=== PATIENT | female | born 1975 | race Hispanic/Latino ===

== ENCOUNTER 2018-04-13 17:32 | Emergency (ER) | payer OTHER, MEDICAID, SELFPAY ==
[2018-04-13 17:52] VITALS: BP 152/97; PULSE 78; RESP 20; TEMP 36.8; O2SAT 99
--- NOTE | 2018-04-13 17:56 | ED.LOWEXIN ---
HPI - Extremity Injury (Lower) <DAWSON Wolfe - Last Filed: 04/13/18 22:36> General Chief Complaint: Extremity Injury, Lower Stated Complaint: BACK,NECK PAIN Time Seen by Provider: 04/13/18 17:55 Source: patient Mode of arrival: ambulatory Limitations: no limitations History of Present Illness HPI Narrative: 42-year-old female here for complaint of pain into her left side of her back from her neck to her buttocks radiating into her left thigh she denies any trauma into the area. Increased pain with palpation to the left side of the back and also into the buttocks area. No falls she is ambulatory into the emergency room. She is currently using a cane to walk and a splint on her left ankle due to previous ankle sprain a couple of months ago. She denies any fevers or chills. She denies any strenuous activity. No stressors or relievers of her discomfort. She denies any loss of bladder or bowel control. Related Data Previous Rx's Medication Instructions Recorded cyclobenzaprine 10 mg PO TID PRN #12 tab 04/13/18 prednisone 40 mg PO DAILY #6 tab 04/13/18 Allergies Allergy/AdvReac Type Severity Reaction Status Date / Time No Known Drug Allergies Allergy Verified 04/13/18 19:19 Review of Systems <DAWSON Wolfe - Last Filed: 04/13/18 22:36> Constitutional Denies chills, Denies fever(s), Denies lethargy and Denies weakness Eyes Denies change in vision, Denies eye discharge, Denies irritation and Denies loss of vision ENT Ears, Nose, Mouth, and Throat: Denies change in voice, Denies neck pain and Denies sore throat Cardiovascular Denies chest pain, Denies irregular heart rhythm, Denies lightheadedness, Denies palpitations, Denies dyspnea, Denies dyspnea on exertion and Denies orthopnea Respiratory Denies cough, Denies dyspnea, Denies dyspnea on exertion and Denies wheezing Gastrointestinal Gastrointestinal: Denies abdominal pain, Denies change in bowel habits, Denies diarrhea, Denies nausea and Denies vomiting Genitourinary Denies hematuria, Denies flank pain, Denies urinary incontinence and Denies urinary urgency Musculoskeletal Reports back pain and Denies neck pain Integumentary/Breasts Denies pruritus, Denies erythema, Denies rash and Denies wounds Neurologic Denies confusion, Denies loss of vision and Denies weakness Psychiatric Denies anxiety, Denies confusion, Denies depression, Denies homicidal ideation and Denies suicidal ideation Endocrine Denies palpitations Hematologic/Lymphatic Denies easy bruising Allergic/Immunologic Denies wheezing Exam <DAWSON Wolfe - Last Filed: 04/13/18 22:36> Initial Vital Signs Initial Vital Signs: Vital Signs Temperature 98.2 F 04/13/18 17:52 Pulse Rate 78 04/13/18 17:52 Respiratory Rate 20 04/13/18 17:52 Blood Pressure 152/97 H 04/13/18 17:52 Pulse Oximetry 99 04/13/18 17:52 Const General: cooperative and well developed Nutritional Appearance: well nourished Orientation: alert, awake, oriented x3 and not confused HENMT Mouth: oral mucosae normal and moist mucous membranes Eyes Conjunctivae: conjunctivae normal Sclera: sclerae normal Pupils: PERRL EOM: EOM intact bilaterally Resp Effort & Inspection: normal respiratory effort, able to speak in complete sentences, no respiratory distress and no use of accessory muscles Auscultation: clear to auscultation bilaterally, no rales, no rhonchi and no wheezes Cardio Rate: regular rate Rhythm: regular rhythm Heart Sounds: no click, no gallops, no murmurs and no rubs Pulses: normal peripheral pulses Back/Spine/Pelvis Thoracic/Lumbar Spine: paraspinal tenderness, No thoracic spinal tenderness and No lumbar spinal tenderness Other: Tenderness to the left paraspinals of the thoracic and also the lumbar spine. Tenderness radiates down into the left buttocks and the left posterior thigh distal sensation is intact. Distal range of motion is intact. Distal pulses are intact no deformities. No midline tenderness. Skin General: no rashes or lesions noted, No jaundice and No petechiae Neuro General: alert, oriented x3, gait normal and no focal motor deficits Speech: speech normal <Chasity Logan DO - Last Filed: 04/14/18 00:20> Initial Vital Signs Initial Vital Signs: Vital Signs Temperature 98.2 F 04/13/18 17:52 Pulse Rate 78 04/13/18 17:52 Respiratory Rate 20 04/13/18 17:52 Blood Pressure 152/97 H 04/13/18 17:52 Pulse Oximetry 99 04/13/18 17:52 Course <DAWSON Wolfe - Last Filed: 04/13/18 22:36> Orders Ordered: ED Orders 04/13/18 17:55 Urine Microscopic Stat Discontinued Medications Cyclobenzaprine HCl (Flexeril) 10 mg PO NOW ONE Stop: 04/13/18 19:02 Last Admin: 04/13/18 19:19 Dose: 10 mg Ketorolac Tromethamine (Toradol) 60 mg IM NOW ONE Stop: 04/13/18 19:02 Last Admin: 04/13/18 19:19 Dose: 60 mg Prednisone (Deltasone) 40 mg PO NOW ONE Stop: 04/13/18 19:02 Last Admin: 04/13/18 19:19 Dose: 40 mg Vital Signs - 8 hr 04/13/18 17:52 04/13/18 18:13 04/13/18 18:50 Temperature 98.2 F Pulse Rate 78 67 Pulse Rate [Bilateral Dorsalis Pedis] 80 Pulse Rate [Bilateral Radial] 80 Respiratory Rate 20 16 Blood Pressure 152/97 H Blood Pressure [Left Arm] 175/90 H Pulse Oximetry 99 98 04/13/18 20:08 Temperature Pulse Rate 63 Pulse Rate [Bilateral Dorsalis Pedis] Pulse Rate [Bilateral Radial] Respiratory Rate 16 Blood Pressure Blood Pressure [Left Arm] 153/86 H Pulse Oximetry 96 <Chasity Logan DO - Last Filed: 04/14/18 00:20> Orders Ordered: ED Orders 04/13/18 17:55 Urine Microscopic Stat Discontinued Medications Cyclobenzaprine HCl (Flexeril) 10 mg PO NOW ONE Stop: 04/13/18 19:02 Last Admin: 04/13/18 19:19 Dose: 10 mg Ketorolac Tromethamine (Toradol) 60 mg IM NOW ONE Stop: 04/13/18 19:02 Last Admin: 04/13/18 19:19 Dose: 60 mg Prednisone (Deltasone) 40 mg PO NOW ONE Stop: 04/13/18 19:02 Last Admin: 04/13/18 19:19 Dose: 40 mg Vital Signs - 8 hr 04/13/18 17:52 04/13/18 18:13 04/13/18 18:50 Temperature 98.2 F Pulse Rate 78 67 Pulse Rate [Bilateral Dorsalis Pedis] 80 Pulse Rate [Bilateral Radial] 80 Respiratory Rate 20 16 Blood Pressure 152/97 H Blood Pressure [Left Arm] 175/90 H Pulse Oximetry 99 98 04/13/18 20:08 Temperature Pulse Rate 63 Pulse Rate [Bilateral Dorsalis Pedis] Pulse Rate [Bilateral Radial] Respiratory Rate 16 Blood Pressure Blood Pressure [Left Arm] 153/86 H Pulse Oximetry 96 MDM - Extremity Injury (Lower) <DAWSON Wolfe - Last Filed: 04/13/18 22:36> Lab Data Lab Results 04/13/18 Range/Units 17:55 Urine RBC 0-1/hpf (0-5/HPF) Urine WBC None seen (0-5/HPF) Ur Squamous Epith Cells 0-1 /hpf Urine Bacteria Few (2-10) H (None) Ur Culture Indicated? Cult not indicated Micro UA Comment Not Reportable MDM Narrative Medical decision making narrative: Sinus symptoms persist present as acute back strain with sciatica. She is prescribed cyclobenzaprine and short course prednisone, 1st doses given the emergency room tonight. She is instructed not to take the cyclobenzaprine in conjunction with her prescribed oxycodone. [id number] Tylenol or Motrin as needed for discomfort. Follow up with primary care provider later this week. For any worsening symptoms return emergency room. <Chasity Logan DO - Last Filed: 04/14/18 00:20> Lab Data Lab Results 04/13/18 Range/Units 17:55 Urine RBC 0-1/hpf (0-5/HPF) Urine WBC None seen (0-5/HPF) Ur Squamous Epith Cells 0-1 /hpf Urine Bacteria Few (2-10) H (None) Ur Culture Indicated? Cult not indicated Micro UA Comment Not Reportable Discharge Plan Departure Patient Disposition: Home, Self-Care Clinical Impression: Back pain Discharge Date/Time: 04/13/18 20:12 Interventions: ED Discharge Assessment Last Done: 04/13/18 20:12 Instructions: DI for Back Pain With Sciatica Activity Restrictions/Additional Instructions: Signs and symptoms presents as back strain with sciatica. You have been prescribed cyclobenzaprine a muscle relaxer use as directed for muscle spasm. Do not use a muscle relaxer in conjunction with already prescribed oxycodone. You have also been prescribed short course of prednisone for anti-inflammatory effects use as directed. [id number] Tylenol or Motrin as needed for any discomfort. Follow up with her primary care provider later this week. Return emergency room for any worsening symptoms. Prescriptions: New cyclobenzaprine 10 mg tablet 10 mg PO TID PRN (Reason: muscle spasm) Qty: 12 RF: 0 prednisone 20 mg tablet 40 mg PO DAILY Qty: 6 RF: 0 Referrals: [facility] [Provider Group] <Chasity Logan DO - Last Filed: 04/14/18 00:20> Cosign ED Attending Lisa Attestation: I was immediately available in the department for consultation. Documentation has been reviewed. I agree with assessment and plan.
[2018-04-13 18:07] LABS: WBC Urine None Seen (0-5/HPF)
[2018-04-13 18:13] VITALS: PULSE 80
[2018-04-13 18:25] LABS: Bacteria Urine Few (2-10); Culture Indicated Urine Cult Not Indicated; RBC Urine 0-1/HPF (0-5/HPF); Squamous Epithelial Cell Urine 0-1 /HPF
[2018-04-13 18:50] VITALS: BP 175/90; PULSE 67; RESP 16; O2SAT 98
[2018-04-13] MEDS: KETOROLAC 60 MG/2 ML VIAL IM (19:19)
[2018-04-13] MEDS: CYCLOBENZAPRINE 10 MG TABLET PO (19:19)
[2018-04-13] MEDS: predniSONE 20 MG TABLET 40 MG PO (19:19)
[2018-04-13 20:08] VITALS: BP 153/86; PULSE 63; RESP 16; O2SAT 96
== END 2018-04-13 20:12 | disposition home or self-care (01) ==
PROVIDERS: Emergency Provider Nurse Practitioner Family
DX: M54.9 Dorsalgia, unspecified (principal)
CPT/HCPCS: 81003; 81015; 81025; 99282; 99283; J1885

== ENCOUNTER 2018-06-16 15:20 | Emergency (ER) | payer OTHER, MEDICAID, SELFPAY ==
[2018-06-16 15:22] VITALS: BP 145/99; PULSE 96; RESP 16; TEMP 37.4; O2SAT 95
--- NOTE | 2018-06-16 15:48 | ED.UPPEXIN ---
HPI - Extremity Injury (Upper) <DAWSON Damico - Last Filed: 06/17/18 12:00> General Chief Complaint: Extremity Injury, Upper Stated Complaint: LACERATION TO RING FINGER LEFT HAND Time Seen by Provider: 06/16/18 15:48 Related Data Previous Rx's Medication Instructions Recorded cyclobenzaprine 10 mg PO TID PRN #12 tab 04/13/18 prednisone 40 mg PO DAILY #6 tab 04/13/18 Allergies Allergy/AdvReac Type Severity Reaction Status Date / Time No Known Drug Allergies Allergy Verified 06/16/18 15:21 Review of Systems <DAWSON Damico - Last Filed: 06/17/18 12:00> Constitutional Reports as per HPI and Reports system reviewed and no additional complaints, except as docu Musculoskeletal Reports as per HPI, Denies deformity, Denies limited range of motion, Denies muscle weakness and Denies numbness Integumentary/Breasts Reports wounds Neurologic Denies focal weakness and Denies numbness Exam <DAWSON Damico - Last Filed: 06/17/18 12:00> Initial Vital Signs Initial Vital Signs: Vital Signs Temperature 99.3 F 06/16/18 15:22 Pulse Rate 96 H 06/16/18 15:22 Respiratory Rate 16 06/16/18 15:22 Blood Pressure 145/99 H 06/16/18 15:22 Pulse Oximetry 95 06/16/18 15:22 Const General: cooperative, healthy appearing, comfortable and well developed Nutritional Appearance: average body habitus Orientation: alert, awake and oriented x3 Resp Effort & Inspection: normal respiratory effort and able to speak in complete sentences Back/Spine/Pelvis Cervical Spine: cervical ROM normal Thoracic/Lumbar Spine: thoraco-lumbar ROM limited Skin General: no rashes or lesions noted, elasticity normal, turgor normal and warm Trauma: no abrasions, no lacerations and other (superficial skin avulsion to tip of L hand 4th digit, with very mild active bleeding and mild tenderness) Neuro General: alert, awake and oriented x3 Cranial Nerves: CN's II-XI intact bilaterally Cognition: normal cognition Speech: speech normal Motor: muscle tone normal throughout Sensory Exam: no sensory deficits noted Psych Appearance: grossly normal and well kempt Mental Status: mental status grossly normal Speech and Movement: speech and movement normal Mood: congruent mood Affect: normal affect Attitude: cooperative Thought Process: normal Thought Content: normal Judgment: judgment good <Chasity Logan DO - Last Filed: 06/17/18 12:15> Initial Vital Signs Initial Vital Signs: Vital Signs Temperature 99.3 F 06/16/18 15:22 Pulse Rate 96 H 06/16/18 15:22 Respiratory Rate 16 06/16/18 15:22 Blood Pressure 145/99 H 06/16/18 15:22 Pulse Oximetry 95 06/16/18 15:22 Course <DAWSON Damico - Last Filed: 06/17/18 12:00> Vital Signs - 8 hr 06/16/18 15:22 06/16/18 16:53 Temperature 99.3 F Pulse Rate 96 H 98 H Respiratory Rate 16 15 Blood Pressure 145/99 H Blood Pressure [Right Arm] 136/76 Pulse Oximetry 95 100 <Chasity Logan DO - Last Filed: 06/17/18 12:15> Vital Signs - 8 hr 06/16/18 15:22 06/16/18 16:53 Temperature 99.3 F Pulse Rate 96 H 98 H Respiratory Rate 16 15 Blood Pressure 145/99 H Blood Pressure [Right Arm] 136/76 Pulse Oximetry 95 100 MDM - Extremity Injury (Upper) <DAWSON Damico - Last Filed: 06/17/18 12:00> Differential Diagnosis Differential diagnosis: Likely other (finger lac, skin avulsion, abrasion, amputation) Discharge Plan Departure Patient Disposition: Home Clinical Impression: Avulsion of skin Discharge Date/Time: 06/16/18 17:01 Interventions: ED Discharge Assessment Last Done: 06/16/18 17:01 Instructions: DI for Avulsion Laceration (Not Requiring Sutures) Prescriptions: No Action cyclobenzaprine 10 mg tablet 10 mg PO TID PRN (Reason: muscle spasm) Qty: 12 RF: 0 prednisone 20 mg tablet 40 mg PO DAILY Qty: 6 RF: 0 Referrals: Skyler Nash PA-C [Advanced Obstetrician Gynecologist] - (in approx 3 days as needed for wound recheck) Queta Robertson PA-C [Physician] - Nicki Reid ARNP [Advanced Obstetrician Gynecologist] - <DO Kai Love Last Filed: 06/17/18 12:15> Cosign ED Attending Cosignature Attestation: I was immediately available in the department for consultation. Documentation has been reviewed. I agree with assessment and plan.
--- NOTE | 2018-06-16 16:12 | ED_ITS ---
Addendum entered and electronically signed by DAWSON Damico 06/17/18 12: 01: using knife to cut some cabbage and cut the end of L ring finger, happened just captain waiter, isolated injury to finger, no other issues, R handed, happened at home, no issues moving finger, and no pain except near cut, couldn't get it to stop bleeding Original Note: HPI - Extremity Injury (Upper) <DAWSON Damico - Last Filed: 06/17/18 12:00> General Chief Complaint: Extremity Injury, Upper Stated Complaint: LACERATION TO RING FINGER LEFT HAND Time Seen by Provider: 06/16/18 15:48 Related Data Previous Rx's Medication Instructions Recorded cyclobenzaprine 10 mg PO TID PRN #12 tab 04/13/18 prednisone 40 mg PO DAILY #6 tab 04/13/18 Allergies Allergy/AdvReac Type Severity Reaction Status Date / Time No Known Drug Allergies Allergy Verified 06/16/18 15:21 Review of Systems <DAWSON Damico - Last Filed: 06/17/18 12:00> Constitutional Reports as per HPI and Reports system reviewed and no additional complaints, except as docu Musculoskeletal Reports as per HPI, Denies deformity, Denies limited range of motion, Denies muscle weakness and Denies numbness Integumentary/Breasts Reports wounds Neurologic Denies focal weakness and Denies numbness Exam <DAWSON Damico - Last Filed: 06/17/18 12:00> Initial Vital Signs Initial Vital Signs: Vital Signs Temperature 99.3 F 06/16/18 15:22 Pulse Rate 96 H 06/16/18 15:22 Respiratory Rate 16 06/16/18 15:22 Blood Pressure 145/99 H 06/16/18 15:22 Pulse Oximetry 95 06/16/18 15:22 Const General: cooperative, healthy appearing, comfortable and well developed Nutritional Appearance: average body habitus Orientation: alert, awake and oriented x3 Resp Effort & Inspection: normal respiratory effort and able to speak in complete sentences Back/Spine/Pelvis Cervical Spine: cervical ROM normal Thoracic/Lumbar Spine: thoraco-lumbar ROM limited Skin General: no rashes or lesions noted, elasticity normal, turgor normal and warm Trauma: no abrasions, no lacerations and other (superficial skin avulsion to tip of L hand 4th digit, with very mild active bleeding and mild tenderness) Neuro General: alert, awake and oriented x3 Cranial Nerves: CN's II-XI intact bilaterally Cognition: normal cognition Speech: speech normal Motor: muscle tone normal throughout Sensory Exam: no sensory deficits noted Psych Appearance: grossly normal and well kempt Mental Status: mental status grossly normal Speech and Movement: speech and movement normal Mood: congruent mood Affect: normal affect Attitude: cooperative Thought Process: normal Thought Content: normal Judgment: judgment good <Chasity Logan DO - Last Filed: 06/17/18 12:15> Initial Vital Signs Initial Vital Signs: Vital Signs Temperature 99.3 F 06/16/18 15:22 Pulse Rate 96 H 06/16/18 15:22 Respiratory Rate 16 06/16/18 15:22 Blood Pressure 145/99 H 06/16/18 15:22 Pulse Oximetry 95 06/16/18 15:22 Course <DAWSON Damico - Last Filed: 06/17/18 12:00> Vital Signs - 8 hr 06/16/18 15:22 06/16/18 16:53 Temperature 99.3 F Pulse Rate 96 H 98 H Respiratory Rate 16 15 Blood Pressure 145/99 H Blood Pressure [Right Arm] 136/76 Pulse Oximetry 95 100 <Chasity Logan DO - Last Filed: 06/17/18 12:15> Vital Signs - 8 hr 06/16/18 15:22 06/16/18 16:53 Temperature 99.3 F Pulse Rate 96 H 98 H Respiratory Rate 16 15 Blood Pressure 145/99 H Blood Pressure [Right Arm] 136/76 Pulse Oximetry 95 100 MDM - Extremity Injury (Upper) <DAWSON Damico - Last Filed: 06/17/18 12:00> Differential Diagnosis Differential diagnosis: Likely other (finger lac, skin avulsion, abrasion, amputation) Discharge Plan Departure Patient Disposition: Home Clinical Impression: Avulsion of skin Discharge Date/Time: 06/16/18 17:01 Interventions: ED Discharge Assessment Last Done: 06/16/18 17:01 Instructions: DI for Avulsion Laceration (Not Requiring Sutures) Prescriptions: No Action cyclobenzaprine 10 mg tablet 10 mg PO TID PRN (Reason: muscle spasm) Qty: 12 RF: 0 prednisone 20 mg tablet 40 mg PO DAILY Qty: 6 RF: 0 Referrals: Skyler Nash PA-C [Advanced Director Of Sustainability Programs] - (in approx 3 days as needed for wound recheck) Queta Robertson PA-C [Physician] - Nicki Reid ARNP [Advanced Director Of Sustainability Programs] - <Chasity Logan DO - Last Filed: 06/17/18 12:15> Cosign ED Attending Lisa Attestation: I was immediately available in the department for consultation. Documentation has been reviewed. I agree with assessment and plan.
[2018-06-16 16:53] VITALS: BP 136/76; PULSE 98; RESP 15; O2SAT 100
== END 2018-06-16 17:01 | disposition home or self-care (01) ==
PROVIDERS: Emergency Provider Nurse Practitioner
DX: S61.205A Unspecified open wound of left ring finger without damage to nail, initial encounter (principal); W26.0XXA Contact with knife, initial encounter
CPT/HCPCS: 99282

== ENCOUNTER 2018-07-09 10:03 | Emergency (ER) | payer OTHER, MEDICAID, SELFPAY ==
[2018-07-09 10:15] VITALS: BP 120/78; PULSE 68; RESP 20; TEMP 36.9; O2SAT 99
[2018-07-09] MEDS: HYDROCODONE/ACET 5/325 TABLET 1 TAB PO (11:53)
[2018-07-09] MEDS: LIDOCAINE/PRILOCAINE 5 GM TOP (11:54)
--- NOTE | 2018-07-18 14:18 | ED.UPPEXIN ---
HPI - Extremity Injury (Upper) General Chief Complaint: Extremity Injury, Upper Stated Complaint: cut rt index finger Time Seen by Provider: 07/09/18 11:32 Source: patient and family Mode of arrival: ambulatory Limitations: no limitations History of Present Illness HPI narrative: Patient was slicing vegetables with a knife, when she accidentally cut the tip of her right index finger off. The avulse tissue consisted mainly of skin, but involve the very corner of the nail to. Son states they have brought the finger tip with them. Patient was not injured in any other way and denies any other complaints at this time. complaint: injury to: right Onset (ago): minute(s) Other Extremity Injury: Right: fingers ( index) Other injuries: none Handedness: ambidextrous Place: home Severity: mild Severity scale (1-10): 3 Relieving factors: none Exacerbating factors: movement of extremity Context: other ( see above) Associated symptoms: denies other symptoms Treatments prior to arrival: bandage Related Data Home Medications Medication Instructions Recorded Confirmed albuterol sulfate [ProAir HFA] 07/09/18 baclofen 07/09/18 buspirone 07/09/18 duloxetine 1 cap PO DAILY 07/09/18 07/09/18 hydroxyzine HCl 1 tab PO DAILY 07/09/18 07/09/18 nabumetone 07/09/18 Allergies Allergy/AdvReac Type Severity Reaction Status Date / Time No Known Drug Allergies Allergy Verified 06/16/18 15:21 Review of Systems Review of Systems All systems reviewed & are unremarkable except as noted in HPI and below Constitutional Denies chills, Denies fever(s), Denies lethargy and Denies weakness Eyes Denies change in vision, Denies eye discharge, Denies irritation and Denies loss of vision ENT Ears, Nose, Mouth, and Throat: Denies change in voice, Denies neck pain and Denies sore throat Cardiovascular Denies chest pain, Denies irregular heart rhythm, Denies lightheadedness, Denies palpitations, Denies dyspnea, Denies dyspnea on exertion and Denies orthopnea Respiratory Denies cough, Denies dyspnea, Denies dyspnea on exertion and Denies wheezing Gastrointestinal Gastrointestinal: Denies abdominal pain, Denies change in bowel habits, Denies diarrhea, Denies nausea and Denies vomiting Genitourinary Denies hematuria, Denies flank pain, Denies urinary incontinence and Denies urinary urgency Musculoskeletal Denies neck pain Integumentary/Breasts Denies pruritus, Denies erythema, Denies rash and Reports wounds ( finger tip avulsion) Neurologic Denies confusion, Denies loss of vision and Denies weakness Psychiatric Denies anxiety, Denies confusion, Denies depression, Denies homicidal ideation and Denies suicidal ideation Endocrine Denies palpitations Hematologic/Lymphatic Denies easy bruising Allergic/Immunologic Denies wheezing [facility] Medical History Fibromyalgia (Acute) Social History Smoking Status: Never smoker Exam Initial Vital Signs Initial Vital Signs: Vital Signs Temperature 98.4 F 07/09/18 10:15 Pulse Rate 68 07/09/18 10:15 Respiratory Rate 20 07/09/18 10:15 Blood Pressure 120/78 07/09/18 10:15 Pulse Oximetry 99 07/09/18 10:15 Const General: cooperative and well developed Nutritional Appearance: well nourished Orientation: alert, awake, oriented x3 and not confused [facility] Head: normocephalic and atraumatic Ears: external ears normal Nose: external nose normal and No nasal discharge Face and sinus: face symmetric and No dry mucous membranes Mouth: moist mucous membranes Teeth and gingiva: dentition normal Eyes General: appearance normal, both eyes and all related structures Eyelids: eyelids normal Conjunctivae: conjunctivae normal Sclera: sclerae normal Pupils: PERRL EOM: EOM intact bilaterally Neck Neck: normal visual inspection, trachea midline, No lymphadenopathy, No midline deformity and No JVD Lymphatic: No lymphedema Resp Effort & Inspection: normal respiratory effort, able to speak in complete sentences, no respiratory distress and no use of accessory muscles Cardio Rate: regular rate Rhythm: regular rhythm Pulses: normal peripheral pulses Back/Spine/Pelvis Back: No CVA tenderness Cervical Spine: cervical ROM normal and No pain with cervical ROM Thoracic/Lumbar Spine: thoracic and lumbar spine normal to inspection Skin General: no rashes or lesions noted, No jaundice and No petechiae Other: Patient has a 1-1/2 cm area of skin and very superficial tissue avulsion on the radial aspect of her lateral distal-most index finger. A very tiny sliver of nail, approximately 1-2 mm in diameter in estimation, has been able stand as well. There is no tissue maceration or contamination evident. Bleeding is controlled. no deformity of the finger. Neuro General: alert, oriented x3, gait normal and no focal motor deficits Speech: speech normal Extrem General: full ROM, no clubbing, cyanosis or edema, no pedal edema and no calf tenderness Other: Wound is as noted under the skin exam; there is no deformity of the right index finger. Psych Appearance: well kempt Mental Status: mental status grossly normal Attitude: cooperative Thought Content: normal and suicidality Judgment: judgment good Course Orders Ordered: Discontinued Medications Hydrocodone Bitart/Acetaminophen ([place] 5/325) 1 tab PO NOW ONE Stop: 07/09/18 11:39 Last Admin: 07/09/18 11:53 Dose: 1 tab Lidocaine/Prilocaine (Lidocaine-Prilocaine Cream) 5 gm TOP NOW ONE Stop: 07/09/18 11:39 Last Admin: 07/09/18 11:54 Dose: 5 gm MDM - Extremity Injury (Upper) Medical Records Attestation: I reviewed the patient's medical records. [facility] [place] Narrative Medical decision making narrative: I discussed with the patient and son that there is no way to replace the finger tip, as it is mainly skin with just a small bit of tissue and has been completely dissociated from the finger. Given the small amount of tissue associated with the skin, reattachment of this avulse piece would not result in viability. I have explained to the patient and son that skin will regrow over the area and she may have a slight bit of deformity to the tip, but otherwise, her finger tip should have normal function. I do not suspect bony involvement, given the superficial nature of this injury, and the lack of blunt or torsional forces. Patient's wound has been cleansed and has been placed in a nonstick sterile dressing. Discharge Plan Departure Patient Disposition: Home Clinical Impression: Avulsion of fingertip Discharge Date/Time: 07/09/18 12:08 Interventions: ED Discharge Assessment Last Done: 07/09/18 12:00 Instructions: DI for Avulsion Laceration (Not Requiring Sutures) Prescriptions: No Action buspirone 15 mg tablet RF: 0 duloxetine 30 mg capsule,delayed release(DR/EC) 1 cap PO DAILY RF: 0 nabumetone 500 mg tablet RF: 0 baclofen 10 mg tablet RF: 0 hydroxyzine HCl 50 mg tablet 1 tab PO DAILY RF: 0 albuterol sulfate [ProAir HFA] 90 mcg/actuation HFA aerosol inhaler RF: 0 Referrals: [facility] [Provider Group]
== END 2018-07-09 12:08 | disposition home or self-care (01) ==
PROVIDERS: Emergency Provider Emergency Medicine
DX: S68.120A Partial traumatic metacarpophalangeal amputation of right index finger, initial encounter (principal); W26.0XXA Contact with knife, initial encounter
CPT/HCPCS: 36591; 99283

== ENCOUNTER → 2018-09-06 13:46 | Outpatient (CLI) | payer OTHER, MEDICAID, SELFPAY ==
--- NOTE | 2018-09-06 | DI.US.S_ITS ---
PROCEDURE: US RENAL COMPLETE INDICATIONS: RENAL CYSTS TECHNIQUE: Real-time scanning was performed of the kidneys and bladder, with image documentation. COMPARISON: None. FINDINGS: Kidneys: Kidneys are normal in size. Right kidney measures 10.4 cm long; left kidney measures 9.8 cm long. Right renal cortical thickness is 1.3 cm; left renal cortical thickness is 1.7 cm. Renal cortical echotexture is normal. No hydronephrosis or nephrolithiasis. No suspicious solid mass lesions. Bladder: Pre-void bladder volume is 166 mL. Post-void residual is 36 mL. Pre-void images demonstrate no intraluminal masses or stones. On pre-void images, neither of the ureteral jets are noted with color Doppler interrogation. (Of note, ureteral jets may not be detectable in up to 25% of cases due to insufficient differences in specific gravity between ureteral and bladder urine). Miscellaneous: No free pelvic fluid. IMPRESSION: No renal cyst sonographically identified. No hydronephrosis. Post void residual measuring 36 cc. Dictated by: Yogi Mckenzie M.D. on 09/06/2018 at 16:17 Approved by: Yogi Mckenzie M.D. on 09/06/2018 at 16:19
== END ==
PROVIDERS: Visit Provider Family Medicine
DX: N28.1 Cyst of kidney, acquired (principal)
CPT/HCPCS: 76770

== ENCOUNTER 2018-09-17 10:29 | Emergency (ER) | payer OTHER, MEDICAID, SELFPAY ==
[2018-09-17 10:40] VITALS: BP 148/76; PULSE 120; RESP 36; TEMP 36.1; O2SAT 99
[2018-09-17] MEDS: ALBUTEROL/IPRATROPIUM 3 ML AMPUL INH (11:50)
[2018-09-17 11:54] VITALS: O2SAT 100
--- NOTE | 2018-09-17 11:59 | PC.NURSE ---
1140- pt amb to room 7, RT at BS for breathing treatment that was ordered by Rochelle bed control specialist
--- NOTE | 2018-09-17 12:45 | ED.URI ---
HPI - URI/Sore Throat <DAWSON Wolfe - Last Filed: 09/17/18 21:11> General Chief Complaint: Upper Respiratory Symptoms Stated Complaint: COUGH Time Seen by Provider: 09/17/18 12:09 Source: patient Mode of arrival: ambulatory Limitations: no limitations History of Present Illness HPI Narrative: 42-year-old female with history of asthma is a nonsmoker here for complaint of asthma exacerbation and cold-like symptoms over the past 5 days. She has been using her albuterol inhaler to help with her symptoms. She states she felt like he had a fever yesterday although she did not check. Her cough has been nonproductive. She also reports having nasal congestion. She is tolerating p.o. intake in fluids well. She is ambulatory into the emergency room. MD Complaint: other Related Data Home Medications Medication Instructions Recorded Confirmed albuterol sulfate [ProAir HFA] 07/09/18 baclofen 07/09/18 buspirone 07/09/18 duloxetine 1 cap PO DAILY 07/09/18 07/09/18 hydroxyzine HCl 1 tab PO DAILY 07/09/18 07/09/18 nabumetone 07/09/18 Previous Rx's Medication Instructions Recorded prednisone 40 mg PO DAILY #8 tab 09/17/18 Allergies Allergy/AdvReac Type Severity Reaction Status Date / Time No Known Drug Allergies Allergy Verified 06/16/18 15:21 Review of Systems <DAWSON Wolfe - Last Filed: 09/17/18 21:11> Constitutional Denies chills, Reports fever(s), Denies lethargy and Denies weakness Eyes Denies change in vision, Denies eye discharge, Denies irritation and Denies loss of vision ENT Ears, Nose, Mouth, and Throat: Denies change in voice, Denies neck pain, Denies sore throat and Denies throat swelling Cardiovascular Denies chest pain, Denies irregular heart rhythm, Denies lightheadedness, Denies palpitations, Reports dyspnea and Denies orthopnea Respiratory Reports dyspnea and Denies wheezing Gastrointestinal Gastrointestinal: Denies abdominal pain, Denies change in bowel habits, Denies diarrhea, Denies nausea and Denies vomiting Genitourinary Denies hematuria, Denies flank pain, Denies urinary incontinence and Denies urinary urgency Musculoskeletal Denies neck pain Integumentary/Breasts Denies pruritus, Denies erythema, Denies rash and Denies wounds Neurologic Denies confusion, Denies loss of vision and Denies weakness Psychiatric Denies anxiety, Denies confusion, Denies depression, Denies homicidal ideation and Denies suicidal ideation Endocrine Denies palpitations Hematologic/Lymphatic Denies easy bruising Allergic/Immunologic Denies urticaria, Denies throat swelling and Denies wheezing Exam <DAWSON Wolfe - Last Filed: 09/17/18 21:11> Initial Vital Signs Initial Vital Signs: Vital Signs Temperature 97 F L 09/17/18 10:40 Pulse Rate 120 H 09/17/18 10:40 Respiratory Rate 36 H 09/17/18 10:40 Blood Pressure 148/76 H 09/17/18 10:40 Pulse Oximetry 99 09/17/18 10:40 Const General: cooperative and well developed Nutritional Appearance: well nourished Orientation: alert, awake, oriented x3 and not confused HENMT Mouth: oral mucosae normal, oropharynx normal and mucous membranes abnormal Eyes Conjunctivae: conjunctivae normal Sclera: sclerae normal Pupils: PERRL EOM: EOM intact bilaterally Resp Effort & Inspection: normal respiratory effort, able to speak in complete sentences, no respiratory distress and no use of accessory muscles Auscultation: clear to auscultation bilaterally, no rales, no rhonchi and no wheezes Cardio Rate: regular rate Rhythm: regular rhythm Heart Sounds: no click, no gallops, no murmurs and no rubs Skin General: no rashes or lesions noted, No jaundice and No petechiae Neuro General: alert, oriented x3, gait normal and no focal motor deficits Speech: speech normal <Fiona Delarosa DO - Last Filed: 09/20/18 09:39> Initial Vital Signs Initial Vital Signs: Vital Signs Temperature 97 F L 09/17/18 10:40 Pulse Rate 120 H 09/17/18 10:40 Respiratory Rate 36 H 09/17/18 10:40 Blood Pressure 148/76 H 09/17/18 10:40 Pulse Oximetry 99 09/17/18 10:40 Course <DAWSON Wolfe - Last Filed: 09/17/18 21:11> Orders Ordered: Discontinued Medications Albuterol/Ipratropium (Duoneb) 3 ml INH NOW ONE Stop: 09/17/18 11:49 Last Admin: 09/17/18 11:50 Dose: 3 ml Prednisone (Deltasone) 40 mg PO NOW ONE Stop: 09/17/18 14:03 Last Admin: 09/17/18 14:18 Dose: 40 mg Vital Signs - 8 hr 09/17/18 14:20 Temperature 99.1 F Pulse Rate 100 H Respiratory Rate 17 Blood Pressure [Right Arm] 138/76 <Fiona Delarosa DO - Last Filed: 09/20/18 09:39> Orders Ordered: Discontinued Medications Albuterol/Ipratropium (Duoneb) 3 ml INH NOW ONE Stop: 09/17/18 11:49 Last Admin: 09/17/18 11:50 Dose: 3 ml Prednisone (Deltasone) 40 mg PO NOW ONE Stop: 09/17/18 14:03 Last Admin: 09/17/18 14:18 Dose: 40 mg Vital Signs - 8 hr 09/17/18 14:20 Temperature 99.1 F Pulse Rate 100 H Respiratory Rate 17 Blood Pressure [Right Arm] 138/76 MDM - URI/Sore Throat <DAWSON Wolfe - Last Filed: 09/17/18 21:11> Lab Data Lab Results 09/17/18 Range/Units 13:00 Influenza A & B (PCR) Negative (Negative) Imaging Data Chest x-ray: Radiologist's impression: [place] [address] XRay Report Signed Patient: Vashti Tolentino MR#: [id number] : 1975 Acct:[id number] Age/Sex: 42 / F Date of Service: 09/17/18 Loc: ED Accession Number: [id number] Procedure: XR chest 2V Ordering Provider: Cristobal Moses PROCEDURE: XR CHEST 2V INDICATIONS: Cough and fever TECHNIQUE: 2 views of the chest were acquired. COMPARISON: None. FINDINGS: Surgical changes and devices: None. Lungs and pleura: No pleural effusions or pneumothorax. Lungs are clear. Mediastinum: Mediastinal contours are normal. Heart size is normal. Bones and chest wall: No suspicious bony abnormalities. Soft tissues appear unremarkable. IMPRESSION: No acute disease MDM Narrative Medical decision making narrative: Chest x-ray was obtained was negative for any acute findings. Influenza swab was obtained was negative. She was given a DuoNeb treatment in the emergency room which helped her symptoms. She states she is feeling much better right now. Respiratory rate returned to normal. She is placed on a short course of prednisone due to asthma exacerbation secondary to viral illness. Plenty of fluids and rest. Follow up with primary care provider in the next few days for re-evaluation. For any worsening symptoms return emergency room. <Fiona Delarosa DO - Last Filed: 09/20/18 09:39> Lab Data Lab Results 09/17/18 Range/Units 13:00 Influenza A & B (PCR) Negative (Negative) Discharge Plan Departure Patient Disposition: Home Clinical Impression: Upper respiratory infection, Asthma exacerbation Discharge Date/Time: 09/17/18 14:40 Interventions: ED Discharge Assessment Last Done: 09/17/18 14:40 Instructions: DI for Asthma -- Adult Activity Restrictions/Additional Instructions: Chest x-ray and influenza swab was obtained today and was negative. Signs and symptoms presents as a viral upper respiratory infection causing a asthma exacerbation. Year prescribed a short course of prednisone to help with the asthma exacerbation use as directed. Follow up with her primary care provider in the next few days for re-evaluation. For any worsening symptoms return to the emergency room. Prescriptions: New prednisone 20 mg tablet 40 mg PO DAILY Qty: 8 RF: 0 No Action buspirone 15 mg tablet RF: 0 duloxetine 30 mg capsule,delayed release(DR/EC) 1 cap PO DAILY RF: 0 nabumetone 500 mg tablet RF: 0 baclofen 10 mg tablet RF: 0 hydroxyzine HCl 50 mg tablet 1 tab PO DAILY RF: 0 albuterol sulfate [ProAir HFA] 90 mcg/actuation HFA aerosol inhaler RF: 0 Referrals: [facility] [Provider Group] <Fiona Delarosa DO - Last Filed: 09/20/18 09:39> Cosign ED Attending Cosbjature Attestation: I was immediately available in the department for consultation. This documentation has been reviewed and I agree with assessment and plan. Supervised by Fiona Delarosa DO
--- NOTE | 2018-09-17 12:54 | DI.RAD.S_ITS ---
PROCEDURE: XR CHEST 2V INDICATIONS: Cough and fever TECHNIQUE: 2 views of the chest were acquired. COMPARISON: None. FINDINGS: Surgical changes and devices: None. Lungs and pleura: No pleural effusions or pneumothorax. Lungs are clear. Mediastinum: Mediastinal contours are normal. Heart size is normal. Bones and chest wall: No suspicious bony abnormalities. Soft tissues appear unremarkable. IMPRESSION: No acute disease Dictated by: Yogi Mckenzie M.D. on 09/17/2018 at 13:22 Approved by: Yogi Mckenzie M.D. on 09/17/2018 at 13:24
[2018-09-17 12:58] VITALS: BP 132/86; PULSE 102; RESP 16; TEMP 36.4; O2SAT 99
[2018-09-17 13:22] LABS: Influenza A and B by PCR Rapid Negative (Negative)
[2018-09-17] MEDS: predniSONE 20 MG TABLET 40 MG PO (14:18)
[2018-09-17 14:20] VITALS: BP 138/76; PULSE 100; RESP 17; TEMP 37.3
== END 2018-09-17 14:40 | disposition home or self-care (01) ==
PROVIDERS: Emergency Provider Nurse Practitioner Family
DX: J06.9 Acute upper respiratory infection, unspecified (principal); J45.909 Unspecified asthma, uncomplicated
CPT/HCPCS: 71046; 87400; 94150; 94640; 99282; 99284

== ENCOUNTER 2018-09-29 17:02 | Emergency (ER) | payer OTHER, MEDICAID, SELFPAY ==
[2018-09-29 17:10] VITALS: BP 142/95; PULSE 116; RESP 20; TEMP 36.7; O2SAT 100; BMI 34.3
--- NOTE | 2018-09-29 17:11 | ED_ITS ---
HPI - Abdominal Pain <DAWSON Wolfe - Last Filed: 09/29/18 22:00> General Chief Complaint: Abdominal Pain Stated Complaint: LOWER ABDOMINAL PAIN Time Seen by Provider: 09/29/18 17:06 Source: patient Mode of arrival: ambulatory Limitations: no limitations History of Present Illness HPI narrative: 42-year-old female with history of asthma and is a nonsmoker here for complaint of pain into her umbilical area over the past 3 days. She also reports that she has had drainage from that area for the past 3 days. She denies any fevers or chills. No trauma to the area. Positive p.o. intake. No nausea vomiting. She denies any urinary symptoms. Last bowel movement was earlier today and was unremarkable. She denies any other concerns or complaints at this time. MD complaint: abdominal pain Location: periumbilical Related Data Home Medications Medication Instructions Recorded Confirmed albuterol sulfate [ProAir HFA] 07/09/18 baclofen 07/09/18 buspirone 07/09/18 duloxetine 1 cap PO DAILY 07/09/18 07/09/18 hydroxyzine HCl 1 tab PO DAILY 07/09/18 07/09/18 nabumetone 07/09/18 Previous Rx's Medication Instructions Recorded prednisone 40 mg PO DAILY #8 tab 09/17/18 cephalexin 500 mg PO QID #28 tab 09/29/18 oxycodone-acetaminophen 1 tab PO Q4-6H PRN #10 tab 09/29/18 Allergies Allergy/AdvReac Type Severity Reaction Status Date / Time No Known Drug Allergies Allergy Verified 09/29/18 17:14 Review of Systems <DAWSON Wolfe - Last Filed: 09/29/18 22:00> Constitutional Denies chills, Denies fever(s), Denies lethargy and Denies weakness Eyes Denies change in vision, Denies eye discharge, Denies irritation and Denies loss of vision ENT Ears, Nose, Mouth, and Throat: Denies change in voice, Denies neck pain and Denies sore throat Cardiovascular Denies chest pain, Denies irregular heart rhythm, Denies lightheadedness, Denies palpitations, Denies dyspnea, Denies dyspnea on exertion and Denies orthopnea Respiratory Denies cough, Denies dyspnea, Denies dyspnea on exertion and Denies wheezing Gastrointestinal Comments: Periumbilical her pain and drainage Genitourinary Denies hematuria, Denies flank pain, Denies urinary incontinence and Denies urinary urgency Musculoskeletal Denies neck pain Integumentary/Breasts Denies pruritus, Denies erythema, Denies rash and Denies wounds Neurologic Denies confusion, Denies loss of vision and Denies weakness Psychiatric Denies anxiety, Denies confusion, Denies depression, Denies homicidal ideation and Denies suicidal ideation Endocrine Denies palpitations Hematologic/Lymphatic Denies easy bruising Allergic/Immunologic Denies wheezing Exam <DAWSON Wolfe - Last Filed: 09/29/18 22:00> Initial Vital Signs Initial Vital Signs: Vital Signs Temperature 98.1 F 09/29/18 17:10 Pulse Rate 116 H 09/29/18 17:10 Respiratory Rate 20 09/29/18 17:10 Blood Pressure 142/95 H 09/29/18 17:10 Pulse Oximetry 100 09/29/18 17:10 Const General: cooperative and well developed Nutritional Appearance: well nourished Orientation: alert, awake, oriented x3 and not confused HENSD Mouth: oral mucosae normal and moist mucous membranes Eyes General: appearance normal, both eyes and all related structures Conjunctivae: conjunctivae normal Sclera: sclerae normal Pupils: PERRL EOM: EOM intact bilaterally Resp Effort & Inspection: normal respiratory effort, able to speak in complete sentences, no respiratory distress and no use of accessory muscles Auscultation: clear to auscultation bilaterally, no rales, no rhonchi and no wheezes Cardio Rate: regular rate Rhythm: regular rhythm Heart Sounds: no click, no gallops, no murmurs and no rubs Pulses: normal peripheral pulses GI Inspection: non-distended Palpation: soft, no hepatosplenomegaly, No guarding, No pulsatile mass and tender (Tenderness on palpation to the periumbilical area) Auscultation: normal bowel sounds Other: Purulent drainage expressed from the umbilicus with pressure to that area no fluctuance or induration appreciated General: No CVA tenderness Skin General: no rashes or lesions noted, No jaundice and No petechiae Neuro General: alert, oriented x3, gait normal and no focal motor deficits Speech: speech normal <Skyler Chester DO - Last Filed: 09/29/18 22:05> Initial Vital Signs Initial Vital Signs: Vital Signs Temperature 98.1 F 09/29/18 17:10 Pulse Rate 116 H 09/29/18 17:10 Respiratory Rate 20 09/29/18 17:10 Blood Pressure 142/95 H 09/29/18 17:10 Pulse Oximetry 100 09/29/18 17:10 Course <DAWSON Wolfe - Last Filed: 09/29/18 22:00> Orders Ordered: ED Orders 09/29/18 17:26 CT abdomen pelvis w con Stat 09/29/18 17:35 Urinalysis and Microscopic Stat Wound Culture and Gram Stain Stat 09/29/18 17:39 Complete Blood Count AUTO DIFF Stat Comprehensive Metabolic Panel Stat Lipase Stat Discontinued Medications Hydromorphone HCl (Dilaudid) 0.5 mg IV NOW ONE Stop: 09/29/18 20:06 Last Admin: 09/29/18 20:08 Dose: 0.5 mg Sodium Chloride (Normal Saline 0.9%) 1,000 mls @ 150 mls/hr IV CONT JULIANA Last Admin: 09/29/18 18:41 Dose: Sodium Chloride (Normal Saline 0.9%) 1,000 mls @ 1,000 mls/hr IV BOLUS ONE Stop: 09/29/18 18:42 Last Infusion: 09/29/18 19:11 Dose: 0 mls/hr Admin: 09/29/18 17:58 Dose: 1,000 mls/hr Vital Signs - 8 hr 09/29/18 17:10 09/29/18 18:31 09/29/18 20:43 Temperature 98.1 F Pulse Rate 116 H 86 79 Respiratory Rate 20 17 18 Blood Pressure 142/95 H Blood Pressure [Left Arm] 137/79 152/87 H Pulse Oximetry 100 100 100 09/29/18 20:53 Temperature Pulse Rate 81 Respiratory Rate 18 Blood Pressure 145/88 H Blood Pressure [Left Arm] Pulse Oximetry 99 <Skyler Chester DO - Last Filed: 09/29/18 22:05> Orders Ordered: ED Orders 09/29/18 17:26 CT abdomen pelvis w con Stat 09/29/18 17:35 Urinalysis and Microscopic Stat Wound Culture and Gram Stain Stat 09/29/18 17:39 Complete Blood Count AUTO DIFF Stat Comprehensive Metabolic Panel Stat Lipase Stat Discontinued Medications Hydromorphone HCl (Dilaudid) 0.5 mg IV NOW ONE Stop: 09/29/18 20:06 Last Admin: 09/29/18 20:08 Dose: 0.5 mg Sodium Chloride (Normal Saline 0.9%) 1,000 mls @ 150 mls/hr IV CONT JULIANA Last Admin: 09/29/18 18:41 Dose: Sodium Chloride (Normal Saline 0.9%) 1,000 mls @ 1,000 mls/hr IV BOLUS ONE Stop: 09/29/18 18:42 Last Infusion: 09/29/18 19:11 Dose: 0 mls/hr Admin: 09/29/18 17:58 Dose: 1,000 mls/hr Vital Signs - 8 hr 09/29/18 17:10 09/29/18 18:31 09/29/18 20:43 Temperature 98.1 F Pulse Rate 116 H 86 79 Respiratory Rate 20 17 18 Blood Pressure 142/95 H Blood Pressure [Left Arm] 137/79 152/87 H Pulse Oximetry 100 100 100 09/29/18 20:53 Temperature Pulse Rate 81 Respiratory Rate 18 Blood Pressure 145/88 H Blood Pressure [Left Arm] Pulse Oximetry 99 MDM - Abdominal Pain <DAWSON Wolfe - Last Filed: 09/29/18 22:00> Lab Data Result diagrams: 09/29/18 17:39 09/29/18 17:39 Lab Results 09/29/18 09/29/18 09/29/18 Range/Units 17:35 17:39 17:39 WBC 15.3 H (4.5-11.0) X10^3/uL RBC 4.40 (4.0-5.2) X10^6/uL Hgb 12.9 (12.0-16.0) g/dL Hct 39.2 (36-46) % MCV 89.1 (80-100) fL MCH 29.3 (26-34) PG MCHC 32.8 (30-36) % RDW 12.8 (11.6-14.8) % Plt Count 302 (150-400) X10^3/uL Neut % (Auto) 66.8 (50-75) % Lymph % (Auto) 25.6 (25-40) % Polk % (Auto) 6.1 (3-14) % Eos % (Auto) 0.5 L (2-4) % Baso % (Auto) 1.0 (0-2) % Neut # (Auto) 67512 H (3526-9122) /uL Lymph # (Auto) 3900 (8719-2445) /uL Polk # (Auto) 900 (0-900) /uL Eos # (Auto) 100 (0-450) /uL Baso # (Auto) 100 (0-100) /uL Sodium 142 (137-145) mmol/L Potassium 3.4 (3.4-5.1) mmol/L Chloride 108 H (98-107) mmol/L Carbon Dioxide 22 (22-32) mmol/L BUN 10 (7-17) mg/dL Creatinine 0.60 (0.52-1.04) mg/dL Estimated GFR > 60.0 (>60) mL/min BUN/Creatinine Ratio 16.7 (6-22) Glucose 128 H (70-100) mg/dL Calcium 9.1 (8.4-10.2) mg/dL Total Bilirubin 0.3 (0.2-1.3) mg/dL AST 21 (14-36) IU/L ALT 31 (9-52) IU/L Alkaline Phosphatase 85 (38-126) U/L Total Protein 7.3 (6.3-8.2) g/dL Albumin 4.2 (3.5-5.0) g/dL Globulin 3.1 (1.7-4.1) g/dL Albumin/Globulin Ratio 1.4 (1.0-2.8) Lipase 147 (23-300) U/L Urine Color Yellow Urine Appearance Clear Urine pH 6.5 (4.5-8.0) Ur Specific Speed 1.025 (1.000-1.035) Urine Protein Negative (Negative) Urine Glucose (UA) Negative (Negative) g/dL Urine Ketones Negative (NEGATIVE) Urine Occult Blood 2+ H (Negative) Urine Nitrate Negative (Negative) Urine Bilirubin Negative (NEGATIVE) Urine Urobilinogen 0.2 (0.2) E.U./dL Ur Leukocyte Esterase Negative (NEGATIVE) Urine RBC 1-5/hpf (0-5/HPF) Urine WBC 0-1/hpf (0-5/HPF) Ur Squamous Epith Cells 1-5 /hpf Urine Bacteria Moderate (10-30) H (None) Ur Culture Indicated? Cult not indicated Imaging Data CT scan - abdomen: Radiologist's impression: [address] [address] [address] Scan Report Signed Patient: Vashti Tolentino MR#: [id number] : 1975 Acct:[id number] Age/Sex: 42 / F Date of Service: 09/29/18 Loc: ED Accession Number: [id number] Procedure: CT abdomen pelvis w con Ordering Provider: Cristobal Moses PROCEDURE: CT ABDOMEN PELVIS W CON INDICATIONS: Umbilical pain and drainage from the umbilicus TECHNIQUE: After the administration of intravenous contrast, 5 mm thick sections acquired from the diaphragm to the symphysis. 5 mm coronal and sagittal reformats were acquired. For radiation dose reduction, the following was used: automated exposure control, adjustment of mA and/or kV according to patient size. COMPARISON: [facility], CT, CT ABDOMEN PELVIS WITH CONTRAST, 2017, 14:30. FINDINGS: Image quality: Excellent. ABDOMEN: Lung bases: 5 mm subpleural nodule is noted in lateral aspect of right lung base series 3 image 1. No pleural effusion or pneumothorax.. Heart size is normal. Solid organs: Liver is normal in size and enhancement. Gallbladder is within normal limits. Biliary system is non dilated. Pancreas enhances normally. Spleen is normal in size and enhancement. No adrenal nodules. Kidneys demonstrate normal size and enhancement, without hydronephrosis. Peritoneum and bowel: Bowel loops demonstrate normal wall thickness and caliber. No free fluid or air. Nodes and vessels: No retroperitoneal or mesenteric adenopathy by size criteria. Aorta and inferior vena cava are normal in size. Miscellaneous: A small periumbilical hernia is seen containing fat only. Mild periumbilical skin thickening is seen with ill-defined 1.4 x 2 cm fluid collection within the umbilical soft tissue. No communication with peritoneal space is seen. PELVIS: Genitourinary: Bladder wall thickness is normal. Miscellaneous: No inguinal hernias or adenopathy. Bones: No suspicious bony lesions. No vertebral body compression fractures. IMPRESSION: 1. Periumbilical skin thickening with 1.4 x 2 cm small fluid collection within periumbilical soft tissue and is suggestive of cellulitis early abscess collection cannot be excluded. 2. Small periumbilical hernia containing fat only. No peritoneal free fluid or free air. No bowel obstruction. Normal appendix. 3. Incidentally noted of a 5 mm subpleural nodule in lateral aspect of right lung base. Followup CT of chest in 6-12 months can be done for evaluation of stability. Dictated by: Thompson Peraza M.D. on 09/29/2018 at 18:46 Approved by: Thompson Peraza M.D. on 09/29/2018 at 18:54 [facility] Narrative Medical decision making narrative: CT scan of the abdomen was obtained and shows a collection of fluid to the umbilicus area approximately 2 cm in diameter that appears to be a abscess. Was able to express some purulent drainage with direct pressure to the umbilicus area. CBC shows elevated white count otherwise unremarkable. Chem panel is on remarkable. Discussed case with Dr. Edouard surgery head recommend follow-up in the surgery clinic later this week. She is placed on Keflex antibiotic. [id number] ibuprofen as needed for any discomfort. Small amount of Bethel is prescribed for breakthrough pain. For any worsening symptoms return to the emergency room. <Skyler Chester, - Last Filed: 09/29/18 22:05> Lab Data Lab Results 09/29/18 09/29/18 09/29/18 Range/Units 17:35 17:39 17:39 WBC 15.3 H (4.5-11.0) X10^3/uL RBC 4.40 (4.0-5.2) X10^6/uL Hgb 12.9 (12.0-16.0) g/dL Hct 39.2 (36-46) % MCV 89.1 (80-100) fL MCH 29.3 (26-34) PG MCHC 32.8 (30-36) % RDW 12.8 (11.6-14.8) % Plt Count 302 (150-400) X10^3/uL Neut % (Auto) 66.8 (50-75) % Lymph % (Auto) 25.6 (25-40) % Polk % (Auto) 6.1 (3-14) % Eos % (Auto) 0.5 L (2-4) % Baso % (Auto) 1.0 (0-2) % Neut # (Auto) 42677 H (1894-5455) /uL Lymph # (Auto) 3900 (1466-0699) /uL Polk # (Auto) 900 (0-900) /uL Eos # (Auto) 100 (0-450) /uL Baso # (Auto) 100 (0-100) /uL Sodium 142 (137-145) mmol/L Potassium 3.4 (3.4-5.1) mmol/L Chloride 108 H (98-107) mmol/L Carbon Dioxide 22 (22-32) mmol/L BUN 10 (7-17) mg/dL Creatinine 0.60 (0.52-1.04) mg/dL Estimated GFR > 60.0 (>60) mL/min BUN/Creatinine Ratio 16.7 (6-22) Glucose 128 H (70-100) mg/dL Calcium 9.1 (8.4-10.2) mg/dL Total Bilirubin 0.3 (0.2-1.3) mg/dL AST 21 (14-36) IU/L ALT 31 (9-52) IU/L Alkaline Phosphatase 85 (38-126) U/L Total Protein 7.3 (6.3-8.2) g/dL Albumin 4.2 (3.5-5.0) g/dL Globulin 3.1 (1.7-4.1) g/dL Albumin/Globulin Ratio 1.4 (1.0-2.8) Lipase 147 (23-300) U/L Urine Color Yellow Urine Appearance Clear Urine pH 6.5 (4.5-8.0) Ur Specific Speed 1.025 (1.000-1.035) Urine Protein Negative (Negative) Urine Glucose (UA) Negative (Negative) g/dL Urine Ketones Negative (NEGATIVE) Urine Occult Blood 2+ H (Negative) Urine Nitrate Negative (Negative) Urine Bilirubin Negative (NEGATIVE) Urine Urobilinogen 0.2 (0.2) E.U./dL Ur Leukocyte Esterase Negative (NEGATIVE) Urine RBC 1-5/hpf (0-5/HPF) Urine WBC 0-1/hpf (0-5/HPF) Ur Squamous Epith Cells 1-5 /hpf Urine Bacteria Moderate (10-30) H (None) Ur Culture Indicated? Cult not indicated Discharge Plan Departure Patient Disposition: Home Clinical Impression: Abscess of umbilicus Discharge Date/Time: 09/29/18 20:54 Interventions: ED Discharge Assessment Last Done: 09/29/18 20:53 Instructions: DI for Skin Abscess Activity Restrictions/Additional Instructions: CT shows that there is a small fluid collection called an abscess to your belly button area. You are placed on antibiotic called cephalexin use as directed. Use [id number] Tylenol or Motrin as needed for any discomfort. Small amount of Bethel is prescribed for breakthrough pain no driving while on the Bethel. Call surgery office tomorrow to schedule follow-up appointment here in the next few days. For any worsening symptoms return to the emergency room. Prescriptions: New oxycodone-acetaminophen 5-325 mg tablet 1 tab PO Q4-6H PRN (Reason: pain) Qty: 10 RF: 0 cephalexin 500 mg tablet 500 mg PO QID Qty: 28 RF: 0 No Action buspirone 15 mg tablet RF: 0 duloxetine 30 mg capsule,delayed release(DR/EC) 1 cap PO DAILY RF: 0 nabumetone 500 mg tablet RF: 0 baclofen 10 mg tablet RF: 0 hydroxyzine HCl 50 mg tablet 1 tab PO DAILY RF: 0 albuterol sulfate [ProAir HFA] 90 mcg/actuation HFA aerosol inhaler RF: 0 prednisone 20 mg tablet 40 mg PO DAILY Qty: 8 RF: 0 Referrals: Janie Edouard MD [Physician] - Stand Alone Forms: School Release Note <Skyler Chester DO - Last Filed: 09/29/18 22:05> [facility] ED Attending Lisa Attestation: I was available for consultation during this patient's emergency department encounter
--- NOTE | 2018-09-29 17:26 | DI.CT.S_ITS ---
PROCEDURE: CT ABDOMEN PELVIS W CON INDICATIONS: Umbilical pain and drainage from the umbilicus TECHNIQUE: After the administration of intravenous contrast, 5 mm thick sections acquired from the diaphragm to the symphysis. 5 mm coronal and sagittal reformats were acquired. For radiation dose reduction, the following was used: automated exposure control, adjustment of mA and/or kV according to patient size. COMPARISON: [facility], CT, CT ABDOMEN PELVIS WITH CONTRAST, 11/29/2017, 14:30. FINDINGS: Image quality: Excellent. ABDOMEN: Lung bases: 5 mm subpleural nodule is noted in lateral aspect of right lung base series 3 image 1. No pleural effusion or pneumothorax.. Heart size is normal. Solid organs: Liver is normal in size and enhancement. Gallbladder is within normal limits. Biliary system is non dilated. Pancreas enhances normally. Spleen is normal in size and enhancement. No adrenal nodules. Kidneys demonstrate normal size and enhancement, without hydronephrosis. Peritoneum and bowel: Bowel loops demonstrate normal wall thickness and caliber. No free fluid or air. Nodes and vessels: No retroperitoneal or mesenteric adenopathy by size criteria. Aorta and inferior vena cava are normal in size. Miscellaneous: A small periumbilical hernia is seen containing fat only. Mild periumbilical skin thickening is seen with ill-defined 1.4 x 2 cm fluid collection within the umbilical soft tissue. No communication with peritoneal space is seen. PELVIS: Genitourinary: Bladder wall thickness is normal. Miscellaneous: No inguinal hernias or adenopathy. Bones: No suspicious bony lesions. No vertebral body compression fractures. IMPRESSION: 1. Periumbilical skin thickening with 1.4 x 2 cm small fluid collection within periumbilical soft tissue and is suggestive of cellulitis early abscess collection cannot be excluded. 2. Small periumbilical hernia containing fat only. No peritoneal free fluid or free air. No bowel obstruction. Normal appendix. 3. Incidentally noted of a 5 mm subpleural nodule in lateral aspect of right lung base. Followup CT of chest in 6-12 months can be done for evaluation of stability. Dictated by: Thompson Peraza M.D. on 09/29/2018 at 18:46 Approved by: Thompson Peraza M.D. on 09/29/2018 at 18:54
[2018-09-29 17:50] LABS: Add Manual Diff / Slide Review NO; Basophils Absolute Auto 100 /uL (0-100); Eosinophils Absolute Auto 100 /uL (0-450); Eosinophils Percent Auto 0.5 % (2-4); Hematocrit 39.2 % (36-46); Hemoglobin 12.9 g/dL (12.0-16.0); Lymphocytes Absolute Auto 3900 /uL (1100-4500); Lymphocytes Percent Auto 25.6 % (25-40); Mean Corpuscular HGB Conc 32.8 % (30-36); Mean Corpuscular Hemoglobin 29.3 PG (26-34); Mean Corpuscular Volume 89.1 fL (80-100); Monocytes Absolute Auto 900 /uL (0-900); Monocytes Percent Auto 6.1 % (3-14); Neutrophils Absolute Auto 10200 /uL (1500-7000); Neutrophils Percent Auto 66.8 % (50-75); Platelet Count 302 X10^3/uL (150-400); Red Cell Distribution Width 12.8 % (11.6-14.8); White Blood Cell Count 15.3 X10^3/uL (4.5-11.0)
[2018-09-29 17:51] LABS: Appearance Urine UA CLEAR; Bilirubin Urine UA NEGATIVE (NEGATIVE); Color Urine UA YELLOW; Glucose Urine UA NEGATIVE (Negative); Ketones Urine UA NEGATIVE (NEGATIVE); Leukocyte Esterase Urine UA NEGATIVE (NEGATIVE); Nitrite Urine UA NEGATIVE (Negative); Occult Blood Urine UA 2+ (Negative); Protein Urine UA NEGATIVE (Negative); Specific Gravity Urine UA 1.025 (1.000-1.035); Urobilinogen Urine UA 0.2 E.U./dL (0.2); pH Urine UA 6.5 (4.5-8.0)
[2018-09-29] MEDS: SODIUM CHLORIDE 0.9% 1,000 ML 1000 ML IV (17:58)
[2018-09-29 17:59] LABS: Alanine Aminotransferase 31 IU/L (9-52); Albumin 4.2 g/dL (3.5-5.0); Albumin Globulin Ratio 1.4 (1.0-2.8); Alkaline Phosphatase 85 U/L (38-126); Aspartate Aminotransferase 21 IU/L (14-36); BUN Creatinine Ratio 16.7 (6-22); Bilirubin Total 0.3 mg/dL (0.2-1.3); Blood Urea Nitrogen 10 mg/dL (7-17); Calcium 9.1 mg/dL (8.4-10.2); Carbon Dioxide 22 mmol/L (22-32); Chloride 108 mmol/L (98-107); Estimated Glomerular Filt Rate > 60.0 mL/min (>60); Globulin 3.1 g/dL (1.7-4.1); Glucose 128 mg/dL (70-100); HEMOLYSIS < 15 (0-50); Lipase 147 U/L (23-300); Potassium 3.4 mmol/L (3.4-5.1); Sodium 142 mmol/L (137-145); Total Protein 7.3 g/dL (6.3-8.2)
[2018-09-29 18:02] LABS: Bacteria Urine Moderate (10-30); Culture Indicated Urine Cult Not Indicated; RBC Urine 1-5/HPF (0-5/HPF); Squamous Epithelial Cell Urine 1-5 /HPF; WBC Urine 0-1/HPF (0-5/HPF)
[2018-09-29 18:31] VITALS: BP 137/79; PULSE 86; RESP 17; O2SAT 100
--- NOTE | 2018-09-29 19:56 | PC.NURSE ---
pt requesting pain medication, provider notified
[2018-09-29] MEDS: HYDROMORPHONE 1 MG INJ 0.5 MG IV (20:08)
[2018-09-29 20:43] VITALS: BP 152/87; PULSE 79; RESP 18; O2SAT 100
[2018-09-29 20:53] VITALS: BP 145/88; PULSE 81; RESP 18; O2SAT 99
== END 2018-09-29 20:54 | disposition home or self-care (01) ==
PROVIDERS: Emergency Provider Nurse Practitioner Family
DX: L02.216 Cutaneous abscess of umbilicus (principal)
CPT/HCPCS: 36591; 74177; 80053; 81001; 83690; 85025; 87070; 87075; 87205; 96361; 96374; 99283; 99285; J1170; Q9967

== ENCOUNTER → 2018-10-07 09:51 | Outpatient (CLI) | payer OTHER, MEDICAID, SELFPAY | PROVIDERS: Visit Provider Surgery | DX: L02.216 Cutaneous abscess of umbilicus (principal) ==

== ENCOUNTER → 2018-10-07 10:04 | Outpatient (CLI) | payer OTHER, MEDICAID, SELFPAY ==
[2018-10-07 10:09] LABS: Bacteria Urine None Seen; WBC Urine None Seen (0-5/HPF)
[2018-10-07 10:47] LABS: Hematocrit 40.1 % (36-46); Hemoglobin 13.5 g/dL (12.0-16.0); Mean Corpuscular HGB Conc 33.6 % (30-36); Mean Corpuscular Hemoglobin 29.7 PG (26-34); Mean Corpuscular Volume 88.3 fL (80-100); Platelet Count 332 X10^3/uL (150-400); Red Blood Cell Count 4.54 X10^6/uL (4.0-5.2); Red Cell Distribution Width 13.1 % (11.6-14.8); White Blood Cell Count 8.7 X10^3/uL (4.5-11.0)
[2018-10-07 11:01] LABS: Appearance Urine UA CLEAR; Bilirubin Urine UA NEGATIVE (NEGATIVE); Color Urine UA YELLOW; Glucose Urine UA NEGATIVE (Negative); Ketones Urine UA NEGATIVE (NEGATIVE); Leukocyte Esterase Urine UA NEGATIVE (NEGATIVE); Nitrite Urine UA NEGATIVE (Negative); Occult Blood Urine UA 1+ (Negative); Protein Urine UA NEGATIVE (Negative); Specific Gravity Urine UA 1.025 (1.000-1.035); Urobilinogen Urine UA 0.2 E.U./dL (0.2)
[2018-10-07 11:07] LABS: Culture Indicated Urine Cult Not Indicated; RBC Urine 1-5/HPF (0-5/HPF)
[2018-10-07 11:10] LABS: BUN Creatinine Ratio 11.7 (6-22); Blood Urea Nitrogen 7 mg/dL (7-17); Calcium 9.8 mg/dL (8.4-10.2); Carbon Dioxide 27 mmol/L (22-32); Chloride 106 mmol/L (98-107); Estimated Glomerular Filt Rate > 60.0 mL/min (>60); Glucose 93 mg/dL (70-100); HEMOLYSIS < 15 (0-50); Potassium 4.3 mmol/L (3.4-5.1); Sodium 142 mmol/L (137-145)
[2018-10-07 11:41] LABS: Neutrophils Absolute Manual 4959 /uL (3000-5900); Total Cells Counted 100
[2018-10-07 11:42] LABS: RBC Morphology Norm
== END ==
PROVIDERS: PCP Surgery; Visit Provider Surgery
DX: L02.216 Cutaneous abscess of umbilicus (principal)
CPT/HCPCS: 36415; 80048; 81001; 85025

== ENCOUNTER 2018-10-16 11:18 | Day surgery (SDC) | payer OTHER, MEDICAID, SELFPAY ==
[2018-10-09 13:11] VITALS: BMI 33.6
[2018-10-16] VITALS (7 sets, daily range): BP systolic 101–144; BP diastolic 70–90; PULSE 69–84; RESP 13–16; TEMP 36.3–36.7; O2SAT 94–100; BMI 33.5
[2018-10-16] MEDS: LACTATED RINGERS 1,000 ML 42 ML IV (11:50)
--- NOTE | 2018-10-16 12:33 | PM.PREOP ---
Pre-operative Note Interval Note History & Physical reviewed/Exam performed by Physician: Yes Changes to H&P: No
--- NOTE | 2018-10-16 12:39 | SUR.OPER ---
Supine on padded OR bed, head on pillow, arms secured on padded arm boards at <90 degrees abduction, legs uncrossed, safety belt at thigh, tape over blanket over lower legs.
[2018-10-16] MEDS: CEFAZOLIN 2 GM/100 ML FROZ.PIGGY IV (12:45)
[2018-10-16] MEDS: LIDOCAINE 1% W/EPI INJ 20 ML INJ (12:50)
[2018-10-16] MEDS: BUPIVACAINE 0.5% (PF) VIAL 30 ML INJ (12:52)
--- NOTE | 2018-10-16 12:53 | PM.OP.1 ---
Operative Date/Time/Diagnoses Date of procedure: 10/16/18 Time of procedure: 12:53 Post-op diagnosis: same Procedure & Clinicians Procedure: Wound exploration with culture and drainage of abscess Same procedure as scheduled: Yes Indications: Recurrent umbilical abscess Surgeon: Janie Edouard Anesthesia Type: General (Dr. Daniel) and Local Operative Notes Findings: 2-1/2 by 2-1/2 cm abscess cavity. No detectable connection with the peritoneal cavity. Closure Type: not applicable Specimen(s): none sent (Wound cultures) Procedure in detail: After obtaining informed consent, the patient brought the operating room placed in the supine position on the operating table. Following successful induction of general endotracheal anesthesia, appropriate padding of all bony prominences, and placement of appropriate monitors, the abdomen is prepped and draped in the standard surgical fashion. A time-out was held per SCOAP protocol. Following infiltration with local anesthetic create a field block, the umbilicus was explored with a cotton tip applicator and forceps. What we found was a 2 and half by 2-1/2 cm cavity containing somewhat foul-smelling cloudy fluid. This was cultured. The cavity was then opened and all septations broken down. The umbilical skin was opened slightly to allow better access to the cavity. The cavity was then irrigated copiously with warm saline solution and packed with 1 in iodoform gauze. All sponge, needle, and instrument counts were correct at the conclusion of the case. The patient was allowed awaken from anesthesia without significant difficulty and taken to the postanesthesia care unit in good condition. Complications: none Condition: stable Disposition: PACU Plan for aftercare: 1. Discharge to home 2. Follow-up on Sunday for dressing change
--- NOTE | 2018-10-16 12:53 | SUR.OPER ---
ANCEF GIVEN AFTER CULTURES TAKEN
--- NOTE | 2018-10-16 13:45 | SUR.PHASEII ---
PT ARRIVED TO PHASE II VIA STRETCHER. PT SITTING UP AND REPORT RECEIVED FROM MERCEDEZ HUTSON. PT REQUESTING TO USE THE BATHROOM. DRSG TO SURGICAL SITE C/D/I. PT ARRIVED TO PHASE II AT 1315. PT DENIED PAIN AT THAT TIME. PT AMBULATED TO RESTROOM WITH SBA WITHOUT ANY DIFFICULTLY OBSERVED. PT DENIED ANY NAUSEA. PT FAMILY BROUGHT TO BEDSIDE. BED IN LOWEST POSITION AND CALL LIGHT GIVEN TO PT.
[2018-10-16] MEDS: OXYCODONE/ACETAMINOPHEN 5/325 TABLET 1 TAB PO (13:53)
== END 2018-10-16 14:20 | disposition home or self-care (01) ==
PROVIDERS: Visit Provider Surgery
PROC: (CPT 10060; principal; 2018-10-16 12:45)
DX: L02.216 Cutaneous abscess of umbilicus (principal); J45.909 Unspecified asthma, uncomplicated; R03.0 Elevated blood-pressure reading, without diagnosis of hypertension; M79.7 Fibromyalgia
CPT/HCPCS: 10060; 87070; 87075; 87205; J0690; J2405; J2704; J3010

== ENCOUNTER 2019-02-07 20:52 | Observation (INO) | payer OTHER, MEDICAID, SELFPAY ==
[2019-02-07 20:57] VITALS: BP 181/126; PULSE 84; RESP 20; TEMP 36.7; O2SAT 99; BMI 33.5
--- NOTE | 2019-02-07 21:24 | DI.CT.S_ITS ---
PROCEDURE: CT HEAD/BRAIN WO CON INDICATIONS: headache, left facial numbness, htn TECHNIQUE: Noncontrast 4.5 mm thick angled axial sections acquired from the foramen magnum to the vertex, with coronal and sagittal reformats. For radiation dose reduction, the following was used: automated exposure control, adjustment of mA and/or kV according to patient size. COMPARISON: [facility], CT, BRAIN W/O CONTRAST, 10/14/2008, 17:50. FINDINGS: Image quality: Excellent. CSF spaces: Basal cisterns are patent. No extra-axial fluid collections. Ventricles are normal in size and shape. Brain: No midline shift. No intracranial masses or hemorrhage. Vazquez-white matter interface is normal. Skull and face: Calvarium and visualized facial bones are intact, without suspicious lesions. Sinuses: Visualized sinuses and mastoids are clear. IMPRESSION: No acute intracranial abnormality. Dictated by: Kristyn Smith M.D. on 02/07/2019 at 21:51 Approved by: Kristyn Smith M.D. on 02/07/2019 at 21:51
--- NOTE | 2019-02-07 21:45 | DI.RAD.S_ITS ---
PROCEDURE: XR CHEST 1V INDICATIONS: chest pain TECHNIQUE: One view of the chest was acquired. COMPARISON: [facility], CT, CT HEAD/BRAIN WO CON, 02/07/2019, 21:32. [facility], CR, XR CHEST 2V, 09/17/2018, 12:59. FINDINGS: Surgical changes and devices: None. Lungs and pleura: Lungs are clear. No pleural effusions or pneumothorax. Mediastinum: The cardiac contours are within normal limits. The aorta demonstrates calcification and tortuosity. Bones and chest wall: No suspicious bony lesions. Overlying soft tissues appear unremarkable. IMPRESSION: Portable chest within normal limits. Note: No significant discrepancy from the preliminary report. Dictated by: Noe Clement M.D. on 02/08/2019 at 8:33 Approved by: Noe Clement M.D. on 02/08/2019 at 8:34
[2019-02-07 22:15] LABS: Add Manual Diff / Slide Review NO; Basophils Absolute Auto 100 /uL (0-100); Eosinophils Absolute Auto 100 /uL (0-450); Hematocrit 39.3 % (36-46); Hemoglobin 13.2 g/dL (12.0-16.0); Lymphocytes Absolute Auto 3700 /uL (1100-4500); Lymphocytes Percent Auto 32.6 % (25-40); Mean Corpuscular HGB Conc 33.5 % (30-36); Mean Corpuscular Hemoglobin 29.6 PG (26-34); Mean Corpuscular Volume 88.4 fL (80-100); Monocytes Absolute Auto 800 /uL (0-900); Monocytes Percent Auto 7.1 % (3-14); Neutrophils Absolute Auto 6700 /uL (1500-7000); Neutrophils Percent Auto 58.3 % (50-75); Platelet Count 311 X10^3/uL (150-400); Red Blood Cell Count 4.44 X10^6/uL (4.0-5.2); Red Cell Distribution Width 12.9 % (11.6-14.8); White Blood Cell Count 11.5 X10^3/uL (4.5-11.0)
--- NOTE | 2019-02-07 22:17 | ED.HA ---
HPI - Headache General Chief Complaint: Headache Stated Complaint: HEADACHE NUMBNESS OF FACE NAUSEA LEFT ARM NUMBNESS Time Seen by Provider: 02/07/19 21:26 Source: patient and family Mode of arrival: ambulatory Limitations: no limitations History of Present Illness HPI Narrative: 43-year-old female nonsmoker with history of untreated hypertension and fibromyalgia presents with family in the chief complaint a severe headache with left-sided facial numbness, left arm numbness, left leg numbness and weakness which has been present for about 5 days. She states she has had episodes of this numbness and tingling off and on for the past few months it does not seem like pain as a typical part of her presentation. She denies any injury. She has had no fever or chills. She denies any blurred vision. On arrival her blood pressure is quite high MD Complaint: headache Onset (ago): day(s) Onset description: gradual Location: diffuse Severity: moderate Quality: aching and throbbing Relieving factors: nothing Exacerbating factors: exertion Associated symptoms: lightheadedness Other symptoms: other Treatments prior to arrival: none Related Data Home Medications Medication Instructions Recorded Confirmed albuterol sulfate [ProAir HFA] 1 - 2 puff INHALATION Q4-6H PRN 07/09/18 11/12/18 baclofen 10 mg PO BID 07/09/18 11/12/18 buspirone 1 tab PO BID 07/09/18 11/12/18 duloxetine 1 cap PO DAILY 07/09/18 11/12/18 hydroxyzine HCl 1 tab PO DAILY 07/09/18 11/12/18 nabumetone 1 tab PO BID 07/09/18 11/12/18 amitriptyline 10 mg tablet 10 mg PO DAILY 10/07/18 11/12/18 cyclobenzaprine 5 mg tablet 5 mg PO DAILY PRN tab 10/07/18 11/12/18 cephalexin 500 mg PO DAILY 10/16/18 11/04/18 Previous Rx's Medication Instructions Recorded oxycodone-acetaminophen 5 mg-325 1 tab PO Q4-6H PRN #30 tab 10/07/18 mg tablet oxycodone-acetaminophen [Percocet] 1 tab PO Q4-6H PRN #20 tab 10/16/18 Allergies Allergy/AdvReac Type Severity Reaction Status Date / Time No Known Drug Allergies Allergy Verified 11/12/18 13:09 Review of Systems Constitutional Denies chills, Denies fever(s), Reports headache(s), Denies lethargy and Denies weakness Eyes Denies change in vision, Denies eye discharge, Denies irritation and Denies loss of vision ENT Ears, Nose, Mouth, and Throat: Denies change in voice, Reports headache(s), Denies neck pain and Denies sore throat Cardiovascular Denies chest pain, Denies irregular heart rhythm, Denies lightheadedness, Denies palpitations, Denies dyspnea, Denies dyspnea on exertion and Denies orthopnea Respiratory Denies cough, Denies dyspnea, Denies dyspnea on exertion and Denies wheezing Gastrointestinal Gastrointestinal: Denies abdominal pain, Denies change in bowel habits, Denies diarrhea, Denies nausea and Denies vomiting Genitourinary Denies hematuria, Denies flank pain, Denies urinary incontinence and Denies urinary urgency Musculoskeletal Denies neck pain and Reports numbness Integumentary/Breasts Denies pruritus, Denies erythema, Denies rash and Denies wounds Neurologic Denies confusion, Reports headache(s), Denies loss of vision, Reports numbness, Reports sensory deficit and Denies weakness Psychiatric Denies anxiety, Denies confusion, Denies depression, Denies homicidal ideation and Denies suicidal ideation Endocrine Denies palpitations Hematologic/Lymphatic Denies easy bruising Allergic/Immunologic Denies wheezing [facility] Medical History H/O: hysterectomy (Acute) Asthma (Acute) Elevated BP without diagnosis of hypertension (Acute) Fibromyalgia (Acute) Family History Brother Hypertension Diabetes mellitus Grandmother Diabetes mellitus Social History household members: children Smoking Status: Never smoker alcohol intake: current Family History Brother Hypertension Diabetes mellitus Grandmother Diabetes mellitus Social History household members: children Smoking Status: Never smoker alcohol intake: current Exam Narrative Exam Narrative: GENERAL: 43-year-old female appears younger than stated age, obviously uncomfortable and resting in a dark with a towel covering her eyes HEAD: Atraumatic. Normocephalic. No temporal or scalp tenderness. EYES: Pupils equal round and reactive. Extraocular motions intact. No scleral icterus. No injection or drainage. ENT: Nose without bleeding, purulent drainage or septal hematoma. Throat without erythema, tonsillar hypertrophy or exudate. Uvula midline. Airway patent. NECK: Trachea midline. No JVD or lymphadenopathy. Supple, nontender, no meningeal signs. CARDIOVASCULAR: Regular rate and rhythm without murmurs, gallops, or rubs. RESPIRATORY: Clear to auscultation. Breath sounds equal bilaterally. No wheezes, rales, or rhonchi. GASTROINTESTINAL: Abdomen soft, non-tender, nondistended. No hepato-splenomegaly, or palpable masses. No guarding. EXTREMITIES: No clubbing, cyanosis, or edema. No joint tenderness, effusion, or edema noted. BACK: Nontender without deformity or crepitance. No flank tenderness. NEURO: AOx3. SKIN: No rash or erythema. Initial Vital Signs Initial Vital Signs: Vital Signs Temperature 98.1 F 02/07/19 20:57 Pulse Rate 84 02/07/19 20:57 Respiratory Rate 20 02/07/19 20:57 Blood Pressure 181/126 H 02/07/19 20:57 Pulse Oximetry 99 02/07/19 20:57 Scores NIH Stroke Scale Level of Conciousness: Alert, keenly responsive Ask month/age: Answers both questions correctly. Open/close eyes, close hand: Performs both tasks correctly Best gaze horizontal: Normal Visual haley: No visual loss Facial palsy: Normal symetrical movement Left arm drift: No drift for full 10 sec Right arm drift: No drift for full 10 sec Left leg drift: Drifts down, not to bed Right leg drift: No drift for full 10 sec Limb ataxia: Absent Sensory on face/arms/legs: Mild to moderate sensory loss, can tell touch Best language: No aphasia, normal Dysarthria: Normal Extinction or inattention: No abnormality Total NIH Stroke scale score: 2 Course Orders Ordered: ED Orders 02/07/19 21:24 CT head/brain wo con Stat 02/07/19 21:45 XR chest 1V Stat EKG-12 Lead Stat 02/07/19 22:12 Complete Blood Count AUTO DIFF Stat Comprehensive Metabolic Panel Stat Lipase Stat Partial Thromboplastin Time Stat Prothrombin Time INR Stat Troponin & CK Cardiac Panel Stat Discontinued Medications Aspirin (Aspirin) 325 mg PO NOW ONE Stop: 02/07/19 22:29 Last Admin: 02/07/19 22:43 Dose: 325 mg Ketorolac Tromethamine (Toradol) 15 mg IV NOW ONE Stop: 02/07/19 22:29 Last Admin: 02/07/19 22:43 Dose: 15 mg Reevaluation(s) Reevaluation #1: Patient has complete resolution headache after the Toradol and blood pressure is down to the 130s. This would make neurologic symptoms as a consequence atypical migraine and/or hypertensive emergency in much less likely. Consultations Consultation #1: call to Stroke Neurologist at [facility] to discuss case. Given ongoing numbness and weakness of face and extremities in the setting of improved pain and BP, patient meets criteria for stroke admission. Consultation #2: hospitalist happy to accept Vital Signs - 8 hr 02/07/19 20:57 02/07/19 22:36 02/07/19 23:11 Temperature 98.1 F Pulse Rate 84 77 69 Respiratory Rate 20 18 23 Blood Pressure 181/126 H Blood Pressure [Right Arm] 172/101 H 171/93 H Pulse Oximetry 99 100 99 02/08/19 00:00 Temperature Pulse Rate 72 Respiratory Rate 24 Blood Pressure Blood Pressure [Right Arm] 155/98 H Pulse Oximetry 99 MDM - Headache Differential Diagnosis Differential diagnosis: Likely migraine and tension headache Medical Records Attestation: I reviewed the patient's medical records. Lab Data Attestation: I reviewed the patient's lab results. Result diagrams: 02/07/19 22:12 02/07/19 22:12 Lab Results 02/07/19 02/07/19 02/07/19 Range/Units 22:12 22:12 22:12 WBC 11.5 H (4.5-11.0) X10^3/uL RBC 4.44 (4.0-5.2) X10^6/uL Hgb 13.2 (12.0-16.0) g/dL Hct 39.3 (36-46) % MCV 88.4 (80-100) fL MCH 29.6 (26-34) PG MCHC 33.5 (30-36) % RDW 12.9 (11.6-14.8) % Plt Count 311 (150-400) X10^3/uL Neut % (Auto) 58.3 (50-75) % Lymph % (Auto) 32.6 (25-40) % [place] % (Auto) 7.1 (3-14) % Eos % (Auto) 1.0 L (2-4) % Baso % (Auto) 1.0 (0-2) % Neut # (Auto) 6700 (7555-0277) /uL Lymph # (Auto) 3700 (8564-1469) /uL [place] # (Auto) 800 (0-900) /uL Eos # (Auto) 100 (0-450) /uL Baso # (Auto) 100 (0-100) /uL PT 11.1 (10.1-12.7) SECONDS INR 1.0 (0.9-1.3) APTT 32 (26.4-36.2) SECONDS Sodium 139 (137-145) mmol/L Potassium 3.5 (3.4-5.1) mmol/L Chloride 106 (98-107) mmol/L Carbon Dioxide 25 (22-32) mmol/L BUN 7 (7-17) mg/dL Creatinine 0.60 (0.52-1.04) mg/dL Estimated GFR > 60.0 (>60) mL/min BUN/Creatinine Ratio 11.7 (6-22) Glucose 129 H (70-100) mg/dL Calcium 9.0 (8.4-10.2) mg/dL Total Bilirubin 0.4 (0.2-1.3) mg/dL AST 55 H (14-36) IU/L ALT 62 H (9-52) IU/L Alkaline Phosphatase 99 (38-126) U/L Total Creatine Kinase 105 (30-135) U/L CK-MB (CK-2) 0.45 (<2.37) ng/mL CK-MB (CK-2) Rel Index 0.4 L (1.5-5.0) % Troponin I < 0.012 (0.01-0.034) ng/mL Total Protein 6.9 (6.3-8.2) g/dL Albumin 4.0 (3.5-5.0) g/dL Globulin 2.9 (1.7-4.1) g/dL Albumin/Globulin Ratio 1.4 (1.0-2.8) Lipase 167 (23-300) U/L Urine Dip Bedside Urine Glucose Negative Bedside Urine Bilirubin - Negative Bedside Urine Ketone - Negative Urine Specific [place] 1.015 Bedside Urine Occult Blood +/- Bedside Urine pH 8.0 Bedside Urine Protein - Negative Bedside Urine Urobilinogen - Negative Bedside Urine Nitrite - Negative Bedside Urine Leukocytes - Negative Esterase Imaging Data CT scan - head: Radiologist's impression: [address] [address] [address] Scan Report Signed Patient: Vashti Tolentino#: [id number] : 1975Acct:[id number] Age/Sex: 43 / FDate of Service: 02/07/19 Loc: ED Accession Number: [id number] Procedure: CT head/brain wo con Ordering Provider: Jake Boswell D.O. PROCEDURE: CT HEAD/BRAIN WO CON INDICATIONS: headache, left facial numbness, htn TECHNIQUE: Noncontrast 4.5 mm thick angled axial sections acquired from the foramen magnum to the vertex, with coronal and sagittal reformats. For radiation dose reduction, the following was used: automated exposure control, adjustment of mA and/or kV according to patient size. COMPARISON: [facility], CT, BRAIN W/O CONTRAST, 10/14/2008, 17:50. FINDINGS: Image quality: Excellent. CSF spaces: Basal cisterns are patent. No extra-axial fluid collections. Ventricles are normal in size and shape. Brain: No midline shift. No intracranial masses or hemorrhage. Vazquez-white matter interface is normal. Skull and face: Calvarium and visualized facial bones are intact, without suspicious lesions. Sinuses: Visualized sinuses and mastoids are clear. IMPRESSION: No acute intracranial abnormality. Dictated by: Kristyn Smith M.D. on 02/07/2019 at 21:51 Approved by: Kristyn Smith M.D. on 02/07/2019 at 21:51 [facility] Narrative Medical decision making narrative: atypical migraine and HTN emergency are considered, but thought less likely given resolution of pain and HTN with ongoing numbness and tingling as well as LLE weakness (4/5) Discharge Plan Departure Patient Disposition: Admitted As Inpatient Clinical Impression: Stroke Qualifiers: CVA mechanism: unspecified Qualified Code(s): I63.9 - Cerebral infarction, unspecified Admit Date/Time: 02/08/19 00:19 Admit Provider: Wes Mcfarlane
[2019-02-07 22:27] LABS: Prothrombin Time 11.1 SECONDS (10.1-12.7)
[2019-02-07 22:30] LABS: PTT Partial Thromboplastin Tim 32 SECONDS (26.4-36.2)
[2019-02-07 22:34] LABS: Alanine Aminotransferase 62 IU/L (9-52); Albumin Globulin Ratio 1.4 (1.0-2.8); Alkaline Phosphatase 99 U/L (38-126); Aspartate Aminotransferase 55 IU/L (14-36); BUN Creatinine Ratio 11.7 (6-22); Bilirubin Total 0.4 mg/dL (0.2-1.3); Blood Urea Nitrogen 7 mg/dL (7-17); Carbon Dioxide 25 mmol/L (22-32); Chloride 106 mmol/L (98-107); Creatine Kinase 105 U/L (30-135); Estimated Glomerular Filt Rate > 60.0 mL/min (>60); Globulin 2.9 g/dL (1.7-4.1); Glucose 129 mg/dL (70-100); HEMOLYSIS 42 (0-50); Lipase 167 U/L (23-300); Potassium 3.5 mmol/L (3.4-5.1); Sodium 139 mmol/L (137-145); Total Protein 6.9 g/dL (6.3-8.2)
[2019-02-07 22:36] VITALS: BP 172/101; PULSE 77; RESP 18; O2SAT 100
[2019-02-07] MEDS: ASPIRIN 325 MG TABLET PO (22:43)
[2019-02-07] MEDS: KETOROLAC 60 MG/2 ML VIAL 15 MG IV (22:43)
[2019-02-07 22:45] LABS: Troponin I < 0.012 ng/mL (0.01-0.034)
[2019-02-07 22:49] LABS: CKMB % Relative Index 0.4 % (1.5-5.0); Creatine Kinase MB 0.45 ng/mL (<2.37)
[2019-02-07 23:11] VITALS: BP 171/93; PULSE 69; RESP 23; O2SAT 99
[2019-02-08] VITALS (8 sets, daily range): BP systolic 121–175; BP diastolic 73–99; PULSE 63–86; RESP 16–24; TEMP 36.4–37.4; O2SAT 95–100; BMI 33.3
--- NOTE | 2019-02-08 | DI.ECHO.S_ITS ---
[facility]---------+ [facility] +---------+ : : [address] : : : : [id number] : : : : Phone: [phone] Echocardiogram Report + + :Name: SELMA DAMON Study Date: 02/08/2019 Height: 64 in : :[facility] Weight: 195 lb : : Gender: Female BSA: 1.9 m2 : :: 1975 Age: 43 yrs BP: 134/93 mmHg: :Reason For Study: Stroke : :Ordering Physician: Anat : :Hospitalist Performed By: Yasmeen Richmond : :Referring: MIGUEL ÁNGEL FALL : + + Interpretation Summary Left ventricular wall thickness is mildly increased. The ejection fraction is estimated to be 60-65%. There are no focal wall motion abnormalities. Diastolic parameters suggest a relaxation abnormality of the left ventricle, consistent with probable normal filling pressures. The right ventricle is normal in size and function. Right ventricular systolic pressure is estimated to be 25 mmHg plus the clinically estimated CVP which cannot be estimated on this exam. Both atria are normal in size. There is no Doppler evidence for an interatrial shunt. There is no prior echocardiogram noted for this patient. Procedure: A two-dimensional transthoracic echocardiogram with color flow and Doppler was performed. The study quality was technically adequate. There is no prior echocardiogram noted for this patient. A contrast injection of Definity was performed to improve assessment of LV function. The patient was in normal sinus rhythm during the exam. The patient had occasional PVCs during the exam. Left Ventricle: The left ventricle is normal in size. Left ventricular wall thickness is mildly increased. There is no thrombus. The ejection fraction is estimated to be 60-65%. There are no focal wall motion abnormalities. Diastolic parameters suggest a relaxation abnormality of the left ventricle, consistent with probable normal filling pressures. Right Ventricle: The right ventricle is normal in size and function. Atria: Both atria are normal in size. There is no Doppler evidence for an interatrial shunt. Mitral Valve: The mitral valve is normal in structure and function. There is trace mitral regurgitation. Aortic Valve: The aortic valve opens well. No aortic regurgitation is present. Tricuspid Valve: The tricuspid valve is not well visualized. There is trace tricuspid regurgitation. Right ventricular systolic pressure is estimated to be 25 mmHg plus the clinically estimated CVP which cannot be estimated on this exam. Pulmonic Valve: The pulmonic valve is not well visualized. Great Vessels: The aortic root is normal size. The ascending aorta is normal in size. The aortic arch is normal in size. The IVC was not well visualized secondary to technical limitations making central venous pressures difficult to estimate. Pericardium/ Pleura There is no pericardial effusion. MMode/2D Measurements & Calculations LVIDd: 4.6 cm LVOT diam: 1.9 cm LVIDs: 3.1 cm Ao root diam: 2.6 cm FS: 32.8 % Aortic Jxn: 2.3 cm EPSS: 0.53 cm asc Aorta Diam: 2.8 cm IVSd: 0.83 cm Ao Arch Diam (Prox Trans): 2.7 cm LVPWd: 0.76 cm LV ga. diameter/BSA (cm/m^2): 2.4 LV sys. diameter/BSA (cm/m^2): 1.6 LA A2 area: 16.4 cm2 RA long axis: 5.3 cm LA A4 area: 18.2 cm2 RA area: 16.7 cm2 LA length (vol): 5.2 cm RA vol: 44.7 ml LA vol: 48.5 ml RA : 23.1 ml/m2 LA vol index: 25.1 ml/m2 Doppler Measurements & Calculations Ao V2 max: 112.6 cm/sec LVOT Max Brayan: 74.5 cm/sec Ao V2 mean: 75.9 cm/sec LV V1 max P.2 mmHg Ao max P.1 mmHg LV V1 VTI: 14.2 cm Ao mean P.6 mmHg TERI(I,D): 1.7 cm2 Ao V2 VTI: 23.6 cm TERI(V,D): 1.8 cm2 sev ratio: 0.60 TERI indexed to BSA (cm^2/m^2): 0.87 MV E max brayan: 71.0 cm/sec TR max brayan: 247.5 cm/sec MV A max brayan: 81.5 cm/sec TR max P.5 mmHg MV E/A: 0.87 PA V2 max: 96.3 cm/sec Med Peak E' Brayan: 7.1 cm/sec PA V2 mean: 69.6 cm/sec E/E' med: 10.1 PA mean P.1 mmHg Lat Peak E' Brayan: 7.7 cm/sec PA Accel Time: 0.04 sec E/E' lat: 9.2 E/e' average: 9.7 MV dec time: 0.16 sec MV P1/2t: 49.0 msec MV P1/2t max brayan: 71.0 cm/sec SV(LVOT): 39.5 ml MVA(P1/2t): 4.5 cm2 Electronically signed by: Nico Cisneros M.D. on Reading Physician:02/08/2019 03:18 PM
--- NOTE | 2019-02-08 00:27 | ED_ITS ---
HPI - Headache General Chief Complaint: Headache Stated Complaint: HEADACHE NUMBNESS OF FACE NAUSEA LEFT ARM NUMBNESS Time Seen by Provider: 02/07/19 21:26 Source: patient and family Mode of arrival: ambulatory Limitations: no limitations History of Present Illness HPI Narrative: 43-year-old female nonsmoker with history of untreated hypertension and fibromyalgia presents with family in the chief complaint a severe headache with left-sided facial numbness, left arm numbness, left leg numbness and weakness which has been present for about 5 days. She states she has had episodes of this numbness and tingling off and on for the past few months it does not seem like pain as a typical part of her presentation. She denies any injury. She has had no fever or chills. She denies any blurred vision. On arrival her blood pressure is quite high MD Complaint: headache Onset (ago): day(s) Onset description: gradual Location: diffuse Severity: moderate Quality: aching and throbbing Relieving factors: nothing Exacerbating factors: exertion Associated symptoms: lightheadedness Other symptoms: other Treatments prior to arrival: none Related Data Home Medications Medication Instructions Recorded Confirmed albuterol sulfate [ProAir HFA] 1 - 2 puff INHALATION Q4-6H PRN 07/09/18 11/12/18 baclofen 10 mg PO BID 07/09/18 11/12/18 buspirone 1 tab PO BID 07/09/18 11/12/18 duloxetine 1 cap PO DAILY 07/09/18 11/12/18 hydroxyzine HCl 1 tab PO DAILY 07/09/18 11/12/18 nabumetone 1 tab PO BID 07/09/18 11/12/18 amitriptyline 10 mg tablet 10 mg PO DAILY 10/07/18 11/12/18 cyclobenzaprine 5 mg tablet 5 mg PO DAILY PRN tab 10/07/18 11/12/18 cephalexin 500 mg PO DAILY 10/16/18 11/04/18 Previous Rx's Medication Instructions Recorded oxycodone-acetaminophen 5 mg-325 1 tab PO Q4-6H PRN #30 tab 10/07/18 mg tablet oxycodone-acetaminophen [Percocet] 1 tab PO Q4-6H PRN #20 tab 10/16/18 Allergies Allergy/AdvReac Type Severity Reaction Status Date / Time No Known Drug Allergies Allergy Verified 11/12/18 13:09 Review of Systems Constitutional Denies chills, Denies fever(s), Reports headache(s), Denies lethargy and Denies weakness Eyes Denies change in vision, Denies eye discharge, Denies irritation and Denies loss of vision ENT Ears, Nose, Mouth, and Throat: Denies change in voice, Reports headache(s), Denies neck pain and Denies sore throat Cardiovascular Denies chest pain, Denies irregular heart rhythm, Denies lightheadedness, Denies palpitations, Denies dyspnea, Denies dyspnea on exertion and Denies orthopnea Respiratory Denies cough, Denies dyspnea, Denies dyspnea on exertion and Denies wheezing Gastrointestinal Gastrointestinal: Denies abdominal pain, Denies change in bowel habits, Denies diarrhea, Denies nausea and Denies vomiting Genitourinary Denies hematuria, Denies flank pain, Denies urinary incontinence and Denies urinary urgency Musculoskeletal Denies neck pain and Reports numbness Integumentary/Breasts Denies pruritus, Denies erythema, Denies rash and Denies wounds Neurologic Denies confusion, Reports headache(s), Denies loss of vision, Reports numbness, Reports sensory deficit and Denies weakness Psychiatric Denies anxiety, Denies confusion, Denies depression, Denies homicidal ideation and Denies suicidal ideation Endocrine Denies palpitations Hematologic/Lymphatic Denies easy bruising Allergic/Immunologic Denies wheezing [facility] Medical History H/O: hysterectomy (Acute) Asthma (Acute) Elevated BP without diagnosis of hypertension (Acute) Fibromyalgia (Acute) Family History Brother Hypertension Diabetes mellitus Grandmother Diabetes mellitus Social History household members: children Smoking Status: Never smoker alcohol intake: current Family History Brother Hypertension Diabetes mellitus Grandmother Diabetes mellitus Social History household members: children Smoking Status: Never smoker alcohol intake: current Exam Narrative Exam Narrative: GENERAL: 43-year-old female appears younger than stated age, obviously uncomfortable and resting in a dark with a towel covering her eyes HEAD: Atraumatic. Normocephalic. No temporal or scalp tenderness. EYES: Pupils equal round and reactive. Extraocular motions intact. No scleral icterus. No injection or drainage. ENT: Nose without bleeding, purulent drainage or septal hematoma. Throat without erythema, tonsillar hypertrophy or exudate. Uvula midline. Airway patent. NECK: Trachea midline. No JVD or lymphadenopathy. Supple, nontender, no meningeal signs. CARDIOVASCULAR: Regular rate and rhythm without murmurs, gallops, or rubs. RESPIRATORY: Clear to auscultation. Breath sounds equal bilaterally. No wheezes, rales, or rhonchi. GASTROINTESTINAL: Abdomen soft, non-tender, nondistended. No hepato- splenomegaly, or palpable masses. No guarding. EXTREMITIES: No clubbing, cyanosis, or edema. No joint tenderness, effusion, or edema noted. BACK: Nontender without deformity or crepitance. No flank tenderness. NEURO: AOx3. SKIN: No rash or erythema. Initial Vital Signs Initial Vital Signs: Vital Signs Temperature 98.1 F 02/07/19 20:57 Pulse Rate 84 02/07/19 20:57 Respiratory Rate 20 02/07/19 20:57 Blood Pressure 181/126 H 02/07/19 20:57 Pulse Oximetry 99 02/07/19 20:57 Scores NIH Stroke Scale Level of Conciousness: Alert, keenly responsive Ask month/age: Answers both questions correctly. Open/close eyes, close hand: Performs both tasks correctly Best gaze horizontal: Normal Visual haley: No visual loss Facial palsy: Normal symetrical movement Left arm drift: No drift for full 10 sec Right arm drift: No drift for full 10 sec Left leg drift: Drifts down, not to bed Right leg drift: No drift for full 10 sec Limb ataxia: Absent Sensory on face/arms/legs: Mild to moderate sensory loss, can tell touch Best language: No aphasia, normal Dysarthria: Normal Extinction or inattention: No abnormality Total NIH Stroke scale score: 2 Course Orders Ordered: ED Orders 02/07/19 21:24 CT head/brain wo con Stat 02/07/19 21:45 XR chest 1V Stat EKG-12 Lead Stat 02/07/19 22:12 Complete Blood Count AUTO DIFF Stat Comprehensive Metabolic Panel Stat Lipase Stat Partial Thromboplastin Time Stat Prothrombin Time INR Stat Troponin & CK Cardiac Panel Stat Discontinued Medications Aspirin (Aspirin) 325 mg PO NOW ONE Stop: 02/07/19 22:29 Last Admin: 02/07/19 22:43 Dose: 325 mg Ketorolac Tromethamine (Toradol) 15 mg IV NOW ONE Stop: 02/07/19 22:29 Last Admin: 02/07/19 22:43 Dose: 15 mg Reevaluation(s) Reevaluation #1: Patient has complete resolution headache after the Toradol and blood pressure is down to the 130s. This would make neurologic symptoms as a consequence atypical migraine and/or hypertensive emergency in much less likely. Consultations Consultation #1: call to Stroke Neurologist at [facility] to discuss case. Given ongoing numbness and weakness of face and extremities in the setting of improved pain and BP, patient meets criteria for stroke admission. Consultation #2: hospitalist happy to accept Vital Signs - 8 hr 02/07/19 20:57 02/07/19 22:36 02/07/19 23:11 Temperature 98.1 F Pulse Rate 84 77 69 Respiratory Rate 20 18 23 Blood Pressure 181/126 H Blood Pressure [Right Arm] 172/101 H 171/93 H Pulse Oximetry 99 100 99 02/08/19 00:00 Temperature Pulse Rate 72 Respiratory Rate 24 Blood Pressure Blood Pressure [Right Arm] 155/98 H Pulse Oximetry 99 MDM - Headache Differential Diagnosis Differential diagnosis: Likely migraine and tension headache Medical Records Attestation: I reviewed the patient's medical records. Lab Data Attestation: I reviewed the patient's lab results. Result diagrams: 02/07/19 22:12 02/07/19 22:12 Lab Results 02/07/19 02/07/19 02/07/19 Range/Units 22:12 22:12 22:12 WBC 11.5 H (4.5-11.0) X10^3/uL RBC 4.44 (4.0-5.2) X10^6/uL Hgb 13.2 (12.0-16.0) g/dL Hct 39.3 (36-46) % MCV 88.4 (80-100) fL MCH 29.6 (26-34) PG MCHC 33.5 (30-36) % RDW 12.9 (11.6-14.8) % Plt Count 311 (150-400) X10^3/uL Neut % (Auto) 58.3 (50-75) % Lymph % (Auto) 32.6 (25-40) % [place] % (Auto) 7.1 (3-14) % Eos % (Auto) 1.0 L (2-4) % Baso % (Auto) 1.0 (0-2) % Neut # (Auto) 6700 (6498-8955) /uL Lymph # (Auto) 3700 (3832-5616) /uL [place] # (Auto) 800 (0-900) /uL Eos # (Auto) 100 (0-450) /uL Baso # (Auto) 100 (0-100) /uL PT 11.1 (10.1-12.7) SECONDS INR 1.0 (0.9-1.3) APTT 32 (26.4-36.2) SECONDS Sodium 139 (137-145) mmol/L Potassium 3.5 (3.4-5.1) mmol/L Chloride 106 (98-107) mmol/L Carbon Dioxide 25 (22-32) mmol/L BUN 7 (7-17) mg/dL Creatinine 0.60 (0.52-1.04) mg/dL Estimated GFR > 60.0 (>60) mL/min BUN/Creatinine Ratio 11.7 (6-22) Glucose 129 H (70-100) mg/dL Calcium 9.0 (8.4-10.2) mg/dL Total Bilirubin 0.4 (0.2-1.3) mg/dL AST 55 H (14-36) IU/L ALT 62 H (9-52) IU/L Alkaline Phosphatase 99 (38-126) U/L Total Creatine Kinase 105 (30-135) U/L CK-MB (CK-2) 0.45 (<2.37) ng/mL CK-MB (CK-2) Rel Index 0.4 L (1.5-5.0) % Troponin I < 0.012 (0.01-0.034) ng/mL Total Protein 6.9 (6.3-8.2) g/dL Albumin 4.0 (3.5-5.0) g/dL Globulin 2.9 (1.7-4.1) g/dL Albumin/Globulin Ratio 1.4 (1.0-2.8) Lipase 167 (23-300) U/L Urine Dip Bedside Urine Glucose Negative Bedside Urine Bilirubin - Negative Bedside Urine Ketone - Negative Urine Specific [place] 1.015 Bedside Urine Occult Blood +/- Bedside Urine pH 8.0 Bedside Urine Protein - Negative Bedside Urine Urobilinogen - Negative Bedside Urine Nitrite - Negative Bedside Urine Leukocytes - Negative Esterase Imaging Data CT scan - head: Radiologist's impression: [address] [address] [address] Scan Report Signed Patient: Vashti Tolentino#: [id number] : 1975Acct:[id number] Age/Sex: 43 / FDate of Service: 02/07/19 Loc: ED Accession Number: [id number] Procedure: CT head/brain wo con Ordering Provider: Jake Boswell D.O. PROCEDURE: CT HEAD/BRAIN WO CON INDICATIONS: headache, left facial numbness, htn TECHNIQUE: Noncontrast 4.5 mm thick angled axial sections acquired from the foramen magnum to the vertex, with coronal and sagittal reformats. For radiation dose reduction, the following was used: automated exposure control, adjustment of mA and/or kV according to patient size. COMPARISON: [facility], CT, BRAIN W/O CONTRAST, 10/14/2008, 17:50. FINDINGS: Image quality: Excellent. CSF spaces: Basal cisterns are patent. No extra-axial fluid collections. Ventricles are normal in size and shape. Brain: No midline shift. No intracranial masses or hemorrhage. Vazquez-white matter interface is normal. Skull and face: Calvarium and visualized facial bones are intact, without suspicious lesions. Sinuses: Visualized sinuses and mastoids are clear. IMPRESSION: No acute intracranial abnormality. Dictated by: Kristyn Smith M.D. on 02/07/2019 at 21:51 Approved by: Kristyn Smith M.D. on 02/07/2019 at 21:51 [facility] Narrative Medical decision making narrative: atypical migraine and HTN emergency are considered, but thought less likely given resolution of pain and HTN with ongoing numbness and tingling as well as LLE weakness (4/5) Discharge Plan Departure Patient Disposition: Admitted As Inpatient Clinical Impression: Stroke Qualifiers: CVA mechanism: unspecified Qualified Code(s): I63.9 - Cerebral infarction, unspecified Admit Date/Time: 02/08/19 00:19 Admit Provider: Wes Mcfarlane
--- NOTE | 2019-02-08 00:46 | DI.MRI.S_ITS ---
PROCEDURE: MR STROKE Pre- and post-contrast brain MRI, non-contrast brain MR angiogram, pre- and postcontrast neck MR angiogram INDICATIONS: Right hemisphere stroke TECHNIQUE: Brain: Noncontrast axial T1 spin echo, axial T2 fast spin echo, sagittal and axial FLAIR, coronal T2 fast spin echo, axial gradient echo, axial diffusion and ADC through the brain. After the administration of contrast, axial 3D VIBE of the cranial vasculature and brain. Brain MRA: Non-contrast 3-D time of flight MR angiogram, with multiple wvhdhgh-xdbupvwou-rxvdgayrmy (MIP) reformats performed. Neck MRA: Axial and sagittal TruFISP through the neck. Coronal dynamic MR angiogram during administration of contrast in the arterial and venous phases, with 3-dimenstional knxoety-damthmvqd-tfzkkfyenf (MIP) reformats constructed from subtraction images. COMPARISON: [facility], CT, CT HEAD/BRAIN WO CON, 02/07/2019, 21:32. FINDINGS: Image quality: Excellent. BRAIN: CSF spaces: Ventricles are normal in size and shape. Basal cisterns are patent. No extra-axial fluid collections. Brain: No intracranial bleeds or mass effects. Vazquez-white matter interface is normal. Diffusion weighted images show no acute ischemic insults. Brainstem appears normal. Normal intravascular flow voids are present. No abnormal intracranial enhancement. Skull and face: Calvarial marrow signal is normal. Orbits appear normal. Sinuses: Sinuses and mastoids are clear. Bilateral maria esther bullosa are incidentally noted. BRAIN MR ANGIOGRAM: Anterior circulation: Intracranial internal carotid arteries are normal in size and enhancement. The flow within the paired anterior cerebral arteries is normal and symmetric. The flow within the middle cerebral arteries is normal and symmetric. The anterior communicating artery is seen. No stenoses, occlusions, or aneurysms. Posterior circulation: The visualized portions of the vertebral arteries demonstrate normal caliber, and join to form a normal appearing basilar artery. The flow within the posterior cerebral arteries is normal and symmetric. No stenoses, occlusions, or aneurysms. NECK MR ANGIOGRAM: Carotids: Great vessels demonstrate a conventional anatomy as they arise from the aortic arch. The origins of the common carotid arteries appear patent. The calibers and courses of both common carotid arteries are normal. The bifurcation regions appear normal bilaterally. The internal carotid arteries demonstrate normal course and caliber. Posterior circulation: The origins of the vertebral arteries appear patent. More superior portions of both vertebral arteries demonstrate normal course and caliber, and join to form a normal appearing basilar artery. Miscellaneous: Subclavian arteries appear patent. Pre-contrast images through the neck show no soft tissue abnormalities. IMPRESSION: BRAIN MRI: No findings of acute or subacute infarction can be seen. No masses or abnormal enhancement can be seen. BRAIN MR ANGIOGRAM: No significant intracranial arterial abnormality can be seen. NECK MR ANGIOGRAM: Within the arteries of the neck, no hemodynamically significant stenosis can be seen. Dictated by: Noe Clement M.D. on 02/08/2019 at 11:34 Approved by: Noe Clement M.D. on 02/08/2019 at 11:43
--- NOTE | 2019-02-08 01:27 | PM.HP.1 ---
History of Present Illness Date Patient Seen: 02/08/19 Time Patient Seen: 01:07 Chief complaint: HEADACHE NUMBNESS OF FACE NAUSEA LEFT ARM NUMBNESS Narrative: Vashti Yoon is a 43-year-old female patient with a history of fibromyalgia, asthma and elevated blood pressure without a diagnosis hypertension who presents to the ER with worsening left facial numbness left arm and leg numbness and weakness. The patient is assessed in the presence of her son who assists with interpretation S the patient is primarily Frisian-speaking. The patient has complained of prior brief episodes of left facial numbness had pain and left arm weakness over the last 5 months that has been brief lasting less than a minute but becoming more progressive. She developed a headache with left face arm and leg numbness and weakness that would exacerbate and remit in a crescendo fashion. The patient presents today due to the severity of the pain. Patient typically has been since receiving her healthcare through [facility] walk[place]in clinic. Patient complains of a headache at 6/10 and photosensitivity. She denies dizziness though per her son she has had an altered gait which in part is due to a fall 1 month ago which time she injured her ankle and knee. Patient denies chest pain or palpitations and has had no shortness breath cough or wheezing. She denies abdominal pain, nausea or vomiting, constipation or diarrhea. She has been eating and drinking without difficulty and per her son her voice sounds normal. Upon arrival in the ER the patient was afebrile at 98.1 with a heart rate of 84 and hypertensive at 181/126. She had respiratory rate is 20 saturating 99% on room air. A CT of the head was obtained that was negative for intracranial pathology as well as checks x-ray that had no acute cardiopulmonary findings. EKG shows sinus rhythm at 76 without ectopy, has inverted T-waves in 3 and half but no ST changes or indications of infarct. Her C BC normal limit our her coag studies. Her troponin is negative at less than 0.012. Her electrolytes are normal with a borderline low potassium at 3 0.5 and a nonfasting glucose of 129. The patient received aspirin 325 mg in the ER and then subsequently given Toradol with resolution of headache and normalization of BP however no changes in neurologic presentation. Stroke on salt was obtained by the ER physician. The patient is not a candidate for tPA nor endovascular procedure. The patient is admitted further evaluation and treatment of stroke. Patient History Medical History H/O: hysterectomy (Acute) History of ectopic (Acute) Asthma (Acute) Elevated BP without diagnosis of hypertension (Acute) Fibromyalgia (Acute) Surgical History History of oophorectomy, unilateral (Acute) History of shoulder surgery (Acute) Status post incision and drainage (Acute) Family History (Updated 02/08/19 @ 01:54 by DAWSON Henriquez) Brother Hypertension Diabetes mellitus Myocardial infarction Hyperlipidemia Grandmother Diabetes mellitus Mother Thyroid condition Social History household members: children Smoking Status: Never smoker alcohol intake: current Family & Social History Family History Brother Hypertension Diabetes mellitus Myocardial infarction Hyperlipidemia Grandmother Diabetes mellitus Mother Thyroid condition Social History: household members children Tobacco & Substance use: Smoking Status Never smoker alcohol intake current alcohol intake frequency 0-2 drinks per day Substance Use Type does not use Comment: The patient lives in a single family home with her son. In relation family history she never knew her father and her mother has a thyroid condition. She has an aunt who had cancer and her grandmother diabetes. Her brother has had hypertension diabetes hyperlipidemia and myocardial infarction. Her son who is with her today is in good health. Smoking: The patient denies having smoked. Alcohol: The patient denies consuming alcohol Substance use: Patient denies recreation pharmaceuticals, herbal or use of cannabis products. Advanced directives: Direct conversation with the patient and her son the patient has no advanced directive however wishes to be FULL CODE. Meds Home Medications Medication Instructions Recorded Confirmed Type albuterol sulfate [ProAir HFA] 1 - 2 puff INHALATION Q4-6H PRN 07/09/18 02/08/19 History baclofen 10 mg PO BID 07/09/18 02/08/19 History buspirone 1 tab PO BID 07/09/18 02/08/19 History duloxetine 1 cap PO DAILY 07/09/18 02/08/19 History hydroxyzine HCl 1 tab PO DAILY 07/09/18 02/08/19 History nabumetone 1 tab PO BID 07/09/18 02/08/19 History amitriptyline 10 mg tablet 10 mg PO DAILY 10/07/18 02/08/19 History cyclobenzaprine 5 mg tablet 5 mg PO DAILY PRN tab 10/07/18 02/08/19 History oxycodone-acetaminophen 5 mg-325 1 tab PO Q4-6H PRN #30 tab 10/07/18 02/08/19 Rx mg tablet cephalexin 500 mg PO DAILY 10/16/18 02/08/19 History oxycodone-acetaminophen [Percocet] 1 tab PO Q4-6H PRN #20 tab 10/16/18 02/08/19 Rx Allergies Allergy/AdvReac Type Severity Reaction Status Date / Time No Known Drug Allergies Allergy Verified 11/12/18 13:09 Review of Systems Review of Systems All systems reviewed & are unremarkable except as noted in HPI and below Exam Vital Signs (past 8 hours): - 02/07/19 20:57 02/07/19 22:36 02/07/19 23:11 Temperature 98.1 F Pulse Rate 84 77 69 Respiratory Rate 20 18 23 Blood Pressure 181/126 H Blood Pressure [Right Arm] 172/101 H 171/93 H Pulse Oximetry 99 100 99 02/08/19 00:00 02/08/19 00:50 Temperature Pulse Rate 72 63 Respiratory Rate 24 21 Blood Pressure Blood Pressure [Right Arm] 155/98 H 144/92 H Pulse Oximetry 99 99 Oxygen Delivery Method Room Air Narrative Exam Narrative: GENERAL APPEARANCE: well developed, obese female, BMI 33.3, moderately uncomfortable appearing. HEAD: Normocephalic, atraumatic, Symmetrical facies, no scalp lesions. EYES: No ptosis, pupils equal, round, reactive to light and accommodation, no papilledema noted on limited exam related to photophobia, sclera non-icteric, extraocular movement intact without nystagmus. EARS: normal external structures, no ear pain NOSE: No flattening of the nasal labia, no rhinorrhea ORAL CAVITY: mucosa moist without lesions or exudate, palate normal, tongue in midline and moves bilaterally, able to puff cheeks symmetrically. THROAT: normal, no erythema, no exudate, pharynx normal, uvula midline. NECK/THYROID: neck supple, no jugular venous distention, no carotid bruit, no thyromegaly, trachea midline. LYMPH NODES: no cervical or supraclavicular lymphadenopathy. SKIN: warm and dry, no suspicious lesions, no rashes, good turgor. HEART: regular rate and rhythm, S1-S2 without murmur, no rubs or gallops, brisk capillary refill, no edema LUNGS: clear to auscultation bilaterally, no coarseness crackles or wheezing, no cough present CHEST: Symmetrical movement, no accessory muscle use, no pain to AP and lateral compression. ABDOMEN: Soft, round without distention, no epigastric or abdominal tenderness on palpation, no guarding or peritoneal signs, no organomegaly, no flank or suprapubic tenderness, active bowel tones. BACK: nontender to palpation EXTREMITIES: Right arm right leg strength is 5/5, left arm is 4/5 left leg 3/5. NEUROLOGIC: AAO to person place month and year and situation, NIH score is 5, left facial numbness, drift left arm weakness and drift left leg, no dysarthria or dysphonia, diminished sensation to light touch left arm and left leg, hearing grossly normal to speech. PSYCH: Quiet, responsive, follows commands, cognitive function intact, stable mood Objective Labs Result Diagrams: 02/07/19 22:12 02/07/19 22:12 Labs: Laboratory Results - last 24 hr 02/07/19 02/07/19 02/07/19 22:12 22:12 22:12 WBC 11.5 H RBC 4.44 Hgb 13.2 Hct 39.3 MCV 88.4 MCH 29.6 MCHC 33.5 RDW 12.9 Plt Count 311 Neut % (Auto) 58.3 Lymph % (Auto) 32.6 [place] % (Auto) 7.1 Eos % (Auto) 1.0 L Baso % (Auto) 1.0 Neut # (Auto) 6700 Lymph # (Auto) 3700 [place] # (Auto) 800 Eos # (Auto) 100 Baso # (Auto) 100 PT 11.1 INR 1.0 APTT 32 Sodium 139 Potassium 3.5 Chloride 106 Carbon Dioxide 25 BUN 7 Creatinine 0.60 Estimated GFR > 60.0 BUN/Creatinine Ratio 11.7 Glucose 129 H Calcium 9.0 Total Bilirubin 0.4 AST 55 H ALT 62 H Alkaline Phosphatase 99 Total Creatine Kinase 105 CK-MB (CK-2) 0.45 CK-MB (CK-2) Rel Index 0.4 L Troponin I < 0.012 Total Protein 6.9 Albumin 4.0 Globulin 2.9 Albumin/Globulin Ratio 1.4 Lipase 167 Assessment & Plan Assessment & Plan narrative: The patient is admitted to the hospital with a CVA, left hemiparesis that has been waxing and waning in a crescendo fashion over the last week and untreated hypertension. 1. Acute right hemisphere CVA, present on admission -patient with symptoms consistent with TIA for 5 months with onset of acute symptoms 1 week ago waxing and waning, nonrelenting, in a crescendo fashion. -patient with left facial numbness and intact motor function, left arm leg weakness and numbness. Risk factors of elevated blood pressure, family history diabetes, obesity. -stroke mimics of hypertensive emergency and hemiparetic migraine are ruled out with resolution of pain and normalization of blood pressure following Toradol, blood sugar upon arrival is 129. NIH score is 5. -neurological consult by the ER physician, patient is not a candidate for tPA or endovascular procedure due to time frame of symptoms. -will allow permissive hypertension up to 200/100 to prevent watershed effect. -aspirin 325 mg given in the ER, continue aspirin 81 mg daily and Plavix 75 mg daily. -will obtain MR stroke protocol. -will obtain echocardiogram. -speech therapy to evaluate and treat, swallow evaluation. -PT OT and to evaluate and treat. -will obtain lipid panel, will start atorvastatin 40 mg daily. 2. Elevated blood pressure without diagnosis of hypertension, unknown if acute or chronic, present on admission. -blood pressure on arrival was 181/126, blood pressure at time of exam 163/76. -no complaints of chest pain or shortness of breath, inverted T-waves on 12 lead EKG lead 3 and AVF. -elevated pressure may be a function of pain as blood pressure went down to 130s with Toradol given in the ER. -will allow permissive hypertension at this time related to new diagnosis stroke. Will treat pain as needed. 3. Chronic asthma, stable -patient seen in ER September for exacerbation of asthma treated with prednisone and albuterol -no complaints of shortness of breath or wheezing on exam. SpO2 97% on room air. -continue albuterol MDI as needed for cough or wheezing. 4. Chronic fibromyalgia, stable -at this time will hold home medications awaiting clarification and treat with Toradol and morphine as needed while the patient is NPO. The patient admitted to the hospital due to severity of her symptoms, risk of complications and adverse effects and ongoing monitoring. The patient is admitted as an inpatient with expected length of stay to be greater than 2 midnights. Time Spent With Patient Time with patient: 25 - 35 minutes Scores GCS [place] coma scale eye opening: Spontaneous [place] coma scale verbal response: Orientated [place] coma scale motor response: Obey commands [place] coma scale total score: 15 NIHSS Level of Conciousness: Alert, keenly responsive Ask month/age: Answers both questions correctly. Open/close eyes, close hand: Performs both tasks correctly Best gaze horizontal: Normal Visual haley: No visual loss Facial palsy: Normal symetrical movement Left arm drift: Drifts down, not to bed Right arm drift: No drift for full 10 sec Left leg drift: Some effort against gravity, cannot maintain, drifts down to bed Right leg drift: No drift for full 10 sec Limb ataxia: Present in one limb Sensory on face/arms/legs: Mild to moderate sensory loss, can tell touch Best language: No aphasia, normal Dysarthria: Normal Extinction or inattention: No abnormality Total NIH Stroke scale score: 5
[2019-02-08] MEDS: SODIUM CHLORIDE 0.9% 1,000 ML 50 ML IV (02:12)
[2019-02-08] MEDS: MORPHINE 2 MG/ML INJ IV (02:15)
[2019-02-08 06:34] LABS: Blood Urea Nitrogen 6 mg/dL (7-17); Calcium 8.9 mg/dL (8.4-10.2); Carbon Dioxide 25 mmol/L (22-32); Chloride 107 mmol/L (98-107); Cholesterol 154 mg/dL (140-199); Estimated Glomerular Filt Rate > 60.0 mL/min (>60); Glucose 115 mg/dL (70-100); HDL Cholesterol 30 mg/dL (40-60); HEMOLYSIS < 15 (0-50); LDL Cholesterol Calculated 83 mg/dL (<100); Potassium 3.6 mmol/L (3.4-5.1); Sodium 139 mmol/L (137-145); Triglycerides 207 mg/dL (35-150)
[2019-02-08] MEDS: ENOXAPARIN 40 MG/0.4 ML SYRINGE SUBCUT (09:26)
[2019-02-08] MEDS: ASPIRIN EC 81 MG TABLET PO (09:26)
[2019-02-08] MEDS: KETOROLAC 30 MG/ML VIAL IV ×2 (09:26→19:41)
[2019-02-08] MEDS: CLOPIDOGREL 75 MG TABLET PO (09:26)
--- NOTE | 2019-02-08 12:25 | DI.US.S_ITS ---
PROCEDURE: US CAROTID DOPPLER BI INDICATIONS: CVA TECHNIQUE: Color and pulse Doppler interrogation was performed of both carotid systems, with image documentation and velocity measurements. COMPARISON: [facility], MR, MR STROKE, 02/08/2019, 11:00. [facility], CT, CT HEAD/BRAIN WO CON, 02/07/2019, 21:32. FINDINGS: Stenosis calculations are based on SRU (Society of Radiologists in Ultrasound) criteria. The flow velocities and the arterial waveforms are normal within both carotid arterial systems. Atherosclerotic plaque is seen on both sides. The estimated degree of internal carotid artery stenosis is less than 50%. Antegrade flow is confirmed within both vertebral arteries. IMPRESSION: No hemodynamically significant stenosis is seen. Atherosclerotic plaque is noted bilaterally. Dictated by: Noe Clement M.D. on 02/08/2019 at 12:39 Approved by: Noe Clement M.D. on 02/08/2019 at 12:40
[2019-02-08] MEDS: SUMAtriptan 6 MG/0.5 ML VIAL SUBCUT ×2 (13:18→16:08)
--- NOTE | 2019-02-08 14:40 | CM.IDA ---
Initial DCP Assessment Note: Pt is a 43 yo female, resident of [place]. Pt under observation for her presentation to ED w/stroke like symptoms, CVA has been ruled out today. PCP: Tone Narvaez Payer: grupreet Met w/pt and her family very briefly, explained role. Pt has had multiple tests this morning and Johanna w/PT was starting her initial assessment w/pt. At bedside was pt's sister and one of pt's sons and his gf. Pt is hopeful to return home. Pt has h/o severe migraines and residual left sided weakness. Pt lives w/her two sons and has a lot of supportive family. According to conversation w/ PT Johanna; SNF is recommended today. Pt moves very slowly and would be unable to care for herself independently. She has many stairs to overcome at home to get to the upstairs (and only) bathroom in her home. Johanna is hopeful that pt will progress over the next day or two. If so, pt will be cleared to return home w/family (w/home health?) although today home cannot be recommended. PRIMARY CARE NURSE PRACTITIONER team will follow closely and coordinate w/pt, family and therapy team over the next 24-48hrs. CHRISTINA Solano Discharge Planning/Care Management CM Discharge Assessment Start: 02/08/19 14:38 Freq: Status: Active Protocol: Document 02/08/19 14:38 CHERYL (Rec: 02/08/19 14:39 CHERYL [id number]) Discharge Planning Assessment Assigned Tape Recorder Mechanic CHRISTINA Kong DPOA/Assigned Designee Name justin Patel Contact Information [phone] Advance Directives? No History Provided By Patient Family Member Medical Record Prior Living Arrangements House Household Members spouse children Independent with ADL's Yes Is patient alert and oriented? Yes Discharge Plan Home Transportation Arrangement Family Whiteboard Updated in Patient Room with Yes name and ext. # of Tape Recorder Mechanic Review Status In Process
[2019-02-08] MEDS: AMLODIPINE 2.5 MG TABLET PO (17:37)
[2019-02-09] MEDS: MORPHINE 2 MG/ML INJ IV (00:30)
[2019-02-09] MEDS: SODIUM CHLORIDE 0.9% 1,000 ML 50 ML IV (00:32)
[2019-02-09 00:57] VITALS: BP 135/79; PULSE 88; RESP 18; TEMP 36.7; O2SAT 94
[2019-02-09 04:00] VITALS: BP 112/72; PULSE 81; RESP 18; TEMP 36.4; O2SAT 97
[2019-02-09 06:00] LABS: Blood Urea Nitrogen 9 mg/dL (7-17); Calcium 8.9 mg/dL (8.4-10.2); Carbon Dioxide 25 mmol/L (22-32); Chloride 107 mmol/L (98-107); Estimated Glomerular Filt Rate > 60.0 mL/min (>60); Glucose 109 mg/dL (70-100); HEMOLYSIS < 15 (0-50); Potassium 3.8 mmol/L (3.4-5.1); Sodium 138 mmol/L (137-145)
[2019-02-09 06:01] LABS: Add Manual Diff / Slide Review NO; Basophils Absolute Auto 100 /uL (0-100); Basophils Percent Auto 1.1 % (0-2); Eosinophils Absolute Auto 200 /uL (0-450); Eosinophils Percent Auto 1.9 % (2-4); Hematocrit 38.8 % (36-46); Lymphocytes Absolute Auto 3100 /uL (1100-4500); Mean Corpuscular HGB Conc 33.4 % (30-36); Mean Corpuscular Hemoglobin 29.4 PG (26-34); Mean Corpuscular Volume 87.9 fL (80-100); Monocytes Absolute Auto 700 /uL (0-900); Neutrophils Absolute Auto 4200 /uL (1500-7000); Platelet Count 305 X10^3/uL (150-400); Red Blood Cell Count 4.41 X10^6/uL (4.0-5.2); Red Cell Distribution Width 12.8 % (11.6-14.8); White Blood Cell Count 8.2 X10^3/uL (4.5-11.0)
[2019-02-09 08:00] VITALS: BP 119/80; PULSE 85; RESP 16; TEMP 36.8; O2SAT 99
--- NOTE | 2019-02-09 08:40 | PM.DS.1 ---
History of Present Illness Date Patient Seen: 02/09/19 Chief complaint: HEADACHE NUMBNESS OF FACE NAUSEA LEFT ARM NUMBNESS Narrative: Vashti Yoon is a 43-year-old female patient with a history of fibromyalgia, asthma and elevated blood pressure without a diagnosis hypertension who presents to the ER with worsening left facial numbness left arm and leg numbness and weakness. The patient is assessed in the presence of her son who assists with interpretation S the patient is primarily Romansh-speaking. The patient has complained of prior brief episodes of left facial numbness had pain and left arm weakness over the last 5 months that has been brief lasting less than a minute but becoming more progressive. She developed a headache with left face arm and leg numbness and weakness that would exacerbate and remit in a crescendo fashion. The patient presents today due to the severity of the pain. Patient typically has been since receiving her healthcare through [facility] [place] [facility] walk-in clinic. Patient complains of a headache at 6/10 and photosensitivity. She denies dizziness though per her son she has had an altered gait which in part is due to a fall 1 month ago which time she injured her ankle and knee. Patient denies chest pain or palpitations and has had no shortness breath cough or wheezing. She denies abdominal pain, nausea or vomiting, constipation or diarrhea. She has been eating and drinking without difficulty and per her son her voice sounds normal. Upon arrival in the ER the patient was afebrile at 98.1 with a heart rate of 84 and hypertensive at 181/126. She had respiratory rate is 20 saturating 99% on room air. A CT of the head was obtained that was negative for intracranial pathology as well as checks x-ray that had no acute cardiopulmonary findings. EKG shows sinus rhythm at 76 without ectopy, has inverted T-waves in 3 and half but no ST changes or indications of infarct. Her C BC normal limit our her coag studies. Her troponin is negative at less than 0.012. Her electrolytes are normal with a borderline low potassium at 3 0.5 and a nonfasting glucose of 129. The patient received aspirin 325 mg in the ER and then subsequently given Toradol with resolution of headache and normalization of BP however no changes in neurologic presentation. Stroke on salt was obtained by the ER physician. The patient is not a candidate for tPA nor endovascular procedure. The patient is admitted further evaluation and treatment of stroke. Discharge Providers Date of admission: 02/08/19 00:19 Discharge Date: 02/09/19 Primary care physician: Tone Narvaez MD Consults: 02/08/19 00:44 Consult to Dietitian, Adult Routine Comment: Reason For Exam: Obese, BMI 33.5 02/08/19 00:45 Consult to Discharge Planning Routine Comment: Consult to Occupational Therapy Evaluate & Treat Comment: Stroke, left yfn Physician Instructions: Evaluate and treat Consult to Physical Therapy Evaluate & Treat Comment: Stroke, left yfn Physician Instructions: Evaluate and Treat Consult to Process Technician Routine Comment: No PCP received are at See-Mar 02/08/19 00:46 Consult to Speech Therapy Evaluate & Treat Comment: Stroke, swallow evaluation Physician Instructions: Evaluate and treat Discharge provider: Chantal Vences MD Summary Discharge Diagnosis: 1. Migraine headache 2. Asthma 3. Fibromyalgia 4. Hypertension Hospital Course: Patient was admitted to the hospital for headache associated with left face arm and leg numbness. Patient received 2 doses of Imitrex with improvement of her headache. She has no headache today. She has minimal numbness on the left side of her face. Patient did have an MRI of the brain which was negative for an acute stroke, MRA of the neck which showed no carotid stenosis, and carotid Dopplers which also were negative for carotid stenosis. She had an echocardiogram. There was no PFO noted. The patient had a normal ejection fraction. Patient was seen and evaluated and deemed appropriate for discharge home. Arrangements were made for her to be discharged home. She will follow up with her primary care physician on Sunday as already scheduled. Status at Discharge Cognitive/behavioral status at discharge: oriented Functional status at discharge: independent ambulation Overall status at discharge: patient is back to baseline Time Spent with Patient Less than 30 minutes Exam Vital Signs (past 8 hours): - 02/09/19 00:57 02/09/19 04:00 02/09/19 08:00 Temperature 98.0 F 97.5 F L 98.2 F Pulse Rate 88 81 85 Respiratory Rate 18 18 16 Blood Pressure 135/79 112/72 119/80 Pulse Oximetry 94 97 99 Oxygen Delivery Method Room Air Oxygen Flow Rate 0 Narrative Exam Narrative: Pleasant female in no obvious distress HEENT: Normocephalic atraumatic, extraocular muscles are intact, no facial droop Lungs: Clear to auscultation Cardiac exam: Regular rate rhythm normal S1-S2 with a 2/6 systolic ejection murmur Abdomen: Soft and nontender Neuro exam: Patient is awake alert and appropriate, cranial nerves 2-12 are intact, sensation grossly intact she has weakness on the left arm and leg which she states is residual from prior back injury. Gait is not assessed Objective Labs Result Diagrams: 02/09/19 05:40 02/09/19 05:40 Labs: Laboratory Results - last 24 hr 02/09/19 02/09/19 05:40 05:40 WBC 8.2 RBC 4.41 Hgb 13.0 Hct 38.8 MCV 87.9 MCH 29.4 MCHC 33.4 RDW 12.8 Plt Count 305 Neut % (Auto) 51.0 Lymph % (Auto) 38.0 [place] % (Auto) 8.0 Eos % (Auto) 1.9 L Baso % (Auto) 1.1 Neut # (Auto) 4200 Lymph # (Auto) 3100 [place] # (Auto) 700 Eos # (Auto) 200 Baso # (Auto) 100 Sodium 138 Potassium 3.8 Chloride 107 Carbon Dioxide 25 BUN 9 Creatinine 0.60 Estimated GFR > 60.0 BUN/Creatinine Ratio 15.0 Glucose 109 H Calcium 8.9 Discharge Plan Discharge Plan Discharge Problem: Stroke Patient Disposition: Home Discharge Med Rec/Prescriptions Prescriptions: New amlodipine [Norvasc] 2.5 mg Tablet 2.5 mg PO DAILY Qty: 30 RF: 0 Continued amitriptyline 10 mg tablet 10 mg PO DAILY RF: 0 cyclobenzaprine 5 mg tablet 5 mg PO DAILY PRN (Reason: Muscle Spasm) RF: 0 oxycodone-acetaminophen 5-325 mg tablet 1 tab PO Q4-6H PRN (Reason: pain) Qty: 30 RF: 0 buspirone 15 mg tablet 1 tab PO BID RF: 0 duloxetine 30 mg capsule,delayed release(DR/EC) 1 cap PO DAILY RF: 0 nabumetone 500 mg tablet 1 tab PO BID RF: 0 baclofen 10 mg tablet 10 mg PO BID RF: 0 hydroxyzine HCl 50 mg tablet 1 tab PO DAILY RF: 0 albuterol sulfate [ProAir HFA] 90 mcg/actuation HFA aerosol inhaler 1 - 2 puff Inhalation Q4-6H PRN (Reason: Asthma) RF: 0 cephalexin 500 mg tablet 500 mg PO DAILY RF: 0 oxycodone-acetaminophen [Percocet] 5-325 mg tablet 1 tab PO Q4-6H PRN (Reason: pain) Qty: 20 RF: 0 Follow up/Referrals: Tone Narvaez MD [Primary Care Provider] - Provider Discharge Instructions Diet: Low-sodium Activity: As tolerated Discharge Data Primary Care Provider: Tone Narvaez Attending Provider: Wes Mcfarlane Admlisbeth Date/Time: 02/08/19 00:19
[2019-02-09] MEDS: ENOXAPARIN 40 MG/0.4 ML SYRINGE SUBCUT (09:14)
[2019-02-09] MEDS: AMLODIPINE 2.5 MG TABLET PO (09:22)
--- NOTE | 2019-02-09 13:04 | CM.DPC ---
DCP Discharge Home Per MD, pt is medically stable to d/c home and pt anxious to get home this morning if possible. OT aware of pt d/c and will see pt this morning but MD does not anticipate any d/c needs and no identified barriers to discharge. Plan: Patient to d/c home via family POV today with no SW needs at this time. CHRISTINA Fortune
== END 2019-02-09 10:10 | disposition home or self-care (01) ==
LOC: ED 02-08 00:19 → AC 02-08 08:55
PROVIDERS: Internal Medicine; Admitting Provider Nurse Practitioner Adult Health; Emergency Provider Emergency Medicine; PCP Family Medicine; Visit Provider Nurse Practitioner Adult Health
DX: G43.909 Migraine, unspecified, not intractable, without status migrainosus (principal); G81.94 Hemiplegia, unspecified affecting left nondominant side; R20.0 Anesthesia of skin; R53.1 Weakness; R03.0 Elevated blood-pressure reading, without diagnosis of hypertension; M79.7 Fibromyalgia; J45.909 Unspecified asthma, uncomplicated
CPT/HCPCS: 36415; 70450; 70548; 70553; 71045; 80048; 80053; 80061; 81003; 82550; 82553; 83690; 84484; 85025; 85610; 85730; 93005; 93010; 93306; 93880; 96361; 96372; 96374; 96375; 96376; 97162; 97530; 99283; 99285; G0378; J1650; J1885; J2270; J3030; Q9957

== ENCOUNTER 2019-04-14 20:26 | Emergency (ER) | payer OTHER, MEDICAID, SELFPAY ==
[2019-02-08 02:00] VITALS: BMI 33.3
[2019-04-14 20:38] VITALS: BP 135/84; PULSE 78; RESP 16; TEMP 37; O2SAT 98
--- NOTE | 2019-04-14 20:54 | ED.FALL ---
HPI - Fall General Chief Complaint: Fall Stated Complaint: Fall, hurt back knee and head Time Seen by Provider: 04/14/19 20:37 Source: patient Mode of arrival: ambulatory Limitations: language barrier History of Present Illness HPI Narrative: Otherwise healthy 43-year-old female who understands Setswana without problems but does have some difficulty speaking Setswana. Her family members are at bedside for translation. She states that earlier this morning she sustained a mechanical fall where she hurt her right knee. She also states that her back hurts but this is not from the fall and is a chronic issue. Triage notes that is that the patient was complaining of head pain however the patient states she did not hit her head. There is no loss of consciousness. She is here for evaluation of pain to her right knee. Has not tried anything for symptoms prior to arrival. Related Data Home Medications Medication Instructions Recorded Confirmed albuterol sulfate 1 - 2 puff INHALATION Q4-6H PRN 07/09/18 02/08/19 baclofen 10 mg PO BID 07/09/18 02/08/19 buspirone 1 tab PO BID 07/09/18 02/08/19 duloxetine 1 cap PO DAILY 07/09/18 02/08/19 hydroxyzine HCl 1 tab PO DAILY 07/09/18 02/08/19 nabumetone 1 tab PO BID 07/09/18 02/08/19 amitriptyline 10 mg tablet 10 mg PO DAILY 10/07/18 02/08/19 cyclobenzaprine 5 mg tablet 5 mg PO DAILY PRN tab 10/07/18 02/08/19 cephalexin 500 mg PO DAILY 10/16/18 02/08/19 Previous Rx's Medication Instructions Recorded oxycodone-acetaminophen 5 mg-325 1 tab PO Q4-6H PRN #30 tab 10/07/18 mg tablet oxycodone-acetaminophen [Percocet] 1 tab PO Q4-6H PRN #20 tab 10/16/18 amlodipine [Norvasc] 2.5 mg PO DAILY #30 tab 02/09/19 amlodipine [Norvasc] 2.5 mg PO DAILY #30 tab 02/09/19 sumatriptan succinate 50 mg PO Q2-4H PRN #30 tab 02/09/19 Allergies Allergy/AdvReac Type Severity Reaction Status Date / Time No Known Drug Allergies Allergy Verified 04/14/19 20:43 Review of Systems Constitutional Denies fever(s) and Denies headache(s) ENT Ears, Nose, Mouth, and Throat: Denies headache(s) Cardiovascular Denies chest pain and Denies dyspnea Respiratory Denies dyspnea Gastrointestinal Gastrointestinal: Denies abdominal pain Musculoskeletal Comments: Right knee pain Integumentary/Breasts Denies lesions and Denies rash Neurologic Denies behavioral changes and Denies headache(s) Psychiatric Denies behavioral changes Hematologic/Lymphatic Denies easy bleeding and Denies easy bruising Exam Initial Vital Signs Initial Vital Signs: Vital Signs Temperature 98.6 F 04/14/19 20:38 Pulse Rate 78 04/14/19 20:38 Respiratory Rate 16 04/14/19 20:38 Blood Pressure 135/84 04/14/19 20:38 Pulse Oximetry 98 04/14/19 20:38 Const General: cooperative, comfortable, well developed, well groomed and No acute distress Orientation: alert and awake HENMT Head: normal to inspection and normocephalic Resp Effort & Inspection: normal respiratory effort Auscultation: clear to auscultation bilaterally Cardio Rate: regular rate Rhythm: regular rhythm Skin Lesions: no lesions Rashes: no rashes Neuro General: alert and awake Cognition: normal cognition Sensory Exam: no sensory deficits noted Extrem Other: Right hip and right ankle unremarkable. Patient does have tenderness to palpation throughout the right knee however seems to be located on the medial aspect. No posterior aspect. ACL MCL PCL and LCL intact a functional testing however this is somewhat limited secondary to the patient's discomfort. Patient is able to do a straight leg raise. [facility] Medical History Asthma (Acute) Elevated BP without diagnosis of hypertension (Acute) Fibromyalgia (Acute) H/O: hysterectomy (Acute) History of ectopic (Acute) Social History household members: spouse and children Smoking Status: Never smoker alcohol intake: current Procedures Orthopedic Splinting/Casting Injury #1: Side: right Lower Extremity Injury Location: knee Lower Extremity Immobilizer: Jose Manuel wrap Post splinting neuro exam: intact Post splinting vascular exam: intact Placed by: Nursing Course Orders Ordered: ED Orders 04/14/19 20:55 XR knee RT 3V Stat Discontinued Medications Hydrocodone Bitart/Acetaminophen ([place] 5/325) 1 tab PO NOW ONE Stop: 04/14/19 20:56 Last Admin: 04/14/19 21:15 Dose: 1 tab Hydrocodone Bitart/Acetaminophen (Vicodin Prepack) 1 bottle MISC SEEINSTR ONE Stop: 04/14/19 21:36 Last Admin: 04/14/19 21:50 Dose: 1 bottle Vital Signs - 8 hr 04/14/19 20:38 04/14/19 21:51 Temperature 98.6 F Pulse Rate 78 74 Respiratory Rate 16 Blood Pressure 135/84 135/78 Pulse Oximetry 98 99 MDM - Fall Imaging Data Knee x-ray: Radiologist's impression: [address] [address] XRay Report Signed Patient: Vashti Tolentino#: [id number] : 1975Acct:[id number] Age/Sex: 43 / FDate of Service: 04/14/19 Loc: ED Accession Number: [id number] Procedure: XR knee RT 3V Ordering Provider: Skyler Chester D.O. PROCEDURE: XR KNEE RT 3V INDICATIONS: medial pain after fall TECHNIQUE: 3 views of the knee were acquired. COMPARISON: None. FINDINGS: Bones: No acute fractures or dislocations. No suspicious bony lesions. Soft tissues: There is a moderate-sized joint effusion. No suspicious soft tissue calcifications. IMPRESSION: Moderate-sized joint effusion. No acute fractures or dislocation of the right knee. Consider nonemergent MRI evaluation if there is clinical concern for internal soft tissue derangement. Dictated by: Farhat Kelley M.D. on 04/14/2019 at 22:28 Approved by: Farhat Kelley M.D. on 04/14/2019 at 22:30 [facility] Narrative Medical decision making narrative: No fractures on the x-ray. Patient does have medial joint line tenderness. I do have some suspicion for potential meniscal injury. Discussed this with the patient and her family who are at bedside. Was sent home with an Jose Manuel bandage. She did not feel like she needed crutches. We did is discussed anti-inflammatories. Discussed following up with primary provider for further evaluation if needed once the acute nature of the injury improved. We discussed ice and elevation. Discussed return precautions. She expressed understanding and agreement with plan. Discharge Plan Departure Patient Disposition: Home Clinical Impression: Knee pain, right Qualifiers: Chronicity: acute Qualified Code(s): M25.561 - Pain in right knee Discharge Date/Time: 04/14/19 21:52 Interventions: ED Discharge Assessment Last Done: 04/14/19 21:51 Instructions: How To Perform RICE (Rest, Ice, Compress, Elevate), DI for Knee Pain Activity Restrictions/Additional Instructions: Take the medication as needed. Use the Jose Manuel bandages needed. Ice her knee. Return to the emergency department for any new or worsening symptoms Prescriptions: No Action amitriptyline 10 mg tablet 10 mg PO DAILY RF: 0 cyclobenzaprine 5 mg tablet 5 mg PO DAILY PRN (Reason: Muscle Spasm) RF: 0 oxycodone-acetaminophen 5-325 mg tablet 1 tab PO Q4-6H PRN (Reason: pain) Qty: 30 RF: 0 buspirone 15 mg tablet 1 tab PO BID RF: 0 duloxetine 30 mg capsule,delayed release(DR/EC) 1 cap PO DAILY RF: 0 nabumetone 500 mg tablet 1 tab PO BID RF: 0 baclofen 10 mg tablet 10 mg PO BID RF: 0 hydroxyzine HCl 50 mg tablet 1 tab PO DAILY RF: 0 albuterol sulfate 90 mcg/actuation HFA aerosol inhaler 1 - 2 puff Inhalation Q4-6H PRN (Reason: Asthma) RF: 0 cephalexin 500 mg tablet 500 mg PO DAILY RF: 0 oxycodone-acetaminophen [Percocet] 5-325 mg tablet 1 tab PO Q4-6H PRN (Reason: pain) Qty: 20 RF: 0 sumatriptan succinate 50 mg tablet 50 mg PO Q2-4H PRN (Reason: migraine headache) Qty: 30 RF: 0 amlodipine [Norvasc] 2.5 mg tablet 2.5 mg PO DAILY Qty: 30 RF: 0 amlodipine [Norvasc] 2.5 mg Tablet 2.5 mg PO DAILY Qty: 30 RF: 0 Referrals: Tone Narvaez MD [Primary Care Provider] -
[2019-04-14] MEDS: HYDROCODONE/ACET 5/325 TABLET 1 TAB PO (21:15)
[2019-04-14] MEDS: HYDROCODONE/ACET 5/325 PREPACK 1 BOTTLE MISC (21:50)
[2019-04-14 21:51] VITALS: BP 135/78; PULSE 74; O2SAT 99
== END 2019-04-14 21:52 | disposition home or self-care (01) ==
PROVIDERS: Emergency Provider Emergency Medicine; PCP Family Medicine
DX: M25.561 Pain in right knee (principal); W19.XXXA Unspecified fall, initial encounter
CPT/HCPCS: 73562; 99282; 99283

== ENCOUNTER 2019-04-17 20:04 | Emergency (ER) | payer OTHER, MEDICAID, SELFPAY ==
[2019-02-08 02:00] VITALS: BMI 33.3
[2019-04-17 20:05] VITALS: BP 157/95; PULSE 81; RESP 18; TEMP 36.6; O2SAT 96; BMI 34.4
--- NOTE | 2019-04-17 20:24 | PC.NURSE ---
Stated she fell Sunday,seen here,told to come back if not improving.
--- NOTE | 2019-04-17 20:51 | ED.LOWEXIN ---
HPI - Extremity Injury (Lower) General Chief Complaint: Extremity Injury, Lower Stated Complaint: RT LEG PAIN Time Seen by Provider: 04/17/19 20:26 Source: patient and family (Assisting with language translation.) Mode of arrival: ambulatory Limitations: no limitations History of Present Illness HPI Narrative: The patient speaks Barbadian, but struggles at times. She has a family member helping with translation. She stepped out to take her dog for a walk 4 days ago. She tripped and fell, striking the edge of the sidewalk with her right knee. She was initially evaluated here. X-ray the right knee revealed an effusion, no bony injury. She was treated with an Jose Manuel wrap and analgesics. She returns now ongoing pain with motion of the knee. She still complains of swelling. There are multiple contusions. She denies hip pain, thigh pain, ankle or foot pain. There are no other injuries in the fall. There is no numbness, weakness or tingling in the right leg. She is not . Related Data Home Medications Medication Instructions Recorded Confirmed albuterol sulfate 1 - 2 puff INHALATION Q4-6H PRN 07/09/18 02/08/19 baclofen 10 mg PO BID 07/09/18 02/08/19 buspirone 1 tab PO BID 07/09/18 02/08/19 duloxetine 1 cap PO DAILY 07/09/18 02/08/19 hydroxyzine HCl 1 tab PO DAILY 07/09/18 02/08/19 nabumetone 1 tab PO BID 07/09/18 02/08/19 amitriptyline 10 mg tablet 10 mg PO DAILY 10/07/18 02/08/19 cyclobenzaprine 5 mg tablet 5 mg PO DAILY PRN tab 10/07/18 02/08/19 cephalexin 500 mg PO DAILY 10/16/18 02/08/19 Previous Rx's Medication Instructions Recorded oxycodone-acetaminophen 5 mg-325 1 tab PO Q4-6H PRN #30 tab 10/07/18 mg tablet oxycodone-acetaminophen [Percocet] 1 tab PO Q4-6H PRN #20 tab 10/16/18 amlodipine [Norvasc] 2.5 mg PO DAILY #30 tab 02/09/19 amlodipine [Norvasc] 2.5 mg PO DAILY #30 tab 02/09/19 sumatriptan succinate 50 mg PO Q2-4H PRN #30 tab 02/09/19 hydrocodone-acetaminophen [[place]] 1 tab PO Q6H PRN #10 tab 04/17/19 ibuprofen 600 mg PO Q6-8H PRN #60 tab 04/17/19 Allergies Allergy/AdvReac Type Severity Reaction Status Date / Time No Known Drug Allergies Allergy Verified 04/14/19 20:43 Review of Systems Constitutional Denies frequent falls, Denies lethargy and Denies weakness Genitourinary Comments: Not Musculoskeletal Reports as per HPI, Denies numbness and Denies tingling Comments: Right knee pain, swelling. Integumentary/Breasts Comments: Multiple right knee contusions Neurologic Denies confusion, Denies frequent falls, Denies numbness, Denies tingling and Denies weakness Psychiatric Denies anxiety, Denies confusion and Denies depression [facility] Medical History Asthma (Acute) Elevated BP without diagnosis of hypertension (Acute) Fibromyalgia (Acute) H/O: hysterectomy (Acute) History of ectopic (Acute) Surgical History History of oophorectomy, unilateral (Acute) History of shoulder surgery (Acute) Status post incision and drainage (Acute) Family History Brother Hypertension Diabetes mellitus Myocardial infarction Hyperlipidemia Grandmother Diabetes mellitus Mother Thyroid condition Social History household members: spouse and children Smoking Status: Never smoker alcohol intake: current Family History Brother Hypertension Diabetes mellitus Myocardial infarction Hyperlipidemia Grandmother Diabetes mellitus Mother Thyroid condition Social History household members: spouse and children Smoking Status: Never smoker alcohol intake: current Exam Initial Vital Signs Initial Vital Signs: Vital Signs Temperature 97.9 F 04/17/19 20:05 Pulse Rate 81 04/17/19 20:05 Respiratory Rate 18 04/17/19 20:05 Blood Pressure 157/95 H 04/17/19 20:05 Pulse Oximetry 96 04/17/19 20:05 Const General: cooperative, well developed, No in distress and No anxious Nutritional Appearance: well nourished Orientation: alert, awake, oriented x3 and not confused Skin Other: Multiple contusions to the right knee and right proximal tibial area. Neuro General: alert, oriented x3, gait normal and no focal motor deficits Speech: speech normal Other: Right leg normal motor and sensory exam. Extrem General: full ROM, no clubbing, cyanosis or edema, no pedal edema and no calf tenderness Other: No tenderness to the right hip, right thigh, right tibia, ankle or foot. Normal pulses the right foot. She has range of motion 0-100 degrees in right knee. There is palpable effusion. She has multiple contusions about the patella. There are no palpable defects. She also has a contusion in the right radical leg distal to the patella. Procedures Orthopedic Splinting/Casting Injury #1: Side: right Lower Extremity Injury Location: knee Lower Extremity Immobilizer: knee immobilizer Post splinting neuro exam: intact Post splinting vascular exam: intact Placed by: Nursing Course Course Narrative: X-ray from her visit 4 days ago was reviewed. X-rays consistent with effusion. There are multiple contusions on exam. There is no evidence of bony injury. She has ongoing tenderness in the right knee. Immobilizer was applied by the patient's nurse. She was given Toradol 60 mg IM for pain control. She was discharged on ibuprofen and a limited supply of [place]. Orders Ordered: Discontinued Medications Ketorolac Tromethamine (Toradol) 60 mg IM NOW ONE Stop: 04/17/19 20:58 Vital Signs - 8 hr 04/17/19 20:05 Temperature 97.9 F Pulse Rate 81 Respiratory Rate 18 Blood Pressure 157/95 H Pulse Oximetry 96 Discharge Plan Departure Patient Disposition: Home Clinical Impression: Contusion of knee, right Qualifiers: Encounter type: initial encounter Qualified Code(s): S80.01XA - Contusion of right knee, initial encounter Instructions: DI for Contusion Activity Restrictions/Additional Instructions: Motrin 600 mg every 6 hr as needed for pain. [place] every 4-6 hours for added pain control. Use the knee immobilizer until the pain is improved. The immobilizer may be on office as needed for showers, or sleep. When your up and moving the immobilizer should be in place. If not improved within 1 week follow up with her doctor. Return here as needed. Prescriptions: New hydrocodone-acetaminophen [[place]] 5-325 mg tablet 1 tab PO Q6H PRN (Reason: pain) Qty: 10 RF: 0 ibuprofen 600 mg tablet 600 mg PO Q6-8H PRN (Reason: pain) Qty: 60 RF: 0 No Action amitriptyline 10 mg tablet 10 mg PO DAILY RF: 0 cyclobenzaprine 5 mg tablet 5 mg PO DAILY PRN (Reason: Muscle Spasm) RF: 0 oxycodone-acetaminophen 5-325 mg tablet 1 tab PO Q4-6H PRN (Reason: pain) Qty: 30 RF: 0 buspirone 15 mg tablet 1 tab PO BID RF: 0 duloxetine 30 mg capsule,delayed release(DR/EC) 1 cap PO DAILY RF: 0 nabumetone 500 mg tablet 1 tab PO BID RF: 0 baclofen 10 mg tablet 10 mg PO BID RF: 0 hydroxyzine HCl 50 mg tablet 1 tab PO DAILY RF: 0 albuterol sulfate 90 mcg/actuation HFA aerosol inhaler 1 - 2 puff Inhalation Q4-6H PRN (Reason: Asthma) RF: 0 cephalexin 500 mg tablet 500 mg PO DAILY RF: 0 oxycodone-acetaminophen [Percocet] 5-325 mg tablet 1 tab PO Q4-6H PRN (Reason: pain) Qty: 20 RF: 0 sumatriptan succinate 50 mg tablet 50 mg PO Q2-4H PRN (Reason: migraine headache) Qty: 30 RF: 0 amlodipine [Norvasc] 2.5 mg tablet 2.5 mg PO DAILY Qty: 30 RF: 0 amlodipine [Norvasc] 2.5 mg Tablet 2.5 mg PO DAILY Qty: 30 RF: 0 Referrals: Tone Narvaez MD [Primary Care Provider] -
[2019-04-17] MEDS: KETOROLAC 60 MG/2 ML VIAL IM (21:10)
[2019-04-17 21:31] VITALS: BP 146/88; PULSE 80; RESP 18; O2SAT 98
== END 2019-04-17 21:32 | disposition home or self-care (01) ==
PROVIDERS: Emergency Provider Emergency Medicine; Family Provider Family Medicine; PCP Family Medicine
DX: S80.01XA Contusion of right knee, initial encounter (principal); W01.198A Fall on same level from slipping, tripping and stumbling with subsequent striking against other object, initial encounter
CPT/HCPCS: 96372; 99283; J1885

== ENCOUNTER 2019-09-26 17:02 | Emergency (ER) | payer OTHER, MEDICAID, SELFPAY ==
[2019-02-08 02:00] VITALS: BMI 33.3
[2019-09-26 17:09] VITALS: BP 136/90; PULSE 98; TEMP 36.7; O2SAT 98; BMI 31.8
--- NOTE | 2019-09-26 18:11 | ED.BACK ---
HPI - Back Pain/Injury General Chief Complaint: Back Pain/Injury Stated Complaint: back pain Time Seen by Provider: 09/26/19 17:54 Source: patient and family Mode of arrival: Ambulatory Limitations: language barrier History of Present Illness HPI Narrative: 43-year-old female here for evaluation of back pain that is radiating down her legs. Has had a longstanding history of back pain. He has seen a specialist. She states that they have told her that they do not want to do any surgery. She has been seen at the pain clinic has been on gabapentin now for several months. Here for evaluation because the past couple days she has had a increase in her pain. No bowel or bladder symptoms. No trauma. No fevers. She has been taking her medications but she says the gabapentin is not working for her and has never worked for her. She has an appointment later this month with her plate painter apprentice. Related Data Home Medications Medication Instructions Recorded Confirmed albuterol sulfate 1 - 2 puff INHALATION Q4-6H PRN 07/09/18 02/08/19 baclofen 10 mg PO BID 07/09/18 02/08/19 buspirone 1 tab PO BID 07/09/18 02/08/19 duloxetine 1 cap PO DAILY 07/09/18 02/08/19 hydroxyzine HCl 1 tab PO DAILY 07/09/18 02/08/19 nabumetone 1 tab PO BID 07/09/18 02/08/19 amitriptyline 10 mg tablet 10 mg PO DAILY 10/07/18 02/08/19 cyclobenzaprine 5 mg tablet 5 mg PO DAILY PRN tab 10/07/18 02/08/19 cephalexin 500 mg PO DAILY 10/16/18 02/08/19 gabapentin 600 mg PO TID 09/26/19 09/26/19 Previous Rx's Medication Instructions Recorded oxycodone-acetaminophen 5 mg-325 1 tab PO Q4-6H PRN #30 tab 10/07/18 mg tablet oxycodone-acetaminophen [Percocet] 1 tab PO Q4-6H PRN #20 tab 10/16/18 amlodipine [Norvasc] 2.5 mg PO DAILY #30 tab 02/09/19 amlodipine [Norvasc] 2.5 mg PO DAILY #30 tab 02/09/19 sumatriptan succinate 50 mg PO Q2-4H PRN #30 tab 02/09/19 hydrocodone-acetaminophen [[place]] 1 tab PO Q6H PRN #10 tab 04/17/19 ibuprofen 600 mg PO Q6-8H PRN #60 tab 04/17/19 Allergies Allergy/AdvReac Type Severity Reaction Status Date / Time No Known Drug Allergies Allergy Verified 09/26/19 17:14 Review of Systems Constitutional Constitutional: Denies chills, Denies fatigue, Denies fever(s) and Denies weakness Cardiovascular Cardiovascular: Denies chest pain and Denies dyspnea Respiratory Respiratory: Denies dyspnea Gastrointestinal Gastrointestinal: Denies abdominal pain Musculoskeletal Musculoskeletal: Reports back pain and Reports radiating pain into limb Integumentary/Breasts Skin/Breast: Denies rash Neurologic Neurologic: Reports radicular pain and Denies weakness Psychiatric Psychiatric: Denies anxiety Endocrine Endocrine: Denies fatigue Hematologic/Lymphatic Hematologic/Lymphatic: Denies easy bleeding and Denies easy bruising Allergic/Immunologic Allergic/Immunologic: Denies urticaria Patient History Medical History Asthma (Acute) Elevated BP without diagnosis of hypertension (Acute) Fibromyalgia (Acute) History of ectopic (Acute) Social History household members: spouse and children Smoking Status: Never smoker alcohol intake: current Smoking Status: Never smoker alcohol intake frequency: 0-2 drinks per day Substance Use Type: does not use Exam Initial Vital Signs Initial Vital Signs: Vital Signs Temperature 98.1 F 09/26/19 17:09 Pulse Rate 98 H 09/26/19 17:09 Blood Pressure 136/90 09/26/19 17:09 Pulse Oximetry 98 09/26/19 17:09 Const General: cooperative and comfortable Limitations: mental status not altered HENMT Head: normal to inspection and normocephalic Resp Effort & Inspection: normal respiratory effort Cardio Rate: regular rate Back/Spine/Pelvis Thoracic/Lumbar Spine: paraspinal tenderness, thoracic spinal tenderness and lumbar spinal tenderness Skin Lesions: no lesions Rashes: no rashes Neuro General: alert and awake Cognition: normal cognition Speech: speech normal Extrem General: normal to inspection and capillary refill normal Psych Appearance: grossly normal and well kempt Course Orders Ordered: Discontinued Medications Hydromorphone HCl (Dilaudid) 1 mg IM NOW ONE Stop: 09/26/19 18:28 Last Admin: 09/26/19 18:31 Dose: 1 mg Documented by: ZAKIYA Ketorolac Tromethamine (Toradol) 30 mg IM NOW ONE Stop: 09/26/19 18:29 Last Admin: 09/26/19 18:30 Dose: 30 mg Documented by: ZAKIYA Vital Signs Vital signs: Vital Signs - 8 hr 09/26/19 17:09 09/26/19 19:00 Temperature 98.1 F Pulse Rate 98 H 79 Respiratory Rate 16 Blood Pressure 136/90 Blood Pressure [Right Arm] 124/64 Pulse Oximetry 98 97 MDM - Back Pain/Injury MDM Narrative Medical decision making narrative: Longstanding history of back pain. No specific trauma. No red flag symptoms consistent with cauda equina. No indication for radiologic studies. Already sees a plate painter apprentice. Was provided medications here in the ER. Instructed to follow-up with her plate painter apprentice. Patient expressed understanding and agreement plan. Discharge Plan Departure Patient Disposition: Home Clinical Impression: Chronic back pain Discharge Date/Time: 09/26/19 19:06 Instructions: Activity May Be Better then Rest for Low Back Pain Recovery, Exercise May Reduce Risk of Low Back Pain Activity Restrictions/Additional Instructions: Recommend you continue all of your medications as directed. Contact your plate painter apprentice on Sunday for further guidance on any change in medications. Return to the emergency department for any new or worsening symptoms Prescriptions: No Action amitriptyline 10 mg tablet 10 mg PO DAILY RF: 0 cyclobenzaprine 5 mg tablet 5 mg PO DAILY PRN (Reason: Muscle Spasm) RF: 0 oxycodone-acetaminophen 5-325 mg tablet 1 tab PO Q4-6H PRN (Reason: pain) Qty: 30 RF: 0 buspirone 15 mg tablet 1 tab PO BID RF: 0 duloxetine 30 mg capsule,delayed release(DR/EC) 1 cap PO DAILY RF: 0 nabumetone 500 mg tablet 1 tab PO BID RF: 0 baclofen 10 mg tablet 10 mg PO BID RF: 0 hydroxyzine HCl 50 mg tablet 1 tab PO DAILY RF: 0 albuterol sulfate 90 mcg/actuation HFA aerosol inhaler 1 - 2 puff Inhalation Q4-6H PRN (Reason: Asthma) RF: 0 cephalexin 500 mg tablet 500 mg PO DAILY RF: 0 oxycodone-acetaminophen [Percocet] 5-325 mg tablet 1 tab PO Q4-6H PRN (Reason: pain) Qty: 20 RF: 0 sumatriptan succinate 50 mg tablet 50 mg PO Q2-4H PRN (Reason: migraine headache) Qty: 30 RF: 0 amlodipine [Norvasc] 2.5 mg tablet 2.5 mg PO DAILY Qty: 30 RF: 0 amlodipine [Norvasc] 2.5 mg Tablet 2.5 mg PO DAILY Qty: 30 RF: 0 hydrocodone-acetaminophen [[place]] 5-325 mg tablet 1 tab PO Q6H PRN (Reason: pain) Qty: 10 RF: 0 ibuprofen 600 mg tablet 600 mg PO Q6-8H PRN (Reason: pain) Qty: 60 RF: 0 gabapentin 300 mg capsule 600 mg PO TID RF: 0 Referrals: Tone Narvaez MD [Primary Care Provider] -
[2019-09-26] MEDS: KETOROLAC 60 MG/2 ML VIAL 30 MG IM (18:30)
[2019-09-26] MEDS: HYDROMORPHONE 1 MG INJ IM (18:31)
[2019-09-26 19:00] VITALS: BP 124/64; PULSE 79; RESP 16; O2SAT 97
== END 2019-09-26 19:06 | disposition home or self-care (01) ==
PROVIDERS: Emergency Provider Emergency Medicine; Family Provider Family Medicine; PCP Family Medicine
DX: M54.9 Dorsalgia, unspecified (principal)
CPT/HCPCS: 96372; 99283; J1170; J1885

== ENCOUNTER 2020-04-25 15:20 | Emergency (ER) | payer OTHER, MEDICAID, SELFPAY ==
[2019-02-08 02:00] VITALS: BMI 33.3
[2020-04-25 15:28] VITALS: BP 156/77; PULSE 64; RESP 18; TEMP 36.9; O2SAT 97
--- NOTE | 2020-04-25 15:31 | ED_ITS ---
HPI - Back Pain/Injury <Greta Pollock, [employer] - Last Filed: 04/25/20 18:50> General Chief Complaint: Back Pain/Injury Stated Complaint: back pain Time Seen by Provider: 04/25/20 15:23 History of Present Illness HPI Narrative: 44yo female with extensive history of chronic back pain, presents emergency department today for pain control. She has seen multiple specialists and has been told that they do not want to do surgery on her as they think it will mess up her spinal cord. Patient states for years she has had pain that starts in her mid back and radiates down to both legs bilaterally, she has decreased strength and both of her legs and has an altered gait due to this. She states this has been normal for her for the past few years. Patient states the pain is a sharp stabbing with tingling that is worse with movement or lifting her legs up. She denies any loss of bowel or bladder control, saddle paresthesias,, recent injections, nausea, vomiting, diarrhea, or other concerns. She states she came to the emergency department in the past and got an injection which provided significant relief, she states this is which she is here for today. Patient reports she has an appointment tomorrow with a neurologist. Related Data Home Medications Medication Instructions Recorded Confirmed albuterol sulfate 1 - 2 puff INHALATION Q4-6H PRN 07/09/18 02/08/19 baclofen 10 mg PO BID 07/09/18 02/08/19 buspirone 1 tab PO BID 07/09/18 02/08/19 duloxetine 1 cap PO DAILY 07/09/18 02/08/19 hydroxyzine HCl 1 tab PO DAILY 07/09/18 02/08/19 nabumetone 1 tab PO BID 07/09/18 02/08/19 amitriptyline 10 mg tablet 10 mg PO DAILY 10/07/18 02/08/19 cyclobenzaprine 5 mg tablet 5 mg PO DAILY PRN tab 10/07/18 02/08/19 cephalexin 500 mg PO DAILY 10/16/18 02/08/19 gabapentin 600 mg PO TID 09/26/19 09/26/19 Previous Rx's Medication Instructions Recorded oxycodone-acetaminophen 5 mg-325 1 tab PO Q4-6H PRN #30 tab 10/07/18 mg tablet oxycodone-acetaminophen [Percocet] 1 tab PO Q4-6H PRN #20 tab 10/16/18 amlodipine [Norvasc] 2.5 mg PO DAILY #30 tab 02/09/19 amlodipine [Norvasc] 2.5 mg PO DAILY #30 tab 02/09/19 sumatriptan succinate 50 mg PO Q2-4H PRN #30 tab 02/09/19 hydrocodone-acetaminophen [Derwent] 1 tab PO Q6H PRN #10 tab 04/17/19 ibuprofen 600 mg PO Q6-8H PRN #60 tab 04/17/19 Allergies Allergy/AdvReac Type Severity Reaction Status Date / Time No Known Drug Allergies Allergy Verified 09/26/19 17:14 Review of Systems <DAWSON Schulz - Last Filed: 04/25/20 18:50> Review of Systems Narrative: REVIEW OF SYSTEMS: GENERAL: Denies fever or chills. HENT: No head trauma. EYES: No vision changes. CARDIOVASCULAR: No chest pain or syncope. RESPIRATORY: No shortness of breath or cough. GASTROINTESTINAL: No nausea, vomiting, diarrhea, or constipation. GENITOURINARY: No flank pain, dysuria, or loss of bowel or bladder control. MUSCULOSKELETAL: Complains of back pain, see HPI. INTEGUMENTARY: No rash, lesions, or pruritus. NEURO: No numbness, tingling. PSYCH: No behavior or mood changes. Patient History <DAWSON Schulz - Last Filed: 04/25/20 18:50> Medical History Asthma (Acute) Elevated BP without diagnosis of hypertension (Acute) Fibromyalgia (Acute) History of ectopic (Acute) Surgical History H/O: hysterectomy (Acute) History of oophorectomy, unilateral (Acute) History of shoulder surgery (Acute) Status post incision and drainage (Acute) Family History Brother Hypertension Diabetes mellitus Myocardial infarction Hyperlipidemia Grandmother Diabetes mellitus Mother Thyroid condition Social History household members: spouse and children Smoking Status: Never smoker alcohol intake: current Smoking Status: Never smoker alcohol intake frequency: 0-2 drinks per day Substance Use Type: does not use Exam <DAWSON Schulz - Last Filed: 04/25/20 18:50> Initial Vital Signs Initial Vital Signs: Vital Signs Temperature 98.4 F 04/25/20 15:28 Pulse Rate 64 04/25/20 15:28 Respiratory Rate 18 04/25/20 15:28 Blood Pressure 156/77 H 04/25/20 15:28 Pulse Oximetry 97 04/25/20 15:28 PHYSICAL EXAMINATION: GENERAL: Well groomed, alert, and cooperative. Answers questions promptly and appropriately. Vital signs noted. HENT: Normocephalic, atraumatic. EYES: Symmetrical, sclera white, no periorbital swelling. CARDIOVASCULAR: Regular rate. RESPIRATORY: Normal respiratory rate, trachea midline, airway patent. No stridor, nasal flaring or accessory muscle use. MUSCULOSKELETAL: Decreased strength against resistance to legs bilaterally. Pedal pulses 2+ and equal bilaterally. Patient is able to lift both legs soft the bed to approximately 40? but reports increased pain with lifting legs. Patient is able to bend knee to greater than 90?. Equal tone and mass b ilaterally. Thoracic paraspinal vertebral tenderness. EXTREMITIES: CMS intact. No pedal edema. SKIN: Warm, dry, soft, appropriate color for ethnicity. No lesions, rashes, or wounds. NEURO: Alert and Oriented X 3. No sensory deficits. Intact light touch sensation to lower extremities bilaterally. PSYCH: Appropriate affect and mood. <Mateus White MD - Last Filed: 04/25/20 18:51> Initial Vital Signs Initial Vital Signs: Vital Signs Temperature 98.4 F 04/25/20 15:28 Pulse Rate 64 04/25/20 15:28 Respiratory Rate 18 04/25/20 15:28 Blood Pressure 156/77 H 04/25/20 15:28 Pulse Oximetry 97 04/25/20 15:28 Course <DAWSON Schulz - Last Filed: 04/25/20 18:50> Course Course Narrative: Patient reported improved pain after medication administration. Orders Ordered: Discontinued Medications Hydromorphone HCl (Dilaudid) 1 mg IM NOW ONE Stop: 04/25/20 15:33 Last Admin: 04/25/20 15:54 Dose: 1 mg Documented by: BILLY Ketorolac Tromethamine (Toradol) 30 mg IM NOW ONE Stop: 04/25/20 15:33 Last Admin: 04/25/20 15:53 Dose: 30 mg Documented by: BILLY Vital Signs Vital signs: Vital Signs - 8 hr 04/25/20 15:28 04/25/20 16:33 Temperature 98.4 F Pulse Rate 64 80 Respiratory Rate 18 16 Blood Pressure 156/77 H 142/68 H Pulse Oximetry 97 99 <Mateus White MD - Last Filed: 04/25/20 18:51> Orders Ordered: Discontinued Medications Hydromorphone HCl (Dilaudid) 1 mg IM NOW ONE Stop: 04/25/20 15:33 Last Admin: 04/25/20 15:54 Dose: 1 mg Documented by: BILLY Ketorolac Tromethamine (Toradol) 30 mg IM NOW ONE Stop: 04/25/20 15:33 Last Admin: 04/25/20 15:53 Dose: 30 mg Documented by: BILLY Vital Signs Vital signs: Vital Signs - 8 hr 04/25/20 15:28 04/25/20 16:33 Temperature 98.4 F Pulse Rate 64 80 Respiratory Rate 18 16 Blood Pressure 156/77 H 142/68 H Pulse Oximetry 97 99 MDM - Back Pain/Injury <DAWSON Schulz - Last Filed: 04/25/20 18:50> Medical Records Attestation: I reviewed the patient's medical records. Lab Data Attestation: I reviewed the patient's lab results. MDM Narrative Medical decision making narrative: 44-year-old female presents emergency department with chronic back pain for pain control. Patient was given Toradol and hydrocodone, reports reduce pain. Less likely cauda equina due to lack of bowel or bladder symptoms, no saddle paresthesias. Pain has not changed from location of typical chronic pain patterns. Less likely infection, no fever, patient hemodynamically stable without any complaints. Patient's an appointment scheduled neurologist tomorrow, she was encouraged to follow up. Return precautions given for new or worsening symptoms. Patient agreed to plan of care verbalized Discharge Plan Departure Patient Disposition: Home Clinical Impression: Back pain Qualifiers: Back pain location: thoracic back pain Chronicity: chronic Back pain laterality: bilateral Qualified Code(s): M54.6 - Pain in thoracic spine Discharge Date/Time: 04/25/20 16:35 Instructions: DI for Back Pain With Sciatica Activity Restrictions/Additional Instructions: Thank you for entrusting me with your care today. As discussed, you have been given medications for pain in the emergency department today. One of these medications can make you drowsy, please do not drive. Follow-up with your doctor as planned tomorrow. Return emergency department for any new or worsening symptoms such as loss of bowel or bladder control, syncope, high fevers, severe pain, or any other concerns. Prescriptions: No Action amitriptyline 10 mg tablet 10 mg PO DAILY RF: 0 cyclobenzaprine 5 mg tablet 5 mg PO DAILY PRN (Reason: Muscle Spasm) RF: 0 oxycodone-acetaminophen 5-325 mg tablet 1 tab PO Q4-6H PRN (Reason: pain) Qty: 30 RF: 0 buspirone 15 mg tablet 1 tab PO BID RF: 0 duloxetine 30 mg capsule,delayed release(DR/EC) 1 cap PO DAILY RF: 0 nabumetone 500 mg tablet 1 tab PO BID RF: 0 baclofen 10 mg tablet 10 mg PO BID RF: 0 hydroxyzine HCl 50 mg tablet 1 tab PO DAILY RF: 0 albuterol sulfate 90 mcg/actuation HFA aerosol inhaler 1 - 2 puff Inhalation Q4-6H PRN (Reason: Asthma) RF: 0 cephalexin 500 mg tablet 500 mg PO DAILY RF: 0 oxycodone-acetaminophen [Percocet] 5-325 mg tablet 1 tab PO Q4-6H PRN (Reason: pain) Qty: 20 RF: 0 sumatriptan succinate 50 mg tablet 50 mg PO Q2-4H PRN (Reason: migraine headache) Qty: 30 RF: 0 amlodipine [Norvasc] 2.5 mg tablet 2.5 mg PO DAILY Qty: 30 RF: 0 amlodipine [Norvasc] 2.5 mg Tablet 2.5 mg PO DAILY Qty: 30 RF: 0 hydrocodone-acetaminophen [Derwent] 5-325 mg tablet 1 tab PO Q6H PRN (Reason: pain) Qty: 10 RF: 0 ibuprofen 600 mg tablet 600 mg PO Q6-8H PRN (Reason: pain) Qty: 60 RF: 0 gabapentin 300 mg capsule 600 mg PO TID RF: 0 Referrals: Tone Narvaez MD [Primary Care Provider] -
[2020-04-25] MEDS: KETOROLAC 60 MG/2 ML VIAL 30 MG IM (15:53)
[2020-04-25] MEDS: HYDROMORPHONE 1 MG INJ IM (15:54)
[2020-04-25 16:33] VITALS: BP 142/68; PULSE 80; RESP 16; O2SAT 99
== END 2020-04-25 16:35 | disposition home or self-care (01) ==
PROVIDERS: Emergency Provider Nurse Practitioner; Family Provider Family Medicine; PCP Family Medicine
DX: M54.6 Pain in thoracic spine (principal)
CPT/HCPCS: 96372; 99283; J1170; J1885

== ENCOUNTER 2020-10-27 15:43 | Emergency (ER) | payer MEDICARE, MEDICAID, SELFPAY ==
[2019-02-08 02:00] VITALS: BMI 33.3
[2020-10-27 15:46] VITALS: BP 139/74; PULSE 80; RESP 14; TEMP 36.6; O2SAT 99; BMI 30.1
--- NOTE | 2020-10-27 15:49 | DI.RAD.S_ITS ---
PROCEDURE: XR LUMBAR SPINE 2-3V INDICATIONS: back pain after stepping into bathtub TECHNIQUE: 3 views of the lumbar spine were acquired. COMPARISON: [facility], CR, XR LUMBAR SPINE WITH FLEXION EXTENSION 5 VIEWS, 11/05/2018, 14:52. FINDINGS: Bones: 5 [id number] vertebrae are present. There is normal bony alignment. No vertebral body compression fractures. No suspicious bony lesions. There is mild degenerative disc disease at L1-L2, L2-L3, L4-L5 and L5-S1. Soft tissues: Overlying bowel gas pattern is normal. No suspicious soft tissue calcifications. IMPRESSION: No fracture. Mild degenerative disc disease. Dictated by: Susi Mirza M.D. on 10/27/2020 at 16:16 Approved by: Susi Mirza M.D. on 10/27/2020 at 16:20
== END 2020-10-27 17:11 | disposition left against medical advice (07) ==
PROVIDERS: Emergency Provider Emergency Medicine; Family Provider Family Medicine; PCP Family Medicine
DX: M51.36 Other intervertebral disc degeneration, lumbar region (principal); M51.37 Other intervertebral disc degeneration, lumbosacral region
CPT/HCPCS: 72100; 99281

== ENCOUNTER 2021-04-22 09:45 | Outpatient (RCR) | payer MEDICARE, OTHER, MEDICAID, SELFPAY ==
[2019-02-08 02:00] VITALS: BMI 33.3
--- NOTE | 2020-07-29 14:23 | PT-OP ANOTE ---
Per phone, at Dr. Skyler Kuhn' office, spoke with Phyllis, who transferred me to Amee at front end manager. Amee stated pt had surgery April 2020 and is being referred for PT 2x/week for 8 weeks. Request was made for faxing of rehab protocol and surgical report. Amee will fax what she can.
--- NOTE | 2020-07-29 17:32 | PT.OIE ---
Current Diagnoses Complex tear of lateral meniscus, current injury, right knee, subsequent encounter (07/29/20) Past Medical History (Last Reviewed 04/25/20 @ 15:37 by DAWSON Schulz) Asthma (Acute) Elevated BP without diagnosis of hypertension (Acute) Fibromyalgia (Acute) History of ectopic (Acute) Past Surgical History (Last Reviewed 04/25/20 @ 15:37 by DAWSON Schulz) H/O: hysterectomy (Acute) History of oophorectomy, unilateral (Acute) History of shoulder surgery (Acute) Status post incision and drainage (Acute) Visit Care Team Role Provider Type Tone Narvaez MD Family Provider Non-Staff Primary Care Provider Specialty: Family Practice Address: [address] [place] [address], [id number] Email: Skyler Kuhn Attending Provider Non-Staff Referring Provider Specialty: Medical Address: [address] [place] [address], Formerly [facility] Email: Physical Therapy Initial Evaluation PT-OP-A Visit Information Start: 07/27/20 18:34 Freq: Status: Active Protocol: Document 07/29/20 10:43 LRN (Rec: 07/29/20 11:32 LRN [id number]) Out-Patient Physical Therapy Visit Information Visit Information Visit Type Initial Evaluation Visit Start Time 10:43 Visit Stop Time 11:31 Total Visit Minutes 48 Visit Number 1 Evaluation Information Evaluation Date 07/29/20 Precautions Precautions Fibromyalgia, Depression not controlled, Controlled HBP, Chronic back & neck pain. PT-OP-B Current Condition Start: 07/27/20 18:34 Freq: Status: Active Protocol: Document 07/29/20 10:43 LRN (Rec: 07/29/20 11:32 LRN [id number]) Current Condition History of Current Condition Onset Date 2 months ago had surgery. Current Complaints Walking, stairs has R knee pn anteriorly; medial & posterior knee swelling History of Current Condition Had R meniscus repair and cartilage repair with metal, . Pt states she was given a note for therapy but she forgot it, but it was for 8 wks of PT. States she was told she needs exercise. States she has pain with gait and stairs. Pain at rest. Prior Treatments and Tests Hand out for post surgery exercises give by physician. Future Testing and Treatments Planned Next MD appt is 09/29/20. Developmental History Developmental History Fell in 2018 outside of house, had a lot of back pain and; therefore the legs went weak and fell to the R side twisting the knee (pt is L handed). Treatment Goals Patient/Caregiver Goals Back pain for past 5 yrs. Prior Functional Status Baseline Function- ADL's Modified Independent Baseline Function- Mobility Modified Independent Baseline Function- Gait Walked 1/2 mile. Baseline Function- Work/School 5 yrs unemployed. Sitting for school 1 hour tolerance. Baseline Function- Other [employer] class, functionally able to cook for self and son. Lives with 25 yr old son. Able to sleep 7 hours. Current Functional Impairments (Reported) Functional Limitations- ADL's Not walking for exercise at all due to R knee pain. Difficulty sleeping, tolerates sleep 3-4 hours at a time due to R knee pain Functional Limitations- Mobility/Gait Ambs with wide SPC on R side to decrease weight bearing on the RLE. Functional Limitations- Work/School Sitting for school 20-30' tolerance due to pain rated 7- 9/10. Personal Factors Other Personal Factors That May Effect 5 yrs unemployed, uncontrolled Therapy/Recovery depression, chronic back & neck pain. PT-OP-C Subjective Start: 07/27/20 18:34 Freq: Status: Active Protocol: Document 07/29/20 10:43 LRN (Rec: 07/29/20 11:32 LRN [id number]) OP-PT Subjective Patient Comments Patient Comments Pt goal with therapy: Walk without use of cane and tolerable pain of 0-3/10. Tolerate sitting 1 hour with pain rated no more than 2/10. Sleep greater than 3-4 hours. Patient Questionnaires Lower Extremity Functional Scale LEFS Score 21 LEFS Impairment 60 to 79% Impaired (Score 17- 31) OP-PT Pain Assessment Pain Assessment Grid Paper Pain Assessment Grid Completed Yes Location R upper and lower lateral thigh/leg Pain Location Details R upper & lower lateral thigh/ leg Intensity 7 Scale Used Numeric (0 - 10) Description Burning,Sharp Frequency Intermittent R knee Pain Location Details R anterior knee Intensity 7 Scale Used Numeric (0 - 10) Description Burning,Sharp Frequency Constant Pain Alleviating Factors Cold PT-OP-J Posture/Palpation/Skin Start: 07/27/20 18:34 Freq: Status: Active Protocol: Document 07/29/20 10:43 LRN (Rec: 07/29/20 11:32 LRN [id number]) Posture Evaluation Position Standing Evaluation View All positions Head/C-Spine Posture Neutral Position T-Spine Posture Flattened Shoulder Posture (R) Elevated Pelvis Posture (R) Iliac Crest Superior Weight Distribution Weight Shifted Left Knee Posture (L) Genu Valgus,(R) Genu Valgus,(R) Ext. Tibial Torsion Ankle/Foot Posture (L) Forefoot Abducted Palpation Assessment Location Anterolateral lower proximal 1/2 of leg Palpation Location Anterolateral lower proximal 1 /2 of leg Palpation Findings Soft Tissue Tightness Palpation Details Painful with sharp/burning pain. Anterolateral R thigh Palpation Location Anterolateral R thigh Palpation Findings Soft Tissue Tightness Palpation Details Painful with sharp/burning pain. R knee around patella Palpation Location Around R patella Palpation Details Painful with sharp/burning pain. PT-OP-K Range of Motion Start: 07/27/20 18:34 Freq: Status: Active Protocol: Document 07/29/20 10:43 LRN (Rec: 07/29/20 11:32 LRN [id number]) Knee Goniometric Range of Motion Knee Supine Left Knee ROM WFL Yes Patient Position Supine Flexion Active (degrees) 135 Flexion Passive (degrees) 135 Hyper-Extension Active 12 Comments Extension ROM is passive. Supine Right Knee ROM WFL No Patient Position Supine Flexion Active (degrees) 81 Flexion Passive (degrees) 90 Hyper-Extension Active 3 Comments Extension ROM is passive Left Knee ROM WFL Yes Patient Position Sitting Hyper-Extension Active 5 Right Knee ROM WFL No Patient Position Sitting Extension Active (degrees) 8 Comments Extension AROM is lacking 8 deg's. PT-OP-M Strength Start: 07/27/20 18:34 Freq: Status: Active Protocol: Document 07/29/20 10:43 LRN (Rec: 07/29/20 11:32 LRN [id number]) Hip Strength Hip Manual Muscle Testing Right Flexion (L2) 3- Fair- Abduction 2 Poor Adduction 1 Trace Comments Back & R knee pain limiting strength Left Flexion (L2) 3 Fair Abduction 2+ Poor+ Adduction 1 Trace Comments Back pain limiting strength Knee Strength Knee Manual Muscle Testing Right Flexion (S2) 3+ Fair+ Extension (L3) 3+ Fair+ Left Comments WNL Ankle/Foot Strength Ankle and Foot Manual Muscle Testing Right Dorsiflexion (L4) 3+ Fair+ Plantarflexion (S1) 5 Normal Inversion 5 Normal Eversion (S1) 5 Normal Left Comments WNL PT-OP-Q Treatments Start: 07/27/20 18:34 Freq: Status: Active Protocol: Document 07/29/20 10:43 LRN (Rec: 07/29/20 11:32 LRN [id number]) Therapeutic Exercises Sitting Exercises R knee ext Sitting Exercise Name AROM Side right Reps/Minutes 10x Knee flex AROM Sitting Exercise Name Knee flex Side right Reps/Minutes 10 hold 3x Self-Care/Home Management Treatment Education Patient Education Pain Management Other Education Educated pt in elevation of RLE for edema management and discussed use of MH or ice for pain management and pt to determine modality that will produce the best response. PT-OP-T Assessment and Plan Start: 07/27/20 18:34 Freq: Status: Active Protocol: Document 07/29/20 10:43 LRN (Rec: 07/29/20 11:32 LRN [id number]) Physical Therapy Assessment Rehab Potential Rehabilitation Potential Good Evaluation Complexity Number of Personal Factors/Comorbidities 3 or More Number of Body Systems Impaired 4 or More Clinical Presentation at Evaluation Evolving Impairments Impairments Activity Tolerance,Gait,Pain, ROM,Soft Tissue Mobility, Strength Goals Five Impairment Decreased function per LEFS score of 21 (60-79% impaired) Short Term Goal (STG) Improve function per LEFS score of no less than 48 (20 to 39% impaired) STG Duration 08/26/20 Group Home Goal (LTG) Improve function per LEFS score of no less than 63 (1 to 19% impaired) LTG Duration 09/27/20 Four Impairment R knee pain interrupting her sleep every 3-4 hours at night . [employer] Goal (LTG) Pt will be able to sleep greater than 4 hours at nighttime. LTG Duration 09/27/20 Three Impairment Decreased R knee AROM limiting pt ability to sit w/o pain( AROM: 8-81 deg's) Short Term Goal (STG) Improve R knee AROM in sitting to 0 - 90 deg's. STG Duration 08/26/20 Group Home Goal (LTG) Improve R knee PROM in supine: lacking 3 deg's - 135 deg's with pt able to tolerate sitting 1 hour with pain no more than 2/10. LTG Duration 09/27/20 Two Impairment R knee pain interfering with ability to sleep and walk. Short Term Goal (STG) Decrease pain to 4/10 at worst with pt able to sleep greater than 3-4 hours. STG Duration 08/26/20 [employer] Goal (LTG) Decrease pain with walking with pt able to ambulate without use of cane and tolerable pain of 0-3/10. LTG Duration 09/27/20 One Impairment Lacks appropriate self care HEP. Group Home Goal (LTG) Pt will be independent with a self care HEP. LTG Duration 09/27/20 Assessment Summary Assessment Pt presents with R knee pain s /p meniscus and soft tissue repair surgery 05/2020, according to the patient. Surgical report is unavailable at this time. Pt presents to therapy without physician protocol, with only directions of PT 2x/week for 8 weeks. Pt presents with mechanical and soft tissue dysfunction of her R knee resulting in pain and decreased mobility, strength and function. She is limited in her R LE mobility also due to low back pain; therefore it is expected that her progress may be slow. The pt will benefit from skilled physical therapy to improve ROM, strength and function and education in proper R knee care and a self snf program. Physical Therapy Plan Frequency and Duration Frequency of Treatment 2x/Week Plan of Care Start Date 07/29/20 Plan of Care End Date 09/27/20 Therapeutic Interventions Therapeutic Interventions Home Exercise Program,Manual Therapy,Neuromuscular Re- education,Patient/Caregiver Education,Self-Care/Home Management,Soft Tissue Mobilization,Taping, Therapeutic Exercises Modalities Cold Pack/Ice Massage,Electric Stimulation Next Visit Focus/Plan Next Note Type Treatment Note Next Visit Plan Obtain orthopedic protocol and request surgical report. Initiate s/p R meniscus/soft tissue repair rehabilitation to improve R knee mobility, strength and function.
--- NOTE | 2020-07-29 17:32 | PT.OPPOC ---
Physical, Occupational & Speech Therapy At [facility] Current Diagnoses Complex tear of lateral meniscus, current injury, right knee, subsequent encounter (07/29/20) Visit Care Team Role Provider Type Tone Narvaez MD Family Provider Non-Staff Primary Care Provider Specialty: Family Practice Address: [address] [place] [address], [id number] Email: Skyler Kuhn Attending Provider Non-Staff Referring Provider Specialty: Medical Address: [address] [place] [address], [id number] Email: Plan Of Care PT-OP-T Assessment and Plan Start: 07/27/20 18:34 Freq: Status: Active Protocol: Document 07/29/20 10:43 LRN (Rec: 07/29/20 11:32 LRN [id number]) Physical Therapy Assessment Rehab Potential Rehabilitation Potential Good Evaluation Complexity Number of Personal Factors/Comorbidities 3 or More Number of Body Systems Impaired 4 or More Clinical Presentation at Evaluation Evolving Impairments Impairments Activity Tolerance,Gait,Pain, ROM,Soft Tissue Mobility, Strength Goals Five Impairment Decreased function per LEFS score of 21 (60-79% impaired) Short Term Goal (STG) Improve function per LEFS score of no less than 48 (20 to 39% impaired) STG Duration 08/26/20 Fugitive Detective Goal (LTG) Improve function per LEFS score of no less than 63 (1 to 19% impaired) LTG Duration 09/27/20 Four Impairment R knee pain interrupting her sleep every 3-4 hours at night . Long-Term Goal (LTG) Pt will be able to sleep greater than 4 hours at nighttime. LTG Duration 09/27/20 Three Impairment Decreased R knee AROM limiting pt ability to sit w/o pain( AROM: 8-81 deg's) Short Term Goal (STG) Improve R knee AROM in sitting to 0 - 90 deg's. STG Duration 08/26/20 Long-Term Goal (LTG) Improve R knee PROM in supine: lacking 3 deg's - 135 deg's with pt able to tolerate sitting 1 hour with pain no more than 2/10. LTG Duration 09/27/20 Two Impairment R knee pain interfering with ability to sleep and walk. Short Term Goal (STG) Decrease pain to 4/10 at worst with pt able to sleep greater than 3-4 hours. STG Duration 08/26/20 Long-Term Goal (LTG) Decrease pain with walking with pt able to ambulate without use of cane and tolerable pain of 0-3/10. LTG Duration 09/27/20 One Impairment Lacks appropriate self care HEP. Long-Term Goal (LTG) Pt will be independent with a self care HEP. LTG Duration 09/27/20 Assessment Summary Assessment Pt presents with R knee pain s /p meniscus and soft tissue repair surgery 05/2020, according to the patient. Surgical report is unavailable at this time. Pt presents to therapy without physician protocol, with only directions of PT 2x/week for 8 weeks. Pt presents with mechanical and soft tissue dysfunction of her R knee resulting in pain and decreased mobility, strength and function. She is limited in her R LE mobility also due to low back pain; therefore it is expected that her progress may be slow. The pt will benefit from skilled physical therapy to improve ROM, strength and function and education in proper R knee care and a self mcfp program. Physical Therapy Plan Frequency and Duration Frequency of Treatment 2x/Week Plan of Care Start Date 07/29/20 Plan of Care End Date 09/27/20 Therapeutic Interventions Therapeutic Interventions Home Exercise Program,Manual Therapy,Neuromuscular Re- education,Patient/Caregiver Education,Self-Care/Home Management,Soft Tissue Mobilization,Taping, Therapeutic Exercises Modalities Cold Pack/Ice Massage,Electric Stimulation Next Visit Focus/Plan Next Note Type Treatment Note Next Visit Plan Obtain orthopedic protocol and request surgical report. Initiate s/p R meniscus/soft tissue repair rehabilitation to improve R knee mobility, strength and function. Plan of Care Dates Plan of Care Start Date 07/29/20 Plan of Care End Date 09/27/20 Electronically Signed by: Lovely Mcdonald, PT 07/29/20 1820 Please Sign and Return: I have reviewed this Plan of Care and certify that the skilled therapy services above are required to meet the patient?s needs. Physician Signature Date Printed Name and Credentials Clinical Instructor Signature Printed Name and Credentials
--- NOTE | 2020-08-03 14:38 | PT-OP ANOTE ---
Pt attends with request for surgery teacher. Due to unavailability of surgery teacher phone, pt was agreeable to reschedule for tomorrow @ .
--- NOTE | 2020-08-06 12:27 | PT.OTN ---
Current Diagnoses Complex tear of lateral meniscus, current injury, right knee, subsequent encounter (08/06/20) Physical Therapy Treatment Note PT-OP-A Visit Information Start: 07/27/20 18:34 Freq: Status: Active Protocol: Document 08/06/20 11:25 LRN (Rec: 08/06/20 12:26 LRN [id number]) Out-Patient Physical Therapy Visit Information Visit Information Visit Type Treatment Note Visit Note Electrical & Instrumentation Supervisor used during therapy, per phone. Visit Start Time 11:25 Visit Stop Time 12:07 Total Visit Minutes 42 Visit Number 2 Evaluation Information Evaluation Date 07/29/20 Precautions Precautions Fibromyalgia, Depression not controlled, Controlled HBP, Chronic back & neck pain. PT-OP-B Current Condition Start: 07/27/20 18:34 Freq: Status: Active Protocol: Document 07/29/20 10:43 LRN (Rec: 07/29/20 11:32 LRN [id number]) Current Condition History of Current Condition Onset Date 2 months ago had surgery. Current Complaints Walking, stairs has R knee pn anteriorly; medial & posterior knee swelling History of Current Condition Had R meniscus repair and cartilage repair with metal, . Pt states she was given a note for therapy but she forgot it, but it was for 8 wks of PT. States she was told she needs exercise. States she has pain with gait and stairs. Pain at rest. Prior Treatments and Tests Hand out for post surgery exercises give by physician. Future Testing and Treatments Planned Next MD appt is 09/29/20. Developmental History Developmental History Fell in 2018 outside of house, had a lot of back pain and; therefore the legs went weak and fell to the R side twisting the knee (pt is L handed). Treatment Goals Patient/Caregiver Goals Back pain for past 5 yrs. Prior Functional Status Baseline Function- ADL's Modified Independent Baseline Function- Mobility Modified Independent Baseline Function- Gait Walked 1/2 mile. Baseline Function- Work/School 5 yrs unemployed. Sitting for school 1 hour tolerance. Baseline Function- Other Irish class, functionally able to cook for self and son. Lives with 25 yr old son. Able to sleep 7 hours. Current Functional Impairments (Reported) Functional Limitations- ADL's Not walking for exercise at all due to R knee pain. Difficulty sleeping, tolerates sleep 3-4 hours at a time due to R knee pain Functional Limitations- Mobility/Gait Ambs with wide SPC on R side to decrease weight bearing on the RLE. Functional Limitations- Work/School Sitting for school 20-30' tolerance due to pain rated 7- 9/10. Personal Factors Other Personal Factors That May Effect 5 yrs unemployed, uncontrolled Therapy/Recovery depression, chronic back & neck pain. PT-OP-C Subjective Start: 07/27/20 18:34 Freq: Status: Active Protocol: Document 08/06/20 11:25 LRN (Rec: 08/06/20 12:26 LRN [id number]) OP-PT Subjective Patient Comments Patient Comments PER SKIN TANNER by phone: Pt reports no change. Pain in morning is 9/10, currently 7/ 10. Pain at end of therapy was 7/10. C/O cracking with pain, within the L knee joint while walking. PT-OP-J Posture/Palpation/Skin Start: 07/27/20 18:34 Freq: Status: Active Protocol: Document 07/29/20 10:43 LRN (Rec: 07/29/20 11:32 LRN [id number]) Posture Evaluation Position Standing Evaluation View All positions Head/C-Spine Posture Neutral Position T-Spine Posture Flattened Shoulder Posture (R) Elevated Pelvis Posture (R) Iliac Crest Superior Weight Distribution Weight Shifted Left Knee Posture (L) Genu Valgus,(R) Genu Valgus,(R) Ext. Tibial Torsion Ankle/Foot Posture (L) Forefoot Abducted Palpation Assessment Location Anterolateral lower proximal 1/2 of leg Palpation Location Anterolateral lower proximal 1 /2 of leg Palpation Findings Soft Tissue Tightness Palpation Details Painful with sharp/burning pain. Anterolateral R thigh Palpation Location Anterolateral R thigh Palpation Findings Soft Tissue Tightness Palpation Details Painful with sharp/burning pain. R knee around patella Palpation Location Around R patella Palpation Details Painful with sharp/burning pain. PT-OP-K Range of Motion Start: 07/27/20 18:34 Freq: Status: Active Protocol: Document 08/06/20 11:25 LRN (Rec: 08/06/20 12:26 LRN [id number]) Knee Goniometric Range of Motion Knee Supine Right Knee ROM WFL No Patient Position Supine Flexion Active (degrees) 115 Flexion Passive (degrees) 122 Comments Self assist with belt for passive flexion ROM PT-OP-M Strength Start: 07/27/20 18:34 Freq: Status: Active Protocol: Document 07/29/20 10:43 LRN (Rec: 07/29/20 11:32 LRN [id number]) Hip Strength Hip Manual Muscle Testing Right Flexion (L2) 3- Fair- Abduction 2 Poor Adduction 1 Trace Comments Back & R knee pain limiting strength Left Flexion (L2) 3 Fair Abduction 2+ Poor+ Adduction 1 Trace Comments Back pain limiting strength Knee Strength Knee Manual Muscle Testing Right Flexion (S2) 3+ Fair+ Extension (L3) 3+ Fair+ Left Comments WNL Ankle/Foot Strength Ankle and Foot Manual Muscle Testing Right Dorsiflexion (L4) 3+ Fair+ Plantarflexion (S1) 5 Normal Inversion 5 Normal Eversion (S1) 5 Normal Left Comments WNL PT-OP-Q Treatments Start: 07/27/20 18:34 Freq: Status: Active Protocol: Document 08/06/20 11:25 LRN (Rec: 08/06/20 12:26 LRN [id number]) Therapeutic Exercises Supine Exercises R knee flex Supine Exercise Name Heel slides with and without T -Band Side right Resistance No TB & Lev 1 TB Reps/Minutes 1x without TB, 5x with TB Comments Pt unable to move heel with TB resistance. Hip AB strengthening Supine Exercise Name Hip AB/AD Side right Reps/Minutes 10x SAQ Supine Exercise Name SAQ, squeezing knees together with SAQ Side right Equipment Used Towel roll Reps/Minutes Hold 5, 10x Quad Sets Supine Exercise Name Quad Sets Side right Reps/Minutes 10 hold, 10x Prone Exercises Hip Ext strengthening Prone Exercise Name Hip Ext Side right Comments Stopped due to back pain. R knee flexion strengthening Prone Exercise Name Knee flexion Side right Reps/Minutes 10x Comments Extra time for instruction and pt moving slowly, phy assist needed. Knee flexion stretch Prone Exercise Name Knee flexion stretch end-range with active ROM Side right Reps/Minutes 10x Sidelying Exercises Hip AB Sidelying Exercise Name Hip AB strengthening w/TA tight. Side right Reps/Minutes 5x Sitting Exercises R knee ext Sitting Exercise Name AROM Side right Reps/Minutes 5 hold, 10x Knee flex AROM Sitting Exercise Name Knee flex Side right Reps/Minutes 5 hold, 10x Manual Therapy Treatment Soft Tissue Mobilization R knee Body Location R anterior knee and well healed scars around the patella Mobilization Type Myofascial Release,Strumming Intensity/Depth Superficial to Moderate Body Position Supine Comments Tender in suprapatellar tendon . Self-Care/Home Management Treatment Education Patient Education Home Exercise Program Other Education Educated pt via seamer operator that if the R knee locks, she is not to force movement, but wait until movement is allowed . Activities Self-Care/Home Management Activities Issued & reviewed HEP: sitting active knee flexion & extension. PT-OP-T Assessment and Plan Start: 07/27/20 18:34 Freq: Status: Active Protocol: Document 08/06/20 11:25 LRN (Rec: 08/06/20 12:26 LRN [id number]) Physical Therapy Assessment Goals Five Impairment Decreased function per LEFS score of 21 (60-79% impaired) Short Term Goal (STG) Improve function per LEFS score of no less than 48 (20 to 39% impaired) STG Duration 08/26/20 Mcc Goal (LTG) Improve function per LEFS score of no less than 63 (1 to 19% impaired) LTG Duration 09/27/20 Four Impairment R knee pain interrupting her sleep every 3-4 hours at night . Mcc Goal (LTG) Pt will be able to sleep greater than 4 hours at nighttime. LTG Duration 09/27/20 Three Impairment Decreased R knee AROM limiting pt ability to sit w/o pain( AROM: 8-81 deg's) Short Term Goal (STG) Improve R knee AROM in sitting to 0 - 90 deg's. STG Duration 08/26/20 Seasoner Hand Goal (LTG) Improve R knee PROM in supine: lacking 3 deg's - 135 deg's with pt able to tolerate sitting 1 hour with pain no more than 2/10. LTG Duration 09/27/20 Two Impairment R knee pain interfering with ability to sleep and walk. Short Term Goal (STG) Decrease pain to 4/10 at worst with pt able to sleep greater than 3-4 hours. STG Duration 08/26/20 Seasoner Hand Goal (LTG) Decrease pain with walking with pt able to ambulate without use of cane and tolerable pain of 0-3/10. LTG Duration 09/27/20 One Impairment Lacks appropriate self care HEP. Mcc Goal (LTG) Pt will be independent with a self care HEP. LTG Duration 09/27/20 (08/06/20: Progressed) Assessment Summary Assessment Pt with R knee pain s/p meniscus and soft tissue repair surgery 05/2020. Referral for PT, no specific protocol at this time. L Knee/Hip strengthening hindered by LBP. Pt is having L knee cracking in the joint of unknown origin; possibly meniscus related. Physical Therapy Plan Frequency and Duration Frequency of Treatment 2x/Week Plan of Care Start Date 07/29/20 Plan of Care End Date 09/27/20 Next Visit Focus/Plan Next Note Type Treatment Note Next Visit Plan Obtain orthopedic protocol and request surgical report. Assess response to HEP & assess where in gait does her cracking occur. Initiate s/p R meniscus/soft tissue repair rehabilitation to improve R knee mobility, strength and function.
--- NOTE | 2020-08-09 12:59 | PT.OTN ---
Current Diagnoses Complex tear of lateral meniscus, current injury, right knee, subsequent encounter (08/09/20) Physical Therapy Treatment Note PT-OP-A Visit Information Start: 07/27/20 18:34 Freq: Status: Active Protocol: Document 08/09/20 12:45 MA (Rec: 08/09/20 12:59 MA [id number]) Out-Patient Physical Therapy Visit Information Visit Information Visit Type Treatment Note Visit Note Hand Model used during tx via phone Visit Start Time 12:03 Visit Stop Time 12:42 Total Visit Minutes 39 Visit Number 3 Number of SANITARY ENGINEERING TEACHER Visits 1 PT-OP-B Current Condition Start: 07/27/20 18:34 Freq: Status: Active Protocol: Document 07/29/20 10:43 LRN (Rec: 07/29/20 11:32 LRN [id number]) Current Condition History of Current Condition Onset Date 2 months ago had surgery. Current Complaints Walking, stairs has R knee pn anteriorly; medial & posterior knee swelling History of Current Condition Had R meniscus repair and cartilage repair with metal, . Pt states she was given a note for therapy but she forgot it, but it was for 8 wks of PT. States she was told she needs exercise. States she has pain with gait and stairs. Pain at rest. Prior Treatments and Tests Hand out for post surgery exercises give by physician. Future Testing and Treatments Planned Next MD appt is 09/29/20. Developmental History Developmental History Fell in 2018 outside of house, had a lot of back pain and; therefore the legs went weak and fell to the R side twisting the knee (pt is L handed). Treatment Goals Patient/Caregiver Goals Back pain for past 5 yrs. Prior Functional Status Baseline Function- ADL's Modified Independent Baseline Function- Mobility Modified Independent Baseline Function- Gait Walked 1/2 mile. Baseline Function- Work/School 5 yrs unemployed. Sitting for school 1 hour tolerance. Baseline Function- Other Fijian class, functionally able to cook for self and son. Lives with 25 yr old son. Able to sleep 7 hours. Current Functional Impairments (Reported) Functional Limitations- ADL's Not walking for exercise at all due to R knee pain. Difficulty sleeping, tolerates sleep 3-4 hours at a time due to R knee pain Functional Limitations- Mobility/Gait Ambs with wide SPC on R side to decrease weight bearing on the RLE. Functional Limitations- Work/School Sitting for school 20-30' tolerance due to pain rated 7- 9/10. Personal Factors Other Personal Factors That May Effect 5 yrs unemployed, uncontrolled Therapy/Recovery depression, chronic back & neck pain. PT-OP-C Subjective Start: 07/27/20 18:34 Freq: Status: Active Protocol: Document 08/09/20 12:45 MA (Rec: 08/09/20 12:59 MA [id number]) OP-PT Subjective Patient Comments Patient Comments Pt arrived with informtation from about sx. Pt currently has 6/10 pain with cracking when walking. She was able to do only 1 set of most HEP exercises before she had pain except quad sets did not hurt PT-OP-J Posture/Palpation/Skin Start: 07/27/20 18:34 Freq: Status: Active Protocol: Document 07/29/20 10:43 LRN (Rec: 07/29/20 11:32 LRN [id number]) Posture Evaluation Position Standing Evaluation View All positions Head/C-Spine Posture Neutral Position T-Spine Posture Flattened Shoulder Posture (R) Elevated Pelvis Posture (R) Iliac Crest Superior Weight Distribution Weight Shifted Left Knee Posture (L) Genu Valgus,(R) Genu Valgus,(R) Ext. Tibial Torsion Ankle/Foot Posture (L) Forefoot Abducted Palpation Assessment Location Anterolateral lower proximal 1/2 of leg Palpation Location Anterolateral lower proximal 1 /2 of leg Palpation Findings Soft Tissue Tightness Palpation Details Painful with sharp/burning pain. Anterolateral R thigh Palpation Location Anterolateral R thigh Palpation Findings Soft Tissue Tightness Palpation Details Painful with sharp/burning pain. R knee around patella Palpation Location Around R patella Palpation Details Painful with sharp/burning pain. PT-OP-K Range of Motion Start: 07/27/20 18:34 Freq: Status: Active Protocol: Document 08/06/20 11:25 LRN (Rec: 08/06/20 12:26 LRN [id number]) Knee Goniometric Range of Motion Knee Supine Right Knee ROM WFL No Patient Position Supine Flexion Active (degrees) 115 Flexion Passive (degrees) 122 Comments Self assist with belt for passive flexion ROM PT-OP-M Strength Start: 07/27/20 18:34 Freq: Status: Active Protocol: Document 07/29/20 10:43 LRN (Rec: 07/29/20 11:32 LRN [id number]) Hip Strength Hip Manual Muscle Testing Right Flexion (L2) 3- Fair- Abduction 2 Poor Adduction 1 Trace Comments Back & R knee pain limiting strength Left Flexion (L2) 3 Fair Abduction 2+ Poor+ Adduction 1 Trace Comments Back pain limiting strength Knee Strength Knee Manual Muscle Testing Right Flexion (S2) 3+ Fair+ Extension (L3) 3+ Fair+ Left Comments WNL Ankle/Foot Strength Ankle and Foot Manual Muscle Testing Right Dorsiflexion (L4) 3+ Fair+ Plantarflexion (S1) 5 Normal Inversion 5 Normal Eversion (S1) 5 Normal Left Comments WNL PT-OP-Q Treatments Start: 07/27/20 18:34 Freq: Status: Active Protocol: Document 08/09/20 12:45 MA (Rec: 08/09/20 12:59 MA [id number]) Therapeutic Exercises Supine Exercises R knee flex Supine Exercise Name Heel slides with towel Side right Reps/Minutes 8x Comments pt had some discomfort SAQ Supine Exercise Name SAQ, squeezing knees together with SAQ Side right Equipment Used bolster Reps/Minutes 10x Comments cues to avoid ER of hip which causes an increase in pain for pt Quad Sets Supine Exercise Name Quad Sets Side right Reps/Minutes 10 hold, 10x Prone Exercises R knee flexion strengthening Prone Exercise Name Knee flexion Side right Reps/Minutes 10x Comments 90-end ROM knee flexion; decreased ROM due to pain Knee flexion stretch Prone Exercise Name Knee flexion stretch end-range with active ROM Side right Reps/Minutes 10x Sitting Exercises R knee ext Sitting Exercise Name AROM Side right Reps/Minutes 5x Comments focusing on slow, controlled movements, some increased pain Gait Training Gait Activity Walking Description walking hallway Distance/Duration 6x50 ft Treatment Focus no hip ER on R Comments Pt was using cane on R side causing a lateral lean and increased pain, switch to LUE and pt had a decrease in clicking and was able to stand erect without SB R Self-Care/Home Management Treatment Education Patient Education Body Mechanics,Home Exercise Program,Pain Management Other Education Educated pt via bisque ware dipper to keep cane on L side, watch for hip ER during gait, removing LAQ exercise from HEP until pt is stronger due to pain PT-OP-T Assessment and Plan Start: 07/27/20 18:34 Freq: Status: Active Protocol: Document 08/09/20 12:45 MA (Rec: 08/09/20 12:59 MA [id number]) Physical Therapy Assessment Goals Five Impairment Decreased function per LEFS score of 21 (60-79% impaired) Short Term Goal (STG) Improve function per LEFS score of no less than 48 (20 to 39% impaired) STG Duration 08/26/20 Shelter Goal (LTG) Improve function per LEFS score of no less than 63 (1 to 19% impaired) LTG Duration 09/27/20 Four Impairment R knee pain interrupting her sleep every 3-4 hours at night . Shelter Goal (LTG) Pt will be able to sleep greater than 4 hours at nighttime. LTG Duration 09/27/20 Three Impairment Decreased R knee AROM limiting pt ability to sit w/o pain( AROM: 8-81 deg's) Short Term Goal (STG) Improve R knee AROM in sitting to 0 - 90 deg's. STG Duration 08/26/20 Shelter Goal (LTG) Improve R knee PROM in supine: lacking 3 deg's - 135 deg's with pt able to tolerate sitting 1 hour with pain no more than 2/10. LTG Duration 09/27/20 Two Impairment R knee pain interfering with ability to sleep and walk. Short Term Goal (STG) Decrease pain to 4/10 at worst with pt able to sleep greater than 3-4 hours. STG Duration 08/26/20 Shelter Goal (LTG) Decrease pain with walking with pt able to ambulate without use of cane and tolerable pain of 0-3/10. LTG Duration 09/27/20 One Impairment Lacks appropriate self care HEP. Senior Qa Engineer Goal (LTG) Pt will be independent with a self care HEP. LTG Duration 09/27/20 (08/06/20: Progressed) Assessment Summary Assessment PT tends to ER R hip when exercising. Cues to avoid ER mitigated most of pain and cracking pt was feeling. DUring gait, switched cane to LUE to avoid lateral lean with improvement in LBP and R knee pain. Talked to pt's on the phone who states the pt has no restrictions because it was just a meniscectomy and arthoscopy of R knee. with no repairs. Physical Therapy Plan Frequency and Duration Frequency of Treatment 2x/Week Plan of Care Start Date 07/29/20 Plan of Care End Date 09/27/20 Therapeutic Interventions Therapeutic Interventions Home Exercise Program,Manual Therapy,Neuromuscular Re- education,Patient/Caregiver Education,Self-Care/Home Management,Soft Tissue Mobilization,Taping, Therapeutic Exercises Modalities Cold Pack/Ice Massage,Electric Stimulation Next Visit Focus/Plan Next Note Type Treatment Note Next Visit Plan Stretch quads and strengthen R knee. Check carryover of SAQ form, avoiding ER of hip.
--- NOTE | 2020-08-11 15:25 | PT.OTN ---
Current Diagnoses Complex tear of lateral meniscus, current injury, right knee, subsequent encounter (08/11/20) Physical Therapy Treatment Note PT-OP-A Visit Information Start: 07/27/20 18:34 Freq: Status: Active Protocol: Document 08/11/20 14:32 MA (Rec: 08/11/20 14:50 MA [id number]) Out-Patient Physical Therapy Visit Information Visit Information Visit Type Treatment Note Visit Note Stock Plan Administrator used during tx via phone Visit Start Time 13:45 Visit Stop Time 14:29 Total Visit Minutes 44 Visit Number 4 Number of CASING IN LINE SETTER Visits 2 PT-OP-B Current Condition Start: 07/27/20 18:34 Freq: Status: Active Protocol: Document 07/29/20 10:43 LRN (Rec: 07/29/20 11:32 LRN [id number]) Current Condition History of Current Condition Onset Date 2 months ago had surgery. Current Complaints Walking, stairs has R knee pn anteriorly; medial & posterior knee swelling History of Current Condition Had R meniscus repair and cartilage repair with metal, . Pt states she was given a note for therapy but she forgot it, but it was for 8 wks of PT. States she was told she needs exercise. States she has pain with gait and stairs. Pain at rest. Prior Treatments and Tests Hand out for post surgery exercises give by physician. Future Testing and Treatments Planned Next MD appt is 09/29/20. Developmental History Developmental History Fell in 2018 outside of house, had a lot of back pain and; therefore the legs went weak and fell to the R side twisting the knee (pt is L handed). Treatment Goals Patient/Caregiver Goals Back pain for past 5 yrs. Prior Functional Status Baseline Function- ADL's Modified Independent Baseline Function- Mobility Modified Independent Baseline Function- Gait Walked 1/2 mile. Baseline Function- Work/School 5 yrs unemployed. Sitting for school 1 hour tolerance. Baseline Function- Other Frisian class, functionally able to cook for self and son. Lives with 25 yr old son. Able to sleep 7 hours. Current Functional Impairments (Reported) Functional Limitations- ADL's Not walking for exercise at all due to R knee pain. Difficulty sleeping, tolerates sleep 3-4 hours at a time due to R knee pain Functional Limitations- Mobility/Gait Ambs with wide SPC on R side to decrease weight bearing on the RLE. Functional Limitations- Work/School Sitting for school 20-30' tolerance due to pain rated 7- 9/10. Personal Factors Other Personal Factors That May Effect 5 yrs unemployed, uncontrolled Therapy/Recovery depression, chronic back & neck pain. PT-OP-C Subjective Start: 07/27/20 18:34 Freq: Status: Active Protocol: Document 08/11/20 14:32 MA (Rec: 08/11/20 14:50 MA [id number]) OP-PT Subjective Patient Comments Patient Comments Pt switched the cane back into her R hand because the dr said it was ok and she thinks it is more comfortable. Pt has no knee pain today but her low back around SI joint is very painful bilaterally PT-OP-J Posture/Palpation/Skin Start: 07/27/20 18:34 Freq: Status: Active Protocol: Document 07/29/20 10:43 LRN (Rec: 07/29/20 11:32 LRN [id number]) Posture Evaluation Position Standing Evaluation View All positions Head/C-Spine Posture Neutral Position T-Spine Posture Flattened Shoulder Posture (R) Elevated Pelvis Posture (R) Iliac Crest Superior Weight Distribution Weight Shifted Left Knee Posture (L) Genu Valgus,(R) Genu Valgus,(R) Ext. Tibial Torsion Ankle/Foot Posture (L) Forefoot Abducted Palpation Assessment Location Anterolateral lower proximal 1/2 of leg Palpation Location Anterolateral lower proximal 1 /2 of leg Palpation Findings Soft Tissue Tightness Palpation Details Painful with sharp/burning pain. Anterolateral R thigh Palpation Location Anterolateral R thigh Palpation Findings Soft Tissue Tightness Palpation Details Painful with sharp/burning pain. R knee around patella Palpation Location Around R patella Palpation Details Painful with sharp/burning pain. PT-OP-K Range of Motion Start: 07/27/20 18:34 Freq: Status: Active Protocol: Document 08/06/20 11:25 LRN (Rec: 08/06/20 12:26 LRN [id number]) Knee Goniometric Range of Motion Knee Supine Right Knee ROM WFL No Patient Position Supine Flexion Active (degrees) 115 Flexion Passive (degrees) 122 Comments Self assist with belt for passive flexion ROM PT-OP-M Strength Start: 07/27/20 18:34 Freq: Status: Active Protocol: Document 07/29/20 10:43 LRN (Rec: 07/29/20 11:32 LRN [id number]) Hip Strength Hip Manual Muscle Testing Right Flexion (L2) 3- Fair- Abduction 2 Poor Adduction 1 Trace Comments Back & R knee pain limiting strength Left Flexion (L2) 3 Fair Abduction 2+ Poor+ Adduction 1 Trace Comments Back pain limiting strength Knee Strength Knee Manual Muscle Testing Right Flexion (S2) 3+ Fair+ Extension (L3) 3+ Fair+ Left Comments WNL Ankle/Foot Strength Ankle and Foot Manual Muscle Testing Right Dorsiflexion (L4) 3+ Fair+ Plantarflexion (S1) 5 Normal Inversion 5 Normal Eversion (S1) 5 Normal Left Comments WNL PT-OP-Q Treatments Start: 07/27/20 18:34 Freq: Status: Active Protocol: Document 08/11/20 14:32 MA (Rec: 08/11/20 14:50 MA [id number]) Therapeutic Exercises Supine Exercises Bam Stretch Side right Reps/Minutes 60 sec Comments Added to HEP R knee flex Supine Exercise Name Heel slides with towel Side right Reps/Minutes 8x Comments pt had some discomfort SAQ Supine Exercise Name SAQ, squeezing knees together with SAQ Side right Equipment Used bolster Reps/Minutes 10x Comments cues to avoid ER of hip which causes an increase in pain for pt Quad Sets Supine Exercise Name Quad Sets Side right Reps/Minutes 10 hold, 10x Prone Exercises R knee flexion strengthening Prone Exercise Name Knee flexion Side right Reps/Minutes 10x Knee flexion stretch Prone Exercise Name Knee flexion stretch end-range with active ROM Side right Reps/Minutes 10x Manual Therapy Treatment Soft Tissue Mobilization HS Body Location R HS Mobilization Type Myofascial Release,Rolling, Trigger Point Release Intensity/Depth Moderate Body Position Supine R knee Body Location R anterior knee and well healed scars around the patella Mobilization Type Myofascial Release,Strumming Intensity/Depth Superficial to Moderate Body Position Supine Comments Tender in suprapatellar tendon . Self-Care/Home Management Treatment Education Other Education Talked to pt about getting a referral for therapy for back pain after her surgeon reads the MRI results at her next appt PT-OP-T Assessment and Plan Start: 07/27/20 18:34 Freq: Status: Active Protocol: Document 08/11/20 14:32 MA (Rec: 08/11/20 14:50 MA [id number]) Physical Therapy Assessment Goals Five Impairment Decreased function per LEFS score of 21 (60-79% impaired) Short Term Goal (STG) Improve function per LEFS score of no less than 48 (20 to 39% impaired) STG Duration 08/26/20 Skilled Nursing Goal (LTG) Improve function per LEFS score of no less than 63 (1 to 19% impaired) LTG Duration 09/27/20 Four Impairment R knee pain interrupting her sleep every 3-4 hours at night . Medical Records Assistant Goal (LTG) Pt will be able to sleep greater than 4 hours at nighttime. LTG Duration 09/27/20 Three Impairment Decreased R knee AROM limiting pt ability to sit w/o pain( AROM: 8-81 deg's) Short Term Goal (STG) Improve R knee AROM in sitting to 0 - 90 deg's. STG Duration 08/26/20 Medical Records Assistant Goal (LTG) Improve R knee PROM in supine: lacking 3 deg's - 135 deg's with pt able to tolerate sitting 1 hour with pain no more than 2/10. LTG Duration 09/27/20 Two Impairment R knee pain interfering with ability to sleep and walk. Short Term Goal (STG) Decrease pain to 4/10 at worst with pt able to sleep greater than 3-4 hours. STG Duration 08/26/20 Skilled Nursing Goal (LTG) Decrease pain with walking with pt able to ambulate without use of cane and tolerable pain of 0-3/10. LTG Duration 09/27/20 One Impairment Lacks appropriate self care HEP. Skilled Nursing Goal (LTG) Pt will be independent with a self care HEP. LTG Duration 09/27/20 (08/06/20: Progressed) Assessment Summary Assessment Pt had decreased pain with prone knee flexion exercise and she showed carryover of proper form during SAQs today without any lateral tracking or ABD of hip. Pt struggles to roll supine<>prone wiithout assistance due to LBP. Added bam stretch to HEP. Pt would continue to benefit from skilled therapy for increasing knee ROM and decreasing pain. Physical Therapy Plan Frequency and Duration Frequency of Treatment 2x/Week Plan of Care Start Date 07/29/20 Plan of Care End Date 09/27/20 Therapeutic Interventions Therapeutic Interventions Home Exercise Program,Manual Therapy,Neuromuscular Re- education,Patient/Caregiver Education,Self-Care/Home Management,Soft Tissue Mobilization,Taping, Therapeutic Exercises Modalities Cold Pack/Ice Massage,Electric Stimulation Next Visit Focus/Plan Next Note Type Treatment Note Next Visit Plan See how Bam stretch went at home. Continue stretching and strengthening RLE watching for abduction and ER of hip
--- NOTE | 2020-08-19 16:51 | PT.OTN ---
Current Diagnoses Complex tear of lateral meniscus, current injury, right knee, subsequent encounter (08/19/20) Physical Therapy Treatment Note PT-OP-A Visit Information Start: 07/27/20 18:34 Freq: Status: Active Protocol: Document 08/19/20 13:44 LRN (Rec: 08/19/20 14:29 LRN [id number]) Out-Patient Physical Therapy Visit Information Visit Information Visit Type Treatment Note Visit Note Charging Operator used during tx via phone Visit Start Time 13:44 Visit Stop Time 14:35 Total Visit Minutes 51 Visit Number 5 Evaluation Information Evaluation Date 07/29/20 Precautions Precautions Fibromyalgia, Depression not controlled, Controlled HBP, Chronic back & neck pain. NOTE: Per MD (see note ), pt has no restrictions, pt had meniscectomy and arthoscopy of R knee, with no repairs. PT-OP-B Current Condition Start: 07/27/20 18:34 Freq: Status: Active Protocol: Document 07/29/20 10:43 LRN (Rec: 07/29/20 11:32 LRN [id number]) Current Condition History of Current Condition Onset Date 2 months ago had surgery. Current Complaints Walking, stairs has R knee pn anteriorly; medial & posterior knee swelling History of Current Condition Had R meniscus repair and cartilage repair with metal, . Pt states she was given a note for therapy but she forgot it, but it was for 8 wks of PT. States she was told she needs exercise. States she has pain with gait and stairs. Pain at rest. Prior Treatments and Tests Hand out for post surgery exercises give by physician. Future Testing and Treatments Planned Next MD appt is 09/29/20. Developmental History Developmental History Fell in 2018 outside of house, had a lot of back pain and; therefore the legs went weak and fell to the R side twisting the knee (pt is L handed). Treatment Goals Patient/Caregiver Goals Back pain for past 5 yrs. Prior Functional Status Baseline Function- ADL's Modified Independent Baseline Function- Mobility Modified Independent Baseline Function- Gait Walked 1/2 mile. Baseline Function- Work/School 5 yrs unemployed. Sitting for school 1 hour tolerance. Baseline Function- Other Mold[place] class, functionally able to cook for self and son. Lives with 25 yr old son. Able to sleep 7 hours. Current Functional Impairments (Reported) Functional Limitations- ADL's Not walking for exercise at all due to R knee pain. Difficulty sleeping, tolerates sleep 3-4 hours at a time due to R knee pain Functional Limitations- Mobility/Gait Ambs with wide SPC on R side to decrease weight bearing on the RLE. Functional Limitations- Work/School Sitting for school 20-30' tolerance due to pain rated 7- 9/10. Personal Factors Other Personal Factors That May Effect 5 yrs unemployed, uncontrolled Therapy/Recovery depression, chronic back & neck pain. PT-OP-C Subjective Start: 07/27/20 18:34 Freq: Status: Active Protocol: Document 08/19/20 13:44 LRN (Rec: 08/19/20 14:29 LRN [id number]) OP-PT Subjective Patient Comments Patient Comments States she is better, did not have to use the cane yesterday . Sometimes has pain with walking. Knee cracks, no pain with cracking. States the cracking she is not able to tell. PT-OP-J Posture/Palpation/Skin Start: 07/27/20 18:34 Freq: Status: Active Protocol: Document 07/29/20 10:43 LRN (Rec: 07/29/20 11:32 LRN [id number]) Posture Evaluation Position Standing Evaluation View All positions Head/C-Spine Posture Neutral Position T-Spine Posture Flattened Shoulder Posture (R) Elevated Pelvis Posture (R) Iliac Crest Superior Weight Distribution Weight Shifted Left Knee Posture (L) Genu Valgus,(R) Genu Valgus,(R) Ext. Tibial Torsion Ankle/Foot Posture (L) Forefoot Abducted Palpation Assessment Location Anterolateral lower proximal 1/2 of leg Palpation Location Anterolateral lower proximal 1 /2 of leg Palpation Findings Soft Tissue Tightness Palpation Details Painful with sharp/burning pain. Anterolateral R thigh Palpation Location Anterolateral R thigh Palpation Findings Soft Tissue Tightness Palpation Details Painful with sharp/burning pain. R knee around patella Palpation Location Around R patella Palpation Details Painful with sharp/burning pain. PT-OP-K Range of Motion Start: 07/27/20 18:34 Freq: Status: Active Protocol: Document 08/19/20 13:44 LRN (Rec: 08/19/20 14:29 LRN [id number]) Knee Goniometric Range of Motion Knee Right Knee ROM WFL No Patient Position Supine Flexion Active (degrees) 127 PT-OP-M Strength Start: 07/27/20 18:34 Freq: Status: Active Protocol: Document 07/29/20 10:43 LRN (Rec: 07/29/20 11:32 LRN [id number]) Hip Strength Hip Manual Muscle Testing Right Flexion (L2) 3- Fair- Abduction 2 Poor Adduction 1 Trace Comments Back & R knee pain limiting strength Left Flexion (L2) 3 Fair Abduction 2+ Poor+ Adduction 1 Trace Comments Back pain limiting strength Knee Strength Knee Manual Muscle Testing Right Flexion (S2) 3+ Fair+ Extension (L3) 3+ Fair+ Left Comments WNL Ankle/Foot Strength Ankle and Foot Manual Muscle Testing Right Dorsiflexion (L4) 3+ Fair+ Plantarflexion (S1) 5 Normal Inversion 5 Normal Eversion (S1) 5 Normal Left Comments WNL PT-OP-Q Treatments Start: 07/27/20 18:34 Freq: Status: Active Protocol: Document 08/19/20 13:44 LRN (Rec: 08/19/20 14:29 LRN [id number]) Therapeutic Exercises Supine Exercises Bam Stretch Side right Reps/Minutes 60 sec Comments Added to HEP R knee flex Supine Exercise Name Heel slides with towel Side right Reps/Minutes 8x Comments pt had some discomfort Sitting Exercises R knee flex Sitting Exercise Name ARROM Side right Resistance Lev 2 TB Equipment Used 8x Standing Exercises Shallow squat Standing Exercise Name Shallow Squat progressing towards finger tip support Side bilateral Reps/Minutes 4' Comments Constant verbal cuing needed to keep heels on grd, tighten abs, fingertips Hip AB Standing Exercise Name Hip AB Side right Resistance Lev 2 TB Reps/Minutes 8x Hip AD Standing Exercise Name Hip AD Side right Resistance Lev 2 TB Reps/Minutes 8x Manual Therapy Treatment Soft Tissue Mobilization R anterior distal Quads Body Location R anterior distal Quads Mobilization Type Strumming Intensity/Depth Moderate Body Position Supine PT-OP-R Modalities Start: 07/27/20 18:34 Freq: Status: Active Protocol: Document 08/19/20 13:44 LRN (Rec: 08/19/20 14:29 LRN [id number]) Hot Pack/Cold Pack Treatment Cold Pack Location R knee Patient Position Supine Treatment Duration (minutes) 10 PT-OP-T Assessment and Plan Start: 07/27/20 18:34 Freq: Status: Active Protocol: Document 08/19/20 13:44 LRN (Rec: 08/19/20 14:29 LRN [id number]) Physical Therapy Assessment Goals Five Impairment Decreased function per LEFS score of 21 (60-79% impaired) Short Term Goal (STG) Improve function per LEFS score of no less than 48 (20 to 39% impaired) STG Duration 08/26/20 Halfway Goal (LTG) Improve function per LEFS score of no less than 63 (1 to 19% impaired) LTG Duration 09/27/20 Four Impairment R knee pain interrupting her sleep every 3-4 hours at night . Transportation Security Officer Goal (LTG) Pt will be able to sleep greater than 4 hours at nighttime. LTG Duration 09/27/20 Three Impairment Decreased R knee AROM limiting pt ability to sit w/o pain( AROM: 8-81 deg's) Short Term Goal (STG) Improve R knee AROM in sitting to 0 - 90 deg's. STG Duration 08/26/20 Halfway Goal (LTG) Improve R knee PROM in supine: lacking 3 deg's - 135 deg's with pt able to tolerate sitting 1 hour with pain no more than 2/10. LTG Duration 09/27/20 Two Impairment R knee pain interfering with ability to sleep and walk. Short Term Goal (STG) Decrease pain to 4/10 at worst with pt able to sleep greater than 3-4 hours. STG Duration 08/26/20 Transportation Security Officer Goal (LTG) Decrease pain with walking with pt able to ambulate without use of cane and tolerable pain of 0-3/10. LTG Duration 09/27/20 One Impairment Lacks appropriate self care HEP. Halfway Goal (LTG) Pt will be independent with a self care HEP. LTG Duration 09/27/20 (08/06/20: Progressed) Progress Towards Goals Progress Comments Pt is having less pain overall per subjective report. Assessment Summary Assessment Pt is s/p meniscectomy and arthoscopy of R knee. Today, no complaints of R knee pain with addition of CKC strengthening exercise. Tenderness in suprapatellar region appears due to fascial/ and Quad tightness with discomfort felt at patellar tendon. Pt is doing Bam Test stretch appropriately. Physical Therapy Plan Frequency and Duration Frequency of Treatment 2x/Week Plan of Care Start Date 07/29/20 Plan of Care End Date 09/27/20 Next Visit Focus/Plan Next Note Type Treatment Note Next Visit Plan Continue RLE Bam stretch and Quad stretch. Continue stretching and strengthening RLE watching for abduction and ER of hip. Strengthen high reps, low resistance, improve endurance and continue with gait training as needed.
--- NOTE | 2020-08-24 17:10 | PT.OTN ---
Current Diagnoses Complex tear of lateral meniscus, current injury, right knee, subsequent encounter (08/24/20) Physical Therapy Treatment Note PT-OP-A Visit Information Start: 07/27/20 18:34 Freq: Status: Active Protocol: Document 08/24/20 09:53 LRN (Rec: 08/24/20 10:38 LRN [id number]) Out-Patient Physical Therapy Visit Information Visit Information Visit Type Treatment Note Visit Note Dixonac Operator used during tx via phone #[phone] Jean Carlos Visit Start Time 09:53 Visit Stop Time 10:46 Total Visit Minutes 53 Visit Number 6 Evaluation Information Evaluation Date 07/29/20 Precautions Precautions Fibromyalgia, Depression not controlled, Controlled HBP, Chronic back & neck pain. NOTE: Per MD (see note ), pt has no restrictions, pt had meniscectomy and arthoscopy of R knee, with no repairs. PT-OP-B Current Condition Start: 07/27/20 18:34 Freq: Status: Active Protocol: Document 07/29/20 10:43 LRN (Rec: 07/29/20 11:32 LRN [id number]) Current Condition History of Current Condition Onset Date 2 months ago had surgery. Current Complaints Walking, stairs has R knee pn anteriorly; medial & posterior knee swelling History of Current Condition Had R meniscus repair and cartilage repair with metal, . Pt states she was given a note for therapy but she forgot it, but it was for 8 wks of PT. States she was told she needs exercise. States she has pain with gait and stairs. Pain at rest. Prior Treatments and Tests Hand out for post surgery exercises give by physician. Future Testing and Treatments Planned Next MD appt is 09/29/20. Developmental History Developmental History Fell in 2018 outside of house, had a lot of back pain and; therefore the legs went weak and fell to the R side twisting the knee (pt is L handed). Treatment Goals Patient/Caregiver Goals Back pain for past 5 yrs. Prior Functional Status Baseline Function- ADL's Modified Independent Baseline Function- Mobility Modified Independent Baseline Function- Gait Walked 1/2 mile. Baseline Function- Work/School 5 yrs unemployed. Sitting for school 1 hour tolerance. Baseline Function- Other Slovak class, functionally able to cook for self and son. Lives with 25 yr old son. Able to sleep 7 hours. Current Functional Impairments (Reported) Functional Limitations- ADL's Not walking for exercise at all due to R knee pain. Difficulty sleeping, tolerates sleep 3-4 hours at a time due to R knee pain Functional Limitations- Mobility/Gait Ambs with wide SPC on R side to decrease weight bearing on the RLE. Functional Limitations- Work/School Sitting for school 20-30' tolerance due to pain rated 7- 9/10. Personal Factors Other Personal Factors That May Effect 5 yrs unemployed, uncontrolled Therapy/Recovery depression, chronic back & neck pain. PT-OP-C Subjective Start: 07/27/20 18:34 Freq: Status: Active Protocol: Document 08/24/20 09:53 LRN (Rec: 08/24/20 10:38 LRN [id number]) OP-PT Subjective Patient Comments Patient Comments Same symptoms of R knee ( pointing to suprapatellar region). States she didn't know what the surgeon did, but just that he was going to fix her meniscus. No other reason to believe there is metal in the knee. PT-OP-J Posture/Palpation/Skin Start: 07/27/20 18:34 Freq: Status: Active Protocol: Document 07/29/20 10:43 LRN (Rec: 07/29/20 11:32 LRN [id number]) Posture Evaluation Position Standing Evaluation View All positions Head/C-Spine Posture Neutral Position T-Spine Posture Flattened Shoulder Posture (R) Elevated Pelvis Posture (R) Iliac Crest Superior Weight Distribution Weight Shifted Left Knee Posture (L) Genu Valgus,(R) Genu Valgus,(R) Ext. Tibial Torsion Ankle/Foot Posture (L) Forefoot Abducted Palpation Assessment Location Anterolateral lower proximal 1/2 of leg Palpation Location Anterolateral lower proximal 1 /2 of leg Palpation Findings Soft Tissue Tightness Palpation Details Painful with sharp/burning pain. Anterolateral R thigh Palpation Location Anterolateral R thigh Palpation Findings Soft Tissue Tightness Palpation Details Painful with sharp/burning pain. R knee around patella Palpation Location Around R patella Palpation Details Painful with sharp/burning pain. PT-OP-K Range of Motion Start: 07/27/20 18:34 Freq: Status: Active Protocol: Document 08/24/20 09:53 LRN (Rec: 08/24/20 10:38 LRN [id number]) Knee Goniometric Range of Motion Knee Supine Right Patient Position Supine Flexion Active (degrees) 113 Flexion Passive (degrees) 126 PT-OP-M Strength Start: 07/27/20 18:34 Freq: Status: Active Protocol: Document 07/29/20 10:43 LRN (Rec: 07/29/20 11:32 LRN [id number]) Hip Strength Hip Manual Muscle Testing Right Flexion (L2) 3- Fair- Abduction 2 Poor Adduction 1 Trace Comments Back & R knee pain limiting strength Left Flexion (L2) 3 Fair Abduction 2+ Poor+ Adduction 1 Trace Comments Back pain limiting strength Knee Strength Knee Manual Muscle Testing Right Flexion (S2) 3+ Fair+ Extension (L3) 3+ Fair+ Left Comments WNL Ankle/Foot Strength Ankle and Foot Manual Muscle Testing Right Dorsiflexion (L4) 3+ Fair+ Plantarflexion (S1) 5 Normal Inversion 5 Normal Eversion (S1) 5 Normal Left Comments WNL PT-OP-Q Treatments Start: 07/27/20 18:34 Freq: Status: Active Protocol: Document 08/24/20 09:53 LRN (Rec: 08/24/20 10:38 LRN [id number]) Cardio Equipment Bicycle (Upright) Duration (Minutes) 8 Resistance 0 Seat Position 2 Other Extra time to find comfortable ROM to cycle Therapeutic Exercises Supine Exercises SLR Supine Exercise Name SLR Reps/Minutes 7x Bam Stretch Side right Reps/Minutes 60 sec Comments Added to HEP R knee flex Supine Exercise Name Heel slides with towel ( passive with strap and active w/o strap) Side right Reps/Minutes 10x Comments pt had NO discomfort SAQ Supine Exercise Name SAQ Side right Resistance 2#, 1# Equipment Used bolster Reps/Minutes 10x each Comments Pt moves slow and controlled Prone Exercises R knee flexion strengthening Prone Exercise Name Knee flexion Side right Reps/Minutes 15x Knee flexion stretch Prone Exercise Name Knee flexion stretch end-range with active ROM Side right Reps/Minutes 15x Comments End-range hold x 2 Sitting Exercises R knee flex Sitting Exercise Name ARROM Side right Resistance Lev 1 TB Equipment Used 8-10x, R knee ext Sitting Exercise Name AROM Side right Resistance 1# Reps/Minutes 5x Comments focusing on slow, controlled movements, some increased pain Standing Exercises Shallow squat Standing Exercise Name Shallow Squat progressing towards finger tip support Side bilateral Reps/Minutes 4' (15x 2) Comments Initial verbal cuing needed to keep heels on grd, tighten abs, inde balance Self-Care/Home Management Treatment Education Other Education I/S pt in SLR ex to do at home , increase reps with ex to 30 reps total and to work on increasing active R knee flexion. PT-OP-R Modalities Start: 07/27/20 18:34 Freq: Status: Active Protocol: Document 08/24/20 09:53 LRN (Rec: 08/24/20 10:38 LRN [id number]) Hot Pack/Cold Pack Treatment Cold Pack Location R knee Patient Position Supine Treatment Duration (minutes) 10 PT-OP-T Assessment and Plan Start: 07/27/20 18:34 Freq: Status: Active Protocol: Document 08/24/20 09:53 LRN (Rec: 08/24/20 10:38 LRN [id number]) Physical Therapy Assessment Goals Five Impairment Decreased function per LEFS score of 21 (60-79% impaired) Short Term Goal (STG) Improve function per LEFS score of no less than 48 (20 to 39% impaired) STG Duration 08/26/20 Buyer Renter Goal (LTG) Improve function per LEFS score of no less than 63 (1 to 19% impaired) LTG Duration 09/27/20 Four Impairment R knee pain interrupting her sleep every 3-4 hours at night . Jail Goal (LTG) Pt will be able to sleep greater than 4 hours at nighttime. LTG Duration 09/27/20 Three Impairment Decreased R knee AROM limiting pt ability to sit w/o pain( AROM: 8-81 deg's) Short Term Goal (STG) Improve R knee AROM in sitting to 0 - 90 deg's. (08/24/20: AROM flex is 1126 deg's) STG Duration 08/26/20 (08/24/20: Improving ) Jail Goal (LTG) Improve R knee PROM in supine: lacking 3 deg's - 135 deg's with pt able to tolerate sitting 1 hour with pain no more than 2/10. LTG Duration 09/27/20 Two Impairment R knee pain interfering with ability to sleep and walk. Short Term Goal (STG) Decrease pain to 4/10 at worst with pt able to sleep greater than 3-4 hours. STG Duration 08/26/20 Jail Goal (LTG) Decrease pain with walking with pt able to ambulate without use of cane and tolerable pain of 0-3/10. LTG Duration 09/27/20 One Impairment Lacks appropriate self care HEP. Jail Goal (LTG) Pt will be independent with a self care HEP. LTG Duration 09/27/20 (08/06/20: Progressed) Progress Towards Goals Progress Comments Pt able to increased resistance with R knee strengthening ex w/o pain. R knee active flexion in supine is improved from 122 to 126 deg's. Assessment Summary Assessment Good tolerance to increasing exercise reps. Pt strength is weak but improving. R knee AROM is improving in flexion. Extension not assessed for AROM, passively ext is 0 deg's in supine. Physical Therapy Plan Frequency and Duration Frequency of Treatment 2x/Week Plan of Care Start Date 07/29/20 Plan of Care End Date 09/27/20 Next Visit Focus/Plan Next Note Type Treatment Note Next Visit Plan Recheck progress to goals. Continue RLE Bam stretch and Quad stretch. Continue stretching and strengthening RLE watching for abduction and ER of hip. Strengthen high reps, low resistance, improve endurance and continue with gait training as needed.
--- NOTE | 2020-08-26 16:37 | PT.OTN ---
Current Diagnoses Complex tear of lateral meniscus, current injury, right knee, subsequent encounter (08/26/20) Physical Therapy Treatment Note PT-OP-A Visit Information Start: 07/27/20 18:34 Freq: Status: Active Protocol: Document 08/26/20 13:31 LRN (Rec: 08/26/20 14:19 LRN [id number]) Out-Patient Physical Therapy Visit Information Visit Information Visit Type Treatment Note Visit Note Cardiology Teacher used during treatment via phone (battery ): #[phone], [place] Visit Start Time 13:31 Visit Stop Time 14:22 Total Visit Minutes 51 Visit Number 7 Evaluation Information Evaluation Date 07/29/20 Precautions Precautions Fibromyalgia, Depression not controlled, Controlled HBP, Chronic back & neck pain. NOTE: Per MD (see note ), pt has no restrictions, pt had meniscectomy and arthoscopy of R knee, with no repairs. PT-OP-B Current Condition Start: 07/27/20 18:34 Freq: Status: Active Protocol: Document 07/29/20 10:43 LRN (Rec: 07/29/20 11:32 LRN [id number]) Current Condition History of Current Condition Onset Date 2 months ago had surgery. Current Complaints Walking, stairs has R knee pn anteriorly; medial & posterior knee swelling History of Current Condition Had R meniscus repair and cartilage repair with metal, . Pt states she was given a note for therapy but she forgot it, but it was for 8 wks of PT. States she was told she needs exercise. States she has pain with gait and stairs. Pain at rest. Prior Treatments and Tests Hand out for post surgery exercises give by physician. Future Testing and Treatments Planned Next MD appt is 09/29/20. Developmental History Developmental History Fell in 2018 outside of house, had a lot of back pain and; therefore the legs went weak and fell to the R side twisting the knee (pt is L handed). Treatment Goals Patient/Caregiver Goals Back pain for past 5 yrs. Prior Functional Status Baseline Function- ADL's Modified Independent Baseline Function- Mobility Modified Independent Baseline Function- Gait Walked 1/2 mile. Baseline Function- Work/School 5 yrs unemployed. Sitting for school 1 hour tolerance. Baseline Function- Other Togolese class, functionally able to cook for self and son. Lives with 25 yr old son. Able to sleep 7 hours. Current Functional Impairments (Reported) Functional Limitations- ADL's Not walking for exercise at all due to R knee pain. Difficulty sleeping, tolerates sleep 3-4 hours at a time due to R knee pain Functional Limitations- Mobility/Gait Ambs with wide SPC on R side to decrease weight bearing on the RLE. Functional Limitations- Work/School Sitting for school 20-30' tolerance due to pain rated 7- 9/10. Personal Factors Other Personal Factors That May Effect 5 yrs unemployed, uncontrolled Therapy/Recovery depression, chronic back & neck pain. PT-OP-C Subjective Start: 07/27/20 18:34 Freq: Status: Active Protocol: Document 08/26/20 13:31 LRN (Rec: 08/26/20 14:19 LRN [id number]) OP-PT Subjective Patient Comments Patient Comments States owens she is walking her R knee cracks and hurts. States the pain is inside. Pain with walking is 8-9/10. Will leave for [place] 09/06/20 and return 09/23/20. PT-OP-J Posture/Palpation/Skin Start: 07/27/20 18:34 Freq: Status: Active Protocol: Document 07/29/20 10:43 LRN (Rec: 07/29/20 11:32 LRN [id number]) Posture Evaluation Position Standing Evaluation View All positions Head/C-Spine Posture Neutral Position T-Spine Posture Flattened Shoulder Posture (R) Elevated Pelvis Posture (R) Iliac Crest Superior Weight Distribution Weight Shifted Left Knee Posture (L) Genu Valgus,(R) Genu Valgus,(R) Ext. Tibial Torsion Ankle/Foot Posture (L) Forefoot Abducted Palpation Assessment Location Anterolateral lower proximal 1/2 of leg Palpation Location Anterolateral lower proximal 1 /2 of leg Palpation Findings Soft Tissue Tightness Palpation Details Painful with sharp/burning pain. Anterolateral R thigh Palpation Location Anterolateral R thigh Palpation Findings Soft Tissue Tightness Palpation Details Painful with sharp/burning pain. R knee around patella Palpation Location Around R patella Palpation Details Painful with sharp/burning pain. PT-OP-K Range of Motion Start: 07/27/20 18:34 Freq: Status: Active Protocol: Document 08/24/20 09:53 LRN (Rec: 08/24/20 10:38 LRN [id number]) Knee Goniometric Range of Motion Knee Supine Right Patient Position Supine Flexion Active (degrees) 113 Flexion Passive (degrees) 126 PT-OP-M Strength Start: 07/27/20 18:34 Freq: Status: Active Protocol: Document 07/29/20 10:43 LRN (Rec: 07/29/20 11:32 LRN [id number]) Hip Strength Hip Manual Muscle Testing Right Flexion (L2) 3- Fair- Abduction 2 Poor Adduction 1 Trace Comments Back & R knee pain limiting strength Left Flexion (L2) 3 Fair Abduction 2+ Poor+ Adduction 1 Trace Comments Back pain limiting strength Knee Strength Knee Manual Muscle Testing Right Flexion (S2) 3+ Fair+ Extension (L3) 3+ Fair+ Left Comments WNL Ankle/Foot Strength Ankle and Foot Manual Muscle Testing Right Dorsiflexion (L4) 3+ Fair+ Plantarflexion (S1) 5 Normal Inversion 5 Normal Eversion (S1) 5 Normal Left Comments WNL PT-OP-Q Treatments Start: 07/27/20 18:34 Freq: Status: Active Protocol: Document 08/26/20 13:31 LRN (Rec: 08/26/20 14:19 LRN [id number]) Cardio Equipment Bicycle (Upright) Duration (Minutes) 10 Resistance 1 Seat Position 3 Other rpm > 43 Therapeutic Exercises Supine Exercises Bam Stretch Side right Reps/Minutes 60 sec, f/b active stretch x 10 R knee flex Supine Exercise Name Heel slides with towel ( passive with strap and active w/o strap) Side right Reps/Minutes 10x Comments pt had NO discomfort SAQ Supine Exercise Name SAQ Side right Resistance 2#, 1#, 0# Equipment Used bolster Reps/Minutes 10x each Comments Pt moves slow and controlled Prone Exercises R knee flexion strengthening Prone Exercise Name Knee flexion Side right Reps/Minutes 15x 2 Knee flexion stretch Prone Exercise Name Knee flexion stretch end-range with active ROM Side right Reps/Minutes 15x Comments End-range hold x 2 Sidelying Exercises Hip AD Sidelying Exercise Name Hip AD Side right Reps/Minutes 10x 2 Hip AB Sidelying Exercise Name Hip AB Side right Reps/Minutes 10x 2 Sitting Exercises R knee ext Sitting Exercise Name AROM Side right Resistance 1# Reps/Minutes 10x 3 Comments No pain PT-OP-R Modalities Start: 07/27/20 18:34 Freq: Status: Active Protocol: Document 08/26/20 13:31 LRN (Rec: 08/26/20 14:19 LRN [id number]) Hot Pack/Cold Pack Treatment Cold Pack Location R knee Patient Position Supine Treatment Duration (minutes) 10 PT-OP-T Assessment and Plan Start: 07/27/20 18:34 Freq: Status: Active Protocol: Document 08/26/20 13:31 LRN (Rec: 08/26/20 14:19 LRN [id number]) Physical Therapy Assessment Goals Five Impairment Decreased function per LEFS score of 21 (60-79% impaired) Short Term Goal (STG) Improve function per LEFS score of no less than 48 (20 to 39% impaired) STG Duration 08/26/20 Fpc Goal (LTG) Improve function per LEFS score of no less than 63 (1 to 19% impaired) LTG Duration 09/27/20 Four Impairment R knee pain interrupting her sleep every 3-4 hours at night . Auto Servicer Goal (LTG) Pt will be able to sleep greater than 4 hours at nighttime. (08/26/20: Intermittently able to sleep > 4 hrs at night, waking ~1x/ night) LTG Duration 09/27/20 (08/26/20: Improving) Three Impairment Decreased R knee AROM limiting pt ability to sit w/o pain( AROM: 8-81 deg's) Short Term Goal (STG) Improve R knee AROM in sitting to 0 - 90 deg's. STG Duration 08/26/20 Fpc Goal (LTG) Improve R knee PROM in supine: lacking 3 deg's - 135 deg's with pt able to tolerate sitting 1 hour with pain no more than 2/10. (08/24/20: AROM in supine: 0- 126 deg's. Can sit 1 hr with pain 6/10, with medication pain is 4/10) LTG Duration 09/27/20 (08/26/20: Improved knee ext ROM) Two Impairment R knee pain interfering with ability to sleep and walk. Short Term Goal (STG) Decrease pain to 4/10 at worst with pt able to sleep greater than 3-4 hours. (08/26/20: Pt able to sleep > 4 hrs intermittently) STG Duration 08/26/20 (08/26/20: Improved sleeping time, pain remains) [facility]pc Goal (LTG) Decrease pain with walking with pt able to ambulate without use of cane and tolerable pain of 0-3/10. LTG Duration 09/27/20 (08/26/20: Pain with walking w/o assist device is 8-9/10) One Impairment Lacks appropriate self care HEP. Auto Servicer Goal (LTG) Pt will be independent with a self care HEP. LTG Duration 09/27/20 (08/06/20: Progressed) Progress Towards Goals Progress Comments Goal #4: Pt intermittently is sleeping > 4hrs at night. LTG #3: Improved supine R knee ext ROM from lacking 3 deg's to 0 degs. Assessment Summary Assessment Pt is having less R knee pain at nighttime and intermittently sleeping more at night. Pt reports cracking at the R knee with gait, possibly due to instability at knee. Physical Therapy Plan Frequency and Duration Frequency of Treatment 2x/Week Plan of Care Start Date 07/29/20 Plan of Care End Date 09/27/20 Next Visit Focus/Plan Next Note Type Treatment Note Next Visit Plan Recheck sitting R knee ROM. Try adding US and STM to R knee inferiorly or where pain complaints are. Continue stretching and add more CKC strengthening RLE, watching for abduction and ER of hip. Strengthen high reps, low resistance, improve endurance and gait training.
--- NOTE | 2020-08-31 15:25 | PT-OP ANOTE ---
Cancelled due to sickness.
--- NOTE | 2020-09-14 16:12 | PT-OP ANOTE ---
Pt had appt today, but therapist mistake since pt had notified PT of being in [place] over the holidays and will not return until 09/23/20. Pt notified by phone and agreed to be scheduled 09/24/20 @ 11:15am.
--- NOTE | 2020-09-24 16:48 | PT.OTN ---
Current Diagnoses Complex tear of lateral meniscus, current injury, right knee, subsequent encounter (09/24/20) Physical Therapy Treatment Note PT-OP-A Visit Information Start: 07/27/20 18:34 Freq: Status: Active Protocol: Document 09/24/20 11:22 LRN (Rec: 09/24/20 12:23 LRN [id number]) Out-Patient Physical Therapy Visit Information Visit Information Visit Type Progress Note Visit Note Late start, 7' to enter onto carpentry specialist phone. Drawing Tender used is Alea: # [id number]. Visit Start Time 11:22 Visit Stop Time 12:12 Total Visit Minutes 50 Visit Number 8 Evaluation Information Evaluation Date 07/29/20 Precautions Precautions Fibromyalgia, Depression not controlled, Controlled HBP, Chronic back & neck pain. NOTE: Per MD (see note ), pt has no restrictions, pt had meniscectomy and arthoscopy of R knee, with no repairs. PT-OP-B Current Condition Start: 07/27/20 18:34 Freq: Status: Active Protocol: Document 07/29/20 10:43 LRN (Rec: 07/29/20 11:32 LRN [id number]) Current Condition History of Current Condition Onset Date 2 months ago had surgery. Current Complaints Walking, stairs has R knee pn anteriorly; medial & posterior knee swelling History of Current Condition Had R meniscus repair and cartilage repair with metal, . Pt states she was given a note for therapy but she forgot it, but it was for 8 wks of PT. States she was told she needs exercise. States she has pain with gait and stairs. Pain at rest. Prior Treatments and Tests Hand out for post surgery exercises give by physician. Future Testing and Treatments Planned Next MD appt is 09/29/20. Developmental History Developmental History Fell in 2018 outside of house, had a lot of back pain and; therefore the legs went weak and fell to the R side twisting the knee (pt is L handed). Treatment Goals Patient/Caregiver Goals Back pain for past 5 yrs. Prior Functional Status Baseline Function- ADL's Modified Independent Baseline Function- Mobility Modified Independent Baseline Function- Gait Walked 1/2 mile. Baseline Function- Work/School 5 yrs unemployed. Sitting for school 1 hour tolerance. Baseline Function- Other Turkish class, functionally able to cook for self and son. Lives with 25 yr old son. Able to sleep 7 hours. Current Functional Impairments (Reported) Functional Limitations- ADL's Not walking for exercise at all due to R knee pain. Difficulty sleeping, tolerates sleep 3-4 hours at a time due to R knee pain Functional Limitations- Mobility/Gait Ambs with wide SPC on R side to decrease weight bearing on the RLE. Functional Limitations- Work/School Sitting for school 20-30' tolerance due to pain rated 7- 9/10. Personal Factors Other Personal Factors That May Effect 5 yrs unemployed, uncontrolled Therapy/Recovery depression, chronic back & neck pain. PT-OP-C Subjective Start: 07/27/20 18:34 Freq: Status: Active Protocol: Document 09/24/20 11:22 LRN (Rec: 09/24/20 12:23 LRN [id number]) OP-PT Subjective Patient Comments Patient Comments Fine, if walk a lot R knee starts cracking (with pain) a lot, but it feels stronger. Pain is at anterior R knee. Patient Questionnaires Lower Extremity Functional Scale LEFS Score 32 LEFS Impairment 40 to 59% Impaired (Score 32- 47) OP-PT Pain Assessment Pain Assessment Grid Paper Pain Assessment Grid Completed Yes Location R knee Pain Location Details Anterior/medial R knee, and small area posteriorly Intensity 7 Scale Used Numeric (0 - 10) PT-OP-J Posture/Palpation/Skin Start: 07/27/20 18:34 Freq: Status: Active Protocol: Document 07/29/20 10:43 LRN (Rec: 07/29/20 11:32 LRN [id number]) Posture Evaluation Position Standing Evaluation View All positions Head/C-Spine Posture Neutral Position T-Spine Posture Flattened Shoulder Posture (R) Elevated Pelvis Posture (R) Iliac Crest Superior Weight Distribution Weight Shifted Left Knee Posture (L) Genu Valgus,(R) Genu Valgus,(R) Ext. Tibial Torsion Ankle/Foot Posture (L) Forefoot Abducted Palpation Assessment Location Anterolateral lower proximal 1/2 of leg Palpation Location Anterolateral lower proximal 1 /2 of leg Palpation Findings Soft Tissue Tightness Palpation Details Painful with sharp/burning pain. Anterolateral R thigh Palpation Location Anterolateral R thigh Palpation Findings Soft Tissue Tightness Palpation Details Painful with sharp/burning pain. R knee around patella Palpation Location Around R patella Palpation Details Painful with sharp/burning pain. PT-OP-K Range of Motion Start: 07/27/20 18:34 Freq: Status: Active Protocol: Document 09/24/20 11:22 LRN (Rec: 09/24/20 12:23 LRN [id number]) Knee Goniometric Range of Motion Knee Supine Left Knee ROM WFL Yes Patient Position Supine Flexion Active (degrees) 135 Flexion Passive (degrees) 135 Hyper-Extension Active 12 Comments Extension ROM is passive. Supine Right Knee ROM WFL No Patient Position Supine Flexion Active (degrees) 122 Flexion Passive (degrees) 132 Left Knee ROM WFL Yes Patient Position Sitting Flexion Active (degrees) 112 Right Patient Position Sitting Flexion Active (degrees) 102 PT-OP-M Strength Start: 07/27/20 18:34 Freq: Status: Active Protocol: Document 07/29/20 10:43 LRN (Rec: 07/29/20 11:32 LRN [id number]) Hip Strength Hip Manual Muscle Testing Right Flexion (L2) 3- Fair- Abduction 2 Poor Adduction 1 Trace Comments Back & R knee pain limiting strength Left Flexion (L2) 3 Fair Abduction 2+ Poor+ Adduction 1 Trace Comments Back pain limiting strength Knee Strength Knee Manual Muscle Testing Right Flexion (S2) 3+ Fair+ Extension (L3) 3+ Fair+ Left Comments WNL Ankle/Foot Strength Ankle and Foot Manual Muscle Testing Right Dorsiflexion (L4) 3+ Fair+ Plantarflexion (S1) 5 Normal Inversion 5 Normal Eversion (S1) 5 Normal Left Comments WNL PT-OP-Q Treatments Start: 07/27/20 18:34 Freq: Status: Active Protocol: Document 09/24/20 11:22 LRN (Rec: 09/24/20 12:23 LRN [id number]) Cardio Equipment Bicycle (Upright) Duration (Minutes) 8 Resistance 1 Seat Position 3 Other rpm > 50 Therapeutic Exercises Supine Exercises SLR Supine Exercise Name SLR Side right Reps/Minutes 10x 2, 3x Comments Pt fatiqued and not able to perform 3 sets of 10 reps. Bam Stretch Side right Reps/Minutes 60 sec, f/b active stretch x 10 Comments A little tight in quads/hip flexor. Extra time for ex review R knee flex Supine Exercise Name Heel slides with towel ( passive with strap and active w/o strap) Side right Reps/Minutes 30x Comments AROM (122 deg's) & PROM (132 deg's) taken. Prone Exercises R knee flexion strengthening Prone Exercise Name Knee flexion Side right Resistance 1# Reps/Minutes 15x 2 Comments Pt moves slowly and cautiously Sitting Exercises R knee flex Sitting Exercise Name ARROM Side right Reps/Minutes 2x Comments AROM 102 deg's flexion PT-OP-R Modalities Start: 07/27/20 18:34 Freq: Status: Active Protocol: Document 08/26/20 13:31 LRN (Rec: 08/26/20 14:19 LRN [id number]) Hot Pack/Cold Pack Treatment Cold Pack Location R knee Patient Position Supine Treatment Duration (minutes) 10 PT-OP-T Assessment and Plan Start: 07/27/20 18:34 Freq: Status: Active Protocol: Document 09/24/20 11:22 LRN (Rec: 09/24/20 12:23 LRN [id number]) Physical Therapy Assessment Rehab Potential Rehabilitation Potential Good Evaluation Complexity Number of Personal Factors/Comorbidities 3 or More Number of Body Systems Impaired 4 or More Clinical Presentation at Evaluation Evolving Impairments Impairments Activity Tolerance,Gait,Pain, ROM,Soft Tissue Mobility, Strength Goals Five Impairment Decreased function per LEFS score of 21 (60-79% impaired) Short Term Goal (STG) Improve function per LEFS score of no less than 48 (20 to 39% impaired). (09/24/20: Improved from score 21 to 32). STG Duration 10/22/20 (09/24/20: Improving) Banking Services Clerk Goal (LTG) Improve function per LEFS score of no less than 63 (1 to 19% impaired) LTG Duration 12/16/20 Four Impairment R knee pain interrupting her sleep every 3-4 hours at night . Prison Goal (LTG) Pt will be able to sleep greater than 4 hours at nighttime. (09/24/20: Pt able to sleep 7-8 hours at nighttime without pain) LTG Duration 09/27/20 (09/24/20: MET GOAL) Three Impairment Decreased R knee AROM limiting pt ability to sit w/o pain( AROM: 8-81 deg's) Short Term Goal (STG) Improve R knee AROM in sitting to 0 - 90 deg's. (09/24/20: R knee AROM flex is 102 deg's) STG Duration 08/26/20 (09/24/20: MET GOAL) Banking Services Clerk Goal (LTG) Improve R knee PROM in supine: lacking 3 deg's - 135 deg's with pt able to tolerate sitting 1 hour with pain no more than 2/10. (09/24/20: AROM in supine: 0- 123 deg's. Can sit 1 hr with pain 7/10) LTG Duration 12/16/20 (09/24/20: Improved knee ROM) Two Impairment R knee pain interfering with ability to sleep and walk. Short Term Goal (STG) Decrease pain to 4/10 at worst with pt able to sleep greater than 3-4 hours. (09/24/20: MET GOAL. Pt sleeping 7-8 hours without pain) STG Duration 08/26/20 (09/24/20: MET GOAL) Prison Goal (LTG) Decrease pain with walking with pt able to ambulate without use of cane and tolerable pain of 0-3/10. (09/24/20: Walks w/o assistive device. Pain with walking w/o assist device is 7/10, was 8- 9/10) LTG Duration 12/16/20 (09/24/20: Improving slowly) One Impairment Lacks appropriate self care HEP. Prison Goal (LTG) Pt will be independent with a self care HEP. LTG Duration 12/16/20 (08/06/20: Progressed) Progress Towards Goals Progress Comments Goal #2: STG: MET. LTG: Pain decreased to 7/10 from 8-9/10 when walking w/o assistive device. Goal #3 STG: MET Goal #4 MET Goal #5 STG: Improving. LTG: Improved R knee active flex in supine from 122 to 123 deg's. Assessment Summary Assessment Pt returns after 4 weeks on vacation; therefore I did not advance her HEP today. Pt returns with improved R knee mobility and mild decreased tolerance to exercise. The pt 's reported knee pain with activity and prolonged sitting is quite severe at 7/10. She has shown improvement in her ability to sleep (7-8 hrs), mostly through the night. The pt's progress may be being hindered by the language barrier. Progress is somewhat slow due to pt requiring carpentry specialist via phone. The pt would benefit from continued therapy to normalize her R knee mobility and strength/ endurance to improve stability and reduce her pain. Her cracking in the R knee that is associated with pain is hindering her rehabilitation. It is yet undetermined what is causing her cracking at the knee and further assessment may be needed. Physical Therapy Plan Frequency and Duration Frequency of Treatment 1x/Week Plan of Care Start Date 09/24/20 Plan of Care End Date 12/16/20 Therapeutic Interventions Therapeutic Interventions Home Exercise Program,Manual Therapy,Neuromuscular Re- education,Patient/Caregiver Education,Self-Care/Home Management,Soft Tissue Mobilization,Taping, Therapeutic Exercises Modalities Cold Pack/Ice Massage,Electric Stimulation Next Visit Focus/Plan Next Note Type Treatment Note Next Visit Plan Recheck sitting R knee extension ROM. Try adding STM , possibly US to R knee anterior/medial, or where pain complaints are. Continue stretching to improve R knee flex ROM and add/progress CKC strengthening RLE, watching for abduction and ER of hip. Strengthen high reps, low resistance, improve endurance of RLE, and gait training.
--- NOTE | 2020-09-24 16:49 | PT.OPPOC ---
Physical, Occupational & Speech Therapy At [facility] Current Diagnoses Complex tear of lateral meniscus, current injury, right knee, subsequent encounter (09/24/20) Visit Care Team Role Provider Type Tone Narvaez MD Family Provider Non-Staff Primary Care Provider Specialty: Family Practice Address: [address] [place] [address], [id number] Email: Skyler Kuhn MD Attending Provider Non-Staff Referring Provider Specialty: Orthopedic Surgery Address: [address] [place], [address] Email: Plan Of Care PT-OP-T Assessment and Plan Start: 07/27/20 18:34 Freq: Status: Active Protocol: Document 09/24/20 11:22 LRN (Rec: 09/24/20 12:23 LRN [id number]) Physical Therapy Assessment Rehab Potential Rehabilitation Potential Good Evaluation Complexity Number of Personal Factors/Comorbidities 3 or More Number of Body Systems Impaired 4 or More Clinical Presentation at Evaluation Evolving Impairments Impairments Activity Tolerance,Gait,Pain, ROM,Soft Tissue Mobility, Strength Goals Five Impairment Decreased function per LEFS score of 21 (60-79% impaired) Short Term Goal (STG) Improve function per LEFS score of no less than 48 (20 to 39% impaired). (09/24/20: Improved from score 21 to 32). STG Duration 10/22/20 (09/24/20: Improving) Usp Goal (LTG) Improve function per LEFS score of no less than 63 (1 to 19% impaired) LTG Duration 12/16/20 Four Impairment R knee pain interrupting her sleep every 3-4 hours at night . Utility Operator Goal (LTG) Pt will be able to sleep greater than 4 hours at nighttime. (09/24/20: Pt able to sleep 7-8 hours at nighttime without pain) LTG Duration 09/27/20 (09/24/20: MET GOAL) Three Impairment Decreased R knee AROM limiting pt ability to sit w/o pain( AROM: 8-81 deg's) Short Term Goal (STG) Improve R knee AROM in sitting to 0 - 90 deg's. (09/24/20: R knee AROM flex is 102 deg's) STG Duration 08/26/20 (09/24/20: MET GOAL) Utility Operator Goal (LTG) Improve R knee PROM in supine: lacking 3 deg's - 135 deg's with pt able to tolerate sitting 1 hour with pain no more than 2/10. (09/24/20: AROM in supine: 0- 123 deg's. Can sit 1 hr with pain 7/10) LTG Duration 12/16/20 (09/24/20: Improved knee ROM) Two Impairment R knee pain interfering with ability to sleep and walk. Short Term Goal (STG) Decrease pain to 4/10 at worst with pt able to sleep greater than 3-4 hours. (09/24/20: MET GOAL. Pt sleeping 7-8 hours without pain) STG Duration 08/26/20 (09/24/20: MET GOAL) Utility Operator Goal (LTG) Decrease pain with walking with pt able to ambulate without use of cane and tolerable pain of 0-3/10. (09/24/20: Walks w/o assistive device. Pain with walking w/o assist device is 7/10, was 8- 9/10) LTG Duration 12/16/20 (09/24/20: Improving slowly) One Impairment Lacks appropriate self care HEP. Usp Goal (LTG) Pt will be independent with a self care HEP. LTG Duration 12/16/20 (08/06/20: Progressed) Progress Towards Goals Progress Comments Goal #2: STG: MET. LTG: Pain decreased to 7/10 from 8-9/10 when walking w/o assistive device. Goal #3 STG: MET Goal #4 MET Goal #5 STG: Improving. LTG: Improved R knee active flex in supine from 122 to 123 deg's. Assessment Summary Assessment Pt returns after 4 weeks on vacation; therefore I did not advance her HEP today. Pt returns with improved R knee mobility and mild decreased tolerance to exercise. The pt 's reported knee pain with activity and prolonged sitting is quite severe at 7/10. She has shown improvement in her ability to sleep (7-8 hrs), mostly through the night. The pt's progress may be being hindered by the language barrier. Progress is somewhat slow due to pt requiring computer systems architect via phone. The pt would benefit from continued therapy to normalize her R knee mobility and strength/ endurance to improve stability and reduce her pain. Her cracking in the R knee that is associated with pain is hindering her rehabilitation. It is yet undetermined what is causing her cracking at the knee and further assessment may be needed. Physical Therapy Plan Frequency and Duration Frequency of Treatment 1x/Week Plan of Care Start Date 09/24/20 Plan of Care End Date 12/16/20 Therapeutic Interventions Therapeutic Interventions Home Exercise Program,Manual Therapy,Neuromuscular Re- education,Patient/Caregiver Education,Self-Care/Home Management,Soft Tissue Mobilization,Taping, Therapeutic Exercises Modalities Cold Pack/Ice Massage,Electric Stimulation Next Visit Focus/Plan Next Note Type Treatment Note Next Visit Plan Recheck sitting R knee extension ROM. Try adding STM , possibly US to R knee anterior/medial, or where pain complaints are. Continue stretching to improve R knee flex ROM and add/progress CKC strengthening RLE, watching for abduction and ER of hip. Strengthen high reps, low resistance, improve endurance of RLE, and gait training. Plan of Care Dates Plan of Care Start Date 09/24/20 Plan of Care End Date 12/16/20 Electronically Signed by: Lovely Mcdonald, PT 09/24/20 [id number] Please Sign and Return: I have reviewed this Plan of Care and certify that the skilled therapy services above are required to meet the patient?s needs. Physician Signature Date Printed Name and Credentials Clinical Instructor Signature Printed Name and Credentials
--- NOTE | 2020-10-08 16:20 | PT.OTN ---
Current Diagnoses Complex tear of lateral meniscus, current injury, right knee, subsequent encounter (10/08/20) Physical Therapy Treatment Note PT-OP-A Visit Information Start: 07/27/20 18:34 Freq: Status: Active Protocol: Document 10/08/20 15:08 LRN (Rec: 10/08/20 16:19 LRN [id number]) Out-Patient Physical Therapy Visit Information Visit Information Visit Type Treatment Note Visit Note Bone Tender used was Tyler# [id number]. New Referral rec'd from Dr José Manuel Kuhn DO. Visit Start Time 15:08 Visit Stop Time 15:56 Total Visit Minutes 48 Visit Number 9 Evaluation Information Evaluation Date 07/29/20 Precautions Precautions Fibromyalgia, Depression not controlled, Controlled HBP, Chronic back & neck pain. NOTE: Per MD (see note ), pt has no restrictions, pt had meniscectomy and arthoscopy of R knee, with no repairs. PT-OP-B Current Condition Start: 07/27/20 18:34 Freq: Status: Active Protocol: Document 07/29/20 10:43 LRN (Rec: 07/29/20 11:32 LRN [id number]) Current Condition History of Current Condition Onset Date 2 months ago had surgery. Current Complaints Walking, stairs has R knee pn anteriorly; medial & posterior knee swelling History of Current Condition Had R meniscus repair and cartilage repair with metal, . Pt states she was given a note for therapy but she forgot it, but it was for 8 wks of PT. States she was told she needs exercise. States she has pain with gait and stairs. Pain at rest. Prior Treatments and Tests Hand out for post surgery exercises give by physician. Future Testing and Treatments Planned Next MD appt is 09/29/20. Developmental History Developmental History Fell in 2018 outside of house, had a lot of back pain and; therefore the legs went weak and fell to the R side twisting the knee (pt is L handed). Treatment Goals Patient/Caregiver Goals Back pain for past 5 yrs. Prior Functional Status Baseline Function- ADL's Modified Independent Baseline Function- Mobility Modified Independent Baseline Function- Gait Walked 1/2 mile. Baseline Function- Work/School 5 yrs unemployed. Sitting for school 1 hour tolerance. Baseline Function- Other [place] class, functionally able to cook for self and son. Lives with 25 yr old son. Able to sleep 7 hours. Current Functional Impairments (Reported) Functional Limitations- ADL's Not walking for exercise at all due to R knee pain. Difficulty sleeping, tolerates sleep 3-4 hours at a time due to R knee pain Functional Limitations- Mobility/Gait Ambs with wide SPC on R side to decrease weight bearing on the RLE. Functional Limitations- Work/School Sitting for school 20-30' tolerance due to pain rated 7- 9/10. Personal Factors Other Personal Factors That May Effect 5 yrs unemployed, uncontrolled Therapy/Recovery depression, chronic back & neck pain. PT-OP-C Subjective Start: 07/27/20 18:34 Freq: Status: Active Protocol: Document 10/08/20 15:08 LRN (Rec: 10/08/20 16:19 LRN [id number]) OP-PT Subjective Patient Comments Patient Comments Cramping in R lateral leg. Starts in upper thigh and radiates into the lower lateral leg. Saw Dr. Kuhn and was told the pain may be arthritis or from the back. Next appt is 12/29/20. Pain in the R knee is better but c/o cramping on the lateral side of the knee when lying down or standing for a long time. PT-OP-J Posture/Palpation/Skin Start: 07/27/20 18:34 Freq: Status: Active Protocol: Document 07/29/20 10:43 LRN (Rec: 07/29/20 11:32 LRN [id number]) Posture Evaluation Position Standing Evaluation View All positions Head/C-Spine Posture Neutral Position T-Spine Posture Flattened Shoulder Posture (R) Elevated Pelvis Posture (R) Iliac Crest Superior Weight Distribution Weight Shifted Left Knee Posture (L) Genu Valgus,(R) Genu Valgus,(R) Ext. Tibial Torsion Ankle/Foot Posture (L) Forefoot Abducted Palpation Assessment Location Anterolateral lower proximal 1/2 of leg Palpation Location Anterolateral lower proximal 1 /2 of leg Palpation Findings Soft Tissue Tightness Palpation Details Painful with sharp/burning pain. Anterolateral R thigh Palpation Location Anterolateral R thigh Palpation Findings Soft Tissue Tightness Palpation Details Painful with sharp/burning pain. R knee around patella Palpation Location Around R patella Palpation Details Painful with sharp/burning pain. PT-OP-K Range of Motion Start: 07/27/20 18:34 Freq: Status: Active Protocol: Document 10/08/20 15:08 LRN (Rec: 10/08/20 16:19 LRN [id number]) Knee Goniometric Range of Motion Knee Supine Right Knee ROM WFL No Patient Position Supine Flexion Active (degrees) 105 Flexion Passive (degrees) 122 Left Knee ROM WFL Yes Patient Position Sitting Flexion Active (degrees) 111 Right Knee ROM WFL No Patient Position Sitting Flexion Active (degrees) 105 Knee ROM Limitations Comments Sitting: R knee active flexion max is 108 deg's. Supine: R knee active flexion after ultrasound is 110 deg's . PT-OP-M Strength Start: 07/27/20 18:34 Freq: Status: Active Protocol: Document 07/29/20 10:43 LRN (Rec: 07/29/20 11:32 LRN [id number]) Hip Strength Hip Manual Muscle Testing Right Flexion (L2) 3- Fair- Abduction 2 Poor Adduction 1 Trace Comments Back & R knee pain limiting strength Left Flexion (L2) 3 Fair Abduction 2+ Poor+ Adduction 1 Trace Comments Back pain limiting strength Knee Strength Knee Manual Muscle Testing Right Flexion (S2) 3+ Fair+ Extension (L3) 3+ Fair+ Left Comments WNL Ankle/Foot Strength Ankle and Foot Manual Muscle Testing Right Dorsiflexion (L4) 3+ Fair+ Plantarflexion (S1) 5 Normal Inversion 5 Normal Eversion (S1) 5 Normal Left Comments WNL PT-OP-Q Treatments Start: 07/27/20 18:34 Freq: Status: Active Protocol: Document 10/08/20 15:08 LRN (Rec: 10/08/20 16:19 LRN [id number]) Cardio Equipment Bicycle (Upright) Duration (Minutes) 10 Resistance 2 Seat Position 3 Other rpm > 50 Therapeutic Exercises Supine Exercises SLR Supine Exercise Name SLR (foot 12 & 2 O'Clock) Side right Reps/Minutes 10x 1, 6x 2 Comments Pt c/o tightness and pain in anterior and lateral knee R knee flex Supine Exercise Name Heel slides with towel ( passive with strap and active w/o strap) Side right Reps/Minutes 30x Comments ROM taken. AAROM (122 deg's) Sidelying Exercises Hip AD Sidelying Exercise Name Hip AD Side right Reps/Minutes 10x 3 Comments Rest btn sets, after 1st set STM of ITBand due to ms cramp Hip AB Sidelying Exercise Name Hip AB Side right Reps/Minutes 10x 3 Comments Long rest periods between sets Self-Care/Home Management Treatment Education Other Education Educated pt in proper positioning of the RLE in neutral when standing or lying . I/S pt to monitor position of her foot to make sure it is in neutral. PT-OP-R Modalities Start: 07/27/20 18:34 Freq: Status: Active Protocol: Document 10/08/20 15:08 LRN (Rec: 10/08/20 16:19 LRN [id number]) Ultrasound Therapy Treatment R lateral knee Treatment Duration (minutes) 8 Patient Position Supine Frequency Setting (mHz) 1 Mode Setting Pulsed Duty Cycle 50% Intensity Setting (w/cm2) 1.3 PT-OP-T Assessment and Plan Start: 07/27/20 18:34 Freq: Status: Active Protocol: Document 10/08/20 15:08 LRN (Rec: 10/08/20 16:19 LRN [id number]) Physical Therapy Assessment Goals Five Impairment Decreased function per LEFS score of 21 (60-79% impaired) Short Term Goal (STG) Improve function per LEFS score of no less than 48 (20 to 39% impaired). (09/24/20: Improved from score 21 to 32). STG Duration 10/22/20 (09/24/20: Improving) [facility] Goal (LTG) Improve function per LEFS score of no less than 63 (1 to 19% impaired) LTG Duration 12/16/20 Four Impairment R knee pain interrupting her sleep every 3-4 hours at night . [facility] Goal (LTG) Pt will be able to sleep greater than 4 hours at nighttime. (09/24/20: Pt able to sleep 7-8 hours at nighttime without pain) LTG Duration 09/27/20 (09/24/20: MET GOAL) Three Impairment Decreased R knee AROM limiting pt ability to sit w/o pain( AROM: 8-81 deg's) Short Term Goal (STG) Improve R knee AROM in sitting to 0 - 90 deg's. (09/24/20: R knee AROM flex is 102 deg's) STG Duration 08/26/20 (09/24/20: MET GOAL) Junior Administrative Assistant Goal (LTG) Improve R knee PROM in supine: lacking 3 deg's - 135 deg's with pt able to tolerate sitting 1 hour with pain no more than 2/10. (09/24/20: AROM in supine: 0- 123 deg's. Can sit 1 hr with pain 7/10) LTG Duration 12/16/20 (09/24/20: Improved knee ROM) Two Impairment R knee pain interfering with ability to sleep and walk. Short Term Goal (STG) Decrease pain to 4/10 at worst with pt able to sleep greater than 3-4 hours. (09/24/20: MET GOAL. Pt sleeping 7-8 hours without pain) STG Duration 08/26/20 (09/24/20: MET GOAL) [facility] Goal (LTG) Decrease pain with walking with pt able to ambulate without use of cane and tolerable pain of 0-3/10. (09/24/20: Walks w/o assistive device. Pain with walking w/o assist device is 7/10, was 8- 9/10) LTG Duration 12/16/20 (09/24/20: Improving slowly) One Impairment Lacks appropriate self care HEP. Junior Administrative Assistant Goal (LTG) Pt will be independent with a self care HEP. LTG Duration 12/16/20 (08/06/20: Progressed) Progress Towards Goals Progress Comments Sitting R knee AROM improved from 102 to 105 degs. Supine R knee AROM improved from 105 to 110 deg's Assessment Summary Assessment Pt is very weak in R knee & hip. Swelling still present. R knee sitting AROM is slightly better. Supine R knee flex improved after use of ultrasound. Physical Therapy Plan Frequency and Duration Frequency of Treatment 1x/Week Plan of Care Start Date 09/24/20 Plan of Care End Date 12/16/20 Next Visit Focus/Plan Next Note Type Treatment Note Next Visit Plan US to R knee anterior/medial, or where pain complaints are. Continue stretching to improve R knee flex ROM, add /progress CKC strengthening RLE, watching for abduction and ER of hip. Strengthen high reps, low resistance, improve endurance of RLE, and gait training.
--- NOTE | 2020-10-21 10:24 | PT-OP ANOTE ---
Same day cancel due to back pain.
--- NOTE | 2020-11-04 13:04 | PT.OTN ---
Current Diagnoses Complex tear of lateral meniscus, current injury, right knee, subsequent encounter (11/04/20) Physical Therapy Treatment Note PT-OP-A Visit Information Start: 07/27/20 18:34 Freq: Status: Active Protocol: Document 11/04/20 09:45 LRN (Rec: 11/04/20 13:03 LRN [id number]) Out-Patient Physical Therapy Visit Information Visit Information Visit Type Treatment Note Visit Note 2 after PN [facility] Wheel Molder used is : Morgan # [id number]. Visit Start Time 09:44 Visit Stop Time 10:34 Total Visit Minutes 50 Visit Number 10 Evaluation Information Evaluation Date 07/29/20 Precautions Precautions Fibromyalgia, Depression not controlled, Controlled HBP, Chronic back & neck pain. NOTE: Per MD (see note ), pt has no restrictions, pt had meniscectomy and arthoscopy of R knee, with no repairs. PT-OP-B Current Condition Start: 07/27/20 18:34 Freq: Status: Active Protocol: Document 07/29/20 10:43 LRN (Rec: 07/29/20 11:32 LRN [id number]) Current Condition History of Current Condition Onset Date 2 months ago had surgery. Current Complaints Walking, stairs has R knee pn anteriorly; medial & posterior knee swelling History of Current Condition Had R meniscus repair and cartilage repair with metal, . Pt states she was given a note for therapy but she forgot it, but it was for 8 wks of PT. States she was told she needs exercise. States she has pain with gait and stairs. Pain at rest. Prior Treatments and Tests Hand out for post surgery exercises give by physician. Future Testing and Treatments Planned Next MD appt is 09/29/20. Developmental History Developmental History Fell in 2018 outside of house, had a lot of back pain and; therefore the legs went weak and fell to the R side twisting the knee (pt is L handed). Treatment Goals Patient/Caregiver Goals Back pain for past 5 yrs. Prior Functional Status Baseline Function- ADL's Modified Independent Baseline Function- Mobility Modified Independent Baseline Function- Gait Walked 1/2 mile. Baseline Function- Work/School 5 yrs unemployed. Sitting for school 1 hour tolerance. Baseline Function- Other [employer] class, functionally able to cook for self and son. Lives with 25 yr old son. Able to sleep 7 hours. Current Functional Impairments (Reported) Functional Limitations- ADL's Not walking for exercise at all due to R knee pain. Difficulty sleeping, tolerates sleep 3-4 hours at a time due to R knee pain Functional Limitations- Mobility/Gait Ambs with wide SPC on R side to decrease weight bearing on the RLE. Functional Limitations- Work/School Sitting for school 20-30' tolerance due to pain rated 7- 9/10. Personal Factors Other Personal Factors That May Effect 5 yrs unemployed, uncontrolled Therapy/Recovery depression, chronic back & neck pain. PT-OP-C Subjective Start: 07/27/20 18:34 Freq: Status: Active Protocol: Document 11/04/20 09:45 LRN (Rec: 11/04/20 13:03 LRN [id number]) OP-PT Subjective Patient Comments Patient Comments A little pain in the R knee, all in the front and inside. No change, has been doing exercises. Pain with cycling in front of the knee, and with pressure. OP-PT Pain Assessment Pain Assessment Grid Paper Pain Assessment Grid Completed No Location R knee Pain Location Details Anterior/medial and inside Intensity 7 Scale Used Numeric (0 - 10) PT-OP-J Posture/Palpation/Skin Start: 07/27/20 18:34 Freq: Status: Active Protocol: Document 07/29/20 10:43 LRN (Rec: 07/29/20 11:32 LRN [id number]) Posture Evaluation Position Standing Evaluation View All positions Head/C-Spine Posture Neutral Position T-Spine Posture Flattened Shoulder Posture (R) Elevated Pelvis Posture (R) Iliac Crest Superior Weight Distribution Weight Shifted Left Knee Posture (L) Genu Valgus,(R) Genu Valgus,(R) Ext. Tibial Torsion Ankle/Foot Posture (L) Forefoot Abducted Palpation Assessment Location Anterolateral lower proximal 1/2 of leg Palpation Location Anterolateral lower proximal 1 /2 of leg Palpation Findings Soft Tissue Tightness Palpation Details Painful with sharp/burning pain. Anterolateral R thigh Palpation Location Anterolateral R thigh Palpation Findings Soft Tissue Tightness Palpation Details Painful with sharp/burning pain. R knee around patella Palpation Location Around R patella Palpation Details Painful with sharp/burning pain. PT-OP-K Range of Motion Start: 07/27/20 18:34 Freq: Status: Active Protocol: Document 10/08/20 15:08 LRN (Rec: 10/08/20 16:19 LRN [id number]) Knee Goniometric Range of Motion Knee Supine Right Knee ROM WFL No Patient Position Supine Flexion Active (degrees) 105 Flexion Passive (degrees) 122 Left Knee ROM WFL Yes Patient Position Sitting Flexion Active (degrees) 111 Right Knee ROM WFL No Patient Position Sitting Flexion Active (degrees) 105 Knee ROM Limitations Comments Sitting: R knee active flexion max is 108 deg's. Supine: R knee active flexion after ultrasound is 110 deg's . PT-OP-M Strength Start: 07/27/20 18:34 Freq: Status: Active Protocol: Document 07/29/20 10:43 LRN (Rec: 07/29/20 11:32 LRN [id number]) Hip Strength Hip Manual Muscle Testing Right Flexion (L2) 3- Fair- Abduction 2 Poor Adduction 1 Trace Comments Back & R knee pain limiting strength Left Flexion (L2) 3 Fair Abduction 2+ Poor+ Adduction 1 Trace Comments Back pain limiting strength Knee Strength Knee Manual Muscle Testing Right Flexion (S2) 3+ Fair+ Extension (L3) 3+ Fair+ Left Comments WNL Ankle/Foot Strength Ankle and Foot Manual Muscle Testing Right Dorsiflexion (L4) 3+ Fair+ Plantarflexion (S1) 5 Normal Inversion 5 Normal Eversion (S1) 5 Normal Left Comments WNL PT-OP-Q Treatments Start: 07/27/20 18:34 Freq: Status: Active Protocol: Document 11/04/20 09:45 LRN (Rec: 11/04/20 13:03 LRN [id number]) Cardio Equipment Bicycle (Upright) Duration (Minutes) 10 Resistance 3>2 Seat Position 3 Other rpm > 50 Therapeutic Exercises Supine Exercises SLR Supine Exercise Name SLR (foot 12 & 2 O'Clock) Side right Reps/Minutes 10x each with long rest between Bam Stretch Supine Exercise Name Contract/Relax stretch Side right Reps/Minutes 60 sec, f/b active stretch x 10 Comments Tight in quads/hip flexor. R knee flex Supine Exercise Name Heel slides with towel ( passive with strap and active w/o strap) Side right Reps/Minutes 5' Comments ROM taken. AAROM (113 deg's) Sitting Exercises R knee flex Sitting Exercise Name Active knee flex Side right Reps/Minutes 10x Comments AROM 105 deg's flexion R knee ext Sitting Exercise Name Active Knee ext Side right Reps/Minutes 10x Manual Therapy Treatment Soft Tissue Mobilization R anterior distal Quads Body Location R Quads Mobilization Type Other Body Position Supine Comments Contract/Relax STM/stretch Self-Care/Home Management Treatment Activities Self-Care/Home Management Activities I/S pt to do strengthening: active knee ext/flex with holding 5 secs. PT-OP-R Modalities Start: 07/27/20 18:34 Freq: Status: Active Protocol: Document 11/04/20 09:45 LRN (Rec: 11/04/20 13:03 LRN [id number]) Ultrasound Therapy Treatment R lateral knee Treatment Duration (minutes) 8 Patient Position Supine Frequency Setting (mHz) 1 Mode Setting Pulsed Duty Cycle 50% Intensity Setting (w/cm2) 1.3 PT-OP-T Assessment and Plan Start: 07/27/20 18:34 Freq: Status: Active Protocol: Document 11/04/20 09:45 LRN (Rec: 11/04/20 13:03 LRN [id number]) Physical Therapy Assessment Goals Five Impairment Decreased function per LEFS score of 21 (60-79% impaired) Short Term Goal (STG) Improve function per LEFS score of no less than 48 (20 to 39% impaired). (09/24/20: Improved from score 21 to 32). STG Duration 10/22/20 (09/24/20: Improving) [facility] Goal (LTG) Improve function per LEFS score of no less than 63 (1 to 19% impaired) LTG Duration 12/16/20 Three Impairment Decreased R knee AROM limiting pt ability to sit w/o pain( AROM: 8-81 deg's) Short Term Goal (STG) Improve R knee AROM in sitting to 0 - 90 deg's. (09/24/20: R knee AROM flex is 102 deg's) STG Duration 08/26/20 (09/24/20: MET GOAL) [facility] Goal (LTG) Improve R knee PROM in supine: lacking 3 deg's - 135 deg's with pt able to tolerate sitting 1 hour with pain no more than 2/10. (09/24/20: AROM in supine: 0- 123 deg's. Can sit 1 hr with pain 7/10) LTG Duration 12/16/20 (09/24/20: Improved knee ROM) Two Impairment R knee pain interfering with ability to sleep and walk. Short Term Goal (STG) Decrease pain to 4/10 at worst with pt able to sleep greater than 3-4 hours. (09/24/20: MET GOAL. Pt sleeping 7-8 hours without pain) STG Duration 08/26/20 (09/24/20: MET GOAL) [facility] Goal (LTG) Decrease pain with walking with pt able to ambulate without use of cane and tolerable pain of 0-3/10. (09/24/20: Walks w/o assistive device. Pain with walking w/o assist device is 7/10, was 8- 9/10) LTG Duration 12/16/20 (09/24/20: Improving slowly) One Impairment Lacks appropriate self care HEP. [facility] Goal (LTG) Pt will be independent with a self care HEP. (HEP ISSUED: AROM: *R knee flex/ext. INSTRUCTIONS: *Hip SLR (foot in 3 positions)/AB/AD, * active knee ext/flex w/5 secs hold). LTG Duration 12/16/20 (08/06/20: Progressed) Progress Towards Goals Progress Comments Supine R knee AROM improved from 110 to 120 deg's with therapy. Pt had pain with movement. Pt able to tolerate.increased reps with exercises, but no significant change in pain. Ultrasound decreased pain from 7/10 to 6/10. Assessment Summary Assessment Extra time needed for use of telephone science interpreter, who at times had difficulty hearing PT and pt. Poor tolerance to AA self stretch into R knee flexion due to pain and muscle cramp on top of knee. Pt improved with therapy, but overall minimal change in ROM . Pt strength is improving as noted with increased repetition tolerance. + response to use of ultrasound. Physical Therapy Plan Frequency and Duration Frequency of Treatment 1x/Week Plan of Care Start Date 09/24/20 Plan of Care End Date 12/16/20 Next Visit Focus/Plan Next Note Type Treatment Note Next Visit Plan US to R knee anterior/medial, or where pain complaints are. Continue stretching to improve R knee flex ROM, add /progress CKC strengthening RLE, watching for abduction and ER of hip. Strengthen high reps, low resistance, improve endurance of RLE, and gait training.
--- NOTE | 2020-11-18 12:20 | PT.OTN ---
Current Diagnoses Complex tear of lateral meniscus, current injury, right knee, subsequent encounter (11/18/20) Physical Therapy Treatment Note PT-OP-A Visit Information Start: 07/27/20 18:34 Freq: Status: Active Protocol: Document 11/18/20 09:53 LRN (Rec: 11/18/20 10:37 LRN [id number]) Out-Patient Physical Therapy Visit Information Visit Information Visit Type Treatment Note Visit Note 3 after PN Gas Station Attendant used is [employer] # [id number]. Visit Start Time 09:54 Visit Stop Time 10:45 Total Visit Minutes 51 Visit Number 11 Evaluation Information Evaluation Date 07/29/20 Precautions Precautions Fibromyalgia, Depression not controlled, Controlled HBP, Chronic back & neck pain. NOTE: Per MD (see note ), pt has no restrictions, pt had meniscectomy and arthoscopy of R knee, with no repairs. PT-OP-B Current Condition Start: 07/27/20 18:34 Freq: Status: Active Protocol: Document 07/29/20 10:43 LRN (Rec: 07/29/20 11:32 LRN [id number]) Current Condition History of Current Condition Onset Date 2 months ago had surgery. Current Complaints Walking, stairs has R knee pn anteriorly; medial & posterior knee swelling History of Current Condition Had R meniscus repair and cartilage repair with metal, . Pt states she was given a note for therapy but she forgot it, but it was for 8 wks of PT. States she was told she needs exercise. States she has pain with gait and stairs. Pain at rest. Prior Treatments and Tests Hand out for post surgery exercises give by physician. Future Testing and Treatments Planned Next MD appt is 09/29/20. Developmental History Developmental History Fell in 2018 outside of house, had a lot of back pain and; therefore the legs went weak and fell to the R side twisting the knee (pt is L handed). Treatment Goals Patient/Caregiver Goals Back pain for past 5 yrs. Prior Functional Status Baseline Function- ADL's Modified Independent Baseline Function- Mobility Modified Independent Baseline Function- Gait Walked 1/2 mile. Baseline Function- Work/School 5 yrs unemployed. Sitting for school 1 hour tolerance. Baseline Function- Other Persian class, functionally able to cook for self and son. Lives with 25 yr old son. Able to sleep 7 hours. Current Functional Impairments (Reported) Functional Limitations- ADL's Not walking for exercise at all due to R knee pain. Difficulty sleeping, tolerates sleep 3-4 hours at a time due to R knee pain Functional Limitations- Mobility/Gait Ambs with wide SPC on R side to decrease weight bearing on the RLE. Functional Limitations- Work/School Sitting for school 20-30' tolerance due to pain rated 7- 9/10. Personal Factors Other Personal Factors That May Effect 5 yrs unemployed, uncontrolled Therapy/Recovery depression, chronic back & neck pain. PT-OP-C Subjective Start: 07/27/20 18:34 Freq: Status: Active Protocol: Document 11/18/20 09:53 LRN (Rec: 11/18/20 10:37 LRN [id number]) OP-PT Subjective Patient Comments Patient Comments 6/10 pain on inside. Somedays worse than others and today is a bad day. No increase in pain with exercises. PT-OP-J Posture/Palpation/Skin Start: 07/27/20 18:34 Freq: Status: Active Protocol: Document 07/29/20 10:43 LRN (Rec: 07/29/20 11:32 LRN [id number]) Posture Evaluation Position Standing Evaluation View All positions Head/C-Spine Posture Neutral Position T-Spine Posture Flattened Shoulder Posture (R) Elevated Pelvis Posture (R) Iliac Crest Superior Weight Distribution Weight Shifted Left Knee Posture (L) Genu Valgus,(R) Genu Valgus,(R) Ext. Tibial Torsion Ankle/Foot Posture (L) Forefoot Abducted Palpation Assessment Location Anterolateral lower proximal 1/2 of leg Palpation Location Anterolateral lower proximal 1 /2 of leg Palpation Findings Soft Tissue Tightness Palpation Details Painful with sharp/burning pain. Anterolateral R thigh Palpation Location Anterolateral R thigh Palpation Findings Soft Tissue Tightness Palpation Details Painful with sharp/burning pain. R knee around patella Palpation Location Around R patella Palpation Details Painful with sharp/burning pain. PT-OP-K Range of Motion Start: 07/27/20 18:34 Freq: Status: Active Protocol: Document 10/08/20 15:08 LRN (Rec: 10/08/20 16:19 LRN [id number]) Knee Goniometric Range of Motion Knee Supine Right Knee ROM WFL No Patient Position Supine Flexion Active (degrees) 105 Flexion Passive (degrees) 122 Left Knee ROM WFL Yes Patient Position Sitting Flexion Active (degrees) 111 Right Knee ROM WFL No Patient Position Sitting Flexion Active (degrees) 105 Knee ROM Limitations Comments Sitting: R knee active flexion max is 108 deg's. Supine: R knee active flexion after ultrasound is 110 deg's . PT-OP-M Strength Start: 07/27/20 18:34 Freq: Status: Active Protocol: Document 07/29/20 10:43 LRN (Rec: 07/29/20 11:32 LRN [id number]) Hip Strength Hip Manual Muscle Testing Right Flexion (L2) 3- Fair- Abduction 2 Poor Adduction 1 Trace Comments Back & R knee pain limiting strength Left Flexion (L2) 3 Fair Abduction 2+ Poor+ Adduction 1 Trace Comments Back pain limiting strength Knee Strength Knee Manual Muscle Testing Right Flexion (S2) 3+ Fair+ Extension (L3) 3+ Fair+ Left Comments WNL Ankle/Foot Strength Ankle and Foot Manual Muscle Testing Right Dorsiflexion (L4) 3+ Fair+ Plantarflexion (S1) 5 Normal Inversion 5 Normal Eversion (S1) 5 Normal Left Comments WNL PT-OP-Q Treatments Start: 07/27/20 18:34 Freq: Status: Active Protocol: Document 11/18/20 09:53 LRN (Rec: 11/18/20 10:37 LRN [id number]) Cardio Equipment Bicycle (Upright) Duration (Minutes) 10 Resistance 3>2 Seat Position 3 Other rpm > 50 Gym Equipment Cable Column (Body Solid) Leg Curl Details Seat 6 holes Resistance 20# Reps/Time 10x 3 Leg Extension Details Seat: 6 holes Resistance 10# Reps/Time 10x uncomfortable Shuttle Recovery Bilateral Squats Details Escobar Squats, ~ 75-0 deg's ROM Resistance 50# Shuttle Recovery Platform Stable Reps/Time 10x 4 Therapeutic Exercises Sitting Exercises R knee flex Sitting Exercise Name Active knee flex (see Gym Equip: Leg Curl) Comments AROM 105 deg's flexion R knee ext Sitting Exercise Name Active Knee ext Side right Equipment Used 3# R, 4# L Reps/Minutes 10x 3 Self-Care/Home Management Treatment Activities Self-Care/Home Management Activities I/S pt to focus on getting full knee flex/ext ROM. PT-OP-R Modalities Start: 07/27/20 18:34 Freq: Status: Active Protocol: Document 11/18/20 09:53 LRN (Rec: 11/18/20 10:37 LRN [id number]) Hot Pack/Cold Pack Treatment Cold Pack Location R knee Patient Position Supine Treatment Duration (minutes) 10 Ultrasound Therapy Treatment R lateral knee Treatment Duration (minutes) 8 Patient Position Supine Frequency Setting (mHz) 1 Mode Setting Pulsed Duty Cycle 50% Intensity Setting (w/cm2) 1.3 PT-OP-T Assessment and Plan Start: 07/27/20 18:34 Freq: Status: Active Protocol: Document 11/18/20 09:53 LRN (Rec: 11/18/20 10:37 LRN [id number]) Physical Therapy Assessment Goals Five Impairment Decreased function per LEFS score of 21 (60-79% impaired) Short Term Goal (STG) Improve function per LEFS score of no less than 48 (20 to 39% impaired). (09/24/20: Improved from score 21 to 32). STG Duration 10/22/20 (09/24/20: Improving) [facility] Goal (LTG) Improve function per LEFS score of no less than 63 (1 to 19% impaired) LTG Duration 12/16/20 Three Impairment Decreased R knee AROM limiting pt ability to sit w/o pain( AROM: 8-81 deg's) Short Term Goal (STG) Improve R knee AROM in sitting to 0 - 90 deg's. (09/24/20: R knee AROM flex is 102 deg's) STG Duration 08/26/20 (09/24/20: MET GOAL) Tnt Powder Worker Goal (LTG) Improve R knee PROM in supine: lacking 3 deg's - 135 deg's with pt able to tolerate sitting 1 hour with pain no more than 2/10. (09/24/20: AROM in supine: 0- 123 deg's. Can sit 1 hr with pain 7/10) LTG Duration 12/16/20 (09/24/20: Improved knee ROM) Two Impairment R knee pain interfering with ability to sleep and walk. Short Term Goal (STG) Decrease pain to 4/10 at worst with pt able to sleep greater than 3-4 hours. (09/24/20: MET GOAL. Pt sleeping 7-8 hours without pain) STG Duration 08/26/20 (09/24/20: MET GOAL) [facility] Goal (LTG) Decrease pain with walking with pt able to ambulate without use of cane and tolerable pain of 0-3/10. (11/18/20: Walks w/o assistive device. Pain with walking w/o assist device is 6/10) LTG Duration 12/16/20 (11/18/20: Improving slowly) One Impairment Lacks appropriate self care HEP. Tnt Powder Worker Goal (LTG) Pt will be independent with a self care HEP. (HEP ISSUED: AROM: *R knee flex/ext. INSTRUCTIONS: *Hip SLR (foot in 3 positions)/AB/AD, * active knee ext/flex w/5 secs hold). LTG Duration 12/16/20 (08/06/20: Progressed) Progress Towards Goals Progress Comments Walking without assistive device with pain decreased to 6/10 (was on 09/24/20: 7/10). Assessment Summary Assessment Pt having more pain to start ( 6/10), no change in pain with exercise. Tolerated increase in ex without an increase in pain; therefore progress endurance & strengthening. Focus on normalizing R knee ROM. Physical Therapy Plan Frequency and Duration Frequency of Treatment 1x/Week Plan of Care Start Date 09/24/20 Plan of Care End Date 12/16/20 Next Visit Focus/Plan Next Note Type Treatment Note Next Visit Plan Recheck LEFS. Pt has 2 more appts scheduled, discuss further therapy (1 more approved). Recheck R knee ROM (flex) and focus on improving ROM. US to R knee anterior/ medial, or where pain complaints are. Continue stretching to improve R knee flex ROM, add/progress CKC strengthening RLE, watching for abduction and ER of hip. Strengthen high reps, low resistance, improve endurance of RLE, and gait training.
--- NOTE | 2020-12-02 16:44 | PT.OTN ---
Current Diagnoses Complex tear of lateral meniscus, current injury, right knee, subsequent encounter (12/02/20) Physical Therapy Treatment Note PT-OP-A Visit Information Start: 07/27/20 18:34 Freq: Status: Active Protocol: Document 12/02/20 09:53 LRN (Rec: 12/02/20 11:59 LRN [id number]) Out-Patient Physical Therapy Visit Information Visit Information Visit Type Progress Note Visit Note 4 after PN Applications Sales Representative used is [employer] # [id number]. Visit Start Time 09:53 Visit Stop Time 10:43 Total Visit Minutes 50 Visit Number 12 Evaluation Information Evaluation Date 07/29/20 Precautions Precautions Fibromyalgia, Depression not controlled, Controlled HBP, Chronic back & neck pain. NOTE: Per MD (see note ), pt has no restrictions, pt had meniscectomy and arthoscopy of R knee, with no repairs. PT-OP-B Current Condition Start: 07/27/20 18:34 Freq: Status: Active Protocol: Document 07/29/20 10:43 LRN (Rec: 07/29/20 11:32 LRN [id number]) Current Condition History of Current Condition Onset Date 2 months ago had surgery. Current Complaints Walking, stairs has R knee pn anteriorly; medial & posterior knee swelling History of Current Condition Had R meniscus repair and cartilage repair with metal, . Pt states she was given a note for therapy but she forgot it, but it was for 8 wks of PT. States she was told she needs exercise. States she has pain with gait and stairs. Pain at rest. Prior Treatments and Tests Hand out for post surgery exercises give by physician. Future Testing and Treatments Planned Next MD appt is 09/29/20. Developmental History Developmental History Fell in 2018 outside of house, had a lot of back pain and; therefore the legs went weak and fell to the R side twisting the knee (pt is L handed). Treatment Goals Patient/Caregiver Goals Back pain for past 5 yrs. Prior Functional Status Baseline Function- ADL's Modified Independent Baseline Function- Mobility Modified Independent Baseline Function- Gait Walked 1/2 mile. Baseline Function- Work/School 5 yrs unemployed. Sitting for school 1 hour tolerance. Baseline Function- Other Barbadian class, functionally able to cook for self and son. Lives with 25 yr old son. Able to sleep 7 hours. Current Functional Impairments (Reported) Functional Limitations- ADL's Not walking for exercise at all due to R knee pain. Difficulty sleeping, tolerates sleep 3-4 hours at a time due to R knee pain Functional Limitations- Mobility/Gait Ambs with wide SPC on R side to decrease weight bearing on the RLE. Functional Limitations- Work/School Sitting for school 20-30' tolerance due to pain rated 7- 9/10. Personal Factors Other Personal Factors That May Effect 5 yrs unemployed, uncontrolled Therapy/Recovery depression, chronic back & neck pain. PT-OP-C Subjective Start: 07/27/20 18:34 Freq: Status: Active Protocol: Document 12/02/20 09:53 LRN (Rec: 12/02/20 11:59 LRN [id number]) OP-PT Subjective Patient Comments Patient Comments Pain sometimes. With walking pain radiates up leg. States her knee is swollen on the inner side of knee. Some days hurts more, some days hurts less. Hurts least at 6/10, most is 9/10. Sleeping sometimes doesn't feel the pain but when moving she feels the pain. Patient Questionnaires Lower Extremity Functional Scale LEFS Score 39 LEFS Impairment 40 to 59% Impaired (Score 32- 47) PT-OP-J Posture/Palpation/Skin Start: 07/27/20 18:34 Freq: Status: Active Protocol: Document 07/29/20 10:43 LRN (Rec: 07/29/20 11:32 LRN [id number]) Posture Evaluation Position Standing Evaluation View All positions Head/C-Spine Posture Neutral Position T-Spine Posture Flattened Shoulder Posture (R) Elevated Pelvis Posture (R) Iliac Crest Superior Weight Distribution Weight Shifted Left Knee Posture (L) Genu Valgus,(R) Genu Valgus,(R) Ext. Tibial Torsion Ankle/Foot Posture (L) Forefoot Abducted Palpation Assessment Location Anterolateral lower proximal 1/2 of leg Palpation Location Anterolateral lower proximal 1 /2 of leg Palpation Findings Soft Tissue Tightness Palpation Details Painful with sharp/burning pain. Anterolateral R thigh Palpation Location Anterolateral R thigh Palpation Findings Soft Tissue Tightness Palpation Details Painful with sharp/burning pain. R knee around patella Palpation Location Around R patella Palpation Details Painful with sharp/burning pain. PT-OP-K Range of Motion Start: 07/27/20 18:34 Freq: Status: Active Protocol: Document 12/02/20 09:53 LRN (Rec: 12/02/20 11:59 LRN [id number]) Knee Goniometric Range of Motion Knee Supine Left Knee ROM WFL Yes Patient Position Supine Flexion Active (degrees) 135 Flexion Passive (degrees) 135 Hyper-Extension Active 12 Comments Extension ROM is passive. Supine Right Knee ROM WFL No Patient Position Supine Flexion Active (degrees) 108 Extension Active (degrees) 3 Left Knee ROM WFL Yes Patient Position Sitting Flexion Active (degrees) 112 Right Knee ROM WFL No Patient Position Sitting Flexion Active (degrees) 112 PT-OP-L Special Tests Start: 07/27/20 18:34 Freq: Status: Active Protocol: Document 12/02/20 09:53 LRN (Rec: 12/02/20 11:59 LRN [id number]) Special Tests Knee Special Tests Remy Test Test Results R knee Comments Pt not able to tolerate initial start of test. Bounce Home Test Results + R knee Patellar Grind Test Test Results + R knee Comments Very painful with mild compression of patella. PT-OP-M Strength Start: 07/27/20 18:34 Freq: Status: Active Protocol: Document 07/29/20 10:43 LRN (Rec: 07/29/20 11:32 LRN [id number]) Hip Strength Hip Manual Muscle Testing Right Flexion (L2) 3- Fair- Abduction 2 Poor Adduction 1 Trace Comments Back & R knee pain limiting strength Left Flexion (L2) 3 Fair Abduction 2+ Poor+ Adduction 1 Trace Comments Back pain limiting strength Knee Strength Knee Manual Muscle Testing Right Flexion (S2) 3+ Fair+ Extension (L3) 3+ Fair+ Left Comments WNL Ankle/Foot Strength Ankle and Foot Manual Muscle Testing Right Dorsiflexion (L4) 3+ Fair+ Plantarflexion (S1) 5 Normal Inversion 5 Normal Eversion (S1) 5 Normal Left Comments WNL PT-OP-Q Treatments Start: 07/27/20 18:34 Freq: Status: Active Protocol: Document 12/02/20 09:53 LRN (Rec: 12/02/20 11:59 LRN [id number]) Cardio Equipment Bicycle (Upright) Duration (Minutes) 10 Resistance 3 Seat Position 3 Other rpm > 58 Therapeutic Exercises Supine Exercises R knee flex Supine Exercise Name Heel slides with towel ( passive with strap and active w/o strap) Side right Reps/Minutes 5' Comments ROM taken. AAROM (113 deg's) Sitting Exercises Ankle DF Sitting Exercise Name Ankle DF Resistance Lev 2 Reps/Minutes 10x 3 Ankle IV/EV Sitting Exercise Name Ankle IV/EV Resistance Lev 2 Reps/Minutes 10x 3 R knee flex Sitting Exercise Name Active knee flex stretch Comments AROM 112 deg's flexion R knee ext Sitting Exercise Name Active Knee ext Side right Reps/Minutes 10x 3 Self-Care/Home Management Treatment Education Patient Education Home Exercise Program Activities Self-Care/Home Management Activities Issued & reviewed HEP: Ankle strengthening with Theraband. PT-OP-R Modalities Start: 07/27/20 18:34 Freq: Status: Active Protocol: Document 12/02/20 09:53 LRN (Rec: 12/02/20 13:27 LRN [id number]) Hot Pack/Cold Pack Treatment Cold Pack Location R knee Patient Position Supine Treatment Duration (minutes) 10 Comments Legs elevated PT-OP-T Assessment and Plan Start: 07/27/20 18:34 Freq: Status: Active Protocol: Document 12/02/20 09:53 LRN (Rec: 12/02/20 11:59 LRN [id number]) Physical Therapy Assessment Rehab Potential Rehabilitation Potential Good Evaluation Complexity Number of Personal Factors/Comorbidities 3 or More Number of Body Systems Impaired 4 or More Clinical Presentation at Evaluation Evolving Impairments Impairments Activity Tolerance,Gait,Pain, ROM,Soft Tissue Mobility, Strength Goals Five Impairment Decreased function per LEFS score of 21 (60-79% impaired) Short Term Goal (STG) Improve function per LEFS score of no less than 48 (20 to 39% impaired). (12/02/20: Improved from score 32 to 39). STG Duration 01/19/21 (12/02/20: Improved) Custodial Goal (LTG) Improve function per LEFS score of no less than 63 (1 to 19% impaired) LTG Duration 03/04/21 Four Impairment R knee pain interrupting her sleep every 3-4 hours at night . Custodial Goal (LTG) Pt will be able to sleep greater than 4 hours at nighttime. (09/24/20: Pt able to sleep 7-8 hours at nighttime without pain) LTG Duration 09/27/20 (09/24/20: MET GOAL) Three Impairment Decreased R knee AROM limiting pt ability to sit w/o pain( AROM: 8-81 deg's) Short Term Goal (STG) Improve R knee AROM in sitting to 0 - 90 deg's. (09/24/20: R knee AROM flex is 102 deg's) STG Duration 08/26/20 (09/24/20: MET GOAL) Kindergarten Teacher Goal (LTG) Improve R knee PROM in supine: lacking 3 deg's - 135 deg's with pt able to tolerate sitting 1 hour with pain no more than 2/10. (09/24/20: AROM in supine: 0- 123 deg's. Can sit 1 hr with pain 7/10) LTG Duration 03/04/21 (09/24/20: Improved knee ROM) Two Impairment R knee pain interfering with ability to sleep and walk. Short Term Goal (STG) Decrease pain to 4/10 at worst with pt able to sleep greater than 3-4 hours. (09/24/20: MET GOAL. Pt sleeping 7-8 hours without pain) STG Duration 08/26/20 (09/24/20: MET GOAL) Custodial Goal (LTG) Decrease pain with walking with pt able to ambulate without use of cane and tolerable pain of 0-3/10. (11/18/20: Walks w/o assistive device. Pain with walking w/o assist device is 6/10) LTG Duration 03/04/21 (11/18/20: Improving slowly) One Impairment Lacks appropriate self care HEP. Custodial Goal (LTG) Pt will be independent with a self care HEP. (HEP ISSUED: AROM: *R knee flex/ext. INSTRUCTIONS: *Hip SLR (foot in 3 positions)/AB/AD, * active knee ext/flex w/5 secs hold). LTG Duration 03/04/21 (08/06/20: Progressed) Progress Towards Goals Progress Comments See assessment below. Assessment Summary Assessment Pt is a 44 yo [place] speaking female who presents with R knee pain s/p meniscus and soft tissue repair surgery on 05/2020. The pt's progress has been slower than expected as limited by her pain complaints . Initially her pain was rated 7/10 and is now 6/10 at best and 9/10 at worst. LEFS questionaire indicates improvement in function with a score of 39 (40-59% impairment) but was initially 21 (60-79% impairment). Her R knee strength remains the same, hindered by pain. Her ROM has mildly improved but remains restricted, again limited by pain. She presents today after 2 weeks of independent exercise with more complaints of R knee pain with palpation. She has popping at the patella with side glides and is extemely tender to compression (+ Patellar Grind Test). She is very guarded and complains of pain with initiation of testing for meniscus involvement; therefore I was unable to assess for internal derangement of the knee. She has been ambulating without an assistive device with an antalgic gait, and does not appear to show any improvement in her gait mechanics. The pt has one more PT visit before she reaches her visit limits, per her insurance; therefore unless further visits are authorized the pt will choose not to continue therapy at her expense. She is planning on coming back for a final training/discussion of her independent HEP, which would be appropriate. The pt has not made good progress on a more independent program and I am unsure how much more improvement she will gain from further therapy due to pain hindering her progress towards improved mobility and strength. The language barrier also appears to hinder her progress. We will continue per your recommendations. Physical Therapy Plan Frequency and Duration Frequency of Treatment 1x/Week Plan of Care Start Date 09/24/20 Plan of Care End Date 03/04/21 Therapeutic Interventions Therapeutic Interventions Balance Training,Gait Training ,Home Exercise Program,Manual Therapy,Patient/Caregiver Education,Self-Care/Home Management,Soft Tissue Mobilization,Taping, Therapeutic Exercises Next Visit Focus/Plan Next Note Type Treatment Note Next Visit Plan Pt has 1 more appt scheduled for review of self care program unless otherwise directed. Discuss pt to focus on improving ROM and strength (high reps, low resistance), improve endurance of RLE. Add /progress CKC strengthening RLE, watching for abduction and ER of hip. Gait training . US to R knee anterior/ medial.
--- NOTE | 2020-12-16 15:38 | PT-OP ANOTE ---
Per phone conversation pt thought appointment was tomorrow. Pt to call tomorrow to see if she could come in if there are any cancellations, otherwise confirmed her next appt is 12/31/20.
--- NOTE | 2020-12-31 17:20 | PT.OTN ---
Current Diagnoses Complex tear of lateral meniscus, current injury, right knee, subsequent encounter (12/31/20) Physical Therapy Treatment Note PT-OP-A Visit Information Start: 07/27/20 18:34 Freq: Status: Active Protocol: Document 12/31/20 11:17 LRN (Rec: 12/31/20 12:26 LRN [id number]) Out-Patient Physical Therapy Visit Information Visit Information Visit Type Treatment Note Visit Note 5 after PN Jacquard Loom Carpet Weaver used is Wilbert # [id number]. Visit Start Time 11:17 Visit Stop Time 12:07 Total Visit Minutes 50 Visit Number 13 Evaluation Information Evaluation Date 07/29/20 Precautions Precautions Fibromyalgia, Depression not controlled, Controlled HBP, Chronic back & neck pain. NOTE: Per MD (see note ), pt has no restrictions, pt had meniscectomy and arthoscopy of R knee, with no repairs. PT-OP-B Current Condition Start: 07/27/20 18:34 Freq: Status: Active Protocol: Document 07/29/20 10:43 LRN (Rec: 07/29/20 11:32 LRN [id number]) Current Condition History of Current Condition Onset Date 2 months ago had surgery. Current Complaints Walking, stairs has R knee pn anteriorly; medial & posterior knee swelling History of Current Condition Had R meniscus repair and cartilage repair with metal, . Pt states she was given a note for therapy but she forgot it, but it was for 8 wks of PT. States she was told she needs exercise. States she has pain with gait and stairs. Pain at rest. Prior Treatments and Tests Hand out for post surgery exercises give by physician. Future Testing and Treatments Planned Next MD appt is 09/29/20. Developmental History Developmental History Fell in 2018 outside of house, had a lot of back pain and; therefore the legs went weak and fell to the R side twisting the knee (pt is L handed). Treatment Goals Patient/Caregiver Goals Back pain for past 5 yrs. Prior Functional Status Baseline Function- ADL's Modified Independent Baseline Function- Mobility Modified Independent Baseline Function- Gait Walked 1/2 mile. Baseline Function- Work/School 5 yrs unemployed. Sitting for school 1 hour tolerance. Baseline Function- Other [place] class, functionally able to cook for self and son. Lives with 25 yr old son. Able to sleep 7 hours. Current Functional Impairments (Reported) Functional Limitations- ADL's Not walking for exercise at all due to R knee pain. Difficulty sleeping, tolerates sleep 3-4 hours at a time due to R knee pain Functional Limitations- Mobility/Gait Ambs with wide SPC on R side to decrease weight bearing on the RLE. Functional Limitations- Work/School Sitting for school 20-30' tolerance due to pain rated 7- 9/10. Personal Factors Other Personal Factors That May Effect 5 yrs unemployed, uncontrolled Therapy/Recovery depression, chronic back & neck pain. 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 He is going to send her for injections (x3), one a week. She is to continue therapy for 3 more months with referral provided. More sore today and yesterday , has been walking 20' and doing the exercises, reports when walking her pain is 6-8/ 10. Having cysts removed from uterus 01/05/21; therefore R knee therapy postponed until . Patient Questionnaires Lower Extremity Functional Scale LEFS Score 24 LEFS Impairment 60 to 79% Impaired (Score 17- 31) OP-PT Pain Assessment Location R upper and lower lateral thigh/leg Pain Location Details R upper & lower lateral thigh/ leg Intensity 9 Scale Used Numeric (0 - 10) R knee Pain Location Details Anterior/medial and inside Intensity 9 Scale Used Numeric (0 - 10) Comments Pain Comments Walking pin is 6-8/10. Sitting pain 6-7/10. PT-OP-J Posture/Palpation/Skin Start: 07/27/20 18:34 Freq: Status: Active Protocol: Document 07/29/20 10:43 LRN (Rec: 07/29/20 11:32 LRN [id number]) Posture Evaluation Position Standing Evaluation View All positions Head/C-Spine Posture Neutral Position T-Spine Posture Flattened Shoulder Posture (R) Elevated Pelvis Posture (R) Iliac Crest Superior Weight Distribution Weight Shifted Left Knee Posture (L) Genu Valgus,(R) Genu Valgus,(R) Ext. Tibial Torsion Ankle/Foot Posture (L) Forefoot Abducted Palpation Assessment Location Anterolateral lower proximal 1/2 of leg Palpation Location Anterolateral lower proximal 1 /2 of leg Palpation Findings Soft Tissue Tightness Palpation Details Painful with sharp/burning pain. Anterolateral R thigh Palpation Location Anterolateral R thigh Palpation Findings Soft Tissue Tightness Palpation Details Painful with sharp/burning pain. R knee around patella Palpation Location Around R patella Palpation Details Painful with sharp/burning pain. PT-OP-K Range of Motion Start: 07/27/20 18:34 Freq: Status: Active Protocol: Document 12/31/20 11:17 LRN (Rec: 12/31/20 12:26 LRN [id number]) Knee Goniometric Range of Motion Knee Supine Right Knee ROM WFL No Patient Position Supine Flexion Active (degrees) 110 Flexion Passive (degrees) 135 Comments Painfree active knee flexion 85 deg's PT-OP-L Special Tests Start: 07/27/20 18:34 Freq: Status: Active Protocol: Document 12/02/20 09:53 LRN (Rec: 12/02/20 11:59 LRN [id number]) Special Tests Knee Special Tests Remy Test Test Results R knee Comments Pt not able to tolerate initial start of test. Bounce Home Test Results + R knee Patellar Grind Test Test Results + R knee Comments Very painful with mild compression of patella. PT-OP-M Strength Start: 07/27/20 18:34 Freq: Status: Active Protocol: Document 07/29/20 10:43 LRN (Rec: 07/29/20 11:32 LRN [id number]) Hip Strength Hip Manual Muscle Testing Right Flexion (L2) 3- Fair- Abduction 2 Poor Adduction 1 Trace Comments Back & R knee pain limiting strength Left Flexion (L2) 3 Fair Abduction 2+ Poor+ Adduction 1 Trace Comments Back pain limiting strength Knee Strength Knee Manual Muscle Testing Right Flexion (S2) 3+ Fair+ Extension (L3) 3+ Fair+ Left Comments WNL Ankle/Foot Strength Ankle and Foot Manual Muscle Testing Right Dorsiflexion (L4) 3+ Fair+ Plantarflexion (S1) 5 Normal Inversion 5 Normal Eversion (S1) 5 Normal Left Comments WNL PT-OP-Q Treatments Start: 07/27/20 18:34 Freq: Status: Active Protocol: Document 12/31/20 11:17 LRN (Rec: 12/31/20 12:26 LRN [id number]) Cardio Equipment Bicycle (Upright) Duration (Minutes) 10 Resistance 3 Seat Position 3 Other rpm > 58 Therapeutic Exercises Supine Exercises SLR Supine Exercise Name SLR Side right Reps/Minutes 10x 3 Bam Stretch Supine Exercise Name Bam Stretch Side right Reps/Minutes 3' R knee flex Supine Exercise Name R knee passive flex with and w /o strap Side right Reps/Minutes 10' Comments ROM taken Self-Care/Home Management Treatment Education Patient Education Home Exercise Program,Pain Management Other Education Discussed at length self care in areas of: Strengthening, ROM, and pain management ( primarily use of cryotherapy). Discussed plan of care and insurance limits. Activities Self-Care/Home Management Activities Verbally reviewed pt's HEP of hip/knee ex's. PT-OP-R Modalities Start: 07/27/20 18:34 Freq: Status: Active Protocol: Document 12/31/20 11:17 LRN (Rec: 12/31/20 12:26 LRN [id number]) Ultrasound Therapy Treatment R superior patellar border/quad tendon Treatment Duration (minutes) 4 Patient Position Supine Coupling Medium Ultrasound Gel Applicator Size (cm2) 2 Frequency Setting (mHz) 3 Mode Setting Pulsed Duty Cycle 50% Intensity Setting (w/cm2) 1.0 R lateral knee Treatment Duration (minutes) 4 Patient Position Supine Coupling Medium Ultrasound Gel Applicator Size (cm2) 2 Frequency Setting (mHz) 1 Mode Setting Pulsed Duty Cycle 50% Intensity Setting (w/cm2) 1.3 PT-OP-T Assessment and Plan Start: 07/27/20 18:34 Freq: Status: Active Protocol: Document 12/31/20 11:17 LRN (Rec: 12/31/20 12:26 LRN [id number]) Physical Therapy Assessment Rehab Potential Rehabilitation Potential Good Evaluation Complexity Number of Personal Factors/Comorbidities 3 or More Number of Body Systems Impaired 4 or More Clinical Presentation at Evaluation Evolving Impairments Impairments Activity Tolerance,Gait,Pain, ROM,Soft Tissue Mobility, Strength Goals Five Impairment Decreased function per LEFS score of 21 (60-79% impaired) Short Term Goal (STG) Improve function per LEFS score of no less than 48 (20 to 39% impaired). (12/02/20: Improved from score 32 to 39). 12/31/20: Score is worse at 24 ) STG Duration 03/31/[address] Freight Firer Goal (LTG) Improve function per LEFS score of no less than 63 (1 to 19% impaired) LTG Duration 03/31/21 NOT MET Four Impairment R knee pain interrupting her sleep every 3-4 hours at night . Road Freight Firer Goal (LTG) Pt will be able to sleep greater than 4 hours at nighttime. (09/24/20: Pt able to sleep 7-8 hours at nighttime without pain) LTG Duration 09/27/20 (09/24/20: MET GOAL) Three Impairment Decreased R knee AROM limiting pt ability to sit w/o pain( AROM: 8-81 deg's) Short Term Goal (STG) Improve R knee AROM in sitting to 0 - 90 deg's. (09/24/20: R knee AROM flex is 102 deg's) STG Duration 08/26/20 (09/24/20: MET GOAL) Detention Goal (LTG) Improve R knee PROM in supine: lacking 3 deg's - 135 deg's with pt able to tolerate sitting 1 hour with pain no more than 2/10. (09/24/20: AROM in supine: 0- 123 deg's. Can sit 1 hr with pain 7/10) LTG Duration 03/31/21 (09/24/20: Improved knee ROM) Two Impairment R knee pain interfering with ability to sleep and walk. Short Term Goal (STG) Decrease pain to 4/10 at worst with pt able to sleep greater than 3-4 hours. (09/24/20: MET GOAL. Pt sleeping 7-8 hours without pain) STG Duration 08/26/20 (09/24/20: MET GOAL) Road Freight Firer Goal (LTG) Decrease pain with walking with pt able to ambulate without use of cane and tolerable pain of 0-3/10. (11/18/20: Walks w/o assistive device. Pain with walking w/o assist device is 6/10) LTG Duration 03/31/21 (11/18/20: Improving slowly) One Impairment Lacks appropriate self care HEP. Road Freight Firer Goal (LTG) Pt will be independent with a self care HEP. (HEP ISSUED: AROM: *R knee flex/ext. INSTRUCTIONS: *Hip SLR (foot in 3 positions)/AB/AD, * active knee ext/flex w/5 secs hold). LTG Duration 03/04/21 (08/06/20: Progressed) Progress Towards Goals Progress Comments LEFS worse at 24 (was 39 on ). Assessment Summary Assessment Pt presents today with increased pain complaints of the R knee. Her function appears to be worse since her last assessment on 11/22/20. Her pain complaints with walking are worse with pain rated 6-8/10. Her pain assessment shows her pain is rated 8-9/10. Her passive R knee mobility has improved to 130 deg's, but painfree she demonstrates only 85 deg's flexion. She is reporting increased popping in the knee that is associated with pain; therefore pt might have internal derangement in the knee joint that may be worsening. Pt is limited in her covered physical therapy visits and is choosing to not attend therapy if it is not covered by insurance although she has been directed to continue therapy for 3 more months. Pt is not planning on returning to therapy for 1 month due to upcoming surgery (cysts removed), then will decide if she wants to return. PT was encouraged to focus on improving ROM and strength (high reps, low resistance), improve endurance of RLE on her home program if able. Physical Therapy Plan Frequency and Duration Frequency of Treatment 1x/Week Plan of Care Start Date 12/31/20 Plan of Care End Date 03/31/21 Therapeutic Interventions Therapeutic Interventions Balance Training,Gait Training ,Home Exercise Program,Manual Therapy,Patient/Caregiver Education,Self-Care/Home Management,Soft Tissue Mobilization,Taping, Therapeutic Exercises Next Visit Focus/Plan Next Note Type Treatment Note Next Visit Plan New referral received to continue 3 more months. Pt will decide if she wants to return to therapy in 1 month, after recovering from surgery to remove cysts. Pt to focus on improving R knee ROM and strength (high reps, low resistance) and to improve endurance of RLE. Add/ progress CKC strengthening RLE , watching for abduction and ER of hip. Gait training. US to R knee anterior/medial.
--- NOTE | 2021-02-01 09:10 | PT.OTN ---
Current Diagnoses Complex tear of lateral meniscus, current injury, right knee, subsequent encounter (02/01/21) Physical Therapy Treatment Note PT-OP-A Visit Information Start: 07/27/20 18:34 Freq: Status: Active Protocol: Document 02/01/21 08:19 SP (Rec: 02/01/21 09:45 SP [id number]) Out-Patient Physical Therapy Visit Information Visit Information Visit Type Treatment Note Visit Note 6 after PN Phone Port Traffic Manager used (didn't log name). Visit Start Time 08:19 Visit Stop Time 09:10 Total Visit Minutes 51 Visit Number 14 Number of GREY PERCHER Visits 1 Evaluation Information Evaluation Date 07/29/20 Precautions Precautions Fibromyalgia, Depression not controlled, Controlled HBP, Chronic back & neck pain. NOTE: Per MD (see note ), pt has no restrictions, pt had meniscectomy and arthoscopy of R knee, with no repairs. PT-OP-B Current Condition Start: 07/27/20 18:34 Freq: Status: Active Protocol: Document 07/29/20 10:43 LRN (Rec: 07/29/20 11:32 LRN [id number]) Current Condition History of Current Condition Onset Date 2 months ago had surgery. Current Complaints Walking, stairs has R knee pn anteriorly; medial & posterior knee swelling History of Current Condition Had R meniscus repair and cartilage repair with metal, . Pt states she was given a note for therapy but she forgot it, but it was for 8 wks of PT. States she was told she needs exercise. States she has pain with gait and stairs. Pain at rest. Prior Treatments and Tests Hand out for post surgery exercises give by physician. Future Testing and Treatments Planned Next MD appt is 09/29/20. Developmental History Developmental History Fell in 2018 outside of house, had a lot of back pain and; therefore the legs went weak and fell to the R side twisting the knee (pt is L handed). Treatment Goals Patient/Caregiver Goals Back pain for past 5 yrs. Prior Functional Status Baseline Function- ADL's Modified Independent Baseline Function- Mobility Modified Independent Baseline Function- Gait Walked 1/2 mile. Baseline Function- Work/School 5 yrs unemployed. Sitting for school 1 hour tolerance. Baseline Function- Other [place] class, functionally able to cook for self and son. Lives with 25 yr old son. Able to sleep 7 hours. Current Functional Impairments (Reported) Functional Limitations- ADL's Not walking for exercise at all due to R knee pain. Difficulty sleeping, tolerates sleep 3-4 hours at a time due to R knee pain Functional Limitations- Mobility/Gait Ambs with wide SPC on R side to decrease weight bearing on the RLE. Functional Limitations- Work/School Sitting for school 20-30' tolerance due to pain rated 7- 9/10. Personal Factors Other Personal Factors That May Effect 5 yrs unemployed, uncontrolled Therapy/Recovery depression, chronic back & neck pain. PT-OP-C Subjective Start: 07/27/20 18:34 Freq: Status: Active Protocol: Document 02/01/21 08:19 SP (Rec: 02/01/21 09:45 SP [id number]) OP-PT Subjective Patient Comments Patient Comments Pt stated the insurance did not approve the injections, not doing exercises lately due to R knee hurting 5-8, especially the SLR. Tried to do some hiking on Sat and started to have pain on the incline stopped and when pivoted to return decline R knee got stuck then gave out and fell. Pt stated is doing ok and didnt need to see physician for furth follow up. Patient Reported Progress Worse PT-OP-J Posture/Palpation/Skin Start: 07/27/20 18:34 Freq: Status: Active Protocol: Document 07/29/20 10:43 LRN (Rec: 07/29/20 11:32 LRN [id number]) Posture Evaluation Position Standing Evaluation View All positions Head/C-Spine Posture Neutral Position T-Spine Posture Flattened Shoulder Posture (R) Elevated Pelvis Posture (R) Iliac Crest Superior Weight Distribution Weight Shifted Left Knee Posture (L) Genu Valgus,(R) Genu Valgus,(R) Ext. Tibial Torsion Ankle/Foot Posture (L) Forefoot Abducted Palpation Assessment Location Anterolateral lower proximal 1/2 of leg Palpation Location Anterolateral lower proximal 1 /2 of leg Palpation Findings Soft Tissue Tightness Palpation Details Painful with sharp/burning pain. Anterolateral R thigh Palpation Location Anterolateral R thigh Palpation Findings Soft Tissue Tightness Palpation Details Painful with sharp/burning pain. R knee around patella Palpation Location Around R patella Palpation Details Painful with sharp/burning pain. PT-OP-K Range of Motion Start: 07/27/20 18:34 Freq: Status: Active Protocol: Document 12/31/20 11:17 LRN (Rec: 12/31/20 12:26 LRN [id number]) Knee Goniometric Range of Motion Knee Supine Right Knee ROM WFL No Patient Position Supine Flexion Active (degrees) 110 Flexion Passive (degrees) 135 Comments Painfree active knee flexion 85 deg's PT-OP-L Special Tests Start: 07/27/20 18:34 Freq: Status: Active Protocol: Document 12/02/20 09:53 LRN (Rec: 12/02/20 11:59 LRN [id number]) Special Tests Knee Special Tests Remy Test Test Results R knee Comments Pt not able to tolerate initial start of test. Bounce Home Test Results + R knee Patellar Grind Test Test Results + R knee Comments Very painful with mild compression of patella. PT-OP-M Strength Start: 07/27/20 18:34 Freq: Status: Active Protocol: Document 07/29/20 10:43 LRN (Rec: 07/29/20 11:32 LRN [id number]) Hip Strength Hip Manual Muscle Testing Right Flexion (L2) 3- Fair- Abduction 2 Poor Adduction 1 Trace Comments Back & R knee pain limiting strength Left Flexion (L2) 3 Fair Abduction 2+ Poor+ Adduction 1 Trace Comments Back pain limiting strength Knee Strength Knee Manual Muscle Testing Right Flexion (S2) 3+ Fair+ Extension (L3) 3+ Fair+ Left Comments WNL Ankle/Foot Strength Ankle and Foot Manual Muscle Testing Right Dorsiflexion (L4) 3+ Fair+ Plantarflexion (S1) 5 Normal Inversion 5 Normal Eversion (S1) 5 Normal Left Comments WNL PT-OP-Q Treatments Start: 07/27/20 18:34 Freq: Status: Active Protocol: Document 02/01/21 08:19 SP (Rec: 02/01/21 09:45 SP [id number]) Cardio Equipment Bicycle (Upright) Duration (Minutes) 10 Resistance 3 Seat Position 3 Other rpm > 58 Therapeutic Exercises Supine Exercises heel slides Side right Resistance AROM Reps/Minutes x2 reps to change position Comments painful so didnt' assess as HEP SLR Supine Exercise Name SLR Side right Reps/Minutes x2 Comments to painful so stopped 8/10 R knee flex Supine Exercise Name pain with active knee flexion Side right Comments transition of positioning SAQ Supine Exercise Name HEP Side right Reps/Minutes x5 reps good kalpesh, 5 sec hold x5 little irritation pat tendon Comments instructed continue repeated reps pain free 5 reps x2 sets Prone Exercises R knee flexion strengthening Prone Exercise Name Knee flexion Side right Resistance AROM Reps/Minutes x3 Comments caused pain and popping in knee so stopped Sidelying Exercises Hip AB Sidelying Exercise Name Hip AB -HEP Side right Reps/Minutes 3 x5 reps Comments 10 sec rest between sets, tiring no pain Manual Therapy Treatment Soft Tissue Mobilization R anterior distal Quads Body Location R Quads Mobilization Type Strumming Intensity/Depth Superficial Body Position Supine Comments patellar tendon- good feedback , instructed to continiue Taping I stripes Body Location L knee Treatment Focus patellar tendon support Type of Tape Kinesio Tape Skin Inspection intact normal color Comments good feedback- feels better PT-OP-R Modalities Start: 07/27/20 18:34 Freq: Status: Active Protocol: Document 12/31/20 11:17 LRN (Rec: 12/31/20 12:26 LRN [id number]) Ultrasound Therapy Treatment R superior patellar border/quad tendon Treatment Duration (minutes) 4 Patient Position Supine Coupling Medium Ultrasound Gel Applicator Size (cm2) 2 Frequency Setting (mHz) 3 Mode Setting Pulsed Duty Cycle 50% Intensity Setting (w/cm2) 1.0 R lateral knee Treatment Duration (minutes) 4 Patient Position Supine Coupling Medium Ultrasound Gel Applicator Size (cm2) 2 Frequency Setting (mHz) 1 Mode Setting Pulsed Duty Cycle 50% Intensity Setting (w/cm2) 1.3 PT-OP-T Assessment and Plan Start: 07/27/20 18:34 Freq: Status: Active Protocol: Document 02/01/21 08:19 SP (Rec: 02/01/21 09:45 SP [id number]) Physical Therapy Assessment Goals Five Impairment Decreased function per LEFS score of 21 (60-79% impaired) Short Term Goal (STG) Improve function per LEFS score of no less than 48 (20 to 39% impaired). (12/02/20: Improved from score 32 to 39). 12/31/20: Score is worse at 24 ) STG Duration 03/31/21 NOT MET Assessment Services Manager Goal (LTG) Improve function per LEFS score of no less than 63 (1 to 19% impaired) LTG Duration 03/31/21 NOT MET Four Impairment R knee pain interrupting her sleep every 3-4 hours at night . Assessment Services Manager Goal (LTG) Pt will be able to sleep greater than 4 hours at nighttime. (09/24/20: Pt able to sleep 7-8 hours at nighttime without pain) LTG Duration 09/27/20 (09/24/20: MET GOAL) Three Impairment Decreased R knee AROM limiting pt ability to sit w/o pain( AROM: 8-81 deg's) Short Term Goal (STG) Improve R knee AROM in sitting to 0 - 90 deg's. (09/24/20: R knee AROM flex is 102 deg's) STG Duration 08/26/20 (09/24/20: MET GOAL) Assessment Services Manager Goal (LTG) Improve R knee PROM in supine: lacking 3 deg's - 135 deg's with pt able to tolerate sitting 1 hour with pain no more than 2/10. (09/24/20: AROM in supine: 0- 123 deg's. Can sit 1 hr with pain 7/10) LTG Duration 03/31/21 (09/24/20: Improved knee ROM) Two Impairment R knee pain interfering with ability to sleep and walk. Short Term Goal (STG) Decrease pain to 4/10 at worst with pt able to sleep greater than 3-4 hours. (09/24/20: MET GOAL. Pt sleeping 7-8 hours without pain) STG Duration 08/26/20 (09/24/20: MET GOAL) Assessment Services Manager Goal (LTG) Decrease pain with walking with pt able to ambulate without use of cane and tolerable pain of 0-3/10. (11/18/20: Walks w/o assistive device. Pain with walking w/o assist device is 6/10) LTG Duration 03/31/21 (11/18/20: Improving slowly) One Impairment Lacks appropriate self care HEP. Assessment Services Manager Goal (LTG) Pt will be independent with a self care HEP. (HEP ISSUED: AROM: *R knee flex/ext. INSTRUCTIONS: *Hip SLR (foot in 3 positions)/AB/AD, * active knee ext/flex w/5 secs hold). LTG Duration 03/04/21 (08/06/20: Progressed) Assessment Summary Assessment Pt last appt mid Apr with PT. Pt reports having increased R patellar tendon pain and sensitive to knee ROM in flexion and extension with more during extension activities SLR, more tolerant during SAQ, no pain sidelying hip abd. Recommended for HEP ice, pain free hip abd and SAQ to assist knee stabilization. PT next appt. Pt stated needs to make an appt with physician as follow up due to no approval for injections and what POC going forward. Pt reports R knee pain decreased from 8/10 upon arrival to 5/10 end of tx post manual, painfree ex and Crycuff. Physical Therapy Plan Frequency and Duration Frequency of Treatment 1x/Week Plan of Care Start Date 12/31/20 Plan of Care End Date 03/31/21 Therapeutic Interventions Therapeutic Interventions Balance Training,Gait Training ,Home Exercise Program,Manual Therapy,Patient/Caregiver Education,Self-Care/Home Management,Soft Tissue Mobilization,Taping, Therapeutic Exercises Next Visit Focus/Plan Next Note Type Treatment Note Next Visit Plan Assess response to last tx: manual, ktaping, review painfree HEP, see notes. POC from 01/05 per PT: New referral received to continue 3 more months. Pt will decide if she wants to return to therapy in 1 month, after recovering from surgery to remove cysts. Pt to focus on improving R knee ROM and strength (high reps, low resistance) and to improve endurance of RLE. Add/ progress CKC strengthening RLE , watching for abduction and ER of hip. Gait training. US to R knee anterior/medial.
--- NOTE | 2021-02-07 16:37 | PT.OTN ---
Current Diagnoses Complex tear of lateral meniscus, current injury, right knee, subsequent encounter (02/07/21) Physical Therapy Treatment Note PT-OP-A Visit Information Start: 07/27/20 18:34 Freq: Status: Active Protocol: Document 02/07/21 10:35 LRN (Rec: 02/07/21 12:33 LRN [id number]) Out-Patient Physical Therapy Visit Information Visit Information Visit Type Treatment Note Visit Note 7 after PN Sagger Preparer used is Akshat #[id number]. Visit Start Time 10:35 Visit Stop Time 11:27 Total Visit Minutes 52 Visit Number 15 Evaluation Information Evaluation Date 07/29/20 Precautions Precautions Fibromyalgia, Depression not controlled, Controlled HBP, Chronic back & neck pain. NOTE: Per MD (see note ), pt has no restrictions, pt had meniscectomy and arthoscopy of R knee, with no repairs. PT-OP-B Current Condition Start: 07/27/20 18:34 Freq: Status: Active Protocol: Document 07/29/20 10:43 LRN (Rec: 07/29/20 11:32 LRN [id number]) Current Condition History of Current Condition Onset Date 2 months ago had surgery. Current Complaints Walking, stairs has R knee pn anteriorly; medial & posterior knee swelling History of Current Condition Had R meniscus repair and cartilage repair with metal, . Pt states she was given a note for therapy but she forgot it, but it was for 8 wks of PT. States she was told she needs exercise. States she has pain with gait and stairs. Pain at rest. Prior Treatments and Tests Hand out for post surgery exercises give by physician. Future Testing and Treatments Planned Next MD appt is 09/29/20. Developmental History Developmental History Fell in 2018 outside of house, had a lot of back pain and; therefore the legs went weak and fell to the R side twisting the knee (pt is L handed). Treatment Goals Patient/Caregiver Goals Back pain for past 5 yrs. Prior Functional Status Baseline Function- ADL's Modified Independent Baseline Function- Mobility Modified Independent Baseline Function- Gait Walked 1/2 mile. Baseline Function- Work/School 5 yrs unemployed. Sitting for school 1 hour tolerance. Baseline Function- Other Korean class, functionally able to cook for self and son. Lives with 25 yr old son. Able to sleep 7 hours. Current Functional Impairments (Reported) Functional Limitations- ADL's Not walking for exercise at all due to R knee pain. Difficulty sleeping, tolerates sleep 3-4 hours at a time due to R knee pain Functional Limitations- Mobility/Gait Ambs with wide SPC on R side to decrease weight bearing on the RLE. Functional Limitations- Work/School Sitting for school 20-30' tolerance due to pain rated 7- 9/10. Personal Factors Other Personal Factors That May Effect 5 yrs unemployed, uncontrolled Therapy/Recovery depression, chronic back & neck pain. PT-OP-C Subjective Start: 07/27/20 18:34 Freq: Status: Active Protocol: Document 02/07/21 10:35 LRN (Rec: 02/07/21 12:33 LRN [id number]) OP-PT Subjective Patient Comments Patient Comments Pt reports R knee pain has been 9/10 after last session, 7/10 next day and 6/10 today. OP-PT Pain Assessment Pain Assessment Grid Paper Pain Assessment Grid Completed No Location R upper and lower lateral thigh/leg Pain Location Details R upper & lower lateral thigh/ leg Intensity 6 R knee Pain Location Details Anterior/medial and inside Intensity 6 PT-OP-J Posture/Palpation/Skin Start: 07/27/20 18:34 Freq: Status: Active Protocol: Document 07/29/20 10:43 LRN (Rec: 07/29/20 11:32 LRN [id number]) Posture Evaluation Position Standing Evaluation View All positions Head/C-Spine Posture Neutral Position T-Spine Posture Flattened Shoulder Posture (R) Elevated Pelvis Posture (R) Iliac Crest Superior Weight Distribution Weight Shifted Left Knee Posture (L) Genu Valgus,(R) Genu Valgus,(R) Ext. Tibial Torsion Ankle/Foot Posture (L) Forefoot Abducted Palpation Assessment Location Anterolateral lower proximal 1/2 of leg Palpation Location Anterolateral lower proximal 1 /2 of leg Palpation Findings Soft Tissue Tightness Palpation Details Painful with sharp/burning pain. Anterolateral R thigh Palpation Location Anterolateral R thigh Palpation Findings Soft Tissue Tightness Palpation Details Painful with sharp/burning pain. R knee around patella Palpation Location Around R patella Palpation Details Painful with sharp/burning pain. PT-OP-K Range of Motion Start: 07/27/20 18:34 Freq: Status: Active Protocol: Document 12/31/20 11:17 LRN (Rec: 12/31/20 12:26 LRN [id number]) Knee Goniometric Range of Motion Knee Supine Right Knee ROM WFL No Patient Position Supine Flexion Active (degrees) 110 Flexion Passive (degrees) 135 Comments Painfree active knee flexion 85 deg's PT-OP-L Special Tests Start: 07/27/20 18:34 Freq: Status: Active Protocol: Document 12/02/20 09:53 LRN (Rec: 12/02/20 11:59 LRN [id number]) Special Tests Knee Special Tests Remy Test Test Results R knee Comments Pt not able to tolerate initial start of test. Bounce Home Test Results + R knee Patellar Grind Test Test Results + R knee Comments Very painful with mild compression of patella. PT-OP-M Strength Start: 07/27/20 18:34 Freq: Status: Active Protocol: Document 07/29/20 10:43 LRN (Rec: 07/29/20 11:32 LRN [id number]) Hip Strength Hip Manual Muscle Testing Right Flexion (L2) 3- Fair- Abduction 2 Poor Adduction 1 Trace Comments Back & R knee pain limiting strength Left Flexion (L2) 3 Fair Abduction 2+ Poor+ Adduction 1 Trace Comments Back pain limiting strength Knee Strength Knee Manual Muscle Testing Right Flexion (S2) 3+ Fair+ Extension (L3) 3+ Fair+ Left Comments WNL Ankle/Foot Strength Ankle and Foot Manual Muscle Testing Right Dorsiflexion (L4) 3+ Fair+ Plantarflexion (S1) 5 Normal Inversion 5 Normal Eversion (S1) 5 Normal Left Comments WNL PT-OP-Q Treatments Start: 07/27/20 18:34 Freq: Status: Active Protocol: Document 02/07/21 10:35 LRN (Rec: 02/07/21 12:33 LRN [id number]) Cardio Equipment Bicycle (Upright) Duration (Minutes) 10 Resistance 3 Seat Position 3 Other rpm > 58 Therapeutic Exercises Supine Exercises R knee flex Supine Exercise Name pain with active knee flexion Side right Equipment Used L2 TBand Reps/Minutes 15x2 Comments Band on L , then R side of foot for resistance Standing Exercises CKC knee QS Standing Exercise Name CKC QS/SAQ Side right Equipment Used Lev 2 TB Reps/Minutes 5 hold 30x Comments Cuing and phys assist with placement of T-Band Hip AB Standing Exercise Name Hip AB Equipment Used Lev 2 TB above knee Reps/Minutes 10x 3 Hip AD Standing Exercise Name Hip AD Equipment Used Lev 2 TB above knee Reps/Minutes 10x 3 Manual Therapy Treatment Taping I stripes Body Location L knee Treatment Focus patellar tendon support Type of Tape Kinesio Tape Skin Inspection intact normal color Comments good feedback- feels better with tape support Pt called and notified to remove tape within 5 days, by the 02/12/21. PT-OP-R Modalities Start: 07/27/20 18:34 Freq: Status: Active Protocol: Document 02/07/21 10:35 LRN (Rec: 02/07/21 12:33 LRN [id number]) Hot Pack/Cold Pack Treatment Cold Pack Location R knee Patient Position Supine Treatment Duration (minutes) 10 Comments Knees elevated on bolster for edema PT-OP-T Assessment and Plan Start: 07/27/20 18:34 Freq: Status: Active Protocol: Document 02/07/21 10:35 LRN (Rec: 02/07/21 12:33 LRN [id number]) Physical Therapy Assessment Goals Five Impairment Decreased function per LEFS score of 21 (60-79% impaired) Short Term Goal (STG) Improve function per LEFS score of no less than 48 (20 to 39% impaired). (12/02/20: Improved from score 32 to 39). 12/31/20: Score is worse at 24 ) STG Duration 03/31/21 NOT MET Funeral Car Driver Goal (LTG) Improve function per LEFS score of no less than 63 (1 to 19% impaired) LTG Duration 03/31/21 NOT MET Four Impairment R knee pain interrupting her sleep every 3-4 hours at night . Snf Goal (LTG) Pt will be able to sleep greater than 4 hours at nighttime. (09/24/20: Pt able to sleep 7-8 hours at nighttime without pain) LTG Duration 09/27/20 (09/24/20: MET GOAL) Three Impairment Decreased R knee AROM limiting pt ability to sit w/o pain( AROM: 8-81 deg's) Short Term Goal (STG) Improve R knee AROM in sitting to 0 - 90 deg's. (09/24/20: R knee AROM flex is 102 deg's) STG Duration 08/26/20 (09/24/20: MET GOAL) Snf Goal (LTG) Improve R knee PROM in supine: lacking 3 deg's - 135 deg's with pt able to tolerate sitting 1 hour with pain no more than 2/10. (09/24/20: AROM in supine: 0- 123 deg's. Can sit 1 hr with pain 7/10) LTG Duration 03/31/21 (09/24/20: Improved knee ROM) Two Impairment R knee pain interfering with ability to sleep and walk. Short Term Goal (STG) Decrease pain to 4/10 at worst with pt able to sleep greater than 3-4 hours. (09/24/20: MET GOAL. Pt sleeping 7-8 hours without pain) STG Duration 08/26/20 (09/24/20: MET GOAL) Snf Goal (LTG) Decrease pain with walking with pt able to ambulate without use of cane and tolerable pain of 0-3/10. (11/18/20: Walks w/o assistive device. Pain with walking w/o assist device is 6/10) LTG Duration 03/31/21 (11/18/20: Improving slowly) One Impairment Lacks appropriate self care HEP. Snf Goal (LTG) Pt will be independent with a self care HEP. (HEP ISSUED: AROM: *R knee flex/ext. INSTRUCTIONS: *Hip SLR (foot in 3 positions)/AB/AD, * active knee ext/flex w/5 secs hold). LTG Duration 03/04/21 (08/06/20: Progressed) Assessment Summary Assessment Pt had some pain relief with K -tape to R knee. Pt's R knee pain appears quite variable. She did not complain of pain with CKC knee ext in standing but appeared to have discomfort with knee flexion. Physical Therapy Plan Frequency and Duration Frequency of Treatment 1x/Week Plan of Care Start Date 12/31/20 Plan of Care End Date 03/31/21 Next Visit Focus/Plan Next Note Type Treatment Note Next Visit Plan Pt insurance coverage is for one more PT appointment; therefore recheck for possible DC if no further appts allowed with insurance. Pt is choosing to discontinue therapy if not more coverage by insurance. Request more therapy due to new referral requesting therapy for 3 more months. Gait training. Pt to focus on improving R knee ROM and strength (high reps, low resistance) and to improve endurance of RLE. Add/ progress CKC strengthening RLE (try heel digs in rolling chair), watching for abduction and ER of hip. US to R knee anterior/medial.
--- NOTE | 2021-02-10 16:23 | PT.OTN ---
Current Diagnoses Complex tear of lateral meniscus, current injury, right knee, subsequent encounter (02/10/21) Physical Therapy Treatment Note PT-OP-A Visit Information Start: 07/27/20 18:34 Freq: Status: Active Protocol: Document 02/10/21 10:38 LRN (Rec: 02/10/21 14:19 LRN [id number]) Out-Patient Physical Therapy Visit Information Visit Information Visit Type Treatment Note Visit Note 8 after PN Compilation Clerk used is Denzel #[id number]. Visit Start Time 10:38 Visit Stop Time 11:18 Total Visit Minutes 40 Visit Number 16 Evaluation Information Evaluation Date 07/29/20 Precautions Precautions Fibromyalgia, Depression not controlled, Controlled HBP, Chronic back & neck pain. NOTE: Per MD (see note ), pt has no restrictions, pt had meniscectomy and arthoscopy of R knee, with no repairs. PT-OP-B Current Condition Start: 07/27/20 18:34 Freq: Status: Active Protocol: Document 07/29/20 10:43 LRN (Rec: 07/29/20 11:32 LRN [id number]) Current Condition History of Current Condition Onset Date 2 months ago had surgery. Current Complaints Walking, stairs has R knee pn anteriorly; medial & posterior knee swelling History of Current Condition Had R meniscus repair and cartilage repair with metal, . Pt states she was given a note for therapy but she forgot it, but it was for 8 wks of PT. States she was told she needs exercise. States she has pain with gait and stairs. Pain at rest. Prior Treatments and Tests Hand out for post surgery exercises give by physician. Future Testing and Treatments Planned Next MD appt is 09/29/20. Developmental History Developmental History Fell in 2018 outside of house, had a lot of back pain and; therefore the legs went weak and fell to the R side twisting the knee (pt is L handed). Treatment Goals Patient/Caregiver Goals Back pain for past 5 yrs. Prior Functional Status Baseline Function- ADL's Modified Independent Baseline Function- Mobility Modified Independent Baseline Function- Gait Walked 1/2 mile. Baseline Function- Work/School 5 yrs unemployed. Sitting for school 1 hour tolerance. Baseline Function- Other [place] class, functionally able to cook for self and son. Lives with 25 yr old son. Able to sleep 7 hours. Current Functional Impairments (Reported) Functional Limitations- ADL's Not walking for exercise at all due to R knee pain. Difficulty sleeping, tolerates sleep 3-4 hours at a time due to R knee pain Functional Limitations- Mobility/Gait Ambs with wide SPC on R side to decrease weight bearing on the RLE. Functional Limitations- Work/School Sitting for school 20-30' tolerance due to pain rated 7- 9/10. Personal Factors Other Personal Factors That May Effect 5 yrs unemployed, uncontrolled Therapy/Recovery depression, chronic back & neck pain. PT-OP-C Subjective Start: 07/27/20 18:34 Freq: Status: Active Protocol: Document 02/10/21 10:38 LRN (Rec: 02/10/21 14:19 LRN [id number]) OP-PT Subjective Patient Comments Patient Comments Pt states she is sleepy and today her pain is 8/10 (noting a little nausea). States yesterday she was a 9/10, but states she fell asleep after taking pain medications, which she interpreted as passing out PT-OP-J Posture/Palpation/Skin Start: 07/27/20 18:34 Freq: Status: Active Protocol: Document 07/29/20 10:43 LRN (Rec: 07/29/20 11:32 LRN [id number]) Posture Evaluation Position Standing Evaluation View All positions Head/C-Spine Posture Neutral Position T-Spine Posture Flattened Shoulder Posture (R) Elevated Pelvis Posture (R) Iliac Crest Superior Weight Distribution Weight Shifted Left Knee Posture (L) Genu Valgus,(R) Genu Valgus,(R) Ext. Tibial Torsion Ankle/Foot Posture (L) Forefoot Abducted Palpation Assessment Location Anterolateral lower proximal 1/2 of leg Palpation Location Anterolateral lower proximal 1 /2 of leg Palpation Findings Soft Tissue Tightness Palpation Details Painful with sharp/burning pain. Anterolateral R thigh Palpation Location Anterolateral R thigh Palpation Findings Soft Tissue Tightness Palpation Details Painful with sharp/burning pain. R knee around patella Palpation Location Around R patella Palpation Details Painful with sharp/burning pain. PT-OP-K Range of Motion Start: 07/27/20 18:34 Freq: Status: Active Protocol: Document 02/10/21 10:38 LRN (Rec: 02/10/21 14:19 LRN [id number]) Knee Goniometric Range of Motion Knee Supine Left Knee ROM WFL Yes Patient Position Supine Flexion Active (degrees) 135 Flexion Passive (degrees) 135 Hyper-Extension Active 12 Comments Extension ROM is passive. Supine Right Knee ROM WFL No Flexion Active (degrees) 95 Extension Active (degrees) 3 Comments Active knee flex: Startin deg's After US: 100 deg's Lunging on stairs: 110 deg's. PT-OP-L Special Tests Start: 07/27/20 18:34 Freq: Status: Active Protocol: Document 12/02/20 09:53 LRN (Rec: 12/02/20 11:59 LRN [id number]) Special Tests Knee Special Tests Remy Test Test Results R knee Comments Pt not able to tolerate initial start of test. Bounce Home Test Results + R knee Patellar Grind Test Test Results + R knee Comments Very painful with mild compression of patella. PT-OP-M Strength Start: 07/27/20 18:34 Freq: Status: Active Protocol: Document 07/29/20 10:43 LRN (Rec: 07/29/20 11:32 LRN [id number]) Hip Strength Hip Manual Muscle Testing Right Flexion (L2) 3- Fair- Abduction 2 Poor Adduction 1 Trace Comments Back & R knee pain limiting strength Left Flexion (L2) 3 Fair Abduction 2+ Poor+ Adduction 1 Trace Comments Back pain limiting strength Knee Strength Knee Manual Muscle Testing Right Flexion (S2) 3+ Fair+ Extension (L3) 3+ Fair+ Left Comments WNL Ankle/Foot Strength Ankle and Foot Manual Muscle Testing Right Dorsiflexion (L4) 3+ Fair+ Plantarflexion (S1) 5 Normal Inversion 5 Normal Eversion (S1) 5 Normal Left Comments WNL PT-OP-Q Treatments Start: 07/27/20 18:34 Freq: Status: Active Protocol: Document 02/10/21 10:38 LRN (Rec: 02/10/21 14:19 LRN [id number]) Cardio Equipment Bicycle (Upright) Duration (Minutes) 10 Resistance 3 Seat Position 3 Other V cuing needed for striving for rpm > 65 Therapeutic Exercises Supine Exercises R knee flex Supine Exercise Name active assistive knee flexion without & with strap Side right Reps/Minutes 17' Comments Extra time taken for pt to change into shorts Standing Exercises CKC knee flex stretch Standing Exercise Name CKC knee flex stretch Side right Equipment Used Stairs Reps/Minutes 3' PT-OP-R Modalities Start: 07/27/20 18:34 Freq: Status: Active Protocol: Document 02/10/21 10:38 LRN (Rec: 02/10/21 14:19 LRN [id number]) Ultrasound Therapy Treatment R infrapatellar tendon & med/lateral knee Treatment Duration (minutes) 8 Patient Position Hooklying Coupling Medium Ultrasound Gel Applicator Size (cm2) 10 Mode Setting Continuous Intensity Setting (w/cm2) 1.0 Comments Hooklying with knees on bolster. PT-OP-T Assessment and Plan Start: 07/27/20 18:34 Freq: Status: Active Protocol: Document 02/10/21 10:38 LRN (Rec: 02/10/21 14:19 LRN [id number]) Physical Therapy Assessment Goals Five Impairment Decreased function per LEFS score of 21 (60-79% impaired) Short Term Goal (STG) Improve function per LEFS score of no less than 48 (20 to 39% impaired). (12/02/20: Improved from score 32 to 39). 12/31/20: Score is worse at 24 ) STG Duration 03/31/21 NOT MET [facility] Goal (LTG) Improve function per LEFS score of no less than 63 (1 to 19% impaired) LTG Duration 03/31/21 NOT MET Four Impairment R knee pain interrupting her sleep every 3-4 hours at night . Sports Psychologist Goal (LTG) Pt will be able to sleep greater than 4 hours at nighttime. (09/24/20: Pt able to sleep 7-8 hours at nighttime without pain) LTG Duration 09/27/20 (09/24/20: MET GOAL) Three Impairment Decreased R knee AROM limiting pt ability to sit w/o pain( AROM: 8-81 deg's) Short Term Goal (STG) Improve R knee AROM in sitting to 0 - 90 deg's. (09/24/20: R knee AROM flex is 102 deg's) STG Duration 08/26/20 (09/24/20: MET GOAL) Sports Psychologist Goal (LTG) Improve R knee PROM in supine: lacking 3 deg's - 135 deg's with pt able to tolerate sitting 1 hour with pain no more than 2/10. (09/24/20: AROM in supine: 0- 123 deg's. Can sit 1 hr with pain 7/10) (02/10/21: AORM in supine: 100 deg's flexion) LTG Duration 03/31/21 (09/24/20: Improved knee ROM) Two Impairment R knee pain interfering with ability to sleep and walk. Short Term Goal (STG) Decrease pain to 4/10 at worst with pt able to sleep greater than 3-4 hours. (09/24/20: MET GOAL. Pt sleeping 7-8 hours without pain) STG Duration 08/26/20 (09/24/20: MET GOAL) [facility] Goal (LTG) Decrease pain with walking with pt able to ambulate without use of cane and tolerable pain of 0-3/10. (11/18/20: Walks w/o assistive device. Pain with walking w/o assist device is 6/10) (02/10/21: Walking w/o AD with pain 8/10) LTG Duration 03/31/21 (02/10/21: Worsening ) One Impairment Lacks appropriate self care HEP. Sports Psychologist Goal (LTG) Pt will be independent with a self care HEP. (HEP ISSUED: AROM: *R knee flex/ext. INSTRUCTIONS: *Hip SLR (foot in 3 positions)/AB/AD, * active knee ext/flex w/5 secs hold). LTG Duration 03/04/21 (08/06/20: Progressed) Progress Towards Goals Progress Towards Goals Slow Progress due to Activity Tolerance Progress Comments R knee Active Flexion: to start 95 deg's flexion, after Ultrasound 100 deg's and on stairs 110 deg's. No significant improvement noted. Prior (12/31/20) painfree AROM was 85 deg's and after treatment was 110 deg's. Assessment Summary Assessment Pt is showing variable change in her complaints, but she consistently reports R knee pain that is rated 8-9/10. She doesn't appear to be in that much distress, but preceives her pain as very severe. Poor progression of knee AROM, possibly due to recent fall report (01/29/21) and twisting at her R knee. Pt did not go back to her surgeon following the fall. Unable to progress her strengthening and ROM due to pain complaints in suprapatellar/infrapatellar and subpatellar regions. Physical Therapy Plan Frequency and Duration Frequency of Treatment 1x/Week Plan of Care Start Date 12/31/20 Plan of Care End Date 03/31/21 Next Visit Focus/Plan Next Note Type Treatment Note Next Visit Plan POC expires 02/15/21. Request more therapy due to new referral requesting therapy for 3 more months. Pt insurance coverage is for one more PT appointment; therefore reassess for possible DC if no further appts allowed with insurance due to pt choosing to discontinue therapy if not more coverage by insurance. Gait training. Pt to focus on improving R knee ROM and strength (high reps, low resistance) and to improve endurance of RLE. Progress CKC strengthening RLE (try heel digs in rolling chair), watching for abduction and ER of hip. US to R knee anterior /medial.
--- NOTE | 2021-02-24 16:53 | PT.OTN ---
Current Diagnoses Complex tear of lateral meniscus, current injury, right knee, subsequent encounter (02/24/21) Physical Therapy Treatment Note PT-OP-A Visit Information Start: 07/27/20 18:34 Freq: Status: Active Protocol: Document 02/24/21 12:51 LRN (Rec: 02/24/21 13:37 LRN [id number]) Out-Patient Physical Therapy Visit Information Visit Information Visit Type Progress Note Visit Note 3 after PN. Cylinder Sander Operator used is [employer] #[id number]. New authorization received for 24 units after today with new expiration of 05/15/21. Visit Start Time 12:51 Visit Stop Time 13:41 Total Visit Minutes 50 Visit Number 17 Evaluation Information Evaluation Date 07/29/20 Precautions Precautions Fibromyalgia, Depression not controlled, Controlled HBP, Chronic back & neck pain. NOTE: Per MD (see note ), pt has no restrictions, pt had meniscectomy and arthoscopy of R knee, with no repairs. PT-OP-B Current Condition Start: 07/27/20 18:34 Freq: Status: Active Protocol: Document 07/29/20 10:43 LRN (Rec: 07/29/20 11:32 LRN [id number]) Current Condition History of Current Condition Onset Date 2 months ago had surgery. Current Complaints Walking, stairs has R knee pn anteriorly; medial & posterior knee swelling History of Current Condition Had R meniscus repair and cartilage repair with metal, . Pt states she was given a note for therapy but she forgot it, but it was for 8 wks of PT. States she was told she needs exercise. States she has pain with gait and stairs. Pain at rest. Prior Treatments and Tests Hand out for post surgery exercises give by physician. Future Testing and Treatments Planned Next MD appt is 09/29/20. Developmental History Developmental History Fell in 2018 outside of house, had a lot of back pain and; therefore the legs went weak and fell to the R side twisting the knee (pt is L handed). Treatment Goals Patient/Caregiver Goals Back pain for past 5 yrs. Prior Functional Status Baseline Function- ADL's Modified Independent Baseline Function- Mobility Modified Independent Baseline Function- Gait Walked 1/2 mile. Baseline Function- Work/School 5 yrs unemployed. Sitting for school 1 hour tolerance. Baseline Function- Other Croatian class, functionally able to cook for self and son. Lives with 25 yr old son. Able to sleep 7 hours. Current Functional Impairments (Reported) Functional Limitations- ADL's Not walking for exercise at all due to R knee pain. Difficulty sleeping, tolerates sleep 3-4 hours at a time due to R knee pain Functional Limitations- Mobility/Gait Ambs with wide SPC on R side to decrease weight bearing on the RLE. Functional Limitations- Work/School Sitting for school 20-30' tolerance due to pain rated 7- 9/10. Personal Factors Other Personal Factors That May Effect 5 yrs unemployed, uncontrolled Therapy/Recovery depression, chronic back & neck pain. PT-OP-C Subjective Start: 07/27/20 18:34 Freq: Status: Active Protocol: Document 02/24/21 12:51 LRN (Rec: 02/24/21 13:37 LRN [id number]) OP-PT Subjective Patient Comments Patient Comments Pt reports her R knee has been painful every day. States she has cracking at the knee accompanied by pain. She reports no change in pain. OP-PT Pain Assessment Pain Assessment Grid Paper Pain Assessment Grid Completed No Location R knee Pain Location Details Anterior/medial and inside Intensity 9 PT-OP-J Posture/Palpation/Skin Start: 07/27/20 18:34 Freq: Status: Active Protocol: Document 07/29/20 10:43 LRN (Rec: 07/29/20 11:32 LRN [id number]) Posture Evaluation Position Standing Evaluation View All positions Head/C-Spine Posture Neutral Position T-Spine Posture Flattened Shoulder Posture (R) Elevated Pelvis Posture (R) Iliac Crest Superior Weight Distribution Weight Shifted Left Knee Posture (L) Genu Valgus,(R) Genu Valgus,(R) Ext. Tibial Torsion Ankle/Foot Posture (L) Forefoot Abducted Palpation Assessment Location Anterolateral lower proximal 1/2 of leg Palpation Location Anterolateral lower proximal 1 /2 of leg Palpation Findings Soft Tissue Tightness Palpation Details Painful with sharp/burning pain. Anterolateral R thigh Palpation Location Anterolateral R thigh Palpation Findings Soft Tissue Tightness Palpation Details Painful with sharp/burning pain. R knee around patella Palpation Location Around R patella Palpation Details Painful with sharp/burning pain. PT-OP-K Range of Motion Start: 07/27/20 18:34 Freq: Status: Active Protocol: Document 02/24/21 12:51 LRN (Rec: 02/24/21 13:37 LRN [id number]) Knee Goniometric Range of Motion Knee Supine Left Knee ROM WFL Yes Patient Position Supine Flexion Active (degrees) 135 Flexion Passive (degrees) 135 Hyper-Extension Active 12 Comments Extension ROM is passive. Supine Right Knee ROM WFL No Flexion Active (degrees) 107 Extension Active (degrees) 1 Comments Extension is AROM. PT-OP-L Special Tests Start: 07/27/20 18:34 Freq: Status: Active Protocol: Document 12/02/20 09:53 LRN (Rec: 12/02/20 11:59 LRN [id number]) Special Tests Knee Special Tests Remy Test Test Results R knee Comments Pt not able to tolerate initial start of test. Bounce Home Test Results + R knee Patellar Grind Test Test Results + R knee Comments Very painful with mild compression of patella. PT-OP-M Strength Start: 07/27/20 18:34 Freq: Status: Active Protocol: Document 07/29/20 10:43 LRN (Rec: 07/29/20 11:32 LRN [id number]) Hip Strength Hip Manual Muscle Testing Right Flexion (L2) 3- Fair- Abduction 2 Poor Adduction 1 Trace Comments Back & R knee pain limiting strength Left Flexion (L2) 3 Fair Abduction 2+ Poor+ Adduction 1 Trace Comments Back pain limiting strength Knee Strength Knee Manual Muscle Testing Right Flexion (S2) 3+ Fair+ Extension (L3) 3+ Fair+ Left Comments WNL Ankle/Foot Strength Ankle and Foot Manual Muscle Testing Right Dorsiflexion (L4) 3+ Fair+ Plantarflexion (S1) 5 Normal Inversion 5 Normal Eversion (S1) 5 Normal Left Comments WNL PT-OP-Q Treatments Start: 07/27/20 18:34 Freq: Status: Active Protocol: Document 02/24/21 12:51 LRN (Rec: 02/24/21 13:37 LRN [id number]) Cardio Equipment Bicycle (Upright) Duration (Minutes) 10 Resistance 4 Seat Position 3 Other V cuing needed for striving for rpm > 65 Therapeutic Exercises Supine Exercises SLR Supine Exercise Name SLR Side right Reps/Minutes 10x 2, 5x R knee flex Supine Exercise Name active assistive knee flexion without & with strap Side right Reps/Minutes 1' Comments Extra time taken for pt to change into shorts Sitting Exercises R knee flex Sitting Exercise Name Active knee flex stretch Comments AROM 112 deg's flexion R knee ext Sitting Exercise Name Active Knee ext Side right Equipment Used 1# Reps/Minutes 10x 3 Standing Exercises Step ups on 6 step Standing Exercise Name Step up/downs w/railing Side bilateral Reps/Minutes 5x each side CKC knee flex stretch Standing Exercise Name CKC knee flex stretch Side right Equipment Used Stairs Reps/Minutes 4' Comments Cracking under patella occasionally, no change with med vs lat patella stab CKC knee QS Standing Exercise Name CKC QS Side right Equipment Used Lev 2 TB Reps/Minutes 5 hold 30x Comments No cracking Hip AB Standing Exercise Name Hip AB Equipment Used Lev 2 TB at knee Reps/Minutes 10x 3 Hip AD Standing Exercise Name Hip AD Equipment Used Lev 2 TB at knee Reps/Minutes 10x 3 Manual Therapy Treatment Taping I stripes Body Location L knee Treatment Focus patellar tendon support Type of Tape Kinesio Tape Skin Inspection intact normal color Comments Medial and lateral support to patella. I/S pt to remove tape within 5 days. Self-Care/Home Management Treatment Education Patient Education Safety Other Education Pt educated in removal of K- tape within 5 days of today. PT-OP-R Modalities Start: 07/27/20 18:34 Freq: Status: Active Protocol: Document 02/24/21 12:51 LRN (Rec: 02/24/21 13:37 LRN [id number]) Hot Pack/Cold Pack Treatment Cold Pack Location R knee Patient Position Supine Treatment Duration (minutes) 10 Comments Knees elevated on bolster for edema PT-OP-T Assessment and Plan Start: 07/27/20 18:34 Freq: Status: Active Protocol: Document 02/24/21 12:51 LRN (Rec: 02/24/21 13:37 N [id number]) Physical Therapy Assessment Rehab Potential Rehabilitation Potential Good Evaluation Complexity Number of Personal Factors/Comorbidities 3 or More Number of Body Systems Impaired 4 or More Clinical Presentation at Evaluation Evolving Impairments Impairments Activity Tolerance,Gait,Pain, ROM,Soft Tissue Mobility, Strength Goals Five Impairment Decreased function per LEFS score of 21 (60-79% impaired) Short Term Goal (STG) Improve function per LEFS score of no less than 48 (20 to 39% impaired). (12/02/20: Improved from score 32 to 39). 12/31/20: Score is worse at 24 ) STG Duration 03/31/21 NOT MET Bandoleer Packer Goal (LTG) Improve function per LEFS score of no less than 63 (1 to 19% impaired) LTG Duration 05/13/21 NOT MET Four Impairment R knee pain interrupting her sleep every 3-4 hours at night . Bandoleer Packer Goal (LTG) Pt will be able to sleep greater than 4 hours at nighttime. (09/24/20: Pt able to sleep 7-8 hours at nighttime without pain) LTG Duration 09/27/20 (09/24/20: MET GOAL) Three Impairment Decreased R knee AROM limiting pt ability to sit w/o pain( AROM: 8-81 deg's) Short Term Goal (STG) Improve R knee AROM in sitting to 0 - 90 deg's. (02/24/21: R knee AROM flex is 107 deg's) STG Duration 08/26/20 (09/24/20: MET GOAL) Mcfp Goal (LTG) Improve R knee PROM in supine: lacking 3 deg's - 135 deg's with pt able to tolerate sitting 1 hour with pain no more than 2/10. (09/24/20: AROM in supine: 0- 123 deg's. Can sit 1 hr with pain 7/10) (02/10/21: AROM in supine: 100 deg's flexion. 02/24/21: 1- 107 deg's) LTG Duration 05/13/21 (09/24/20: Improved knee ROM) Two Impairment R knee pain interfering with ability to sleep and walk. Short Term Goal (STG) Decrease pain to 4/10 at worst with pt able to sleep greater than 3-4 hours. (09/24/20: MET GOAL. Pt sleeping 7-8 hours without pain) STG Duration 08/26/20 (09/24/20: MET GOAL) Mcfp Goal (LTG) Decrease pain with walking with pt able to ambulate without use of cane and tolerable pain of 0-3/10. (11/18/20: Walks w/o assistive device. Pain with walking w/o assist device is 6/10) (02/10/21: Walking w/o AD with pain 8/10) LTG Duration 05/13/21 (02/10/21: Worsening ) One Impairment Lacks appropriate self care HEP. Bandoleer Packer Goal (LTG) Pt will be independent with a self care HEP. (HEP ISSUED: AROM: *R knee flex/ext. INSTRUCTIONS: *Hip SLR (foot in 3 positions)/AB/AD, * active knee ext/flex w/5 secs hold). LTG Duration 05/13/21 (08/06/20: Progressed) Assessment Summary Assessment Pt attends today with improved R knee AROM, but no significant change with pain complaints. She has been authorized for more physical therapy visits; therefore a new plan of care is needed. The pt appears to have crepitus of her R patella that is associated with pain on clicking. She is very slow to improve in her exercise tolerance; therefore continuation of therapy at 1x/ week will give the pt time to improve at the slower pace. It is expected that the pt will continue to make slow improvement, although her pain complaints appear to remain the same. She does appear to have pain associated with crepitus of the R patella. Physical Therapy Plan Frequency and Duration Frequency of Treatment 1x/Week Plan of Care Start Date 02/24/21 Plan of Care End Date 05/13/21 Therapeutic Interventions Therapeutic Interventions Balance Training,Gait Training ,Home Exercise Program,Manual Therapy,Patient/Caregiver Education,Self-Care/Home Management,Soft Tissue Mobilization,Taping, Therapeutic Exercises Next Visit Focus/Plan Next Note Type Treatment Note Next Visit Plan Continue 1x/week with new authorization for 24 more units of PT. Assess Gait/pain (goal #2) and training if needed, R knee PROM, pt's sleep ability, and LEFS score. US to R knee anterior/medial prior to taping. Pt to focus on improving R knee ROM and strength (high reps, low resistance) and to improve endurance of RLE. Progress CKC strengthening RLE (try heel digs in rolling chair), watching for abduction and ER of hip.
--- NOTE | 2021-02-28 11:11 | PT.OTN ---
Current Diagnoses Complex tear of lateral meniscus, current injury, right knee, subsequent encounter (02/28/21) Physical Therapy Treatment Note PT-OP-A Visit Information Start: 07/27/20 18:34 Freq: Status: Active Protocol: Document 02/28/21 08:19 LRN (Rec: 02/28/21 09:04 LRN [id number]) Out-Patient Physical Therapy Visit Information Visit Information Visit Type Treatment Note Visit Note 1 after PN. [employer] Ambassador used is [employer] #[id number]. 21 units after today, expiration of 05/15/21. Visit Start Time 08:19 Visit Stop Time 09:00 Total Visit Minutes 41 Visit Number 18 Evaluation Information Evaluation Date 07/29/20 Precautions Precautions Fibromyalgia, Depression not controlled, Controlled HBP, Chronic back & neck pain. NOTE: Per MD (see note ), pt has no restrictions, pt had meniscectomy and arthoscopy of R knee, with no repairs. PT-OP-B Current Condition Start: 07/27/20 18:34 Freq: Status: Active Protocol: Document 07/29/20 10:43 LRN (Rec: 07/29/20 11:32 LRN [id number]) Current Condition History of Current Condition Onset Date 2 months ago had surgery. Current Complaints Walking, stairs has R knee pn anteriorly; medial & posterior knee swelling History of Current Condition Had R meniscus repair and cartilage repair with metal, . Pt states she was given a note for therapy but she forgot it, but it was for 8 wks of PT. States she was told she needs exercise. States she has pain with gait and stairs. Pain at rest. Prior Treatments and Tests Hand out for post surgery exercises give by physician. Future Testing and Treatments Planned Next MD appt is 09/29/20. Developmental History Developmental History Fell in 2018 outside of house, had a lot of back pain and; therefore the legs went weak and fell to the R side twisting the knee (pt is L handed). Treatment Goals Patient/Caregiver Goals Back pain for past 5 yrs. Prior Functional Status Baseline Function- ADL's Modified Independent Baseline Function- Mobility Modified Independent Baseline Function- Gait Walked 1/2 mile. Baseline Function- Work/School 5 yrs unemployed. Sitting for school 1 hour tolerance. Baseline Function- Other Swedish class, functionally able to cook for self and son. Lives with 25 yr old son. Able to sleep 7 hours. Current Functional Impairments (Reported) Functional Limitations- ADL's Not walking for exercise at all due to R knee pain. Difficulty sleeping, tolerates sleep 3-4 hours at a time due to R knee pain Functional Limitations- Mobility/Gait Ambs with wide SPC on R side to decrease weight bearing on the RLE. Functional Limitations- Work/School Sitting for school 20-30' tolerance due to pain rated 7- 9/10. Personal Factors Other Personal Factors That May Effect 5 yrs unemployed, uncontrolled Therapy/Recovery depression, chronic back & neck pain. PT-OP-C Subjective Start: 07/27/20 18:34 Freq: Status: Active Protocol: Document 02/28/21 08:19 LRN (Rec: 02/28/21 09:04 LRN [id number]) OP-PT Subjective Patient Comments Patient Comments Pt reports being very sleepy. PT-OP-J Posture/Palpation/Skin Start: 07/27/20 18:34 Freq: Status: Active Protocol: Document 07/29/20 10:43 LRN (Rec: 07/29/20 11:32 LRN [id number]) Posture Evaluation Position Standing Evaluation View All positions Head/C-Spine Posture Neutral Position T-Spine Posture Flattened Shoulder Posture (R) Elevated Pelvis Posture (R) Iliac Crest Superior Weight Distribution Weight Shifted Left Knee Posture (L) Genu Valgus,(R) Genu Valgus,(R) Ext. Tibial Torsion Ankle/Foot Posture (L) Forefoot Abducted Palpation Assessment Location Anterolateral lower proximal 1/2 of leg Palpation Location Anterolateral lower proximal 1 /2 of leg Palpation Findings Soft Tissue Tightness Palpation Details Painful with sharp/burning pain. Anterolateral R thigh Palpation Location Anterolateral R thigh Palpation Findings Soft Tissue Tightness Palpation Details Painful with sharp/burning pain. R knee around patella Palpation Location Around R patella Palpation Details Painful with sharp/burning pain. PT-OP-K Range of Motion Start: 07/27/20 18:34 Freq: Status: Active Protocol: Document 02/28/21 08:19 LRN (Rec: 02/28/21 09:04 LRN [id number]) Knee Goniometric Range of Motion Knee Supine Right Knee ROM WFL No Patient Position Supine Flexion Active (degrees) 110 Flexion Passive (degrees) 101 PT-OP-L Special Tests Start: 07/27/20 18:34 Freq: Status: Active Protocol: Document 12/02/20 09:53 LRN (Rec: 12/02/20 11:59 LRN [id number]) Special Tests Knee Special Tests Remy Test Test Results R knee Comments Pt not able to tolerate initial start of test. Bounce Home Test Results + R knee Patellar Grind Test Test Results + R knee Comments Very painful with mild compression of patella. PT-OP-M Strength Start: 07/27/20 18:34 Freq: Status: Active Protocol: Document 07/29/20 10:43 LRN (Rec: 07/29/20 11:32 LRN [id number]) Hip Strength Hip Manual Muscle Testing Right Flexion (L2) 3- Fair- Abduction 2 Poor Adduction 1 Trace Comments Back & R knee pain limiting strength Left Flexion (L2) 3 Fair Abduction 2+ Poor+ Adduction 1 Trace Comments Back pain limiting strength Knee Strength Knee Manual Muscle Testing Right Flexion (S2) 3+ Fair+ Extension (L3) 3+ Fair+ Left Comments WNL Ankle/Foot Strength Ankle and Foot Manual Muscle Testing Right Dorsiflexion (L4) 3+ Fair+ Plantarflexion (S1) 5 Normal Inversion 5 Normal Eversion (S1) 5 Normal Left Comments WNL PT-OP-Q Treatments Start: 07/27/20 18:34 Freq: Status: Active Protocol: Document 02/28/21 08:19 LRN (Rec: 02/28/21 09:04 LRN [id number]) Therapeutic Exercises Supine Exercises SLR Supine Exercise Name SLR Side right Equipment Used 2# Reps/Minutes 10x 2 Bam Stretch Supine Exercise Name Bam Stretch Side right Reps/Minutes 3' R knee flex Supine Exercise Name AA knee flexion without & w/ strap Side right Reps/Minutes 3' before & after US Sitting Exercises R knee ext Sitting Exercise Name Active Knee ext Side right Equipment Used 2# Reps/Minutes 6' Manual Therapy Treatment Taping Medial [place] R patella Body Location L knee Treatment Focus Medial [place] patella to eliminate click Type of Tape Kinesio Tape Skin Inspection Normal Comments I/S pt to remove tape within 5 days. I stripes Body Location L knee Treatment Focus patellar tendon support Type of Tape Kinesio Tape Skin Inspection intact normal color Comments Medial and lateral support to patella. I/S pt to remove tape within 5 days. PT-OP-R Modalities Start: 07/27/20 18:34 Freq: Status: Active Protocol: Document 02/28/21 08:19 LRN (Rec: 02/28/21 09:04 LRN [id number]) Hot Pack/Cold Pack Treatment Cold Pack Location R knee Patient Position Supine Treatment Duration (minutes) 8 Comments Knees elevated on bolster for edema Ultrasound Therapy Treatment R infrapatellar tendon & med/lateral knee Treatment Duration (minutes) 3 Patient Position Hooklying Coupling Medium Ultrasound Gel Applicator Size (cm2) 2 Frequency Setting (mHz) 3 Mode Setting Pulsed Duty Cycle 50% Intensity Setting (w/cm2) 1.0 Comments US to Inferior patellar tendon R superior patellar border/quad tendon Treatment Duration (minutes) 5 Patient Position Supine Coupling Medium Ultrasound Gel Applicator Size (cm2) 2 Frequency Setting (mHz) 3 Mode Setting Pulsed Duty Cycle 50% Intensity Setting (w/cm2) 1.0 Comments US to Superior patellar tendon PT-OP-T Assessment and Plan Start: 07/27/20 18:34 Freq: Status: Active Protocol: Document 02/28/21 08:19 LRN (Rec: 02/28/21 09:04 LRN [id number]) Physical Therapy Assessment Goals Five Impairment Decreased function per LEFS score of 21 (60-79% impaired) Short Term Goal (STG) Improve function per LEFS score of no less than 48 (20 to 39% impaired). (12/02/20: Improved from score 32 to 39). 12/31/20: Score is worse at 24 ) STG Duration 03/31/21 NOT MET Child Nutrition Manager Goal (LTG) Improve function per LEFS score of no less than 63 (1 to 19% impaired) LTG Duration 05/13/21 NOT MET Four Impairment R knee pain interrupting her sleep every 3-4 hours at night . Intermediate Goal (LTG) Pt will be able to sleep greater than 4 hours at nighttime. (09/24/20: Pt able to sleep 7-8 hours at nighttime without pain) LTG Duration 09/27/20 (09/24/20: MET GOAL) Three Impairment Decreased R knee AROM limiting pt ability to sit w/o pain( AROM: 8-81 deg's) Short Term Goal (STG) Improve R knee AROM in sitting to 0 - 90 deg's. (02/24/21: R knee AROM flex is 107 deg's) STG Duration 08/26/20 (09/24/20: MET GOAL) Child Nutrition Manager Goal (LTG) Improve R knee PROM in supine: lacking 3 deg's - 135 deg's with pt able to tolerate sitting 1 hour with pain no more than 2/10. (09/24/20: AROM in supine: 0- 123 deg's. Can sit 1 hr with pain 7/10) (02/10/21: AROM in supine: 100 deg's flexion. 02/24/21: 1- 107 deg's) LTG Duration 05/13/21 (09/24/20: Improved knee ROM) Two Impairment R knee pain interfering with ability to sleep and walk. Short Term Goal (STG) Decrease pain to 4/10 at worst with pt able to sleep greater than 3-4 hours. (09/24/20: MET GOAL. Pt sleeping 7-8 hours without pain) STG Duration 08/26/20 (09/24/20: MET GOAL) Intermediate Goal (LTG) Decrease pain with walking with pt able to ambulate without use of cane and tolerable pain of 0-3/10. (11/18/20: Walks w/o assistive device. Pain with walking w/o assist device is 6/10) (02/10/21: Walking w/o AD with pain 8/10) LTG Duration 05/13/21 (02/10/21: Worsening ) One Impairment Lacks appropriate self care HEP. Child Nutrition Manager Goal (LTG) Pt will be independent with a self care HEP. (HEP ISSUED: AROM: *R knee flex/ext. INSTRUCTIONS: *Hip SLR (foot in 3 positions)/AB/AD, * active knee ext/flex w/5 secs hold). LTG Duration 05/13/21 (08/06/20: Progressed) Progress Towards Goals Progress Comments Active R knee flexion in supine is 110 deg's. AAROM in supine with strap is 101 deg's . Assessment Summary Assessment Less pain with R knee flexion actively than passively; therefore pt is guarded with PROM. Pt limps off R knee with poor toe push off with gait at end of treatment. R patellar clicking with knee ext, appeared eliminated with medial glide of patella. Physical Therapy Plan Frequency and Duration Frequency of Treatment 1x/Week Plan of Care Start Date 02/24/21 Plan of Care End Date 05/13/21 Next Visit Focus/Plan Next Note Type Treatment Note Next Visit Plan Continue 1x/week (21 units of PT covered remaining). Address Gait/pain (goal #2) with training for toe pushoff to decrease limp. Assess pt's sleep ability, and LEFS score . US to R knee anterior/ medial prior to taping. Pt to focus on improving R knee ROM and strength (high reps, low resistance) and to improve endurance of RLE. Progress CKC strengthening RLE (try heel digs in rolling chair), watching for abduction and ER of hip.
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
--- NOTE | 2021-08-22 08:56 | PT.OPDS ---
Current Diagnoses Complex tear of lateral meniscus, current injury, right knee, subsequent encounter (04/22/21) Visit Care Team Role Provider Type Tone Narvaez MD Family Provider Non-Staff Primary Care Provider Specialty: Family Practice Address: [address] [place] [address], [address] Email: Skyler Kuhn MD Attending Provider Non-Staff Referring Provider Specialty: Orthopedic Surgery Address: [address] [facility], [place], [address] Email: Visit Number Visit Number 20 Discharge Summary PT-OP-B Current Condition Start: 07/27/20 18:34 Freq: Status: Active Protocol: Document 07/29/20 10:43 LRN (Rec: 07/29/20 11:32 LRN [id number]) Current Condition History of Current Condition Onset Date 2 months ago had surgery. Current Complaints Walking, stairs has R knee pn anteriorly; medial & posterior knee swelling History of Current Condition Had R meniscus repair and cartilage repair with metal, . Pt states she was given a note for therapy but she forgot it, but it was for 8 wks of PT. States she was told she needs exercise. States she has pain with gait and stairs. Pain at rest. Prior Treatments and Tests Hand out for post surgery exercises give by physician. Future Testing and Treatments Planned Next MD appt is 09/29/20. Developmental History Developmental History Fell in 2018 outside of house, had a lot of back pain and; therefore the legs went weak and fell to the R side twisting the knee (pt is L handed). Treatment Goals Patient/Caregiver Goals Back pain for past 5 yrs. Prior Functional Status Baseline Function- ADL's Modified Independent Baseline Function- Mobility Modified Independent Baseline Function- Gait Walked 1/2 mile. Baseline Function- Work/School 5 yrs unemployed. Sitting for school 1 hour tolerance. Baseline Function- Other [place]ian class, functionally able to cook for self and son. Lives with 25 yr old son. Able to sleep 7 hours. Current Functional Impairments (Reported) Functional Limitations- ADL's Not walking for exercise at all due to R knee pain. Difficulty sleeping, tolerates sleep 3-4 hours at a time due to R knee pain Functional Limitations- Mobility/Gait Ambs with wide SPC on R side to decrease weight bearing on the RLE. Functional Limitations- Work/School Sitting for school 20-30' tolerance due to pain rated 7- 9/10. Personal Factors Other Personal Factors That May Effect 5 yrs unemployed, uncontrolled Therapy/Recovery depression, chronic back & neck pain. PT-OP-C Subjective Start: 07/27/20 18:34 Freq: Status: Active Protocol: Document 04/22/21 09:58 LRN (Rec: 04/22/21 12:09 LRN [id number]) OP-PT Subjective Patient Comments Patient Comments Bilateral back to lateral thigh pain into the knees, rated 9/10. Saw dr for the back and had MRI, and will see him again on 04/27/21. Sleep disrupted due to R knee and back pain, sleeping 0-5 hrs, has to use ice and medications . PT-OP-J Posture/Palpation/Skin Start: 07/27/20 18:34 Freq: Status: Active Protocol: Document 07/29/20 10:43 LRN (Rec: 07/29/20 11:32 LRN [id number]) Posture Evaluation Position Standing Evaluation View All positions Head/C-Spine Posture Neutral Position T-Spine Posture Flattened Shoulder Posture (R) Elevated Pelvis Posture (R) Iliac Crest Superior Weight Distribution Weight Shifted Left Knee Posture (L) Genu Valgus,(R) Genu Valgus,(R) Ext. Tibial Torsion Ankle/Foot Posture (L) Forefoot Abducted Palpation Assessment Location Anterolateral lower proximal 1/2 of leg Palpation Location Anterolateral lower proximal 1 /2 of leg Palpation Findings Soft Tissue Tightness Palpation Details Painful with sharp/burning pain. Anterolateral R thigh Palpation Location Anterolateral R thigh Palpation Findings Soft Tissue Tightness Palpation Details Painful with sharp/burning pain. R knee around patella Palpation Location Around R patella Palpation Details Painful with sharp/burning pain. PT-OP-K Range of Motion Start: 07/27/20 18:34 Freq: Status: Active Protocol: Document 04/22/21 09:58 LRN (Rec: 04/22/21 12:09 LRN [id number]) Knee Goniometric Range of Motion Knee Supine Right Knee ROM WFL No Patient Position Supine Flexion Active (degrees) 102 Flexion Passive (degrees) 108 Extension Active (degrees) 2 Hyper-Extension Active 8 PT-OP-L Special Tests Start: 07/27/20 18:34 Freq: Status: Active Protocol: Document 04/15/21 08:12 LRN (Rec: 04/15/21 10:43 LRN [id number]) Special Tests Lumbar Spine Special Tests Straight Leg Raise Test Results 52 deg's R, 90 deg's L Comments Onset of back and thigh pain bilaterally Knee Special Tests Patellar Grind Test Test Results Right knee Positive Comments Pain with very light patellar compression PT-OP-M Strength Start: 07/27/20 18:34 Freq: Status: Active Protocol: Document 07/29/20 10:43 LRN (Rec: 07/29/20 11:32 LRN [id number]) Hip Strength Hip Manual Muscle Testing Right Flexion (L2) 3- Fair- Abduction 2 Poor Adduction 1 Trace Comments Back & R knee pain limiting strength Left Flexion (L2) 3 Fair Abduction 2+ Poor+ Adduction 1 Trace Comments Back pain limiting strength Knee Strength Knee Manual Muscle Testing Right Flexion (S2) 3+ Fair+ Extension (L3) 3+ Fair+ Left Comments WNL Ankle/Foot Strength Ankle and Foot Manual Muscle Testing Right Dorsiflexion (L4) 3+ Fair+ Plantarflexion (S1) 5 Normal Inversion 5 Normal Eversion (S1) 5 Normal Left Comments WNL PT-OP-T Assessment and Plan Start: 07/27/20 18:34 Freq: Status: Active Protocol: Document 08/22/21 08:50 LRN (Rec: 08/22/21 08:56 LRN [id number]) Physical Therapy Assessment Goals Five Impairment Decreased function per LEFS score of 21 (60-79% impaired) Short Term Goal (STG) Improve function per LEFS score of no less than 48 (20 to 39% impaired). (04/22/21: Pt did not complete) (12/02/20: Improved from score 32 to 39). 12/31/20: Score is worse at 24 ) STG Duration 06/13/21 NOT MET Research Intern Goal (LTG) Improve function per LEFS score of no less than 63 (1 to 19% impaired) (04/22/21: Pt did not complete) LTG Duration 07/13/21 NOT MET Four Impairment R knee pain interrupting her sleep every 3-4 hours at night . Research Intern Goal (LTG) Pt will be able to sleep greater than 4 hours at nighttime. (04/22/21: Pt sleeping 0-5 hrs/ night due to pain) (09/24/20: Pt able to sleep 7-8 hours at nighttime without pain) LTG Duration 07/13/21 (04/22/21: flare up. 09/24/20: MET GOAL) Three Impairment Decreased R knee AROM limiting pt ability to sit w/o pain( AROM: 8-81 deg's) Short Term Goal (STG) Improve R knee AROM in sitting to 0 - 90 deg's. (04/22/21: R knee AROM: 2-102 deg's) (02/24/21: R knee AROM flex is 107 deg's) STG Duration 08/26/20 (09/24/20: MET GOAL) Research Intern Goal (LTG) Improve R knee PROM in supine: lacking 3 deg's - 135 deg's with pt able to tolerate sitting 1 hour with pain no more than 2/10. (09/24/20: AROM in supine: 0- 123 deg's. Can sit 1 hr with pain 7/10) (02/10/21: AROM in supine: 100 deg's flexion. 02/24/21: 1- 107 deg's) LTG Duration 07/13/21 (09/24/20: Improved knee ROM) Two Impairment R knee pain interfering with ability to sleep and walk. Short Term Goal (STG) Decrease pain to 4/10 at worst with pt able to sleep greater than 3-4 hours. (09/24/20: MET GOAL. Pt sleeping 7-8 hours without pain) (04/22/21: Sleeping 1-5 hrs due to R knee and back pain) STG Duration 08/26/20 (09/24/20: MET GOAL) Intermediate Goal (LTG) Decrease pain with walking with pt able to ambulate without use of cane and tolerable pain of 0-3/10. (11/18/20: Walks w/o assistive device. Pain with walking w/o assist device is 6/10) (02/10/21: Walking w/o AD with pain 8/10) LTG Duration 07/13/21 (04/22/21: Worse, pain reported is 9/10) One Impairment Lacks appropriate self care HEP. Research Intern Goal (LTG) Pt will be independent with a self care HEP. (HEP ISSUED: AROM: *R knee flex/ext. INSTRUCTIONS: *Hip SLR (foot in 3 positions)/AB/AD, * active knee ext/flex w/5 secs hold). LTG Duration 07/13/21 (08/06/20: Progressed) Assessment Summary Assessment Pt was last seen 05/13/21. Her plan of care was extended to 07/13/21 due to back injury limiting her R knee rehabilitation. It was decided that further therapy would be held until her back pain had been addressed. The pt had not called back to reschedule, and attempts to reach the pt were unsuccessful . The pt is being discharged from therapy due to lack of attendance. Goals not met. Physical Therapy Plan Discharge Physical Therapy Discharge Reasons No Longer Attending PT Discharge Comments See assessment above.
== END 2021-10-18 08:58 ==
LOC: PHYS 09:45
PROVIDERS: Family Provider Family Medicine; PCP Family Medicine; Referring Provider Orthopaedic Surgery; Visit Provider Orthopaedic Surgery
DX: S83.271D Complex tear of lateral meniscus, current injury, right knee, subsequent encounter (principal)
CPT/HCPCS: 97010; 97035; 97110; 97116; 97140; 97162; 97530; 97535

== ENCOUNTER 2022-08-04 09:45 | Outpatient (RCR) | payer MEDICARE, MEDICAID, SELFPAY ==
[2019-02-08 02:00] VITALS: BMI 33.3
--- NOTE | 2022-04-07 12:00 | PT.OPPOC ---
Physical, Occupational & Speech Therapy At [facility] Current Diagnoses Unilateral primary osteoarthritis, right knee (04/07/22) Visit Care Team Role Provider Type Tone Narvaez MD Family Provider Non-Staff Primary Care Provider Specialty: Family Practice Address: [address] [place] [address], [address] Email: Cheri Brooks PA-C Attending Provider Non-Staff Referring Provider Specialty: General Surgery Address: [facility] [place], [address] Email: Plan Of Care PT-OP-T Assessment and Plan Start: 04/06/22 14:23 Freq: Status: Active Protocol: Document 04/07/22 10:30 AMB (Rec: 04/09/22 21:23 AMB [id number]) Physical Therapy Assessment Rehab Potential Rehabilitation Potential Good Evaluation Complexity Number of Personal Factors/Comorbidities 3 or More Number of Body Systems Impaired 4 or More Clinical Presentation at Evaluation Evolving Impairments Impairments Activity Tolerance,Gait,Pain, ROM,Strength Goals Gait Short Term Goal (STG) Vashti will ambulate over smooth surfaces with her SPC for 6 minutes without antalgic gait. STG Duration 5 weeks Alf Goal (LTG) Vashti will ambulate over uneven surfaces without an AD without antalgia or LOB. LTG Duration 10 weeks Strength Short Term Goal (STG) Vashti will perform a SLR without quad lag to show improved quad activation. STG Duration 5 weeks Pile Driver Operator Helper Goal (LTG) Vashti will perform a partial squat without increase in baseline knee pain and with equal weightbearing. LTG Duration 10 weeks One Impairment ROM Short Term Goal (STG) Vashti will improve her PROM to 0-110 degrees. STG Duration 5 weeks Pile Driver Operator Helper Goal (LTG) Vashti will have AROM 0-120 degrees. LTG Duration 10 weeks Assessment Summary Assessment Vashti attends physical therapy s/p R TKA. She presents stating that pain ranges from 4-7/10 with pain around front of knee and into calf. No redness, heat or point tenderness in calf. She does have moderate swelling throughout the knee and lower leg. Pt presents with ROM restriction into flexion and extension and significant quad weakness. She attended using her SPC (that was too short for her) in the opposite hand of what would be normally suggested. She was instructed in appropriate gait and SPC usage and felt better immediately. She renetta benefit from physical therapy to improve her strength, gait, ROM so that she can be more active, manage her stairs and reduce her pain. Physical Therapy Plan Frequency and Duration Frequency of Treatment 2x/Week Duration of Treatment 10 weeks Plan of Care Start Date 04/07/22 Plan of Care End Date 06/23/22 Therapeutic Interventions Therapeutic Interventions Balance Training,Gait Training ,Home Exercise Program,Joint Mobilizations,Manual Therapy, Neuromuscular Re-education, Self-Care/Home Management, Therapeutic Activities, Therapeutic Exercises Modalities Cold Pack/Ice Massage,Electric Stimulation,Hot Packs Next Visit Focus/Plan Next Note Type Treatment Note Next Visit Plan Start with recumbent stepper/ elliptical, review quad sets TKE for quad control, consider SLR if quad control improved. Review heel slides for improving flexion. Manual therapy for ROM/edema control. Plan of Care Dates Plan of Care Start Date 04/07/22 Plan of Care End Date 06/23/22 Electronically Signed by: Jihan Mathews, PT 04/10/22 0806 If you are in agreement with this Plan of Care, please return a signed and dated copy. I have reviewed this Plan of Care and certify that the skilled therapy services above are required to meet the patient?s needs. Physician Signature Date Printed Name and Credentials Clinical Instructor Signature Printed Name and Credentials
--- NOTE | 2022-04-07 12:00 | PT.OIE ---
Current Diagnoses Unilateral primary osteoarthritis, right knee (04/07/22) Past Medical History Acute exacerbation of chronic low back pain Asthma Degenerative joint disease of knee Elevated BP without diagnosis of hypertension Facet arthropathy, lumbar Fibromyalgia History of ectopic Language barrier affecting health care Past Surgical History (Last Reviewed 11/28/21 @ 09:12 by Mateus Beltre DO) H/O: hysterectomy History of oophorectomy, unilateral History of shoulder surgery Status post incision and drainage Visit Care Team Role Provider Type Tone Narvaez MD Family Provider Non-Staff Primary Care Provider Specialty: Family Practice Address: [address] [place] [address], [address] Email: Cheri Brooks PA-C Attending Provider Non-Staff Referring Provider Specialty: General Surgery Address: [address] [place] [address], [address] Email: Physical Therapy Initial Evaluation PT-OP-A Visit Information Start: 04/06/22 14:23 Freq: Status: Active Protocol: Document 04/07/22 10:30 AMB (Rec: 04/09/22 21:23 AMB [id number]) Out-Patient Physical Therapy Visit Information Visit Information Visit Type Initial Evaluation Visit Start Time 10:30 Visit Stop Time 11:15 Total Visit Minutes 45 Visit Number 1 PT-OP-B Current Condition Start: 04/06/22 14:23 Freq: Status: Active Protocol: Document 04/07/22 10:30 AMB (Rec: 04/07/22 15:43 AMB [id number]) Current Condition History of Current Condition Onset Date 03/21/22 Current Complaints R TKA History of Current Condition Vashti attends PT with her son who interprets for her per her request. Usually we will use the hospital provided interpretation, but she wants him to help today. Vashti lives with another son and her boyfriend in a second story apartment. There are 16 steep steps to enter with a railing on the left side. She attends s/p R TKA and has been doing heel slides and TKE exercises and icing since surgery. Personal Factors Other Personal Factors That May Effect Fibromyalgia, hx hysterectomy, Therapy/Recovery neck pain, back pain PT-OP-K Range of Motion Start: 04/06/22 14:23 Freq: Status: Active Protocol: Document 04/07/22 10:30 AMB (Rec: 04/07/22 15:20 AMB [id number]) Knee Goniometric Range of Motion Knee Right Patient Position Supine Comments missing 5-75 Left Patient Position Supine Comments 0-120 PT-OP-M Strength Start: 04/06/22 14:23 Freq: Status: Active Protocol: Document 04/07/22 10:30 AMB (Rec: 04/07/22 15:20 AMB [id number]) Knee Strength Knee Manual Muscle Testing Right Flexion (S2) 4- Good- Extension (L3) 3 Fair Left Flexion (S2) 4+ Good+ Extension (L3) 4+ Good+ PT-OP-Q Treatments Start: 04/06/22 14:23 Freq: Status: Active Protocol: Document 04/07/22 10:30 AMB (Rec: 04/09/22 21:23 AMB [id number]) Cardio Equipment Recumbent Elliptical ([employer]) Duration (Minutes) 5 Resistance 3 Therapeutic Exercises Supine Exercises TKE Side right Reps/Minutes 10 Comments heavy cues quad engagement heel slides Side right Reps/Minutes 10 Comments ok to push into tightness PT-OP-T Assessment and Plan Start: 04/06/22 14:23 Freq: Status: Active Protocol: Document 04/07/22 10:30 AMB (Rec: 04/09/22 21:23 AMB [id number]) Physical Therapy Assessment Rehab Potential Rehabilitation Potential Good Evaluation Complexity Number of Personal Factors/Comorbidities 3 or More Number of Body Systems Impaired 4 or More Clinical Presentation at Evaluation Evolving Impairments Impairments Activity Tolerance,Gait,Pain, ROM,Strength Goals Gait Short Term Goal (STG) Vashti will ambulate over smooth surfaces with her SPC for 6 minutes without antalgic gait. STG Duration 5 weeks Retirement Goal (LTG) Vashti will ambulate over uneven surfaces without an AD without antalgia or LOB. LTG Duration 10 weeks Strength Short Term Goal (STG) Vashti will perform a SLR without quad lag to show improved quad activation. STG Duration 5 weeks Retirement Goal (LTG) Vashti will perform a partial squat without increase in baseline knee pain and with equal weightbearing. LTG Duration 10 weeks One Impairment ROM Short Term Goal (STG) Vashti will improve her PROM to 0-110 degrees. STG Duration 5 weeks Retirement Goal (LTG) Vashti will have AROM 0-120 degrees. LTG Duration 10 weeks Assessment Summary Assessment Vashti attends physical therapy s/p R TKA. She presents stating that pain ranges from 4-7/10 with pain around front of knee and into calf. No redness, heat or point tenderness in calf. She does have moderate swelling throughout the knee and lower leg. Pt presents with ROM restriction into flexion and extension and significant quad weakness. She attended using her SPC (that was too short for her) in the opposite hand of what would be normally suggested. She was instructed in appropriate gait and SPC usage and felt better immediately. She renetta benefit from physical therapy to improve her strength, gait, ROM so that she can be more active, manage her stairs and reduce her pain. Physical Therapy Plan Frequency and Duration Frequency of Treatment 2x/Week Duration of Treatment 10 weeks Plan of Care Start Date 04/07/22 Plan of Care End Date 06/23/22 Therapeutic Interventions Therapeutic Interventions Balance Training,Gait Training ,Home Exercise Program,Joint Mobilizations,Manual Therapy, Neuromuscular Re-education, Self-Care/Home Management, Therapeutic Activities, Therapeutic Exercises Modalities Cold Pack/Ice Massage,Electric Stimulation,Hot Packs Next Visit Focus/Plan Next Note Type Treatment Note Next Visit Plan Start with recumbent stepper/ elliptical, review quad sets TKE for quad control, consider SLR if quad control improved. Review heel slides for improving flexion. Manual therapy for ROM/edema control.
--- NOTE | 2022-04-11 12:35 | PT.OTN ---
Current Diagnoses Unilateral primary osteoarthritis, right knee (04/11/22) Physical Therapy Treatment Note PT-OP-A Visit Information Start: 04/06/22 14:23 Freq: Status: Active Protocol: Document 04/11/22 11:19 LRN (Rec: 04/11/22 12:34 LRN [id number]) Out-Patient Physical Therapy Visit Information Visit Information Visit Type Treatment Note Visit Note Therapist only Visit Start Time 11:19 Visit Stop Time 12:16 Total Visit Minutes 67 Visit Number 2 PT-OP-B Current Condition Start: 04/06/22 14:23 Freq: Status: Active Protocol: Document 04/07/22 10:30 AMB (Rec: 04/07/22 15:43 AMB [id number]) Current Condition History of Current Condition Onset Date 03/21/22 Current Complaints R TKA History of Current Condition Vashti attends PT with her son who interprets for her per her request. Usually we will use the hospital provided interpretation, but she wants him to help today. Vashti lives with another son and her boyfriend in a second story apartment. There are 16 steep steps to enter with a railing on the left side. She attends s/p R TKA and has been doing heel slides and TKE exercises and icing since surgery. Personal Factors Other Personal Factors That May Effect Fibromyalgia, hx hysterectomy, Therapy/Recovery neck pain, back pain PT-OP-C Subjective Start: 04/06/22 14:23 Freq: Status: Active Protocol: Document 04/11/22 11:19 LRN (Rec: 04/11/22 12:34 LRN [id number]) OP-PT Subjective Patient Comments Patient Comments Pain level is 6/10. Has been working around the house and walking more. Don't have as muh swelling from the knee down, slightly swollen. Has been doing ex's and using ice. Can't get leg comfortable, so not sleeping as well. 03/21/22 surgery date. PT-OP-K Range of Motion Start: 04/06/22 14:23 Freq: Status: Active Protocol: Document 04/07/22 10:30 AMB (Rec: 04/07/22 15:20 AMB [id number]) Knee Goniometric Range of Motion Knee Right Patient Position Supine Comments missing 5-75 Left Patient Position Supine Comments 0-120 PT-OP-M Strength Start: 04/06/22 14:23 Freq: Status: Active Protocol: Document 04/07/22 10:30 AMB (Rec: 04/07/22 15:20 AMB [id number]) Knee Strength Knee Manual Muscle Testing Right Flexion (S2) 4- Good- Extension (L3) 3 Fair Left Flexion (S2) 4+ Good+ Extension (L3) 4+ Good+ PT-OP-Q Treatments Start: 04/06/22 14:23 Freq: Status: Active Protocol: Document 04/11/22 11:19 LRN (Rec: 04/11/22 12:34 LRN [id number]) Cardio Equipment Recumbent Elliptical ([employer]) Duration (Minutes) 5 Resistance 3 Seat Position 7 Therapeutic Exercises Supine Exercises SLR Supine Exercise Name Assisted SLR Side right Reps/Minutes 5x, rest, 8x Comments Extra time taken to I/S pt with use of foreign language interpreter QS Supine Exercise Name QS Side right Equipment Used Towel roll under knee Comments Cuing for Quads to engage. TKE Side right Equipment Used Bolster roll Reps/Minutes 10 Comments heavy cues quad engagement heel slides Side right Reps/Minutes 10 Comments ok to push into tightness ( 13-70 deg's motion) Gait Training Gait Activity 1 Description Gait for equal step lengths Device Used Quad cane on L side Level of Assistance V cuing Surface Level Distance/Duration 3' between locations Treatment Focus Equal step lengths Manual Therapy Treatment Soft Tissue Mobilization R knee Body Location Scar & surrounding tissues mobilization Mobilization Type Myofascial Release Intensity/Depth Superficial Body Position Supine Self-Care/Home Management Treatment Education Other Education Educated pt through foreign language interpreter on working towards getting R knee to go into full extension. Discussed swelling at the R knee, and exercise tolerance of not pushing into pain. Activities Self-Care/Home Management Activities Corrected pt's quad cane's 4pt positioning for use on the L side vs R side. PT-OP-R Modalities Start: 04/06/22 14:23 Freq: Status: Active Protocol: Document 04/11/22 11:19 LRN (Rec: 04/11/22 12:34 LRN [id number]) Hot Pack/Cold Pack Treatment Cold Pack Location R knee & hip. Patient Position Hooklying Treatment Duration (minutes) 10 Comments Leg up on bolster. PT-OP-T Assessment and Plan Start: 04/06/22 14:23 Freq: Status: Active Protocol: Document 04/11/22 11:19 LRN (Rec: 04/11/22 12:34 LRN [id number]) Physical Therapy Assessment Goals Gait Short Term Goal (STG) Vashti will ambulate over smooth surfaces with her SPC for 6 minutes without antalgic gait. STG Duration 5 weeks Floor Layer Apprentice Goal (LTG) Vashti will ambulate over uneven surfaces without an AD without antalgia or LOB. LTG Duration 10 weeks Strength Short Term Goal (STG) Vashti will perform a SLR without quad lag to show improved quad activation. STG Duration 5 weeks Residential Goal (LTG) Vashti will perform a partial squat without increase in baseline knee pain and with equal weightbearing. LTG Duration 10 weeks One Impairment ROM Short Term Goal (STG) Vashti will improve her PROM to 0-110 degrees. STG Duration 5 weeks Floor Layer Apprentice Goal (LTG) Vashti will have AROM 0-120 degrees. LTG Duration 10 weeks Assessment Summary Assessment Extra time for needed for foreign language interpreter use during therapy . Poor Quad contraction in max tolerated knee ext. position. Pt ambs in with quad cane on L side that was set up for use on R side. Pt gait pattern improved with cuing. Good scar mobility in areas without scab. Pt is able to perform an independent SLR, but tends to use the L leg to lift her R LE. Physical Therapy Plan Frequency and Duration Frequency of Treatment 2x/Week Duration of Treatment 10 weeks Plan of Care Start Date 04/07/22 Plan of Care End Date 06/23/22 Next Visit Focus/Plan Next Note Type Treatment Note Next Visit Plan Start with recumbent stepper/ elliptical, quad sets, TKE for quad control, SLR and encourage pt to not use LLE to lift RLE. Heel slides for improving flexion. Manual therapy for scar mob/ROM/edema control.
--- NOTE | 2022-04-18 12:12 | PT.OTN ---
Current Diagnoses Unilateral primary osteoarthritis, right knee (04/18/22) Physical Therapy Treatment Note PT-OP-A Visit Information Start: 04/06/22 14:23 Freq: Status: Active Protocol: Document 04/18/22 11:22 LRN (Rec: 04/18/22 12:11 LRN [id number]) Out-Patient Physical Therapy Visit Information Visit Information Visit Type Treatment Note Visit Note Therapist jignesh. Deburring Machine Operator Ata #[id number]. Visit Start Time 11:22 Visit Stop Time 12:12 Total Visit Minutes 50 Visit Number 3 PT-OP-B Current Condition Start: 04/06/22 14:23 Freq: Status: Active Protocol: Document 04/07/22 10:30 AMB (Rec: 04/07/22 15:43 AMB [id number]) Current Condition History of Current Condition Onset Date 03/21/22 Current Complaints R TKA History of Current Condition Vashti attends PT with her son who interprets for her per her request. Usually we will use the hospital provided interpretation, but she wants him to help today. Vashti lives with another son and her boyfriend in a second story apartment. There are 16 steep steps to enter with a railing on the left side. She attends s/p R TKA and has been doing heel slides and TKE exercises and icing since surgery. Personal Factors Other Personal Factors That May Effect Fibromyalgia, hx hysterectomy, Therapy/Recovery neck pain, back pain PT-OP-C Subjective Start: 04/06/22 14:23 Freq: Status: Active Protocol: Document 04/18/22 11:22 LRN (Rec: 04/18/22 12:11 LRN [id number]) OP-PT Subjective Patient Comments Patient Comments Pain level is 5/10. Thinks she has more motion. PT-OP-K Range of Motion Start: 04/06/22 14:23 Freq: Status: Active Protocol: Document 04/18/22 11:22 LRN (Rec: 04/18/22 12:11 LRN [id number]) Knee Goniometric Range of Motion Knee Right Patient Position Supine Flexion Active (degrees) 87 Flexion Passive (degrees) 87 Extension Active (degrees) 5 Extension Passive (degrees) 3 Comments AROM: lacking 5 deg's-87 deg's . PROM: lacking 3 deg's-87 deg's . PT-OP-M Strength Start: 04/06/22 14:23 Freq: Status: Active Protocol: Document 04/07/22 10:30 AMB (Rec: 04/07/22 15:20 AMB [id number]) Knee Strength Knee Manual Muscle Testing Right Flexion (S2) 4- Good- Extension (L3) 3 Fair Left Flexion (S2) 4+ Good+ Extension (L3) 4+ Good+ PT-OP-Q Treatments Start: 04/06/22 14:23 Freq: Status: Active Protocol: Document 04/18/22 11:22 LRN (Rec: 04/18/22 12:11 LRN [id number]) Cardio Equipment Recumbent Stepper (Sci-Fit) Duration (Minutes) 8 Resistance 1 Seat Position 7 Other For ROM of R knee Therapeutic Exercises Supine Exercises SLR Supine Exercise Name Unassisted SLR Side right Reps/Minutes 10x, rest, 5x QS Supine Exercise Name QS Side right Equipment Used Towel roll under knee Comments Cuing for Quads to engage. heel slides Side right Reps/Minutes 8' Comments ok to push into tightness ( 13-70 deg's motion) Prone Exercises R leg hang Prone Exercise Name Knee ext stretch Side right Comments Time taken for set up towel roll above patella & roll at ankle Sidelying Exercises Hip AB/AD Sidelying Exercise Name Active Hip AB/AD Side right Reps/Minutes 15x AB, 10x AD Manual Therapy Treatment Soft Tissue Mobilization R knee Body Location Scar & surrounding tissues mobilization Mobilization Type Myofascial Release Intensity/Depth Superficial Body Position Supine PT-OP-R Modalities Start: 04/06/22 14:23 Freq: Status: Active Protocol: Document 04/18/22 11:22 LRN (Rec: 04/18/22 12:11 LRN [id number]) Hot Pack/Cold Pack Treatment Cold Pack Location R knee & hip. Patient Position Hooklying Treatment Duration (minutes) 10 Comments Leg up on bolster. PT-OP-T Assessment and Plan Start: 04/06/22 14:23 Freq: Status: Active Protocol: Document 04/18/22 11:22 LRN (Rec: 04/18/22 12:11 LRN [id number]) Physical Therapy Assessment Goals Gait Short Term Goal (STG) Vashti will ambulate over smooth surfaces with her SPC for 6 minutes without antalgic gait. STG Duration 5 weeks Detention Goal (LTG) Vashti will ambulate over uneven surfaces without an AD without antalgia or LOB. LTG Duration 10 weeks Strength Short Term Goal (STG) Vashti will perform a SLR without quad lag to show improved quad activation. STG Duration 5 weeks Detention Goal (LTG) Vashti will perform a partial squat without increase in baseline knee pain and with equal weightbearing. LTG Duration 10 weeks One Impairment ROM Short Term Goal (STG) Vashti will improve her PROM to 0-110 degrees. (04/18/22: PROM: lacking 3 deg' s-87 deg's) STG Duration 5 weeks Detention Goal (LTG) Vashti will have AROM 0-120 degrees. (04/18/22: AROM: lacking 5 deg's -87 deg's) LTG Duration 10 weeks Assessment Summary Assessment Improved R knee ROM: AROM: lacking 5 deg's-87 deg's. PROM: lacking 3 deg's-87 deg's . Pt now able to lift RLE independently. Quad lag primarily due to lack of ROM. Physical Therapy Plan Frequency and Duration Frequency of Treatment 2x/Week Duration of Treatment 10 weeks Plan of Care Start Date 04/07/22 Plan of Care End Date 06/23/22 Next Visit Focus/Plan Next Note Type Treatment Note Next Visit Plan Start with recumbent stepper/ elliptical, quad sets-incr ROM , start standing TKE for quad control, SLR-incr reps. Heel slides for improving flexion. Review Prone knee ext hand stretch. Manual therapy for scar mob/ROM/edema control.
--- NOTE | 2022-04-21 16:00 | PT.OTN ---
Current Diagnoses Unilateral primary osteoarthritis, right knee (04/21/22) Physical Therapy Treatment Note PT-OP-A Visit Information Start: 04/06/22 14:23 Freq: Status: Active Protocol: Document 04/21/22 10:40 AMB (Rec: 04/21/22 11:23 AMB [id number]) Out-Patient Physical Therapy Visit Information Visit Information Visit Type Treatment Note Visit Note Sampling Theory Teacher phone in use Visit Start Time 10:30 Visit Stop Time 11:15 Total Visit Minutes 45 Visit Number 4 PT-OP-B Current Condition Start: 04/06/22 14:23 Freq: Status: Active Protocol: Document 04/07/22 10:30 AMB (Rec: 04/07/22 15:43 AMB [id number]) Current Condition History of Current Condition Onset Date 03/21/22 Current Complaints R TKA History of Current Condition Vashti attends PT with her son who interprets for her per her request. Usually we will use the hospital provided interpretation, but she wants him to help today. Vashti lives with another son and her boyfriend in a second story apartment. There are 16 steep steps to enter with a railing on the left side. She attends s/p R TKA and has been doing heel slides and TKE exercises and icing since surgery. Personal Factors Other Personal Factors That May Effect Fibromyalgia, hx hysterectomy, Therapy/Recovery neck pain, back pain PT-OP-C Subjective Start: 04/06/22 14:23 Freq: Status: Active Protocol: Document 04/21/22 10:40 AMB (Rec: 04/21/22 11:23 AMB [id number]) OP-PT Subjective Patient Comments Patient Comments Pain after walking up while on her stomach, tightness, but now feeling ok. Denies pain with exercise, did have pain with PT-OP-K Range of Motion Start: 04/06/22 14:23 Freq: Status: Active Protocol: Document 04/18/22 11:22 LRN (Rec: 04/18/22 12:11 LRN [id number]) Knee Goniometric Range of Motion Knee Right Patient Position Supine Flexion Active (degrees) 87 Flexion Passive (degrees) 87 Extension Active (degrees) 5 Extension Passive (degrees) 3 Comments AROM: lacking 5 deg's-87 deg's . PROM: lacking 3 deg's-87 deg's . PT-OP-M Strength Start: 04/06/22 14:23 Freq: Status: Active Protocol: Document 04/07/22 10:30 AMB (Rec: 04/07/22 15:20 AMB [id number]) Knee Strength Knee Manual Muscle Testing Right Flexion (S2) 4- Good- Extension (L3) 3 Fair Left Flexion (S2) 4+ Good+ Extension (L3) 4+ Good+ PT-OP-Q Treatments Start: 04/06/22 14:23 Freq: Status: Active Protocol: Document 04/21/22 10:30 AMB (Rec: 04/21/22 13:02 AMB [id number]) Cardio Equipment Elliptical Duration (Minutes) 2 Resistance 1 Recumbent Stepper (Sci-Fit) Duration (Minutes) 8 Resistance 3 Seat Position 7 Other For ROM of R knee Therapeutic Exercises Supine Exercises quad stretch Reps/Minutes 30x3 Comments HEP QS Supine Exercise Name QS Side right Equipment Used Towel roll under knee Comments Cuing for Quads to engage. heel slides Side right Reps/Minutes 8' Comments ok to push into tightness Prone Exercises R leg hang Prone Exercise Name Knee ext stretch Side right Comments Time taken for set up towel roll above patella & roll at ankle Sidelying Exercises Hip AB/AD Sidelying Exercise Name Active Hip AB/AD Side right Reps/Minutes 15x AB, 10x AD Manual Therapy Treatment Soft Tissue Mobilization R knee Body Location Scar & surrounding tissues mobilization Mobilization Type Myofascial Release Intensity/Depth Superficial Body Position Supine PT-OP-R Modalities Start: 04/06/22 14:23 Freq: Status: Active Protocol: Document 04/21/22 10:30 AMB (Rec: 04/21/22 15:57 AMB [id number]) Hot Pack/Cold Pack Treatment Cold Pack Location R knee & hip. Patient Position Hooklying Treatment Duration (minutes) 10 Comments Leg up on bolster. PT-OP-T Assessment and Plan Start: 04/06/22 14:23 Freq: Status: Active Protocol: Document 04/21/22 10:40 AMB (Rec: 04/21/22 11:23 AMB [id number]) Physical Therapy Assessment Goals Gait Short Term Goal (STG) Vashti will ambulate over smooth surfaces with her SPC for 6 minutes without antalgic gait. STG Duration 5 weeks Hot Repairman Goal (LTG) Vashti will ambulate over uneven surfaces without an AD without antalgia or LOB. LTG Duration 10 weeks Strength Short Term Goal (STG) Vashti will perform a SLR without quad lag to show improved quad activation. STG Duration 5 weeks Longterm Goal (LTG) Vashti will perform a partial squat without increase in baseline knee pain and with equal weightbearing. LTG Duration 10 weeks One Impairment ROM Short Term Goal (STG) Vashti will improve her PROM to 0-110 degrees. (04/18/22: PROM: lacking 3 deg' s-87 deg's) STG Duration 5 weeks Hot Repairman Goal (LTG) Vashti will have AROM 0-120 degrees. (04/18/22: AROM: lacking 5 deg's -87 deg's) LTG Duration 10 weeks Assessment Summary Assessment Pt tolerated exercises well, time spent encouraging stretch into knee flexion as pt concerned about tightness. Physical Therapy Plan Next Visit Focus/Plan Next Note Type Treatment Note Next Visit Plan Start with recumbent stepper/ elliptical, quad sets-incr ROM , start standing TKE for quad control, SLR-incr reps. Heel slides for improving flexion. Review Prone knee ext hand stretch. Manual therapy for scar mob/ROM/edema control.
--- NOTE | 2022-04-25 11:01 | PT.OTN ---
Current Diagnoses Unilateral primary osteoarthritis, right knee (04/25/22) Physical Therapy Treatment Note PT-OP-A Visit Information Start: 04/06/22 14:23 Freq: Status: Active Protocol: Document 04/25/22 08:58 AMB (Rec: 04/25/22 09:12 AMB [id number]) Out-Patient Physical Therapy Visit Information Visit Information Visit Type Treatment Note Visit Note Parachute Officer phone in use Visit Start Time 09:00 Visit Stop Time 09:45 Total Visit Minutes 45 Visit Number 5 PT-OP-B Current Condition Start: 04/06/22 14:23 Freq: Status: Active Protocol: Document 04/07/22 10:30 AMB (Rec: 04/07/22 15:43 AMB [id number]) Current Condition History of Current Condition Onset Date 03/21/22 Current Complaints R TKA History of Current Condition Vashti attends PT with her son who interprets for her per her request. Usually we will use the hospital provided interpretation, but she wants him to help today. Vashti lives with another son and her boyfriend in a second story apartment. There are 16 steep steps to enter with a railing on the left side. She attends s/p R TKA and has been doing heel slides and TKE exercises and icing since surgery. Personal Factors Other Personal Factors That May Effect Fibromyalgia, hx hysterectomy, Therapy/Recovery neck pain, back pain PT-OP-C Subjective Start: 04/06/22 14:23 Freq: Status: Active Protocol: Document 04/25/22 08:58 AMB (Rec: 04/25/22 09:12 AMB [id number]) OP-PT Subjective Patient Comments Patient Comments Did exercises on Sunday. Won 't be going to the seated yoga class at the pool for the next 2 weeks because they are closed. PT-OP-K Range of Motion Start: 04/06/22 14:23 Freq: Status: Active Protocol: Document 04/18/22 11:22 LRN (Rec: 04/18/22 12:11 LRN [id number]) Knee Goniometric Range of Motion Knee Right Patient Position Supine Flexion Active (degrees) 87 Flexion Passive (degrees) 87 Extension Active (degrees) 5 Extension Passive (degrees) 3 Comments AROM: lacking 5 deg's-87 deg's . PROM: lacking 3 deg's-87 deg's . PT-OP-M Strength Start: 04/06/22 14:23 Freq: Status: Active Protocol: Document 04/07/22 10:30 AMB (Rec: 04/07/22 15:20 AMB [id number]) Knee Strength Knee Manual Muscle Testing Right Flexion (S2) 4- Good- Extension (L3) 3 Fair Left Flexion (S2) 4+ Good+ Extension (L3) 4+ Good+ PT-OP-Q Treatments Start: 04/06/22 14:23 Freq: Status: Active Protocol: Document 04/25/22 08:58 AMB (Rec: 04/25/22 09:12 AMB [id number]) Cardio Equipment Recumbent Stepper (Sci-Fit) Duration (Minutes) 8 Resistance 3 Seat Position 7 Other For ROM of R knee Therapeutic Exercises Supine Exercises IT band stretch Supine Exercise Name therapist assisted and then with band Reps/Minutes 30x2 quad stretch Reps/Minutes 30x3 Comments HEP SLR Supine Exercise Name Unassisted SLR Side right Reps/Minutes 10x, rest, 5x heel slides Side right Reps/Minutes 8' Comments ok to push into tightness Manual Therapy Treatment Soft Tissue Mobilization R knee Body Location Scar & surrounding tissues mobilization Mobilization Type Myofascial Release Intensity/Depth Superficial Body Position Supine PT-OP-R Modalities Start: 04/06/22 14:23 Freq: Status: Active Protocol: Document 04/21/22 10:30 AMB (Rec: 04/21/22 15:57 AMB [id number]) Hot Pack/Cold Pack Treatment Cold Pack Location R knee & hip. Patient Position Hooklying Treatment Duration (minutes) 10 Comments Leg up on bolster. PT-OP-T Assessment and Plan Start: 04/06/22 14:23 Freq: Status: Active Protocol: Document 04/25/22 08:58 AMB (Rec: 04/25/22 09:12 AMB [id number]) Physical Therapy Assessment Goals Gait Short Term Goal (STG) Vashti will ambulate over smooth surfaces with her SPC for 6 minutes without antalgic gait. STG Duration 5 weeks Skilled Nursing Goal (LTG) Vashti will ambulate over uneven surfaces without an AD without antalgia or LOB. LTG Duration 10 weeks Strength Short Term Goal (STG) Vashti will perform a SLR without quad lag to show improved quad activation. STG Duration 5 weeks Motion Picture Commentator Goal (LTG) Vashti will perform a partial squat without increase in baseline knee pain and with equal weightbearing. LTG Duration 10 weeks One Impairment ROM Short Term Goal (STG) Vashti will improve her PROM to 0-110 degrees. (04/18/22: PROM: lacking 3 deg' s-87 deg's) STG Duration 5 weeks Motion Picture Commentator Goal (LTG) Vashti will have AROM 0-120 degrees. (04/18/22: AROM: lacking 5 deg's -87 deg's) LTG Duration 10 weeks Assessment Summary Assessment Vashti continues to have discomfort with sleeping, difficulty finding a comfortable spot for her knee. Encouraged her in pillow placement. Did improve PROM flexion to 95 degrees today. Physical Therapy Plan Next Visit Focus/Plan Next Note Type Treatment Note Next Visit Plan Can consider stationary bike to progress ROM, quad sets- incr ROM, start standing TKE for quad control, SLR-incr reps. Heel slides for improving flexion. Review Prone knee ext hand stretch. Manual therapy for scar mob/ ROM/edema control.
--- NOTE | 2022-04-27 09:46 | PT.OTN ---
Current Diagnoses Unilateral primary osteoarthritis, right knee (04/27/22) Physical Therapy Treatment Note PT-OP-A Visit Information Start: 04/06/22 14:23 Freq: Status: Active Protocol: Document 04/27/22 08:59 AMB (Rec: 04/27/22 09:45 AMB [id number]) Out-Patient Physical Therapy Visit Information Visit Information Visit Type Treatment Note Visit Note Farm Machine Tender phone in use for first 15 minutes, then lost call Visit Start Time 09:00 Visit Stop Time 09:45 Total Visit Minutes 45 Visit Number 6 PT-OP-B Current Condition Start: 04/06/22 14:23 Freq: Status: Active Protocol: Document 04/07/22 10:30 AMB (Rec: 04/07/22 15:43 AMB [id number]) Current Condition History of Current Condition Onset Date 03/21/22 Current Complaints R TKA History of Current Condition Vashti attends PT with her son who interprets for her per her request. Usually we will use the hospital provided interpretation, but she wants him to help today. Vashti lives with another son and her boyfriend in a second story apartment. There are 16 steep steps to enter with a railing on the left side. She attends s/p R TKA and has been doing heel slides and TKE exercises and icing since surgery. Personal Factors Other Personal Factors That May Effect Fibromyalgia, hx hysterectomy, Therapy/Recovery neck pain, back pain PT-OP-C Subjective Start: 04/06/22 14:23 Freq: Status: Active Protocol: Document 04/27/22 08:59 AMB (Rec: 04/27/22 09:45 AMB [id number]) OP-PT Subjective Patient Comments Patient Comments Pt reports that last Sunday after PT she was standing for 3 hours to cut her dog's hair and the knee got pretty swoellen after that. PT-OP-K Range of Motion Start: 04/06/22 14:23 Freq: Status: Active Protocol: Document 04/18/22 11:22 LRN (Rec: 04/18/22 12:11 LRN [id number]) Knee Goniometric Range of Motion Knee Right Patient Position Supine Flexion Active (degrees) 87 Flexion Passive (degrees) 87 Extension Active (degrees) 5 Extension Passive (degrees) 3 Comments AROM: lacking 5 deg's-87 deg's . PROM: lacking 3 deg's-87 deg's . PT-OP-M Strength Start: 04/06/22 14:23 Freq: Status: Active Protocol: Document 04/07/22 10:30 AMB (Rec: 04/07/22 15:20 AMB [id number]) Knee Strength Knee Manual Muscle Testing Right Flexion (S2) 4- Good- Extension (L3) 3 Fair Left Flexion (S2) 4+ Good+ Extension (L3) 4+ Good+ PT-OP-Q Treatments Start: 04/06/22 14:23 Freq: Status: Active Protocol: Document 04/27/22 08:59 AMB (Rec: 04/27/22 09:45 AMB [id number]) Cardio Equipment Recumbent Stepper (Sci-Fit) Duration (Minutes) 8 Resistance 3 Seat Position 7 Other For ROM of R knee Gym Equipment Shuttle Recovery Bilateral Squats Details Escobar Squats, 0-90 Resistance 50# Shuttle Recovery Platform Stable Reps/Time 10x 4 Therapeutic Exercises Supine Exercises quad stretch Reps/Minutes 30x3 Comments HEP SLR Supine Exercise Name Unassisted SLR Side right Reps/Minutes 10x, rest, 5x TKE Side right Equipment Used Bolster roll Reps/Minutes 10 heel slides Side right Reps/Minutes 8' Comments ok to push into tightness Manual Therapy Treatment Soft Tissue Mobilization R knee Body Location Scar & surrounding tissues mobilization Mobilization Type Myofascial Release Intensity/Depth Superficial Body Position Supine PT-OP-R Modalities Start: 04/06/22 14:23 Freq: Status: Active Protocol: Document 04/21/22 10:30 AMB (Rec: 04/21/22 15:57 AMB [id number]) Hot Pack/Cold Pack Treatment Cold Pack Location R knee & hip. Patient Position Hooklying Treatment Duration (minutes) 10 Comments Leg up on bolster. PT-OP-T Assessment and Plan Start: 04/06/22 14:23 Freq: Status: Active Protocol: Document 04/27/22 08:59 AMB (Rec: 04/27/22 09:45 AMB [id number]) Physical Therapy Assessment Goals Gait Short Term Goal (STG) Vashti will ambulate over smooth surfaces with her SPC for 6 minutes without antalgic gait. STG Duration 5 weeks Sheetmetal Trades Worker Goal (LTG) Vashti will ambulate over uneven surfaces without an AD without antalgia or LOB. LTG Duration 10 weeks Strength Short Term Goal (STG) Vashti will perform a SLR without quad lag to show improved quad activation. STG Duration 5 weeks Sheetmetal Trades Worker Goal (LTG) Vashti will perform a partial squat without increase in baseline knee pain and with equal weightbearing. LTG Duration 10 weeks One Impairment ROM Short Term Goal (STG) Vashti will improve her PROM to 0-110 degrees. (04/18/22: PROM: lacking 3 deg' s-87 deg's) STG Duration 5 weeks Fpc Goal (LTG) Vashti will have AROM 0-120 degrees. (04/18/22: AROM: lacking 5 deg's -87 deg's) LTG Duration 10 weeks Assessment Summary Assessment Tried recumbent bike today, but pt felt it was too painful , but she was able go around a couple of times. Continues to feeling tightness more at quadriceps than at joint line. Tightness major limiting factor at this point. Physical Therapy Plan Next Visit Focus/Plan Next Note Type Treatment Note Next Visit Plan Can consider stationary bike to progress ROM, quad sets- incr ROM, start standing TKE for quad control, SLR-incr reps. Heel slides for improving flexion. Review Prone knee ext hand stretch. Manual therapy for scar mob/ ROM/edema control.
--- NOTE | 2022-05-02 17:06 | PT.OTN ---
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 Usually we will use the hospital provided interpretation, but she wants him to help today. Vashti lives with another son and her boyfriend in a second story apartment. There are 16 steep steps to enter with a railing on the left side. She attends s/p R TKA and has been doing heel slides and TKE exercises and icing since surgery. 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 She reports forgetting to bring her cane today, but she says she doesn't use her cane at home. PT-OP-K Range of Motion Start: 04/06/22 14:23 Freq: Status: Active Protocol: Document 05/02/22 09:05 LRN (Rec: 05/02/22 09:51 LRN [id number]) Knee Goniometric Range of Motion Knee Right Patient Position Supine Flexion Active (degrees) 102 PT-OP-M Strength Start: 04/06/22 14:23 Freq: Status: Active Protocol: Document 04/07/22 10:30 AMB (Rec: 04/07/22 15:20 AMB [id number]) Knee Strength Knee Manual Muscle Testing Right Flexion (S2) 4- Good- Extension (L3) 3 Fair Left Flexion (S2) 4+ Good+ Extension (L3) 4+ Good+ PT-OP-Q Treatments Start: 04/06/22 14:23 Freq: Status: Active Protocol: Document 05/02/22 09:05 LRN (Rec: 05/02/22 09:51 LRN [id number]) Cardio Equipment Bicycle (Upright) Duration (Minutes) 8 Resistance 3 Seat Position 5 Other Back/forth for inital few times before going full revolution Therapeutic Exercises Supine Exercises SLR Supine Exercise Name Unassisted SLR Side right Reps/Minutes 15x, rest, 5x QS Supine Exercise Name QS on return from heel slides Side right Reps/Minutes 15x, rest, 5x heel slides Side right Reps/Minutes 15x, rest, 5x Comments ok to push into tightness Prone Exercises R knee flex stretch Prone Exercise Name R knee flex stretch f/b active knee flex Side right Equipment Used Gait belt for self stretch and assist Reps/Minutes Long hold f/b assisted active knee flex Sidelying Exercises Hip AB/AD Sidelying Exercise Name Hip AB Side right Reps/Minutes 10x 2 Manual Therapy Treatment Soft Tissue Mobilization R knee Body Location Top/bottom of scar & surrounding tissues, marielena at Quad Mobilization Type Myofascial Release Intensity/Depth Superficial Body Position Supine Comments Pt most restricted at top of scar in quad region and at end of scar in axial,caudal direction. PT-OP-R Modalities Start: 04/06/22 14:23 Freq: Status: Active Protocol: Document 05/02/22 09:05 LRN (Rec: 05/02/22 09:51 LRN [id number]) Hot Pack/Cold Pack Treatment Cold Pack Location R knee - Cryocuff Patient Position Supine Treatment Duration (minutes) 10 Comments RLE up on bolster for Knee ext stretch PT-OP-T Assessment and Plan Start: 04/06/22 14:23 Freq: Status: Active Protocol: Document 05/02/22 09:05 LRN (Rec: 05/02/22 09:51 LRN [id number]) Physical Therapy Assessment Goals Gait Short Term Goal (STG) Vashti will ambulate over smooth surfaces with her SPC for 6 minutes without antalgic gait. STG Duration 5 weeks Half-Way Goal (LTG) Vashti will ambulate over uneven surfaces without an AD without antalgia or LOB. LTG Duration 10 weeks Strength Short Term Goal (STG) Vashti will perform a SLR without quad lag to show improved quad activation. (05/02/22: Lack of knee ext due to decreased mobility, not quad lag) STG Duration 5 weeks 05/02/22: MET GOAL Timber Framer Helper Goal (LTG) Vashti will perform a partial squat without increase in baseline knee pain and with equal weightbearing. LTG Duration 10 weeks One Impairment ROM Short Term Goal (STG) Vashti will improve her PROM to 0-110 degrees. (04/18/22: PROM: lacking 3 deg' s-87 deg's) STG Duration 5 weeks Half-Way Goal (LTG) Vashti will have AROM 0-120 degrees. (04/18/22: AROM: lacking 5 deg's -87 deg's) (05/02/22: Active Knee flexion is 102 deg's) LTG Duration 10 weeks Assessment Summary Assessment Stair steppers not available, but pt able to tolerate upright bike for R knee ROM. Pt active flexion is 102 deg's . Soft tissue & fascial tightness above and below well healed scar limiting flexion. Physical Therapy Plan Next Visit Focus/Plan Next Note Type Treatment Note Next Visit Plan Continue stationary bike to progress ROM, quad sets to incr ROM, MFR quads to improve ROM, start standing TKE for quad control, SLR-incr reps. Heel slides for improving flexion. Review Prone knee ext hand stretch. Manual therapy for scar mob/ROM/edema control.
--- NOTE | 2022-05-05 21:41 | PT.OTN ---
Current Diagnoses Unilateral primary osteoarthritis, right knee (05/05/22) Physical Therapy Treatment Note PT-OP-A Visit Information Start: 04/06/22 14:23 Freq: Status: Active Protocol: Document 05/05/22 09:08 AMB (Rec: 05/05/22 09:46 AMB [id number]) Out-Patient Physical Therapy Visit Information Visit Information Visit Type Treatment Note Visit Note regional liaison phone in use, regional liaison Janette Visit Start Time 09:00 Visit Stop Time 09:45 Total Visit Minutes 45 Visit Number 8 PT-OP-B Current Condition Start: 04/06/22 14:23 Freq: Status: Active Protocol: Document 04/07/22 10:30 AMB (Rec: 04/07/22 15:43 AMB [id number]) Current Condition History of Current Condition Onset Date 03/21/22 Current Complaints R TKA History of Current Condition Vashti attends PT with her son who interprets for her per her request. Usually we will use the hospital provided interpretation, but she wants him to help today. Vashti lives with another son and her boyfriend in a second story apartment. There are 16 steep steps to enter with a railing on the left side. She attends s/p R TKA and has been doing heel slides and TKE exercises and icing since surgery. Personal Factors Other Personal Factors That May Effect Fibromyalgia, hx hysterectomy, Therapy/Recovery neck pain, back pain PT-OP-C Subjective Start: 04/06/22 14:23 Freq: Status: Active Protocol: Document 05/05/22 09:08 AMB (Rec: 05/05/22 09:46 AMB [id number]) OP-PT Subjective Patient Comments Patient Comments Pt is feeling better, can feel some discomfort at superior aspect of scar at times PT-OP-K Range of Motion Start: 04/06/22 14:23 Freq: Status: Active Protocol: Document 05/02/22 09:05 LRN (Rec: 05/02/22 09:51 LRN [id number]) Knee Goniometric Range of Motion Knee Right Patient Position Supine Flexion Active (degrees) 102 PT-OP-M Strength Start: 04/06/22 14:23 Freq: Status: Active Protocol: Document 04/07/22 10:30 AMB (Rec: 04/07/22 15:20 AMB [id number]) Knee Strength Knee Manual Muscle Testing Right Flexion (S2) 4- Good- Extension (L3) 3 Fair Left Flexion (S2) 4+ Good+ Extension (L3) 4+ Good+ PT-OP-Q Treatments Start: 04/06/22 14:23 Freq: Status: Active Protocol: Document 05/05/22 09:08 AMB (Rec: 05/05/22 09:46 AMB [id number]) Cardio Equipment Bicycle (Upright) Duration (Minutes) 8 Resistance 3 Seat Position 5 Other full revolution to begin with Therapeutic Exercises Supine Exercises quad stretch Reps/Minutes 30x3 Comments HEP TKE Side right Equipment Used Bolster roll Reps/Minutes 10 heel slides Side right Reps/Minutes 15x, rest, 5x Comments ok to push into tightness Manual Therapy Treatment Soft Tissue Mobilization R knee Body Location Top/bottom of scar & surrounding tissues, marielena at Quad Mobilization Type Myofascial Release Intensity/Depth Superficial Body Position Supine Comments Pt most restricted at top of scar in quad region and at end of scar in axial,caudal direction. Taping 1 Body Location knee Treatment Focus scar/edema Type of Tape Kinesio Tape Comments Y around patella PT-OP-R Modalities Start: 04/06/22 14:23 Freq: Status: Active Protocol: Document 05/05/22 09:00 AMB (Rec: 05/06/22 21:35 AMB [id number]) Hot Pack/Cold Pack Treatment Cold Pack Location R knee - Patient Position Supine Treatment Duration (minutes) 10 Comments RLE on bolster PT-OP-T Assessment and Plan Start: 04/06/22 14:23 Freq: Status: Active Protocol: Document 05/05/22 09:08 AMB (Rec: 05/05/22 09:46 AMB [id number]) Physical Therapy Assessment Goals Gait Short Term Goal (STG) Vashti will ambulate over smooth surfaces with her SPC for 6 minutes without antalgic gait. STG Duration 5 weeks Event Manager Goal (LTG) Vashti will ambulate over uneven surfaces without an AD without antalgia or LOB. LTG Duration 10 weeks Strength Short Term Goal (STG) Vashti will perform a SLR without quad lag to show improved quad activation. (05/02/22: Lack of knee ext due to decreased mobility, not quad lag) STG Duration 5 weeks 05/02/22: MET GOAL Alf Goal (LTG) Vashti will perform a partial squat without increase in baseline knee pain and with equal weightbearing. LTG Duration 10 weeks One Impairment ROM Short Term Goal (STG) Vashti will improve her PROM to 0-110 degrees. (04/18/22: PROM: lacking 3 deg' s-87 deg's) STG Duration 5 weeks Alf Goal (LTG) Vashti will have AROM 0-120 degrees. (04/18/22: AROM: lacking 5 deg's -87 deg's) (05/02/22: Active Knee flexion is 102 deg's) LTG Duration 10 weeks Assessment Summary Assessment Pt improving in tolerance to upright bike. Flexion still limited by scar tissue pain, but gait is improving. Tried kinesiotape per pt request for edema/ scar mobilization. Physical Therapy Plan Next Visit Focus/Plan Next Note Type Treatment Note Next Visit Plan Continue stationary bike to progress ROM, quad sets to incr ROM, MFR quads to improve ROM, start standing TKE for quad control, SLR-incr reps. Heel slides for improving flexion. Review Prone knee ext hand stretch. Manual therapy for scar mob/ROM/edema control.
--- NOTE | 2022-05-18 17:03 | PT.OTN ---
Current Diagnoses Unilateral primary osteoarthritis, right knee (05/18/22) Physical Therapy Treatment Note PT-OP-A Visit Information Start: 04/06/22 14:23 Freq: Status: Active Protocol: Document 05/18/22 09:49 LRN (Rec: 05/18/22 10:35 LRN [id number]) Out-Patient Physical Therapy Visit Information Visit Information Visit Type Treatment Note Visit Note media director phone in use, media director Elizabeth, #[id number] Visit Start Time 09:49 Visit Stop Time 10:32 Total Visit Minutes 52 Visit Number 9 PT-OP-B Current Condition Start: 04/06/22 14:23 Freq: Status: Active Protocol: Document 04/07/22 10:30 AMB (Rec: 04/07/22 15:43 AMB [id number]) Current Condition History of Current Condition Onset Date 03/21/22 Current Complaints R TKA History of Current Condition Vashti attends PT with her son who interprets for her per her request. Usually we will use the hospital provided interpretation, but she wants him to help today. Vashti lives with another son and her boyfriend in a second story apartment. There are 16 steep steps to enter with a railing on the left side. She attends s/p R TKA and has been doing heel slides and TKE exercises and icing since surgery. Personal Factors Other Personal Factors That May Effect Fibromyalgia, hx hysterectomy, Therapy/Recovery neck pain, back pain PT-OP-C Subjective Start: 04/06/22 14:23 Freq: Status: Active Protocol: Document 05/18/22 09:49 LRN (Rec: 05/18/22 10:35 LRN [id number]) OP-PT Subjective Patient Comments Patient Comments No changes to report. Per media director states her pain used to be a 9-10/10 at start of therapy and is now a 4/10. PT-OP-K Range of Motion Start: 04/06/22 14:23 Freq: Status: Active Protocol: Document 05/18/22 09:49 LRN (Rec: 05/18/22 10:35 LRN [id number]) Knee Goniometric Range of Motion Knee Right Patient Position Supine Flexion Active (degrees) 104 Flexion Passive (degrees) 105 Comments Extension lacks 3 deg's PROM. PT-OP-M Strength Start: 07/21/22 14:23 Freq: Status: Active Protocol: Document 04/07/22 10:30 AMB (Rec: 04/07/22 15:20 AMB [id number]) Knee Strength Knee Manual Muscle Testing Right Flexion (S2) 4- Good- Extension (L3) 3 Fair Left Flexion (S2) 4+ Good+ Extension (L3) 4+ Good+ PT-OP-Q Treatments Start: 04/06/22 14:23 Freq: Status: Active Protocol: Document 05/18/22 09:49 LRN (Rec: 05/18/22 10:35 LRN [id number]) Therapeutic Exercises Supine Exercises Foot on wall heel slides Supine Exercise Name Foot on wall for knee flex/ext Side right Equipment Used Wall Reps/Minutes 17' SLR Supine Exercise Name Unassisted SLR Side right Reps/Minutes 10x 3 with rests btn sets Prone Exercises R knee flex stretch Prone Exercise Name C/R stretch into flexion, f/b active knee flex Side right Reps/Minutes 4' R leg hang Prone Exercise Name Knee ext stretch Side right Reps/Minutes 3' Comments Extra time taken for positioning Sitting Exercises Active R knee flex Sitting Exercise Name Knee flex active & pasive Side right Manual Therapy Treatment Soft Tissue Mobilization R knee Body Location Top/bottom of scar & surrounding tissues, marielena at Quad Mobilization Type Myofascial Release Intensity/Depth Superficial Body Position Supine Comments Pt most restricted at top of scar in quad region and at end of scar in axial,caudal direction. PT-OP-R Modalities Start: 04/06/22 14:23 Freq: Status: Active Protocol: Document 05/18/22 09:49 LRN (Rec: 05/18/22 10:35 LRN [id number]) Hot Pack/Cold Pack Treatment Cold Pack Location R knee - Cryocuff Patient Position Supine Treatment Duration (minutes) 10 Comments RLE up on bolster for Knee ext stretch PT-OP-T Assessment and Plan Start: 04/06/22 14:23 Freq: Status: Active Protocol: Document 05/18/22 09:49 LRN (Rec: 05/18/22 10:35 LRN [id number]) Physical Therapy Assessment Goals Gait Short Term Goal (STG) Vashti will ambulate over smooth surfaces with her SPC for 6 minutes without antalgic gait. STG Duration 5 weeks In House Cra Goal (LTG) Vashti will ambulate over uneven surfaces without an AD without antalgia or LOB. LTG Duration 10 weeks Strength Short Term Goal (STG) Vashti will perform a SLR without quad lag to show improved quad activation. (05/02/22: Lack of knee ext due to decreased mobility, not quad lag) STG Duration 5 weeks 05/02/22: MET GOAL In House Cra Goal (LTG) Vashti will perform a partial squat without increase in baseline knee pain and with equal weightbearing. LTG Duration 10 weeks One Impairment ROM Short Term Goal (STG) Vashti will improve her PROM to 0-110 degrees. (04/18/22: PROM: lacking 3 deg' s-87 deg's) (05/18/22: PROM: ext-lacking 3 deg's, flex 105 deg's) STG Duration 5 weeks (05/18/22: MET GOAL) In House Cra Goal (LTG) Vashti will have AROM 0-120 degrees. (04/18/22: AROM: lacking 5 deg's -87 deg's) (05/02/22: Active Knee flexion is 102 deg's) LTG Duration 10 weeks Assessment Summary Assessment Increase R knee flex in 1 week : 2 deg's actively, 3 deg's passively. Slow progress due to pt recovering from COVID last week. Physical Therapy Plan Frequency and Duration Frequency of Treatment 2x/Week Duration of Treatment 10 weeks Plan of Care Start Date 04/07/22 Plan of Care End Date 06/23/22 Next Visit Focus/Plan Next Note Type Progress Note Next Visit Plan Lower seat on stationary bike to progress R knee ROM, Prone knee ext R knee stretch. Add backward walking to improve R knee ext, cont wall slide & MFR quads to improve R knee flex, Add standing TKE for quad control, SLR-incr reps. Manual therapy for scar mob/ ROM. End cryotherapy for pain.
--- NOTE | 2022-05-23 17:08 | PT.OTN ---
Current Diagnoses Unilateral primary osteoarthritis, right knee (05/23/22) Physical Therapy Treatment Note PT-OP-A Visit Information Start: 04/06/22 14:23 Freq: Status: Active Protocol: Document 05/23/22 13:49 LRN (Rec: 05/23/22 14:33 LRN [id number]) Out-Patient Physical Therapy Visit Information Visit Information Visit Type Progress Note Visit Note nterpreter phone in use, spanish interpreter Tamara, # [id number] Visit Start Time 13:49 Visit Stop Time 14:38 Total Visit Minutes 49 Visit Number 10 PT-OP-B Current Condition Start: 04/06/22 14:23 Freq: Status: Active Protocol: Document 04/07/22 10:30 AMB (Rec: 04/07/22 15:43 AMB [id number]) Current Condition History of Current Condition Onset Date 03/21/22 Current Complaints R TKA History of Current Condition Vashti attends PT with her son who interprets for her per her request. Usually we will use the hospital provided interpretation, but she wants him to help today. Vashti lives with another son and her boyfriend in a second story apartment. There are 16 steep steps to enter with a railing on the left side. She attends s/p R TKA and has been doing heel slides and TKE exercises and icing since surgery. Personal Factors Other Personal Factors That May Effect Fibromyalgia, hx hysterectomy, Therapy/Recovery neck pain, back pain PT-OP-C Subjective Start: 04/06/22 14:23 Freq: Status: Active Protocol: Document 05/23/22 13:49 LRN (Rec: 05/23/22 14:33 LRN [id number]) OP-PT Subjective Patient Comments Patient Comments ........ PT-OP-K Range of Motion Start: 04/06/22 14:23 Freq: Status: Active Protocol: Document 05/23/22 13:49 LRN (Rec: 05/23/22 14:33 LRN [id number]) Knee Goniometric Range of Motion Knee Right Knee ROM WFL No Patient Position Supine Flexion Active (degrees) 110 Flexion Passive (degrees) 110 Extension Active (degrees) 3 Extension Passive (degrees) 0 Left Knee ROM WFL Yes Patient Position Supine Flexion Active (degrees) 120 Extension Passive (degrees) 0 Comments 0-120 PT-OP-M Strength Start: 04/06/22 14:23 Freq: Status: Active Protocol: Document 04/07/22 10:30 AMB (Rec: 04/07/22 15:20 AMB [id number]) Knee Strength Knee Manual Muscle Testing Right Flexion (S2) 4- Good- Extension (L3) 3 Fair Left Flexion (S2) 4+ Good+ Extension (L3) 4+ Good+ PT-OP-Q Treatments Start: 04/06/22 14:23 Freq: Status: Active Protocol: Document 05/23/22 13:49 LRN (Rec: 05/23/22 14:33 LRN [id number]) Cardio Equipment Bicycle (Upright) Duration (Minutes) 10 Resistance 3 Seat Position 5, 4, 3 Other 3'@hgt 5, 5'@4, 2'@3 Therapeutic Exercises Supine Exercises Foot on wall heel slides Supine Exercise Name Foot on wall for knee flex/ext Side right Equipment Used Wall Reps/Minutes 7' SLR Supine Exercise Name Unassisted SLR (foot 12 & 2 O 'Clock) Side right Reps/Minutes 10x 3 with rests btn sets QS Supine Exercise Name QS w/ and w/o assist Side right Reps/Minutes 5' heel slides Supine Exercise Name Assisted heel slides Side right Reps/Minutes 15 x 2 Comments Pushing into tightness Prone Exercises R knee flex stretch Prone Exercise Name C/R stretch into flexion, f/b active knee flex Side right Reps/Minutes 3' Manual Therapy Treatment Soft Tissue Mobilization R Hamstring tendons Body Location R hamstring tendons Mobilization Type Strumming,Sustained Pressure Intensity/Depth Moderate Body Position Supine ankle on towel roll R knee Body Location Top/bottom of scar & surrounding tissues, marielena at Quad Mobilization Type Myofascial Release Intensity/Depth Superficial Body Position Supine Comments Pt most restricted at top of scar in quad region. PT-OP-R Modalities Start: 04/06/22 14:23 Freq: Status: Active Protocol: Document 05/23/22 13:49 LRN (Rec: 05/23/22 17:07 LRN [id number]) Hot Pack/Cold Pack Treatment Cold Pack Location R knee - Cryocuff Patient Position Supine Treatment Duration (minutes) 10 Comments RLE up on bolster for Knee ext stretch PT-OP-T Assessment and Plan Start: 04/06/22 14:23 Freq: Status: Active Protocol: Document 05/23/22 13:49 LRN (Rec: 05/23/22 14:33 LRN [id number]) Physical Therapy Assessment Goals Gait Short Term Goal (STG) Vashti will ambulate over smooth surfaces with her SPC for 6 minutes without antalgic gait. STG Duration 5 weeks Detention Goal (LTG) Vashti will ambulate over uneven surfaces without an AD without antalgia or LOB. LTG Duration 10 weeks Strength Short Term Goal (STG) Vashti will perform a SLR without quad lag to show improved quad activation. (05/02/22: Lack of knee ext due to decreased mobility, not quad lag) STG Duration 5 weeks 05/02/22: MET GOAL Detention Goal (LTG) Vashti will perform a partial squat without increase in baseline knee pain and with equal weightbearing. LTG Duration 10 weeks One Impairment ROM Short Term Goal (STG) Vashti will improve her PROM to 0-110 degrees. (04/18/22: PROM: lacking 3 deg' s-87 deg's) (05/18/22: PROM: ext-lacking 3 deg's, flex 105 deg's) (05/23/22: PROM 0-110 deg's. STG Duration 5 weeks (05/23/22: MET GOAL) Crt Goal (LTG) Vashti will have AROM 0-120 degrees. (04/18/22: AROM: lacking 5 deg's -87 deg's) (05/02/22: Active Knee flexion is 102 deg's) LTG Duration 10 weeks Progress Towards Goals Progress Comments R KNEE ROM improving for flex & extension. Assessment Summary Assessment R knee active flex (foot wall slide) improved from 104 to 110 deg's flex and Passive Ext from lacking 3 deg's to lacking 0 deg's after stretching. Physical Therapy Plan Frequency and Duration Frequency of Treatment 2x/Week Duration of Treatment 10 weeks Plan of Care Start Date 04/07/22 Plan of Care End Date 06/23/22 Next Visit Focus/Plan Next Note Type Treatment Note Next Visit Plan Progress R knee ROM on bike with lower seat hgt. Prone knee ext R knee stretch if needed. Add backward walking to improve R knee ext, cont wall slide & MFR quads to improve R knee flex, Add standing TKE for quad control, SLR-incr reps. Manual therapy for scar mob/ ROM. End cryotherapy for pain.
--- NOTE | 2022-05-23 18:12 | PT.OPPN ---
Current Diagnoses Unilateral primary osteoarthritis, right knee (05/23/22) Physical Therapy Progress Note PT-OP-A Visit Information Start: 04/06/22 14:23 Freq: Status: Active Protocol: Document 05/23/22 13:49 LRN (Rec: 05/23/22 14:33 LRN [id number]) Out-Patient Physical Therapy Visit Information Visit Information Visit Type Progress Note Visit Note nterpreter phone in use, webfed offset press operator Tamara, # [phone] Visit Start Time 13:49 Visit Stop Time 14:38 Total Visit Minutes 49 Visit Number 10 PT-OP-B Current Condition Start: 04/06/22 14:23 Freq: Status: Active Protocol: Document 04/07/22 10:30 AMB (Rec: 04/07/22 15:43 AMB [id number]) Current Condition History of Current Condition Onset Date 03/21/22 Current Complaints R TKA History of Current Condition Vashti attends PT with her son who interprets for her per her request. Usually we will use the hospital provided interpretation, but she wants him to help today. Vashti lives with another son and her boyfriend in a second story apartment. There are 16 steep steps to enter with a railing on the left side. She attends s/p R TKA and has been doing heel slides and TKE exercises and icing since surgery. Personal Factors Other Personal Factors That May Effect Fibromyalgia, hx hysterectomy, Therapy/Recovery neck pain, back pain PT-OP-C Subjective Start: 04/06/22 14:23 Freq: Status: Active Protocol: Document 05/23/22 13:49 LRN (Rec: 05/23/22 14:33 LRN [id number]) OP-PT Subjective Patient Comments Patient Comments ........ PT-OP-K Range of Motion Start: 04/06/22 14:23 Freq: Status: Active Protocol: Document 05/23/22 13:49 LRN (Rec: 05/23/22 14:33 LRN [id number]) Knee Goniometric Range of Motion Knee Measured in Degrees Right Knee ROM WFL No Patient Position Supine Flexion Active (degrees) 110 Flexion Passive (degrees) 110 Extension Active (degrees) 3 Extension Passive (degrees) 0 Left Knee ROM WFL Yes Patient Position Supine Flexion Active (degrees) 120 Extension Passive (degrees) 0 Comments 0-120 PT-OP-M Strength Start: 04/06/22 14:23 Freq: Status: Active Protocol: Document 04/07/22 10:30 AMB (Rec: 04/07/22 15:20 AMB [id number]) Knee Strength Knee Manual Muscle Testing Right Flexion (S2) 4- Good- Extension (L3) 3 Fair Left Flexion (S2) 4+ Good+ Extension (L3) 4+ Good+ PT-OP-T Assessment and Plan Start: 04/06/22 14:23 Freq: Status: Active Protocol: Document 05/23/22 13:49 LRN (Rec: 05/23/22 14:33 LRN [id number]) Physical Therapy Assessment Goals Gait Short Term Goal (STG) Vashti will ambulate over smooth surfaces with her SPC for 6 minutes without antalgic gait. STG Duration 5 weeks Market News Reporter Goal (LTG) Vashti will ambulate over uneven surfaces without an AD without antalgia or LOB. LTG Duration 10 weeks Strength Short Term Goal (STG) Vashti will perform a SLR without quad lag to show improved quad activation. (05/02/22: Lack of knee ext due to decreased mobility, not quad lag) STG Duration 5 weeks 05/02/22: MET GOAL Alf Goal (LTG) Vashti will perform a partial squat without increase in baseline knee pain and with equal weightbearing. LTG Duration 10 weeks One Impairment ROM Short Term Goal (STG) Vashti will improve her PROM to 0-110 degrees. (04/18/22: PROM: lacking 3 deg' s-87 deg's) (05/18/22: PROM: ext-lacking 3 deg's, flex 105 deg's) (05/23/22: PROM 0-110 deg's. STG Duration 5 weeks (05/23/22: MET GOAL) Market News Reporter Goal (LTG) Vashti will have AROM 0-120 degrees. (04/18/22: AROM: lacking 5 deg's -87 deg's) (05/02/22: Active Knee flexion is 102 deg's) LTG Duration 10 weeks Progress Towards Goals Progress Comments R KNEE ROM improving for flex & extension. Assessment Summary Assessment R knee active flex (foot wall slide) improved from 104 to 110 deg's flex and Passive Ext from lacking 3 deg's to lacking 0 deg's after stretching. Physical Therapy Plan Frequency and Duration Frequency of Treatment 2x/Week Duration of Treatment 10 weeks Plan of Care Start Date 04/07/22 Plan of Care End Date 06/23/22 Next Visit Focus/Plan Next Note Type Treatment Note Next Visit Plan Progress R knee ROM on bike with lower seat hgt. Prone knee ext R knee stretch if needed. Add backward walking to improve R knee ext, cont wall slide & MFR quads to improve R knee flex, Add standing TKE for quad control, SLR-incr reps. Manual therapy for scar mob/ ROM. End cryotherapy for pain.
--- NOTE | 2022-05-25 17:43 | PT.OTN ---
Current Diagnoses Unilateral primary osteoarthritis, right knee (05/25/22) Physical Therapy Treatment Note PT-OP-A Visit Information Start: 04/06/22 14:23 Freq: Status: Active Protocol: Document 05/25/22 09:06 LRN (Rec: 05/25/22 09:50 LRN [id number]) Out-Patient Physical Therapy Visit Information Visit Information Visit Type Treatment Note Visit Note nterpreter phone in use, creative arts music therapist Yue, #[phone] Visit Start Time 09:06 Visit Stop Time 10:06 Total Visit Minutes 60 Visit Number 11 Evaluation Information Evaluation Date 04/07/22 PT-OP-B Current Condition Start: 04/06/22 14:23 Freq: Status: Active Protocol: Document 04/07/22 10:30 AMB (Rec: 04/07/22 15:43 AMB [id number]) Current Condition History of Current Condition Onset Date 03/21/22 Current Complaints R TKA History of Current Condition Vashti attends PT with her son who interprets for her per her request. Usually we will use the hospital provided interpretation, but she wants him to help today. Vashti lives with another son and her boyfriend in a second story apartment. There are 16 steep steps to enter with a railing on the left side. She attends s/p R TKA and has been doing heel slides and TKE exercises and icing since surgery. Personal Factors Other Personal Factors That May Effect Fibromyalgia, hx hysterectomy, Therapy/Recovery neck pain, back pain PT-OP-C Subjective Start: 04/06/22 14:23 Freq: Status: Active Protocol: Document 05/25/22 09:06 LRN (Rec: 05/25/22 09:50 LRN [id number]) OP-PT Subjective Patient Comments Patient Comments No change PT-OP-K Range of Motion Start: 04/06/22 14:23 Freq: Status: Active Protocol: Document 05/25/22 09:06 LRN (Rec: 05/25/22 09:50 LRN [id number]) Knee Goniometric Range of Motion Knee Right Knee ROM WFL No Patient Position Supine Flexion Active (degrees) 110 Flexion Passive (degrees) 115 Extension Active (degrees) 2 Extension Passive (degrees) 0 Comments Tolerable with passive stretch . Left Knee ROM WFL Yes Patient Position Supine Flexion Active (degrees) 120 Extension Passive (degrees) 0 Comments 0-120 PT-OP-M Strength Start: 04/06/22 14:23 Freq: Status: Active Protocol: Document 04/07/22 10:30 AMB (Rec: 04/07/22 15:20 AMB [id number]) Knee Strength Knee Manual Muscle Testing Right Flexion (S2) 4- Good- Extension (L3) 3 Fair Left Flexion (S2) 4+ Good+ Extension (L3) 4+ Good+ PT-OP-Q Treatments Start: 04/06/22 14:23 Freq: Status: Active Protocol: Document 05/25/22 09:06 LRN (Rec: 05/25/22 09:50 LRN [id number]) Therapeutic Exercises Supine Exercises Foot on wall heel slides Supine Exercise Name Foot on wall for knee flex/ext Side right Equipment Used Wall Reps/Minutes 7' SLR Supine Exercise Name Unassisted SLR (foot 12 & 2 O 'Clock) Side right Reps/Minutes 15x each with rests btn sets QS Supine Exercise Name QS w/ and w/o assist Side right Reps/Minutes 5' Prone Exercises R knee flex stretch Prone Exercise Name C/R stretch into flexion, f/b active knee flex Side right Equipment Used Towel folded above knee, GB for pt to assist with flex Reps/Minutes 4x Comments PROM flex is 110 deg's, ext is 0 deg's. R leg hang Prone Exercise Name Knee ext stretch, f/b active ext stretch Side right Equipment Used towel roll above knee Reps/Minutes 2x Comments Extra time taken for positioning Standing Exercises Shallow squats Standing Exercise Name Shallow squat training with medial glide tib/fit on femur Side right Comments Cuing for pt to not squat so far due to knee over toes. Manual Therapy Treatment Soft Tissue Mobilization R knee Body Location Top tissues, marielena at Quad Mobilization Type Myofascial Release Intensity/Depth Superficial Body Position Supine Comments Pt most restricted at top of scar in quad region. PT-OP-R Modalities Start: 04/06/22 14:23 Freq: Status: Active Protocol: Document 05/23/22 13:49 LRN (Rec: 05/23/22 17:07 LRN [id number]) Hot Pack/Cold Pack Treatment Cold Pack Location R knee - Cryocuff Patient Position Supine Treatment Duration (minutes) 10 Comments RLE up on bolster for Knee ext stretch PT-OP-T Assessment and Plan Start: 04/06/22 14:23 Freq: Status: Active Protocol: Document 05/25/22 09:06 LRN (Rec: 05/25/22 09:50 LRN [id number]) Physical Therapy Assessment Goals Gait Short Term Goal (STG) Vashti will ambulate over smooth surfaces with her SPC for 6 minutes without antalgic gait. STG Duration 5 weeks Halfway Goal (LTG) Vashti will ambulate over uneven surfaces without an AD without antalgia or LOB. LTG Duration 10 weeks Strength Short Term Goal (STG) Vashti will perform a SLR without quad lag to show improved quad activation. (05/02/22: Lack of knee ext due to decreased mobility, not quad lag) STG Duration 5 weeks 05/02/22: MET GOAL Halfway Goal (LTG) Vashti will perform a partial squat without increase in baseline knee pain and with equal weightbearing. (05/25/22: Equal WBing, lateral knee pain with squat). LTG Duration 10 weeks (05/25/22: Progressing) One Impairment ROM Short Term Goal (STG) Vashti will improve her PROM to 0-110 degrees. (04/18/22: PROM: lacking 3 deg' s-87 deg's) (05/18/22: PROM: ext-lacking 3 deg's, flex 105 deg's) (05/23/22: PROM 0-110 deg's). (05/25/22: PROM 0-112 deg's, in supine) STG Duration 5 weeks (05/23/22: MET GOAL) Halfway Goal (LTG) Vashti will have AROM 0-120 degrees. (04/18/22: AROM: lacking 5 deg's -87 deg's) (05/02/22: Active Knee flexion is 102 deg's) (05/25/22: AROM R knee: 2-110 deg's) LTG Duration 10 weeks Assessment Summary Assessment Extra time taken to get creative arts music therapist on the phone. R knee PROM is 0-115 deg's (feet on wall) and 112 deg's in supine; AROM sup is 2-110 deg' s. With squat pt had R lateral knee pain reduced with MWM during squat ex. Pt needs squat training to keep knee from going over toes. Physical Therapy Plan Frequency and Duration Frequency of Treatment 2x/Week Duration of Treatment 10 weeks Plan of Care Start Date 04/07/22 Plan of Care End Date 06/23/22 Next Visit Focus/Plan Next Note Type Treatment Note Next Visit Plan Progress R knee ROM on bike with lower seat hgt, start hgt 4 or 3. Prone R knee ext stretch if needed. Start backward walking to improve R knee ext, cont wall slide & MFR quads to improve R knee flex, Add standing TKE for quad control and shallow squat training, SLR-incr reps. Manual therapy for scar mob/ ROM. End cryotherapy for pain.
--- NOTE | 2022-05-30 14:24 | PT.OTN ---
Current Diagnoses Unilateral primary osteoarthritis, right knee (05/30/22) Physical Therapy Treatment Note PT-OP-A Visit Information Start: 04/06/22 14:23 Freq: Status: Active Protocol: Document 05/30/22 08:22 AMB (Rec: 05/30/22 09:34 AMB [id number]) Out-Patient Physical Therapy Visit Information Visit Information Visit Type Treatment Note Visit Note interperter phone in use Dewey Visit Start Time 08:15 Visit Stop Time 09:00 Total Visit Minutes 45 Visit Number 12 PT-OP-B Current Condition Start: 04/06/22 14:23 Freq: Status: Active Protocol: Document 04/07/22 10:30 AMB (Rec: 04/07/22 15:43 AMB [id number]) Current Condition History of Current Condition Onset Date 03/21/22 Current Complaints R TKA History of Current Condition Vashti attends PT with her son who interprets for her per her request. Usually we will use the hospital provided interpretation, but she wants him to help today. Vashti lives with another son and her boyfriend in a second story apartment. There are 16 steep steps to enter with a railing on the left side. She attends s/p R TKA and has been doing heel slides and TKE exercises and icing since surgery. Personal Factors Other Personal Factors That May Effect Fibromyalgia, hx hysterectomy, Therapy/Recovery neck pain, back pain PT-OP-C Subjective Start: 04/06/22 14:23 Freq: Status: Active Protocol: Document 05/30/22 08:22 AMB (Rec: 05/30/22 09:34 AMB [id number]) OP-PT Subjective Patient Comments Patient Comments Pt noticing knee pain with going up the stairs. States knee can be itchy, has been taking amoxicillin, because her MD thought there could be an infection. PT-OP-K Range of Motion Start: 04/06/22 14:23 Freq: Status: Active Protocol: Document 05/25/22 09:06 LRN (Rec: 05/25/22 09:50 LRN [id number]) Knee Goniometric Range of Motion Knee Right Knee ROM WFL No Patient Position Supine Flexion Active (degrees) 110 Flexion Passive (degrees) 115 Extension Active (degrees) 2 Extension Passive (degrees) 0 Comments Tolerable with passive stretch . Left Knee ROM WFL Yes Patient Position Supine Flexion Active (degrees) 120 Extension Passive (degrees) 0 Comments 0-120 PT-OP-M Strength Start: 04/06/22 14:23 Freq: Status: Active Protocol: Document 04/07/22 10:30 AMB (Rec: 04/07/22 15:20 AMB [id number]) Knee Strength Knee Manual Muscle Testing Right Flexion (S2) 4- Good- Extension (L3) 3 Fair Left Flexion (S2) 4+ Good+ Extension (L3) 4+ Good+ PT-OP-Q Treatments Start: 04/06/22 14:23 Freq: Status: Active Protocol: Document 05/30/22 08:22 AMB (Rec: 05/30/22 09:34 AMB [id number]) Cardio Equipment Recumbent Bicycle Duration (Minutes) 7 Resistance 5 Other upright unavailable Gym Equipment Shuttle Recovery Bilateral Squats Details Escobar Squats, 0-90 Resistance 75# Shuttle Recovery Platform Stable Reps/Time 10x 4 Therapeutic Exercises Supine Exercises quad stretch Reps/Minutes 30x3 Comments HEP SLR Supine Exercise Name Unassisted SLR (foot 12 & 2 O 'Clock) Side right Reps/Minutes 15x each with rests btn sets Standing Exercises stairs Standing Exercise Name 6 stair step up Comments challenging/fatigue TKE Resistance #3 band Reps/Minutes 2x10 Manual Therapy Treatment Soft Tissue Mobilization R Hamstring tendons Body Location R hamstring tendons Mobilization Type Strumming,Sustained Pressure Intensity/Depth Moderate Body Position Supine ankle on towel roll R knee Body Location Top tissues, marielena at Quad Mobilization Type Myofascial Release Intensity/Depth Superficial Body Position Supine Comments Pt most restricted at top of scar in quad region. PT-OP-R Modalities Start: 04/06/22 14:23 Freq: Status: Active Protocol: Document 05/30/22 08:22 AMB (Rec: 05/31/22 14:15 AMB [id number]) Hot Pack/Cold Pack Treatment Cold Pack Location R knee - Cryocuff Patient Position Supine Treatment Duration (minutes) 10 Comments RLE up on bolster for Knee ext stretch PT-OP-T Assessment and Plan Start: 04/06/22 14:23 Freq: Status: Active Protocol: Document 05/30/22 08:22 AMB (Rec: 05/30/22 09:34 AMB [id number]) Physical Therapy Assessment Goals Gait Short Term Goal (STG) Vashti will ambulate over smooth surfaces with her SPC for 6 minutes without antalgic gait. STG Duration 5 weeks Detention Goal (LTG) Vashti will ambulate over uneven surfaces without an AD without antalgia or LOB. LTG Duration 10 weeks Strength Short Term Goal (STG) Vashti will perform a SLR without quad lag to show improved quad activation. (05/02/22: Lack of knee ext due to decreased mobility, not quad lag) STG Duration 5 weeks 05/02/22: MET GOAL Ross Lift Operator Goal (LTG) Vashti will perform a partial squat without increase in baseline knee pain and with equal weightbearing. (05/25/22: Equal WBing, lateral knee pain with squat). LTG Duration 10 weeks (05/25/22: Progressing) One Impairment ROM Short Term Goal (STG) Vashti will improve her PROM to 0-110 degrees. (04/18/22: PROM: lacking 3 deg' s-87 deg's) (05/18/22: PROM: ext-lacking 3 deg's, flex 105 deg's) (05/23/22: PROM 0-110 deg's). (05/25/22: PROM 0-112 deg's, in supine) STG Duration 5 weeks (05/23/22: MET GOAL) Detention Goal (LTG) Vashti will have AROM 0-120 degrees. (04/18/22: AROM: lacking 5 deg's -87 deg's) (05/02/22: Active Knee flexion is 102 deg's) (05/25/22: AROM R knee: 2-110 deg's) LTG Duration 10 weeks Assessment Summary Assessment Pt reports continued fatigue issues after getting covid a few weeks ago. Did well with shuttle squats today with form and tolerance. Stairs continue to be challenging as pt has many to enter her apartment. Physical Therapy Plan Next Visit Focus/Plan Next Note Type Treatment Note Next Visit Plan Progress R knee ROM on bike with lower seat hgt, start hgt 4 or 3. Prone R knee ext stretch if needed. Start backward walking to improve R knee ext, cont wall slide & MFR quads to improve R knee flex, Add standing TKE for quad control and shallow squat training, SLR-incr reps. Manual therapy for scar mob/ ROM. End cryotherapy for pain.
--- NOTE | 2022-06-05 13:39 | PT.OTN ---
Current Diagnoses Unilateral primary osteoarthritis, right knee (06/05/22) Physical Therapy Treatment Note PT-OP-A Visit Information Start: 04/06/22 14:23 Freq: Status: Active Protocol: Document 06/05/22 09:03 LRN (Rec: 06/05/22 09:50 LRN [id number]) Out-Patient Physical Therapy Visit Information Visit Information Visit Type Treatment Note Visit Note It Sales Representative via phone travon, #[phone] Visit Start Time 09:03 Visit Stop Time 09:58 Total Visit Minutes 55 Visit Number 13 Evaluation Information Evaluation Date 04/07/22 PT-OP-B Current Condition Start: 04/06/22 14:23 Freq: Status: Active Protocol: Document 04/07/22 10:30 AMB (Rec: 04/07/22 15:43 AMB [id number]) Current Condition History of Current Condition Onset Date 03/21/22 Current Complaints R TKA History of Current Condition Vashti attends PT with her son who interprets for her per her request. Usually we will use the hospital provided interpretation, but she wants him to help today. Vashti lives with another son and her boyfriend in a second story apartment. There are 16 steep steps to enter with a railing on the left side. She attends s/p R TKA and has been doing heel slides and TKE exercises and icing since surgery. Personal Factors Other Personal Factors That May Effect Fibromyalgia, hx hysterectomy, Therapy/Recovery neck pain, back pain PT-OP-C Subjective Start: 04/06/22 14:23 Freq: Status: Active Protocol: Document 06/05/22 09:03 LRN (Rec: 06/05/22 09:50 LRN [id number]) OP-PT Subjective Patient Comments Patient Comments Doesn't know why L knee hurts. Hurts in standing from the L knee up to the hip. Didn't do anything different. Sat 5 hrs total yesterday. Started hurting while in sitting, started at R knee, then radiated up to hip. States it hurt when waking in AM, was on stomach sleeping. PT-OP-K Range of Motion Start: 04/06/22 14:23 Freq: Status: Active Protocol: Document 06/05/22 09:03 LRN (Rec: 06/05/22 09:50 LRN [id number]) Knee Goniometric Range of Motion Knee Right Knee ROM WFL No Patient Position Supine Flexion Active (degrees) 112 Flexion Passive (degrees) 118 Extension Active (degrees) 0 Extension Passive (degrees) 0 Comments Measured with wall foot slide: AROM 4-112 PT-OP-M Strength Start: 04/06/22 14:23 Freq: Status: Active Protocol: Document 04/07/22 10:30 AMB (Rec: 04/07/22 15:20 AMB [id number]) Knee Strength Knee Manual Muscle Testing Right Flexion (S2) 4- Good- Extension (L3) 3 Fair Left Flexion (S2) 4+ Good+ Extension (L3) 4+ Good+ PT-OP-Q Treatments Start: 04/06/22 14:23 Freq: Status: Active Protocol: Document 06/05/22 09:03 LRN (Rec: 06/05/22 09:50 LRN [id number]) Cardio Equipment Bicycle (Upright) Duration (Minutes) 9 Resistance 5 Seat Position 5 Other Extra time taken to determine max tolerated stretch into extension Therapeutic Exercises Supine Exercises Foot on wall heel slides Supine Exercise Name Foot on wall for knee flex/ext Side right Equipment Used Wall Reps/Minutes 10' QS Supine Exercise Name QS w/o assist and for passive stretch Side right Equipment Used Hand towel roll under ankle Reps/Minutes 5' heel slides Supine Exercise Name Self assisted heel slides and with manual MWM of anteriorglide tib/fib Side right Equipment Used Gait belt Reps/Minutes 10' Comments PROM increased from 115 to 118 deg's Manual Therapy Treatment Soft Tissue Mobilization R knee Body Location At knee and Distal quads, IT Band Mobilization Type Strumming Intensity/Depth Moderate Body Position Supine PT-OP-R Modalities Start: 04/06/22 14:23 Freq: Status: Active Protocol: Document 06/05/22 09:03 LRN (Rec: 06/05/22 09:50 LRN [id number]) Hot Pack/Cold Pack Treatment Cold Pack Location R knee - Cryocuff Patient Position Supine Treatment Duration (minutes) 10 Comments RLE up on bolster for Knee ext stretch PT-OP-T Assessment and Plan Start: 04/06/22 14:23 Freq: Status: Active Protocol: Document 06/05/22 09:03 LRN (Rec: 06/05/22 09:50 LRN [id number]) Physical Therapy Assessment Goals Gait Short Term Goal (STG) Vashti will ambulate over smooth surfaces with her SPC for 6 minutes without antalgic gait. STG Duration 5 weeks Security Support Analyst Goal (LTG) Vashti will ambulate over uneven surfaces without an AD without antalgia or LOB. LTG Duration 10 weeks Strength Short Term Goal (STG) Vashti will perform a SLR without quad lag to show improved quad activation. (05/02/22: Lack of knee ext due to decreased mobility, not quad lag) STG Duration 5 weeks 05/02/22: MET GOAL [facility] Goal (LTG) Vashti will perform a partial squat without increase in baseline knee pain and with equal weightbearing. (05/25/22: Equal WBing, lateral knee pain with squat). LTG Duration 10 weeks (05/25/22: Progressing) One Impairment ROM Short Term Goal (STG) Vashti will improve her PROM to 0-110 degrees. (04/18/22: PROM: lacking 3 deg' s-87 deg's) (05/18/22: PROM: ext-lacking 3 deg's, flex 105 deg's) (05/23/22: PROM 0-110 deg's). (05/25/22: PROM 0-112 deg's, in supine) STG Duration 5 weeks (05/23/22: MET GOAL) [facility] Goal (LTG) Vashti will have AROM 0-120 degrees. (04/18/22: AROM: lacking 5 deg's -87 deg's) (05/02/22: Active Knee flexion is 102 deg's) (05/25/22: AROM R knee: 2-110 deg's) (06/05/22: AROM R knee: 4-112 deg's) LTG Duration 10 weeks (06/05/22: Progressing) Assessment Summary Assessment Extra time taken for interpretation of information. Pt walks in with 4 pt cane due to increased knee pain, probably from lying prone during the night with too much pressure on the knee. Her lateral R thigh pain may be back related from sitting posture. Pt improved her R knee ROM by 2 deg's actively and 3 deg's passively, 112 and 118 respectively. Held strengthening due to increased pain and focused on STM and stretching. Physical Therapy Plan Frequency and Duration Frequency of Treatment 2x/Week Duration of Treatment 10 weeks Plan of Care Start Date 04/07/22 Plan of Care End Date 06/23/22 Next Visit Focus/Plan Next Note Type Treatment Note Next Visit Plan Start gait training (see gait goal). Progress R knee ROM on bike with lower seat hgt, start hgt 4 or 3. Resume knee flex strengthening if pt tolerates. Start backward walking to improve R knee ext, cont wall slide & MFR quads to improve R knee flex, Add standing TKE for quad control and shallow squat training. Manual therapy for scar mob/ ROM. End cryotherapy for pain.
--- NOTE | 2022-06-09 17:11 | PT.OTN ---
Current Diagnoses Unilateral primary osteoarthritis, right knee (06/09/22) Physical Therapy Treatment Note PT-OP-A Visit Information Start: 04/06/22 14:23 Freq: Status: Active Protocol: Document 06/09/22 09:04 LRN (Rec: 06/09/22 09:47 LRN [id number]) Out-Patient Physical Therapy Visit Information Visit Information Visit Type Treatment Note Visit Note Chip Bin Operator Irving via phone , #[phone] Visit Start Time 09:04 Visit Stop Time 09:53 Total Visit Minutes 51 Visit Number 14 Evaluation Information Evaluation Date 04/07/22 PT-OP-B Current Condition Start: 04/06/22 14:23 Freq: Status: Active Protocol: Document 04/07/22 10:30 AMB (Rec: 04/07/22 15:43 AMB [id number]) Current Condition History of Current Condition Onset Date 03/21/22 Current Complaints R TKA History of Current Condition Vashti attends PT with her son who interprets for her per her request. Usually we will use the hospital provided interpretation, but she wants him to help today. Vashti lives with another son and her boyfriend in a second story apartment. There are 16 steep steps to enter with a railing on the left side. She attends s/p R TKA and has been doing heel slides and TKE exercises and icing since surgery. Personal Factors Other Personal Factors That May Effect Fibromyalgia, hx hysterectomy, Therapy/Recovery neck pain, back pain PT-OP-C Subjective Start: 04/06/22 14:23 Freq: Status: Active Protocol: Document 06/09/22 09:04 LRN (Rec: 06/09/22 09:47 LRN [id number]) OP-PT Subjective Patient Comments Patient Comments Last couple of days hurting R thigh and anterior lower leg. Feels like it is like bone pain, hard pain. Just a little ms pain. Yesterday saw referring physician audiology assistant and thought her R knee was doing well. C/O pain in anterior thigh and lower leg in the bone. C/O R groin and hip pain after ex bike. Had pain today after recumbent bike. Was told because of the knee she also has hip pain. PT-OP-K Range of Motion Start: 04/06/22 14:23 Freq: Status: Active Protocol: Document 06/05/22 09:03 LRN (Rec: 06/05/22 09:50 LRN [id number]) Knee Goniometric Range of Motion Knee Right Knee ROM WFL No Patient Position Supine Flexion Active (degrees) 112 Flexion Passive (degrees) 118 Extension Active (degrees) 0 Extension Passive (degrees) 0 Comments Measured with wall foot slide: AROM 4-112 PT-OP-M Strength Start: 04/06/22 14:23 Freq: Status: Active Protocol: Document 04/07/22 10:30 AMB (Rec: 04/07/22 15:20 AMB [id number]) Knee Strength Knee Manual Muscle Testing Right Flexion (S2) 4- Good- Extension (L3) 3 Fair Left Flexion (S2) 4+ Good+ Extension (L3) 4+ Good+ PT-OP-Q Treatments Start: 04/06/22 14:23 Freq: Status: Active Protocol: Document 06/09/22 09:04 LRN (Rec: 06/09/22 09:47 LRN [id number]) Cardio Equipment Recumbent Bicycle Duration (Minutes) 10 Resistance 3 Other upright unavailable Therapeutic Exercises Supine Exercises Foot on wall heel slides Supine Exercise Name Foot on wall for knee flex/ext Side right Equipment Used Wall Reps/Minutes 10' heel slides Supine Exercise Name Self assisted heel slides and with manual MWM of anteriorglide tib/fib Side right Equipment Used Gait belt Reps/Minutes 8' Comments PROM increased from 115 to 118 deg's Gait Training Gait Activity Walking even surface Description Wgt shift and trunk rot training Level of Assistance v cuing Surface even Distance/Duration 17' Manual Therapy Treatment Soft Tissue Mobilization R knee Body Location At knee and Distal quads, IT Band Mobilization Type Strumming Intensity/Depth Moderate Body Position Supine PT-OP-R Modalities Start: 04/06/22 14:23 Freq: Status: Active Protocol: Document 06/09/22 09:04 LRN (Rec: 06/09/22 09:47 LRN [id number]) Hot Pack/Cold Pack Treatment Cold Pack Location R knee - Cryocuff Patient Position Supine Treatment Duration (minutes) 10 Comments RLE up on bolster for Knee ext stretch PT-OP-T Assessment and Plan Start: 04/06/22 14:23 Freq: Status: Active Protocol: Document 06/09/22 09:04 LRN (Rec: 06/09/22 09:47 LRN [id number]) Physical Therapy Assessment Goals Gait Short Term Goal (STG) Vashti will ambulate over smooth surfaces with her SPC for 6 minutes without antalgic gait. 06/09/22: Walks on TM 8' at speed 22. On land walks 10' with SPC on level. Pt ambs with ?antalgic gait. STG Duration 5 weeks Recreational Specialist Goal (LTG) Vashti will ambulate over uneven surfaces without an AD without antalgia or LOB. LTG Duration 10 weeks Strength Short Term Goal (STG) Vashti will perform a SLR without quad lag to show improved quad activation. (05/02/22: Lack of knee ext due to decreased mobility, not quad lag) STG Duration 5 weeks 05/02/22: MET GOAL Recreational Specialist Goal (LTG) Vashti will perform a partial squat without increase in baseline knee pain and with equal weightbearing. (05/25/22: Equal WBing, lateral knee pain with squat). LTG Duration 10 weeks (05/25/22: Progressing) One Impairment ROM Short Term Goal (STG) Vashti will improve her PROM to 0-110 degrees. (04/18/22: PROM: lacking 3 deg' s-87 deg's) (05/18/22: PROM: ext-lacking 3 deg's, flex 105 deg's) (05/23/22: PROM 0-110 deg's). (05/25/22: PROM 0-112 deg's, in supine) STG Duration 5 weeks (05/23/22: MET GOAL) Recreational Specialist Goal (LTG) Vashti will have AROM 0-120 degrees. (04/18/22: AROM: lacking 5 deg's -87 deg's) (05/02/22: Active Knee flexion is 102 deg's) (05/25/22: AROM R knee: 2-110 deg's) (06/05/22: AROM R knee: 4-112 deg's) (06/09/22: AROM R knee: 2-110 deg's) LTG Duration 10 weeks (06/05/22: Progressing) Assessment Summary Assessment Pt needed rest after Recumbent bike. No significant change in R knee PROM today, but much improved gait with good wgt shift R during RLE stance phase. Pt has decreased trunk rot with gait, but when correcting rot, she was not able to Weight shift correctly ; therefore will correct rotation with gait at next visit. Pt is stable with gait without assist device, therefore no assist device needed with gait. Physical Therapy Plan Frequency and Duration Frequency of Treatment 2x/Week Duration of Treatment 10 weeks Plan of Care Start Date 04/07/22 Plan of Care End Date 06/23/22 Next Visit Focus/Plan Next Note Type Treatment Note Next Visit Plan Check TUG. Progress R knee flex ROM on bike with lower seat hgt, start hgt 4 or 3. Resume knee flex strengthening if pt tolerates. Gait training addressing lack of trunk rot (see gait goal). Start backward walking to improve R knee ext, Cont wall slide & MFR quads to improve R knee flex, (strength LTG) Check and add if needed: standing TKE for quad control and shallow squat training. Manual therapy for scar mob/ ROM. End cryotherapy for pain.
--- NOTE | 2022-06-13 17:51 | PT.OTN ---
Current Diagnoses Unilateral primary osteoarthritis, right knee (06/13/22) Physical Therapy Treatment Note PT-OP-A Visit Information Start: 04/06/22 14:23 Freq: Status: Active Protocol: Document 06/13/22 08:13 LRN (Rec: 06/13/22 09:49 LRN [id number]) Out-Patient Physical Therapy Visit Information Visit Information Visit Type Progress Note Visit Note Treating Inspector Jose D via phone , #[phone] Visit Start Time 09:04 Visit Stop Time 09:58 Total Visit Minutes 54 Visit Number 15 Evaluation Information Evaluation Date 04/07/22 PT-OP-B Current Condition Start: 04/06/22 14:23 Freq: Status: Active Protocol: Document 04/07/22 10:30 AMB (Rec: 04/07/22 15:43 AMB [id number]) Current Condition History of Current Condition Onset Date 03/21/22 Current Complaints R TKA History of Current Condition Vashti attends PT with her son who interprets for her per her request. Usually we will use the hospital provided interpretation, but she wants him to help today. Vashti lives with another son and her boyfriend in a second story apartment. There are 16 steep steps to enter with a railing on the left side. She attends s/p R TKA and has been doing heel slides and TKE exercises and icing since surgery. Personal Factors Other Personal Factors That May Effect Fibromyalgia, hx hysterectomy, Therapy/Recovery neck pain, back pain PT-OP-C Subjective Start: 04/06/22 14:23 Freq: Status: Active Protocol: Document 06/13/22 08:13 LRN (Rec: 06/13/22 09:49 LRN [id number]) OP-PT Subjective Patient Comments Patient Comments Via radiologic electronic specialist: Doing Good. A little pain, 3/10. States she might have gotten a little more motion. PT-OP-K Range of Motion Start: 04/06/22 14:23 Freq: Status: Active Protocol: Document 06/13/22 08:13 LRN (Rec: 06/13/22 09:49 LRN [id number]) Knee Goniometric Range of Motion Knee Right Knee ROM WFL No Patient Position Supine Flexion Active (degrees) 115 Flexion Passive (degrees) 118 Extension Active (degrees) 0 Extension Passive (degrees) 0 Comments Measured with wall foot slide: AROM 4-112 PT-OP-M Strength Start: 04/06/22 14:23 Freq: Status: Active Protocol: Document 04/07/22 10:30 AMB (Rec: 04/07/22 15:20 AMB [id number]) Knee Strength Knee Manual Muscle Testing Right Flexion (S2) 4- Good- Extension (L3) 3 Fair Left Flexion (S2) 4+ Good+ Extension (L3) 4+ Good+ PT-OP-Q Treatments Start: 04/06/22 14:23 Freq: Status: Active Protocol: Document 06/13/22 08:13 LRN (Rec: 06/13/22 09:49 LRN [id number]) Cardio Equipment Bicycle (Upright) Duration (Minutes) 10 Resistance 5 Seat Position 5 Other Extra time taken to determine max tolerated stretch into extension Therapeutic Exercises Supine Exercises Foot on wall heel slides Supine Exercise Name Foot on wall for knee flex/ext Side right Equipment Used Wall Reps/Minutes 10' heel slides Supine Exercise Name Self assisted heel slides and with manual MWM of anteriorglide tib/fib Side right Equipment Used Gait belt Reps/Minutes 8' Comments PROM increased from 115 to 118 deg's Standing Exercises TUG Standing Exercise Name TUG Reps/Minutes 3' Comments 9 secs. Extra time to explain and demonstrate test. Manual Therapy Treatment Taping R Healed scar Body Location Healed scar Treatment Focus Improve scar mob Type of Tape Kinesio Tape Skin Inspection Good Comments Pt I/S in safe and proper removal of tape within 5 days R knee medial glide of patella Body Location R knee: 2 Tail strip Treatment Focus Stabilize/normalize patellar mobility Type of Tape Kinesio Tape Skin Inspection Good Comments Pt I/S in safe and proper removal of tape within 5 days and removal of tape if increase pain with tape. PT-OP-R Modalities Start: 04/06/22 14:23 Freq: Status: Active Protocol: Document 06/13/22 08:13 LRN (Rec: 06/13/22 17:30 LRN [id number]) Hot Pack/Cold Pack Treatment Cold Pack Location R knee Patient Position Supine Treatment Duration (minutes) 10 Comments RLE up on bolster for Knee ext stretch PT-OP-T Assessment and Plan Start: 04/06/22 14:23 Freq: Status: Active Protocol: Document 06/13/22 08:13 LRN (Rec: 06/13/22 09:49 LRN [id number]) Physical Therapy Assessment Rehab Potential Rehabilitation Potential Good Evaluation Complexity Number of Personal Factors/Comorbidities 3 or More Number of Body Systems Impaired 4 or More Clinical Presentation at Evaluation Evolving Impairments Impairments Activity Tolerance,Gait,Pain, ROM,Strength Goals Gait Short Term Goal (STG) Vashti will ambulate over smooth surfaces with her SPC for 6 minutes without antalgic gait. 06/09/22: Walks on TM 8' at speed 22. On land walks 10' with SPC on level. Pt ambs with ?antalgic gait. 06/13/22: Pt has slight antalgic gait. STG Duration 07/04/22 (06/13/22; Progressing) Solvent Process Extractor Operator Goal (LTG) Vashti will ambulate over uneven surfaces without an AD without antalgia or LOB. LTG Duration 07/25/22 Strength Short Term Goal (STG) Vashti will perform a SLR without quad lag to show improved quad activation. (05/02/22: Lack of knee ext due to decreased mobility, not quad lag) STG Duration 5 weeks 05/02/22: MET GOAL Solvent Process Extractor Operator Goal (LTG) Vashti will perform a partial squat without increase in baseline knee pain and with equal weightbearing. (05/25/22: Equal WBing, lateral knee pain with squat). LTG Duration 07/25/22 (05/25/22: Progressing) One Impairment ROM Short Term Goal (STG) Vashti will improve her PROM to 0-110 degrees. (04/18/22: PROM: lacking 3 deg' s-87 deg's) (05/18/22: PROM: ext-lacking 3 deg's, flex 105 deg's) (05/23/22: PROM 0-110 deg's). (05/25/22: PROM 0-112 deg's, in supine) STG Duration 5 weeks (05/23/22: MET GOAL) Solvent Process Extractor Operator Goal (LTG) Vashti will have AROM 0-120 degrees. (04/18/22: AROM: lacking 5 deg's -87 deg's) (05/02/22: Active Knee flexion is 102 deg's) (05/25/22: AROM R knee: 2-110 deg's) (06/05/22: AROM R knee: 4-112 deg's) (06/09/22: AROM R knee: 2-110 deg's) (06/13/22: AROM R knee: 0-115 deg's) LTG Duration 07/25/22 (06/13/22: Progressing) Assessment Summary Assessment The pt continues to show slow improvement in R knee ROM. Her gait is improving in stability as noted with a TUG score of 9 secs; therefore pt is safe for ambulation without an assistive device. She demonstrates a slight antalgic gait. The pt would benefit from continued skilled physical therapy to improve her R knee strength and balance for greater stability and function of the R knee with gait. Additionally she will benefit from improving her R knee ROM for functional gait with stairs. Physical Therapy Plan Frequency and Duration Frequency of Treatment 2x/Week Duration of treatment (weeks) 6 Plan of Care Start Date 06/13/22 Plan of Care End Date 07/25/22 Therapeutic Interventions Therapeutic Interventions Balance Training,Gait Training ,Home Exercise Program,Manual Therapy,Neuromuscular Re- education,Self-Care/Home Management,Therapeutic Exercises Modalities Cold Pack/Ice Massage,Electric Stimulation,Hot Packs Next Visit Focus/Plan Next Note Type Treatment Note Next Visit Plan Assess reponse to K-tape. Progress R knee flex ROM ( lower seat hgt on bike, try starting hgt 4 or 3). Resume knee flex strengthening if pt tolerates. Gait/balance training addressing lack of trunk rot ( see gait goal). Start backward walking to improve R knee ext, Cont wall slide & MFR quads to improve R knee flex, (strength LTG) Check and add if needed: Shallow squat training. Manual therapy for scar mob/ ROM. End cryotherapy for pain.
--- NOTE | 2022-06-13 17:53 | PT.OPPOC ---
Physical, Occupational & Speech Therapy At [facility] Current Diagnoses Unilateral primary osteoarthritis, right knee (06/13/22) Visit Care Team Role Provider Type Tone Narvaez MD Family Provider Non-Staff Primary Care Provider Specialty: Family Practice Address: [address] [place] [address], [id number] Email: Cheri Brooks PA-C Attending Provider Non-Staff Referring Provider Specialty: General Surgery Address: [facility] [place], [address] Email: Plan Of Care PT-OP-T Assessment and Plan Start: 04/06/22 14:23 Freq: Status: Active Protocol: Document 06/13/22 08:13 LRN (Rec: 06/13/22 09:49 LRN [id number]) Physical Therapy Assessment Rehab Potential Rehabilitation Potential Good Evaluation Complexity Number of Personal Factors/Comorbidities 3 or More Number of Body Systems Impaired 4 or More Clinical Presentation at Evaluation Evolving Impairments Impairments Activity Tolerance,Gait,Pain, ROM,Strength Goals Gait Short Term Goal (STG) Vashti will ambulate over smooth surfaces with her SPC for 6 minutes without antalgic gait. 06/09/22: Walks on TM 8' at speed 22. On land walks 10' with SPC on level. Pt ambs with ?antalgic gait. 06/13/22: Pt has slight antalgic gait. STG Duration 07/04/22 (06/13/22; Progressing) Photographic Plate Maker Goal (LTG) Vashti will ambulate over uneven surfaces without an AD without antalgia or LOB. LTG Duration 07/25/22 Strength Short Term Goal (STG) Vashti will perform a SLR without quad lag to show improved quad activation. (05/02/22: Lack of knee ext due to decreased mobility, not quad lag) STG Duration 5 weeks 05/02/22: MET GOAL Photographic Plate Maker Goal (LTG) Vashti will perform a partial squat without increase in baseline knee pain and with equal weightbearing. (05/25/22: Equal WBing, lateral knee pain with squat). LTG Duration 07/25/22 (05/25/22: Progressing) One Impairment ROM Short Term Goal (STG) Vashti will improve her PROM to 0-110 degrees. (04/18/22: PROM: lacking 3 deg' s-87 deg's) (05/18/22: PROM: ext-lacking 3 deg's, flex 105 deg's) (05/23/22: PROM 0-110 deg's). (05/25/22: PROM 0-112 deg's, in supine) STG Duration 5 weeks (05/23/22: MET GOAL) Photographic Plate Maker Goal (LTG) Vashit will have AROM 0-120 degrees. (04/18/22: AROM: lacking 5 deg's -87 deg's) (05/02/22: Active Knee flexion is 102 deg's) (05/25/22: AROM R knee: 2-110 deg's) (06/05/22: AROM R knee: 4-112 deg's) (06/09/22: AROM R knee: 2-110 deg's) (06/13/22: AROM R knee: 0-115 deg's) LTG Duration 07/25/22 (06/13/22: Progressing) Assessment Summary Assessment The pt continues to show slow improvement in R knee ROM. Her gait is improving in stability as noted with a TUG score of 9 secs; therefore pt is safe for ambulation without an assistive device. She demonstrates a slight antalgic gait. The pt would benefit from continued skilled physical therapy to improve her R knee strength and balance for greater stability and function of the R knee with gait. Additionally she will benefit from improving her R knee ROM for functional gait with stairs. Physical Therapy Plan Frequency and Duration Frequency of Treatment 2x/Week Duration of treatment (weeks) 6 Plan of Care Start Date 06/13/22 Plan of Care End Date 07/25/22 Therapeutic Interventions Therapeutic Interventions Balance Training,Gait Training ,Home Exercise Program,Manual Therapy,Neuromuscular Re- education,Self-Care/Home Management,Therapeutic Exercises Modalities Cold Pack/Ice Massage,Electric Stimulation,Hot Packs Next Visit Focus/Plan Next Note Type Treatment Note Next Visit Plan Assess reponse to K-tape. Progress R knee flex ROM ( lower seat hgt on bike, try starting hgt 4 or 3). Resume knee flex strengthening if pt tolerates. Gait/balance training addressing lack of trunk rot ( see gait goal). Start backward walking to improve R knee ext, Cont wall slide & MFR quads to improve R knee flex, (strength LTG) Check and add if needed: Shallow squat training. Manual therapy for scar mob/ ROM. End cryotherapy for pain. Plan of Care Dates Plan of Care Start Date 06/13/22 Plan of Care End Date 07/25/22 Electronically Signed by: Lovely Mcdonald, PT 06/13/22 [id number] If you are in agreement with this Plan of Care, please return a signed and dated copy. I have reviewed this Plan of Care and certify that the skilled therapy services above are required to meet the patient?s needs. Physician Signature Date Printed Name and Credentials Clinical Instructor Signature Printed Name and Credentials
--- NOTE | 2022-06-16 12:32 | PT.OTN ---
Current Diagnoses Unilateral primary osteoarthritis, right knee (06/16/22) Physical Therapy Treatment Note PT-OP-A Visit Information Start: 04/06/22 14:23 Freq: Status: Active Protocol: Document 06/16/22 09:04 LRN (Rec: 06/16/22 09:48 LRN [id number]) Out-Patient Physical Therapy Visit Information Visit Information Visit Type Treatment Note Visit Note Department Chair service unavailable. Visit Start Time 09:04 Visit Stop Time 09:45 Total Visit Minutes 41 Visit Number 16 Evaluation Information Evaluation Date 04/07/22 PT-OP-B Current Condition Start: 04/06/22 14:23 Freq: Status: Active Protocol: Document 04/07/22 10:30 AMB (Rec: 04/07/22 15:43 AMB [id number]) Current Condition History of Current Condition Onset Date 03/21/22 Current Complaints R TKA History of Current Condition Vashti attends PT with her son who interprets for her per her request. Usually we will use the hospital provided interpretation, but she wants him to help today. Vashti lives with another son and her boyfriend in a second story apartment. There are 16 steep steps to enter with a railing on the left side. She attends s/p R TKA and has been doing heel slides and TKE exercises and icing since surgery. Personal Factors Other Personal Factors That May Effect Fibromyalgia, hx hysterectomy, Therapy/Recovery neck pain, back pain PT-OP-C Subjective Start: 04/06/22 14:23 Freq: Status: Active Protocol: Document 06/16/22 09:04 LRN (Rec: 06/16/22 09:48 LRN [id number]) OP-PT Subjective Patient Comments Patient Comments Pt agreeable to having PT without labor relations director service. States she removed K-tape today and it was a little painful to remove. PT-OP-K Range of Motion Start: 04/06/22 14:23 Freq: Status: Active Protocol: Document 06/16/22 09:04 LRN (Rec: 06/16/22 09:48 LRN [id number]) Knee Goniometric Range of Motion Knee Right Knee ROM WFL No Patient Position Supine Flexion Active (degrees) 118 Flexion Passive (degrees) 120 Extension Active (degrees) 0 Extension Passive (degrees) 0 Comments Measured with wall foot slide: AROM 4-116 PT-OP-M Strength Start: 07/21/22 14:23 Freq: Status: Active Protocol: Document 04/07/22 10:30 AMB (Rec: 04/07/22 15:20 AMB [id number]) Knee Strength Knee Manual Muscle Testing Right Flexion (S2) 4- Good- Extension (L3) 3 Fair Left Flexion (S2) 4+ Good+ Extension (L3) 4+ Good+ PT-OP-Q Treatments Start: 04/06/22 14:23 Freq: Status: Active Protocol: Document 06/16/22 09:04 LRN (Rec: 06/16/22 09:48 LRN [id number]) Therapeutic Exercises Supine Exercises Foot on wall heel slides Supine Exercise Name Foot on wall for knee flex/ext Side right Equipment Used Wall Reps/Minutes 10' QS Supine Exercise Name QS with asssited knee ext Side right Equipment Used Towel roll under ankle Reps/Minutes 10SH x 10 heel slides Supine Exercise Name Self assisted heel slides and with manual MWM of anteriorglide tib/fib Side right Equipment Used Gait belt towel roll under knee Reps/Minutes 8' Comments PROM increased from 115 to 118 deg's Standing Exercises Squats Standing Exercise Name Squats Equipment Used // bars & without Reps/Minutes 8' Comments cuing to not go into pain Gait Training Gait Activity Walking even surface Description Gt trainining for soft heel strike and limiting hyper ext of L knee Level of Assistance v cuing Surface even Distance/Duration 3' Manual Therapy Treatment Soft Tissue Mobilization Lap Checker R knee Body Location Posterior R knee for gentle ext stretch Intensity/Depth Superficial>Moderate Body Position Supine Comments Towel roll under ankle R knee Body Location At knee and Distal quads Mobilization Type Strumming Intensity/Depth Moderate Body Position Supine PT-OP-R Modalities Start: 04/06/22 14:23 Freq: Status: Active Protocol: Document 06/13/22 08:13 LRN (Rec: 06/13/22 17:30 LRN [id number]) Hot Pack/Cold Pack Treatment Cold Pack Location R knee Patient Position Supine Treatment Duration (minutes) 10 Comments RLE up on bolster for Knee ext stretch PT-OP-T Assessment and Plan Start: 04/06/22 14:23 Freq: Status: Active Protocol: Document 06/16/22 09:04 LRN (Rec: 06/16/22 09:48 LRN [id number]) Physical Therapy Assessment Goals Gait Short Term Goal (STG) Vashti will ambulate over smooth surfaces with her SPC for 6 minutes without antalgic gait. 06/09/22: Walks on TM 8' at speed 22. On land walks 10' with SPC on level. Pt ambs with ?antalgic gait. 06/13/22: Pt has slight antalgic gait. STG Duration 07/04/22 (06/13/22; Progressing) Care Home Goal (LTG) Vashti will ambulate over uneven surfaces without an AD without antalgia or LOB. 06/16/22: Pt has mild gait deviation with excessive heel stike and hyperext of L knee. LTG Duration 07/25/22 (06/16/22: Progressing) Strength Short Term Goal (STG) Vashti will perform a SLR without quad lag to show improved quad activation. (05/02/22: Lack of knee ext due to decreased mobility, not quad lag) STG Duration 5 weeks (05/02/22: MET GOAL) Care Home Goal (LTG) Vashti will perform a partial squat without increase in baseline knee pain and with equal weightbearing. (05/25/22: Equal WBing, lateral knee pain with squat). 06/16/22: Pt has slight knee pain with squatting and equal WBing LE's. LTG Duration 07/25/22 (06/16/22: Progressing) One Impairment ROM Short Term Goal (STG) Vashti will improve her PROM to 0-110 degrees. (04/18/22: PROM: lacking 3 deg' s-87 deg's) (05/18/22: PROM: ext-lacking 3 deg's, flex 105 deg's) (05/23/22: PROM 0-110 deg's). (05/25/22: PROM 0-112 deg's, in supine) STG Duration 5 weeks (05/23/22: MET GOAL) Database Admin Goal (LTG) Vashti will have AROM 0-120 degrees. (04/18/22: AROM: lacking 5 deg's -87 deg's) (05/02/22: Active Knee flexion is 102 deg's) (05/25/22: AROM R knee: 2-110 deg's) (06/05/22: AROM R knee: 4-112 deg's) (06/09/22: AROM R knee: 2-110 deg's) (06/13/22: AROM R knee: 0-115 deg's) (06/16/22: AROM is 3-118, PROM 0-120) LTG Duration 07/25/22 (06/16/22: Progressing) Assessment Summary Assessment Pt reporting K-tape was helpful and removed this morning. States it was uncomfortable removing K-tape; therefore will hold on tapine . R knee AROM improved from supine 115 deg's to 118 deg's (PROM 118 to 120 deg's). She is able to squat with a little pain. With gait she has excessive heel strike due to decreased ankle DF on heel strike, and she hyperextends her L knee with weight bearing L. Physical Therapy Plan Frequency and Duration Frequency of Treatment 2x/Week Duration of treatment (weeks) 6 Plan of Care Start Date 06/13/22 Plan of Care End Date 07/25/22 Next Visit Focus/Plan Next Note Type Treatment Note Next Visit Plan Progress R knee flex ROM ( lower seat hgt on bike, try starting hgt 4 or 3). Resume knee flex strengthening if pt tolerates. Gait/balance training addressing lack of trunk rot ( see gait goal). Start backward walking to improve R knee ext, Cont wall slide & MFR quads to improve R knee flex, (strength LTG) Monitor shallow squats for pain. Manual therapy for scar mob/ ROM. End cryotherapy for pain.
--- NOTE | 2022-06-23 16:29 | PT.OTN ---
Current Diagnoses Unilateral primary osteoarthritis, right knee (06/23/22) Physical Therapy Treatment Note PT-OP-A Visit Information Start: 04/06/22 14:23 Freq: Status: Active Protocol: Document 06/23/22 08:14 LRN (Rec: 06/23/22 09:02 LRN [id number]) Out-Patient Physical Therapy Visit Information Visit Information Visit Type Treatment Note Visit Note Chemistry Intern service unavailable. [facility] #[id number] Visit Start Time 08:14 Visit Stop Time 08:56 Total Visit Minutes 52 Visit Number 37 Evaluation Information Evaluation Date 04/07/22 PT-OP-B Current Condition Start: 04/06/22 14:23 Freq: Status: Active Protocol: Document 04/07/22 10:30 AMB (Rec: 04/07/22 15:43 AMB [id number]) Current Condition History of Current Condition Onset Date 03/21/22 Current Complaints R TKA History of Current Condition Vashti attends PT with her son who interprets for her per her request. Usually we will use the hospital provided interpretation, but she wants him to help today. Vashti lives with another son and her boyfriend in a second story apartment. There are 16 steep steps to enter with a railing on the left side. She attends s/p R TKA and has been doing heel slides and TKE exercises and icing since surgery. Personal Factors Other Personal Factors That May Effect Fibromyalgia, hx hysterectomy, Therapy/Recovery neck pain, back pain PT-OP-C Subjective Start: 04/06/22 14:23 Freq: Status: Active Protocol: Document 06/23/22 08:14 LRN (Rec: 06/23/22 09:02 LRN [id number]) OP-PT Subjective Patient Comments Patient Comments C/O R medial knee pain that started yesterday. Pain is rated 8/10. PT-OP-K Range of Motion Start: 04/06/22 14:23 Freq: Status: Active Protocol: Document 06/23/22 08:14 LRN (Rec: 06/23/22 09:02 LRN [id number]) Knee Goniometric Range of Motion Knee Right Knee ROM WFL No Patient Position Supine Flexion Active (degrees) 116 Flexion Passive (degrees) 122 Extension Active (degrees) 0 Extension Passive (degrees) 0 Comments Measured with wall foot slide: AROM 2-118 PT-OP-M Strength Start: 04/06/22 14:23 Freq: Status: Active Protocol: Document 04/07/22 10:30 AMB (Rec: 04/07/22 15:20 AMB [id number]) Knee Strength Knee Manual Muscle Testing Right Flexion (S2) 4- Good- Extension (L3) 3 Fair Left Flexion (S2) 4+ Good+ Extension (L3) 4+ Good+ PT-OP-Q Treatments Start: 04/06/22 14:23 Freq: Status: Active Protocol: Document 06/23/22 08:14 LRN (Rec: 06/23/22 09:02 LRN [id number]) Cardio Equipment Bicycle (Upright) Duration (Minutes) 10 Resistance 5 Seat Position 4 Other Extra time taken to determine max tolerated stretch into extension Gym Equipment Cable Column (Body Solid) Leg Curl Details Seat 5 holes showing Resistance 10# with help of LLE at end range Reps/Time 10x Therapeutic Exercises Supine Exercises Foot on wall heel slides Supine Exercise Name Foot on wall for knee flex/ext Side right Equipment Used Wall Reps/Minutes 8' Comments R knee flex is 120 deg's heel slides Supine Exercise Name Self assisted heel slides and with manual MWM of anteriorglide tib/fib Side right Equipment Used Gait belt towel roll under knee Reps/Minutes 7' Comments PROM increased from 120 to 122 deg's. MWM of PA tib/fib w/IR -ext & ER-flex Standing Exercises Knee flex Standing Exercise Name Knee flex strengthening Side right Equipment Used Lev 2 TB Reps/Minutes 10x3 Step ups Standing Exercise Name Step ups 4 step Side right Reps/Minutes 30 Comments No c/o pain PT-OP-R Modalities Start: 04/06/22 14:23 Freq: Status: Active Protocol: Document 06/23/22 08:14 LRN (Rec: 06/23/22 09:02 LRN [id number]) Hot Pack/Cold Pack Treatment Cold Pack Location R knee Patient Position Supine Treatment Duration (minutes) 10 Comments RLE up on bolster for Knee ext stretch PT-OP-T Assessment and Plan Start: 04/06/22 14:23 Freq: Status: Active Protocol: Document 06/23/22 08:14 LRN (Rec: 06/23/22 09:02 LRN [id number]) Physical Therapy Assessment Goals Gait Short Term Goal (STG) Vashti will ambulate over smooth surfaces with her SPC for 6 minutes without antalgic gait. 06/09/22: Walks on TM 8' at speed 22. On land walks 10' with SPC on level. Pt ambs with ?antalgic gait. 06/13/22: Pt has slight antalgic gait. STG Duration 07/04/22 (06/13/22; Progressing) Halfway Goal (LTG) Vashti will ambulate over uneven surfaces without an AD without antalgia or LOB. 06/16/22: Pt has mild gait deviation with excessive heel stike and hyperext of L knee. LTG Duration 07/25/22 (06/16/22: Progressing) Strength Short Term Goal (STG) Vashti will perform a SLR without quad lag to show improved quad activation. (05/02/22: Lack of knee ext due to decreased mobility, not quad lag) STG Duration 5 weeks (05/02/22: MET GOAL) Machine Heel Sprayer Goal (LTG) Vashti will perform a partial squat without increase in baseline knee pain and with equal weightbearing. (05/25/22: Equal WBing, lateral knee pain with squat). 06/16/22: Pt has slight knee pain with squatting and equal WBing LE's. LTG Duration 07/25/22 (06/16/22: Progressing) One Impairment ROM Short Term Goal (STG) Vashti will improve her PROM to 0-110 degrees. (04/18/22: PROM: lacking 3 deg' s-87 deg's) (05/18/22: PROM: ext-lacking 3 deg's, flex 105 deg's) (05/23/22: PROM 0-110 deg's). (05/25/22: PROM 0-112 deg's, in supine) STG Duration 5 weeks (05/23/22: MET GOAL) Machine Heel Sprayer Goal (LTG) Vashti will have AROM 0-120 degrees. (04/18/22: AROM: lacking 5 deg's -87 deg's) (05/02/22: Active Knee flexion is 102 deg's) (05/25/22: AROM R knee: 2-110 deg's) (06/05/22: AROM R knee: 4-112 deg's) (06/09/22: AROM R knee: 2-110 deg's) (06/13/22: AROM R knee: 0-115 deg's) (06/16/22: AROM is 3-118, PROM 0-120) 06/23/22: 06/23/22: AROM R knee 0-116, PROM 0-122) LTG Duration 07/25/22 (06/16/22: Progressing) Assessment Summary Assessment Pt ambs in with antalgic gait. R knee PROM increased from 120 deg's to 122 deg's in supine and 116 to 118 deg's with foot on wall. Scar mobility is good. Physical Therapy Plan Frequency and Duration Frequency of Treatment 2x/Week Duration of treatment (weeks) 6 Plan of Care Start Date 06/13/22 Plan of Care End Date 07/25/22 Next Visit Focus/Plan Next Note Type Treatment Note Next Visit Plan Progress R knee flex ROM ( lower seat hgt on bike, try starting hgt 4 or 3). Progress knee flex strengthening. Gait/balance training addressing lack of trunk rot ( see gait goal). Start backward walking to improve R knee ext, Cont wall slide & MFR quads to improve R knee flex, (strength LTG) Monitor shallow squats for pain. Manual therapy for ROM. End cryotherapy for pain.
--- NOTE | 2022-06-27 16:27 | PT.OTN ---
Current Diagnoses Unilateral primary osteoarthritis, right knee (06/27/22) Physical Therapy Treatment Note PT-OP-A Visit Information Start: 04/06/22 14:23 Freq: Status: Active Protocol: Document 06/27/22 13:02 LRN (Rec: 06/27/22 13:46 LRN [id number]) Out-Patient Physical Therapy Visit Information Visit Information Visit Type Treatment Note Visit Note Accounting System Expert Jeffrey, #[id number]. Visit Start Time 13:02 Visit Stop Time 13:43 Total Visit Minutes 41 Visit Number 38 Evaluation Information Evaluation Date 04/07/22 PT-OP-B Current Condition Start: 04/06/22 14:23 Freq: Status: Active Protocol: Document 04/07/22 10:30 AMB (Rec: 04/07/22 15:43 AMB [id number]) Current Condition History of Current Condition Onset Date 03/21/22 Current Complaints R TKA History of Current Condition Vashti attends PT with her son who interprets for her per her request. Usually we will use the hospital provided interpretation, but she wants him to help today. Vashti lives with another son and her boyfriend in a second story apartment. There are 16 steep steps to enter with a railing on the left side. She attends s/p R TKA and has been doing heel slides and TKE exercises and icing since surgery. Personal Factors Other Personal Factors That May Effect Fibromyalgia, hx hysterectomy, Therapy/Recovery neck pain, back pain PT-OP-C Subjective Start: 04/06/22 14:23 Freq: Status: Active Protocol: Document 06/27/22 13:02 LRN (Rec: 06/27/22 13:46 LRN [id number]) OP-PT Subjective Patient Comments Patient Comments States he dog slept on her knee and she has had more R knee pain for past 3 days. Has tried using ice. Pain rated at 9/10. PT-OP-K Range of Motion Start: 04/06/22 14:23 Freq: Status: Active Protocol: Document 06/27/22 13:02 LRN (Rec: 06/27/22 13:46 LRN [id number]) Knee Goniometric Range of Motion Knee Right Knee ROM WFL No Patient Position Supine Flexion Active (degrees) 110 Flexion Passive (degrees) 120 Extension Active (degrees) 0 Extension Passive (degrees) 0 Comments Measured with wall foot slide: AROM 2-122 PT-OP-M Strength Start: 04/06/22 14:23 Freq: Status: Active Protocol: Document 04/07/22 10:30 AMB (Rec: 04/07/22 15:20 AMB [id number]) Knee Strength Knee Manual Muscle Testing Right Flexion (S2) 4- Good- Extension (L3) 3 Fair Left Flexion (S2) 4+ Good+ Extension (L3) 4+ Good+ PT-OP-Q Treatments Start: 04/06/22 14:23 Freq: Status: Active Protocol: Document 06/27/22 13:02 LRN (Rec: 06/27/22 13:46 LRN [id number]) Cardio Equipment Bicycle (Upright) Duration (Minutes) 10 Resistance 5 Seat Position 4>3 Other Extra time taken to determine max tolerated stretch into extension Gym Equipment Cable Column (Body Solid) Leg Curl Details Seat 5 holes showing Resistance 15# with help of LLE at end range flex Reps/Time 10x 2 Leg Extension Details Seat: 6 holes Resistance 0#, 10# Reps/Time 10x uncomfortable, less pain with MWM of Lat glide Tib/Fib Shuttle Recovery Bilateral Squats Details Escobar Squats, 0-90 Resistance 75# Shuttle Recovery Platform Stable Reps/Time 10x 3 Therapeutic Exercises Supine Exercises Foot on wall heel slides Supine Exercise Name Foot on wall for knee flex/ext Side right Equipment Used Wall Reps/Minutes 8' Comments R knee flex 112-122 deg's QS Supine Exercise Name QS-asssited knee ext stretch Side right heel slides Supine Exercise Name Self assisted heel slides and with manual MWM of anteriorglide tib/fib Side right Equipment Used Gait belt towel roll under knee part of time Reps/Minutes 7' Comments MWM of Lat glide of tib/fib with flexion Gait Training Gait Activity Backward walking Description Backward walking to get R toe lift and full knee ext Device Used Railing Level of Assistance v. cuing Surface Level Distance/Duration 3' PT-OP-R Modalities Start: 04/06/22 14:23 Freq: Status: Active Protocol: Document 06/23/22 08:14 LRN (Rec: 06/23/22 09:02 LRN [id number]) Hot Pack/Cold Pack Treatment Cold Pack Location R knee Patient Position Supine Treatment Duration (minutes) 10 Comments RLE up on bolster for Knee ext stretch PT-OP-T Assessment and Plan Start: 04/06/22 14:23 Freq: Status: Active Protocol: Document 06/27/22 13:02 LRN (Rec: 06/27/22 13:46 LRN [id number]) Physical Therapy Assessment Goals Gait Short Term Goal (STG) Vashti will ambulate over smooth surfaces with her SPC for 6 minutes without antalgic gait. 06/09/22: Walks on TM 8' at speed 22. On land walks 10' with SPC on level. Pt ambs with ?antalgic gait. 06/13/22: Pt has slight antalgic gait. STG Duration 07/04/22 (06/13/22; Progressing) Slitter Cut Off Operator Goal (LTG) Vashti will ambulate over uneven surfaces without an AD without antalgia or LOB. 06/16/22: Pt has mild gait deviation with excessive heel stike and hyperext of L knee. LTG Duration 07/25/22 (06/16/22: Progressing) Strength Short Term Goal (STG) Vashti will perform a SLR without quad lag to show improved quad activation. (05/02/22: Lack of knee ext due to decreased mobility, not quad lag) STG Duration 5 weeks (05/02/22: MET GOAL) Slitter Cut Off Operator Goal (LTG) Vashti will perform a partial squat without increase in baseline knee pain and with equal weightbearing. (05/25/22: Equal WBing, lateral knee pain with squat). 06/16/22: Pt has slight knee pain with squatting and equal WBing LE's. LTG Duration 07/25/22 (06/16/22: Progressing) One Impairment ROM Short Term Goal (STG) Vashti will improve her PROM to 0-110 degrees. (04/18/22: PROM: lacking 3 deg' s-87 deg's) (05/18/22: PROM: ext-lacking 3 deg's, flex 105 deg's) (05/23/22: PROM 0-110 deg's). (05/25/22: PROM 0-112 deg's, in supine) STG Duration 5 weeks (05/23/22: MET GOAL) Slitter Cut Off Operator Goal (LTG) Vashti will have AROM 0-120 degrees. (04/18/22: AROM: lacking 5 deg's -87 deg's) (05/02/22: Active Knee flexion is 102 deg's) (06/05/22: AROM R knee: 4-112 deg's) (06/09/22: AROM R knee: 2-110 deg's) (06/13/22: AROM R knee: 0-115 deg's) (06/16/22: AROM is 3-118, PROM 0-120) (06/23/22: AROM R knee 0-116, PROM 0-122) LTG Duration 07/25/22 (06/16/22: Progressing) Assessment Summary Assessment Pt appeared to tolerate seat hgt 3 very well on upright bike. Has not been able to walk too much because of the pain at the R knee from dog ( toy poodle) laying on it. Decreased R knee ROM due to swelling and increase temp on lateral R knee after having her toy poodle lie on it during the night 3 days ago. Pt demonstrates much improved gait at end of therapy with minimal antalgic gait with practice. Physical Therapy Plan Frequency and Duration Frequency of Treatment 2x/Week Duration of treatment (weeks) 6 Plan of Care Start Date 06/13/22 Plan of Care End Date 07/25/22 Next Visit Focus/Plan Next Note Type Treatment Note Next Visit Plan Pt to return first of Nov due to other MD appts and PT being gone. Pt to work on improve R knee flexion ROM. Progress pt ambulatory ability for normal gait. R knee flex ROM (lower seat hgt on bike, try starting hgt 3). Progress knee strengthening. Gait/balance training addressing lack of trunk rot ( see gait goal). Check backward walking for R knee ext mobility restriction, (strength LTG) Monitor shallow squats for pain. End cryotherapy for pain.
--- NOTE | 2022-06-27 16:30 | PT.OTN ---
Current Diagnoses Unilateral primary osteoarthritis, right knee (06/27/22) Physical Therapy Treatment Note PT-OP-A Visit Information Start: 04/06/22 14:23 Freq: Status: Active Protocol: Document 06/27/22 13:02 LRN (Rec: 06/27/22 13:46 LRN [id number]) Out-Patient Physical Therapy Visit Information Visit Information Visit Type Treatment Note Visit Note Middleware Systems Architect Jeffrey, #[id number]. Visit Start Time 13:02 Visit Stop Time 13:43 Total Visit Minutes 41 Visit Number 38 Evaluation Information Evaluation Date 04/07/22 PT-OP-B Current Condition Start: 04/06/22 14:23 Freq: Status: Active Protocol: Document 04/07/22 10:30 AMB (Rec: 04/07/22 15:43 AMB [id number]) Current Condition History of Current Condition Onset Date 03/21/22 Current Complaints R TKA History of Current Condition Vashti attends PT with her son who interprets for her per her request. Usually we will use the hospital provided interpretation, but she wants him to help today. Vashti lives with another son and her boyfriend in a second story apartment. There are 16 steep steps to enter with a railing on the left side. She attends s/p R TKA and has been doing heel slides and TKE exercises and icing since surgery. Personal Factors Other Personal Factors That May Effect Fibromyalgia, hx hysterectomy, Therapy/Recovery neck pain, back pain PT-OP-C Subjective Start: 04/06/22 14:23 Freq: Status: Active Protocol: Document 06/27/22 13:02 LRN (Rec: 06/27/22 13:46 LRN [id number]) OP-PT Subjective Patient Comments Patient Comments States he dog slept on her knee and she has had more R knee pain for past 3 days. Has tried using ice. Pain rated at 9/10. PT-OP-K Range of Motion Start: 04/06/22 14:23 Freq: Status: Active Protocol: Document 06/27/22 13:02 LRN (Rec: 06/27/22 13:46 LRN [id number]) Knee Goniometric Range of Motion Knee Right Knee ROM WFL No Patient Position Supine Flexion Active (degrees) 110 Flexion Passive (degrees) 120 Extension Active (degrees) 0 Extension Passive (degrees) 0 Comments Measured with wall foot slide: AROM 2-122 PT-OP-M Strength Start: 04/06/22 14:23 Freq: Status: Active Protocol: Document 04/07/22 10:30 AMB (Rec: 04/07/22 15:20 AMB [id number]) Knee Strength Knee Manual Muscle Testing Right Flexion (S2) 4- Good- Extension (L3) 3 Fair Left Flexion (S2) 4+ Good+ Extension (L3) 4+ Good+ PT-OP-Q Treatments Start: 04/06/22 14:23 Freq: Status: Active Protocol: Document 06/27/22 13:02 LRN (Rec: 06/27/22 13:46 LRN [id number]) Cardio Equipment Bicycle (Upright) Duration (Minutes) 10 Resistance 5 Seat Position 4>3 Other Extra time taken to determine max tolerated stretch into extension Gym Equipment Cable Column (Body Solid) Leg Curl Details Seat 5 holes showing Resistance 15# with help of LLE at end range flex Reps/Time 10x 2 Leg Extension Details Seat: 6 holes Resistance 0#, 10# Reps/Time 10x uncomfortable, less pain with MWM of Lat glide Tib/Fib Shuttle Recovery Bilateral Squats Details Escobar Squats, 0-90 Resistance 75# Shuttle Recovery Platform Stable Reps/Time 10x 3 Therapeutic Exercises Supine Exercises Foot on wall heel slides Supine Exercise Name Foot on wall for knee flex/ext Side right Equipment Used Wall Reps/Minutes 8' Comments R knee flex 112-122 deg's QS Supine Exercise Name QS-asssited knee ext stretch Side right heel slides Supine Exercise Name Self assisted heel slides and with manual MWM of anteriorglide tib/fib Side right Equipment Used Gait belt towel roll under knee part of time Reps/Minutes 7' Comments MWM of Lat glide of tib/fib with flexion Gait Training Gait Activity Backward walking Description Backward walking to get R toe lift and full knee ext Device Used Railing Level of Assistance v. cuing Surface Level Distance/Duration 3' PT-OP-R Modalities Start: 04/06/22 14:23 Freq: Status: Active Protocol: Document 06/23/22 08:14 LRN (Rec: 06/23/22 09:02 LRN [id number]) Hot Pack/Cold Pack Treatment Cold Pack Location R knee Patient Position Supine Treatment Duration (minutes) 10 Comments RLE up on bolster for Knee ext stretch PT-OP-T Assessment and Plan Start: 04/06/22 14:23 Freq: Status: Active Protocol: Document 06/27/22 13:02 LRN (Rec: 06/27/22 13:46 LRN [id number]) Physical Therapy Assessment Goals Gait Short Term Goal (STG) Vashti will ambulate over smooth surfaces with her SPC for 6 minutes without antalgic gait. 06/09/22: Walks on TM 8' at speed 22. On land walks 10' with SPC on level. Pt ambs with ?antalgic gait. 06/13/22: Pt has slight antalgic gait. STG Duration 07/04/22 (06/13/22; Progressing) Fur Trimming Machine Operator Goal (LTG) Vashti will ambulate over uneven surfaces without an AD without antalgia or LOB. 06/16/22: Pt has mild gait deviation with excessive heel stike and hyperext of L knee. LTG Duration 07/25/22 (06/16/22: Progressing) Strength Short Term Goal (STG) Vashti will perform a SLR without quad lag to show improved quad activation. (05/02/22: Lack of knee ext due to decreased mobility, not quad lag) STG Duration 5 weeks (05/02/22: MET GOAL) Fur Trimming Machine Operator Goal (LTG) Vashti will perform a partial squat without increase in baseline knee pain and with equal weightbearing. (05/25/22: Equal WBing, lateral knee pain with squat). 06/16/22: Pt has slight knee pain with squatting and equal WBing LE's. LTG Duration 07/25/22 (06/16/22: Progressing) One Impairment ROM Short Term Goal (STG) Vashti will improve her PROM to 0-110 degrees. (04/18/22: PROM: lacking 3 deg' s-87 deg's) (05/18/22: PROM: ext-lacking 3 deg's, flex 105 deg's) (05/23/22: PROM 0-110 deg's). (05/25/22: PROM 0-112 deg's, in supine) STG Duration 5 weeks (05/23/22: MET GOAL) Fur Trimming Machine Operator Goal (LTG) Vashti will have AROM 0-120 degrees. (04/18/22: AROM: lacking 5 deg's -87 deg's) (05/02/22: Active Knee flexion is 102 deg's) (06/05/22: AROM R knee: 4-112 deg's) (06/09/22: AROM R knee: 2-110 deg's) (06/13/22: AROM R knee: 0-115 deg's) (06/16/22: AROM is 3-118, PROM 0-120) (06/23/22: AROM R knee 0-116, PROM 0-122) LTG Duration 07/25/22 (06/16/22: Progressing) Assessment Summary Assessment Pt appeared to tolerate seat hgt 3 very well on upright bike. Has not been able to walk too much because of the pain at the R knee from dog ( toy poodle) laying on it. Decreased R knee ROM due to swelling and increase temp on lateral R knee after having her toy poodle lie on it during the night 3 days ago. Pt demonstrates much improved gait at end of therapy with minimal antalgic gait with practice. Physical Therapy Plan Frequency and Duration Frequency of Treatment 2x/Week Duration of treatment (weeks) 6 Plan of Care Start Date 06/13/22 Plan of Care End Date 07/25/22 Next Visit Focus/Plan Next Note Type Progress Note Next Visit Plan New POC needed when pt returns first of Nov, due to other MD appts and PT unavailable. Pt to work on improve R knee flexion ROM. Progress pt ambulatory ability for normal gait. R knee flex ROM (lower seat hgt on bike, try starting hgt 3). Progress knee strengthening. Gait/balance training addressing lack of trunk rot ( see gait goal). Check backward walking for R knee ext mobility restriction, (strength LTG) Monitor shallow squats for pain. End cryotherapy for pain.
--- NOTE | 2022-06-29 12:45 | PT.OTN ---
Current Diagnoses Unilateral primary osteoarthritis, right knee (06/29/22) Physical Therapy Treatment Note PT-OP-A Visit Information Start: 04/06/22 14:23 Freq: Status: Active Protocol: Document 06/29/22 11:22 LRN (Rec: 06/29/22 12:39 LRN [id number]) Out-Patient Physical Therapy Visit Information Visit Information Visit Type Treatment Note Visit Note Cage Fighter Juliocesar Landers, # [id number]. 5 after last PN Visit Start Time 11:22 Visit Stop Time 12:17 Total Visit Minutes 55 Visit Number 39/99 Evaluation Information Evaluation Date 04/07/22 PT-OP-B Current Condition Start: 04/06/22 14:23 Freq: Status: Active Protocol: Document 04/07/22 10:30 AMB (Rec: 04/07/22 15:43 AMB [id number]) Current Condition History of Current Condition Onset Date 03/21/22 Current Complaints R TKA History of Current Condition Vashti attends PT with her son who interprets for her per her request. Usually we will use the hospital provided interpretation, but she wants him to help today. Vasthi lives with another son and her boyfriend in a second story apartment. There are 16 steep steps to enter with a railing on the left side. She attends s/p R TKA and has been doing heel slides and TKE exercises and icing since surgery. Personal Factors Other Personal Factors That May Effect Fibromyalgia, hx hysterectomy, Therapy/Recovery neck pain, back pain PT-OP-C Subjective Start: 04/06/22 14:23 Freq: Status: Active Protocol: Document 06/29/22 11:22 LRN (Rec: 06/29/22 12:39 LRN [id number]) OP-PT Subjective Patient Comments Patient Comments c/o R hip pain with radiating pain down posterior thigh with walking. PT-OP-K Range of Motion Start: 04/06/22 14:23 Freq: Status: Active Protocol: Document 06/29/22 11:22 LRN (Rec: 06/29/22 12:39 LRN [id number]) Knee Goniometric Range of Motion Knee Right Knee ROM WFL No Patient Position Supine Flexion Active (degrees) 120 Flexion Passive (degrees) 122 Comments Measured with wall foot slide: AROM 2-123 PT-OP-M Strength Start: 04/06/22 14:23 Freq: Status: Active Protocol: Document 04/07/22 10:30 AMB (Rec: 04/07/22 15:20 AMB [id number]) Knee Strength Knee Manual Muscle Testing Right Flexion (S2) 4- Good- Extension (L3) 3 Fair Left Flexion (S2) 4+ Good+ Extension (L3) 4+ Good+ PT-OP-Q Treatments Start: 04/06/22 14:23 Freq: Status: Active Protocol: Document 06/29/22 11:22 LRN (Rec: 06/29/22 12:39 LRN [id number]) Cardio Equipment Bicycle (Upright) Duration (Minutes) 10 Resistance 5 Seat Position 3 Other Extra time taken to determine max tolerated stretch into extension Therapeutic Exercises Supine Exercises Foot on wall heel slides Supine Exercise Name Foot on wall for knee flex/ext Side right Equipment Used Wall Reps/Minutes 5' Comments R knee flex 112-122 deg's heel slides Supine Exercise Name Self assisted heel slides and with manual MWM of anteriorglide tib/fib Side right Equipment Used Gait belt towel roll under knee part of time Reps/Minutes 6' Comments MWM of Lat glide of tib/fib with flexion Prone Exercises R knee flex stretch Prone Exercise Name C/R stretch into flexion, f/b active knee flex Side right Equipment Used Cold pack under knee Reps/Minutes 6' Comments PROM flex is 110 deg's, ext is 0 deg's. Sitting Exercises TA tightening Sitting Exercise Name TA tightening with transfers Reps/Minutes 3' Comments Core/Pelvic stab with rolling, sit<>stand, car sit, walk. Standing Exercises Self Trp Rx Standing Exercise Name Self TrP rx of R gluteal Side right Equipment Used Tennis ball Reps/Minutes 2' Manual Therapy Treatment Soft Tissue Mobilization Sacral balancing Body Location Sacrum Mobilization Type Myofascial Release,Sustained Pressure Intensity/Depth Mild to moderate Body Position Prone Comments R infer glide of sacral sulcus , L shear of sacrum, PA of L CRISTHIAN & L Ischial Tub, 6 point balancing of sacrum R lateral thigh Body Location R IT Band Mobilization Type Instrument Assisted Intensity/Depth Mild Body Position Sidelying Comments Ribbed roller on IT Band and tennis ball used on R hip. PT-OP-R Modalities Start: 04/06/22 14:23 Freq: Status: Active Protocol: Document 06/23/22 08:14 LRN (Rec: 06/23/22 09:02 LRN [id number]) Hot Pack/Cold Pack Treatment Cold Pack Location R knee Patient Position Supine Treatment Duration (minutes) 10 Comments RLE up on bolster for Knee ext stretch PT-OP-T Assessment and Plan Start: 04/06/22 14:23 Freq: Status: Active Protocol: Document 06/29/22 11:22 LRN (Rec: 06/29/22 12:39 LRN [id number]) Physical Therapy Assessment Goals Gait Short Term Goal (STG) Vashti will ambulate over smooth surfaces with her SPC for 6 minutes without antalgic gait. 06/09/22: Walks on TM 8' at speed 22. On land walks 10' with SPC on level. Pt ambs with ?antalgic gait. 06/13/22: Pt has slight antalgic gait. STG Duration 07/04/22 (06/13/22; Progressing) Usp Goal (LTG) Vashti will ambulate over uneven surfaces without an AD without antalgia or LOB. 06/16/22: Pt has mild gait deviation with excessive heel stike and hyperext of L knee. LTG Duration 07/25/22 (06/16/22: Progressing) Strength Short Term Goal (STG) Vashti will perform a SLR without quad lag to show improved quad activation. (05/02/22: Lack of knee ext due to decreased mobility, not quad lag) STG Duration 5 weeks (05/02/22: MET GOAL) Retail Inventory Control Clerk Goal (LTG) Vashti will perform a partial squat without increase in baseline knee pain and with equal weightbearing. (05/25/22: Equal WBing, lateral knee pain with squat). 06/16/22: Pt has slight knee pain with squatting and equal WBing LE's. LTG Duration 07/25/22 (06/16/22: Progressing) One Impairment ROM Short Term Goal (STG) Vashti will improve her PROM to 0-110 degrees. (04/18/22: PROM: lacking 3 deg' s-87 deg's) (05/18/22: PROM: ext-lacking 3 deg's, flex 105 deg's) (05/23/22: PROM 0-110 deg's). (05/25/22: PROM 0-112 deg's, in supine) STG Duration 5 weeks (05/23/22: MET GOAL) Usp Goal (LTG) Vashti will have AROM 0-120 degrees. (04/18/22: AROM: lacking 5 deg's -87 deg's) (05/02/22: Active Knee flexion is 102 deg's) (06/05/22: AROM R knee: 4-112 deg's) (06/09/22: AROM R knee: 2-110 deg's) (06/13/22: AROM R knee: 0-115 deg's) (06/16/22: AROM is 3-118, PROM 0-120) (06/23/22: AROM R knee 0-116, PROM 0-122) LTG Duration 07/25/22 (06/16/22: Progressing) Assessment Summary Assessment Pt ambs with antalgic gait due to R hip and posterior thigh pain. She appears to have R sciatic pain that is hindering her exercise tolerance. Pt appeared to respond positively to STM with reduction of pain after therapy. Pt R knee PROM improved a couple degrees and ~ deg's AROM from last session (last session pt in flare up) after manual therapy . Physical Therapy Plan Frequency and Duration Frequency of Treatment 2x/Week Duration of treatment (weeks) 6 Plan of Care Start Date 06/13/22 Plan of Care End Date 07/25/22 Next Visit Focus/Plan Next Note Type Progress Note Next Visit Plan New POC needed when pt returns first of Nov, due to other MD appts; therefore if pt returns before Nov, complete PN to update POC. Assess response to sacral balancing & manual therapy. Pt to work on improve R knee flexion ROM. Progress pt ambulatory ability for normal gait. R knee flex ROM (starting hgt 3). Assess gait on stairs. Progress slowly knee strengthening. Gait/balance training addressing lack of trunk rot ( see gait goal). Check backward walking for R knee ext mobility restriction, (strength LTG) Monitor shallow squats for pain. End cryotherapy for pain.
--- NOTE | 2022-07-03 17:38 | PT.OTN ---
Current Diagnoses Unilateral primary osteoarthritis, right knee (07/03/22) Physical Therapy Treatment Note PT-OP-A Visit Information Start: 04/06/22 14:23 Freq: Status: Active Protocol: Document 07/03/22 09:49 LRN (Rec: 07/03/22 10:33 LRN [id number]) Out-Patient Physical Therapy Visit Information Visit Information Visit Type Treatment Note Visit Note Trucker Hand Newton, #[id number]. Visit Start Time 09:49 Visit Stop Time 10:40 Total Visit Minutes 51 Visit Number 40 Evaluation Information Evaluation Date 04/07/22 PT-OP-B Current Condition Start: 04/06/22 14:23 Freq: Status: Active Protocol: Document 04/07/22 10:30 AMB (Rec: 04/07/22 15:43 AMB [id number]) Current Condition History of Current Condition Onset Date 03/21/22 Current Complaints R TKA History of Current Condition Vashti attends PT with her son who interprets for her per her request. Usually we will use the hospital provided interpretation, but she wants him to help today. Vashti lives with another son and her boyfriend in a second story apartment. There are 16 steep steps to enter with a railing on the left side. She attends s/p R TKA and has been doing heel slides and TKE exercises and icing since surgery. Personal Factors Other Personal Factors That May Effect Fibromyalgia, hx hysterectomy, Therapy/Recovery neck pain, back pain PT-OP-C Subjective Start: 04/06/22 14:23 Freq: Status: Active Protocol: Document 07/03/22 09:49 LRN (Rec: 07/03/22 10:33 LRN [id number]) OP-PT Subjective Patient Comments Patient Comments Pt doing better today, iced more at home. Pain is 3/10. PT-OP-K Range of Motion Start: 04/06/22 14:23 Freq: Status: Active Protocol: Document 07/03/22 09:49 LRN (Rec: 07/03/22 10:33 LRN [id number]) Knee Goniometric Range of Motion Knee Right Knee ROM WFL No Patient Position Supine Comments To Start: Passive flex 0-117 deg's. After stretching 122 deg's. PT-OP-M Strength Start: 04/06/22 14:23 Freq: Status: Active Protocol: Document 04/07/22 10:30 AMB (Rec: 04/07/22 15:20 AMB [id number]) Knee Strength Knee Manual Muscle Testing Right Flexion (S2) 4- Good- Extension (L3) 3 Fair Left Flexion (S2) 4+ Good+ Extension (L3) 4+ Good+ PT-OP-Q Treatments Start: 04/06/22 14:23 Freq: Status: Active Protocol: Document 07/03/22 09:49 LRN (Rec: 07/03/22 10:33 LRN [id number]) Cardio Equipment Bicycle (Upright) Duration (Minutes) 10 Resistance 5 Seat Position 3>2 after 5 minutes Therapeutic Exercises Supine Exercises QS Supine Exercise Name QS-asssited knee ext stretch Side right heel slides Supine Exercise Name Self assisted heel slides and with manual MWM of anteriorglide tib/fib Side right Equipment Used Gait belt towel roll under knee part of time Reps/Minutes 6' Comments MWM of Lat glide of tib/fib with flexion Prone Exercises R knee flex stretch Prone Exercise Name C/R stretch into flexion, f/b active knee flex Side right Equipment Used Cold pack under knee Reps/Minutes 8' Comments PROM flex is 113 deg's, ext is 0 deg's. Standing Exercises Step ups Standing Exercise Name Step ups 8 step: Fwd & to R Side Side bilateral Equipment Used Rail on L going up Reps/Minutes 15x each stairs Standing Exercise Name 6 & 8 stair amb Comments Weak with Ascending with RLE, and descending with LLE. Manual Therapy Treatment Soft Tissue Mobilization R lateral thigh Body Location R IT Band Mobilization Type Strumming,Sustained Pressure Intensity/Depth Moderate Body Position Sidelying PT-OP-R Modalities Start: 04/06/22 14:23 Freq: Status: Active Protocol: Document 06/23/22 08:14 LRN (Rec: 06/23/22 09:02 LRN [id number]) Hot Pack/Cold Pack Treatment Cold Pack Location R knee Patient Position Supine Treatment Duration (minutes) 10 Comments RLE up on bolster for Knee ext stretch PT-OP-T Assessment and Plan Start: 04/06/22 14:23 Freq: Status: Active Protocol: Document 07/03/22 09:49 LRN (Rec: 07/03/22 10:33 LRN [id number]) Physical Therapy Assessment Goals Gait Short Term Goal (STG) Vashti will ambulate over smooth surfaces with her SPC for 6 minutes without antalgic gait. 06/09/22: Walks on TM 8' at speed 22. On land walks 10' with SPC on level. Pt ambs with ?antalgic gait. 06/13/22: Pt has slight antalgic gait. STG Duration 07/04/22 (06/13/22; Progressing) Prison Goal (LTG) Vashti will ambulate over uneven surfaces without an AD without antalgia or LOB. 06/16/22: Pt has mild gait deviation with excessive heel stike and hyperext of L knee. LTG Duration 07/25/22 (06/16/22: Progressing) Strength Short Term Goal (STG) Vashti will perform a SLR without quad lag to show improved quad activation. (05/02/22: Lack of knee ext due to decreased mobility, not quad lag) STG Duration 5 weeks (05/02/22: MET GOAL) Prison Goal (LTG) Vashti will perform a partial squat without increase in baseline knee pain and with equal weightbearing. (05/25/22: Equal WBing, lateral knee pain with squat). 06/16/22: Pt has slight knee pain with squatting and equal WBing LE's. LTG Duration 07/25/22 (06/16/22: Progressing) One Impairment ROM Short Term Goal (STG) Vashti will improve her PROM to 0-110 degrees. (04/18/22: PROM: lacking 3 deg' s-87 deg's) (05/18/22: PROM: ext-lacking 3 deg's, flex 105 deg's) (05/23/22: PROM 0-110 deg's). (05/25/22: PROM 0-112 deg's, in supine) STG Duration 5 weeks (05/23/22: MET GOAL) Microfilm Mounter Goal (LTG) Vashti will have AROM 0-120 degrees. (04/18/22: AROM: lacking 5 deg's -87 deg's) (05/02/22: Active Knee flexion is 102 deg's) (06/05/22: AROM R knee: 4-112 deg's) (06/09/22: AROM R knee: 2-110 deg's) (06/13/22: AROM R knee: 0-115 deg's) (06/16/22: AROM is 3-118, PROM 0-120) (06/23/22: AROM R knee 0-116, PROM 0-122) LTG Duration 07/25/22 (06/16/22: Progressing) Assessment Summary Assessment Pt doing well with more normal gait and minimal limp noted at start of therapy; therefore + response to sacral balancing. After stretching R knee PROM was 122 deg's. After ex AROM was 116 deg's, possibly due to swelling liming AROM. ROM was not painful. Pt was able to ambulate stairs with reciprical gait but showed weakness in RLE. Physical Therapy Plan Frequency and Duration Frequency of Treatment 2x/Week Duration of treatment (weeks) 6 Plan of Care Start Date 06/13/22 Plan of Care End Date 07/25/22 Next Visit Focus/Plan Next Note Type Treatment Note Next Visit Plan Check if new POC needed at next visit, or if pt will be able to returns first of Nov for assessment (pt may have other MD appts). Pt to work on improve R knee flexion ROM. Progress pt ambulatory ability for normal gait. R knee flex ROM (starting hgt 2). Progress slowly knee strengthening. Gait/balance training addressing lack of trunk rot ( see gait goal). Check backward walking for R knee ext mobility restriction, (strength LTG) Monitor shallow squats for pain. End cryotherapy for pain.
--- NOTE | 2022-07-14 09:24 | PT.OTN ---
Current Diagnoses Unilateral primary osteoarthritis, right knee (07/14/22) Physical Therapy Treatment Note PT-OP-A Visit Information Start: 04/06/22 14:23 Freq: Status: Active Protocol: Document 07/14/22 08:16 LRN (Rec: 07/14/22 09:23 LRN [id number]) Out-Patient Physical Therapy Visit Information Visit Information Visit Type Treatment Note Visit Note Sexer Karina, #[id number] Visit Start Time 08:16 Visit Stop Time 09:13 Total Visit Minutes 56 Visit Number [id number] Evaluation Information Evaluation Date 04/07/22 PT-OP-B Current Condition Start: 04/06/22 14:23 Freq: Status: Active Protocol: Document 04/07/22 10:30 AMB (Rec: 04/07/22 15:43 AMB [id number]) Current Condition History of Current Condition Onset Date 03/21/22 Current Complaints R TKA History of Current Condition Vashti attends PT with her son who interprets for her per her request. Usually we will use the hospital provided interpretation, but she wants him to help today. Vashti lives with another son and her boyfriend in a second story apartment. There are 16 steep steps to enter with a railing on the left side. She attends s/p R TKA and has been doing heel slides and TKE exercises and icing since surgery. Personal Factors Other Personal Factors That May Effect Fibromyalgia, hx hysterectomy, Therapy/Recovery neck pain, back pain PT-OP-C Subjective Start: 04/06/22 14:23 Freq: Status: Active Protocol: Document 07/14/22 08:16 LRN (Rec: 07/14/22 09:23 LRN [id number]) OP-PT Subjective Patient Comments Patient Comments Pain in groin with recumbent bike. Has been doing fine and doing ex's and feels like she can't bend the R knee more. PT-OP-K Range of Motion Start: 04/06/22 14:23 Freq: Status: Active Protocol: Document 07/14/22 08:16 LRN (Rec: 07/14/22 09:23 LRN [id number]) Knee Goniometric Range of Motion Knee Right Knee ROM WFL No Patient Position Supine Flexion Active (degrees) 121 Flexion Passive (degrees) 125 Comments To Start: Measured with wall foot slide: AROM 2-121. Supine: Passive ROM 0-125 deg 's. PT-OP-M Strength Start: 04/06/22 14:23 Freq: Status: Active Protocol: Document 04/07/22 10:30 AMB (Rec: 04/07/22 15:20 AMB [id number]) Knee Strength Knee Manual Muscle Testing Right Flexion (S2) 4- Good- Extension (L3) 3 Fair Left Flexion (S2) 4+ Good+ Extension (L3) 4+ Good+ PT-OP-Q Treatments Start: 04/06/22 14:23 Freq: Status: Active Protocol: Document 07/14/22 08:16 LRN (Rec: 07/14/22 09:23 LRN [id number]) Cardio Equipment Recumbent Bicycle Duration (Minutes) 8 Resistance 5 Seat Position 2, 1 Other Extra time take to determine max tolerated stretch, ended due to groin pain Bicycle (Upright) Duration (Minutes) 2 Resistance 5 Seat Position 3>2 Gym Equipment Cable Column (Body Solid) Leg Curl Details Seat 5 holes showing Resistance 15#, 20# with help of LLE at end range flex Reps/Time 10x 2, 10x. 90% with RLE, 80% LLE Leg Extension Details Seat: 6 holes Resistance 10# Reps/Time No pain. 10x 2 Therapeutic Exercises Supine Exercises heel slides Supine Exercise Name Assisted heel slides and with manual MWM of anteriorglide tib/fib Side right Reps/Minutes 4' Comments MWM of Lat glide of tib/fib with flexion Sitting Exercises Knee ext Sitting Exercise Name R knee ext Side right Equipment Used 5#, 9# Reps/Minutes 2x each Standing Exercises SLS Standing Exercise Name SLS Side right Reps/Minutes 3' Gait Standing Exercise Name Gait training for soft L heel strike, R toe push off Reps/Minutes 3' Step ups Standing Exercise Name Step ups 8 step: Fwd & to R Side Side bilateral Equipment Used Rail on L going up Reps/Minutes 15x each stairs Standing Exercise Name 6 & 8 stair amb Comments Weak with Ascending with RLE, and descending with LLE. Manual Therapy Treatment Soft Tissue Mobilization R Quads Body Location R Quads Mobilization Type Myofascial Release Intensity/Depth Moderate Body Position Prone Comments C/R MFR Neuro Re-Education Treatment Balance Activities Bosu 1/2 ball Details Standing balance Surface Round side of BOSU ball Equipment BOSU ball Reps/Duration 2' Comments Pain in L hip limited balance training. PT-OP-R Modalities Start: 04/06/22 14:23 Freq: Status: Active Protocol: Document 06/23/22 08:14 LRN (Rec: 06/23/22 09:02 LRN [id number]) Hot Pack/Cold Pack Treatment Cold Pack Location R knee Patient Position Supine Treatment Duration (minutes) 10 Comments RLE up on bolster for Knee ext stretch PT-OP-T Assessment and Plan Start: 04/06/22 14:23 Freq: Status: Active Protocol: Document 07/14/22 08:16 LRN (Rec: 07/14/22 09:23 LRN [id number]) Physical Therapy Assessment Goals Gait Short Term Goal (STG) Vashti will ambulate over smooth surfaces with her SPC for 6 minutes without antalgic gait. 06/09/22: Walks on TM 8' at speed 22. On land walks 10' with SPC on level. Pt ambs with ?antalgic gait. 06/13/22: Pt has slight antalgic gait. STG Duration 07/04/22 (06/13/22; Progressing) Quality Assurance Nurse Goal (LTG) Vashti will ambulate over uneven surfaces without an AD without antalgia or LOB. 06/16/22: Pt has mild gait deviation with excessive heel stike and hyperext of L knee. 07/14/22: Mild excessive L heel strike, normalized after ex training. LTG Duration 07/25/22 (07/14/22: Progressing) Strength Short Term Goal (STG) Vashti will perform a SLR without quad lag to show improved quad activation. (05/02/22: Lack of knee ext due to decreased mobility, not quad lag) STG Duration 5 weeks (05/02/22: MET GOAL) Jail Goal (LTG) Vashti will perform a partial squat without increase in baseline knee pain and with equal weightbearing. (05/25/22: Equal WBing, lateral knee pain with squat). 06/16/22: Pt has slight knee pain with squatting and equal WBing LE's. LTG Duration 07/25/22 (06/16/22: Progressing) One Impairment ROM Short Term Goal (STG) Vashti will improve her PROM to 0-110 degrees. (04/18/22: PROM: lacking 3 deg' s-87 deg's) (05/18/22: PROM: ext-lacking 3 deg's, flex 105 deg's) (05/23/22: PROM 0-110 deg's). (05/25/22: PROM 0-112 deg's, in supine) STG Duration 5 weeks (05/23/22: MET GOAL) Quality Assurance Nurse Goal (LTG) Vashti will have AROM 0-120 degrees. (04/18/22: AROM: lacking 5 deg's -87 deg's) (05/02/22: Active Knee flexion is 102 deg's) (06/05/22: AROM R knee: 4-112 deg's) (06/09/22: AROM R knee: 2-110 deg's) (06/13/22: AROM R knee: 0-115 deg's) (06/16/22: AROM is 3-118, PROM 0-120) (06/23/22: AROM R knee 0-116, PROM 0-122) (07/14/22: AROM 0-121) LTG Duration 07/25/22 (07/14/22: Met for 1st time) Progress Towards Goals Progress Comments Pt able to achieve active R knee flex >120 deg's for first time. Gait deviation becoming less noticeable. Assessment Summary Assessment Pt achieved R knee AROM of 120 deg's for first time at start . Passively 125 deg's after stretching. Weakness of RLE with stair ambulation. Gait deviation of mild excessive L heel strike and decreased R toe off, corrected with training, but not automatic. Physical Therapy Plan Frequency and Duration Frequency of Treatment 2x/Week Duration of treatment (weeks) 6 Plan of Care Start Date 06/13/22 Plan of Care End Date 07/25/22 Next Visit Focus/Plan Next Note Type Progress Note Next Visit Plan New POC needed at next visit due to pt may have other MD appts by 07/25/22. Pt to work on improve R knee flexion AROM. Progress pt ambulatory ability for normal gait on uneven, long distance even suface, and stair strengthening. Bike or gait to start for warm up. Progress knee flex at end range strengthening and functional extension (stairs). Gait/balance training addressing lack of trunk rot ( see gait goal). Check backward walking for R knee ext mobility restriction, (strength LTG) Monitor shallow squats for pain. End cryotherapy for pain.
--- NOTE | 2022-07-18 12:32 | PT.OTN ---
Current Diagnoses Unilateral primary osteoarthritis, right knee (07/18/22) Physical Therapy Treatment Note PT-OP-A Visit Information Start: 04/06/22 14:23 Freq: Status: Active Protocol: Document 07/18/22 11:26 LRN (Rec: 07/18/22 12:29 LRN [id number]) Out-Patient Physical Therapy Visit Information Visit Information Visit Type Progress Note Visit Note Financial Sales Professional Luciano, #[id number] Visit Start Time 11:26 Visit Stop Time 12:07 Total Visit Minutes 41 Visit Number [id number]/99 PT-OP-B Current Condition Start: 04/06/22 14:23 Freq: Status: Active Protocol: Document 04/07/22 10:30 AMB (Rec: 04/07/22 15:43 AMB [id number]) Current Condition History of Current Condition Onset Date 03/21/22 Current Complaints R TKA History of Current Condition Vashti attends PT with her son who interprets for her per her request. Usually we will use the hospital provided interpretation, but she wants him to help today. Vashti lives with another son and her boyfriend in a second story apartment. There are 16 steep steps to enter with a railing on the left side. She attends s/p R TKA and has been doing heel slides and TKE exercises and icing since surgery. Personal Factors Other Personal Factors That May Effect Fibromyalgia, hx hysterectomy, Therapy/Recovery neck pain, back pain PT-OP-C Subjective Start: 04/06/22 14:23 Freq: Status: Active Protocol: Document 07/18/22 11:26 LRN (Rec: 07/18/22 12:29 LRN [id number]) OP-PT Subjective Patient Comments Patient Comments Pt reports pain in R quads and in LB (R>L) in SIJ region that is constant. Pt choosing to ice at home after therapy. PT-OP-K Range of Motion Start: 04/06/22 14:23 Freq: Status: Active Protocol: Document 07/18/22 11:26 LRN (Rec: 07/18/22 12:29 LRN [id number]) Knee Goniometric Range of Motion Knee Right Knee ROM WFL No Patient Position Supine Flexion Active (degrees) 125 Flexion Passive (degrees) 125 Extension Active (degrees) 0 Comments To Start: Measured with wall foot slide: AROM 2-125. Supine: Passive ROM 0-125 deg 's. PT-OP-M Strength Start: 04/06/22 14:23 Freq: Status: Active Protocol: Document 04/07/22 10:30 AMB (Rec: 04/07/22 15:20 AMB [id number]) Knee Strength Knee Manual Muscle Testing Right Flexion (S2) 4- Good- Extension (L3) 3 Fair Left Flexion (S2) 4+ Good+ Extension (L3) 4+ Good+ PT-OP-Q Treatments Start: 04/06/22 14:23 Freq: Status: Active Protocol: Document 07/18/22 11:26 LRN (Rec: 07/18/22 12:29 LRN [id number]) Cardio Equipment Bicycle (Upright) Duration (Minutes) 10 Resistance 5 Seat Position MIN Gym Equipment Shuttle Recovery Bilateral Squats Details Escobar Squats, 0-50 deg;s Resistance 75#, 87#, 100# Shuttle Recovery Platform Stable Reps/Time 20 x each Therapeutic Exercises Supine Exercises Foot on wall heel slides Supine Exercise Name Foot on wall for knee flex/ext Side right Equipment Used Wall Reps/Minutes 5' Comments R knee flex 122-125 deg's QS Supine Exercise Name QS-asssited knee ext stretch Side right heel slides Supine Exercise Name Assisted heel slides and with manual MWM of anteriorglide tib/fib Side right Reps/Minutes 4' Comments MWM of Lat glide of tib/fib with flexion Prone Exercises R knee flex stretch Prone Exercise Name C/R stretch into flexion, f/b active knee flex Side right Equipment Used Cold pack under knee Reps/Minutes 8' Comments PROM flex is 113 deg's, ext is 0 deg's. Standing Exercises Step ups Standing Exercise Name Step ups 8 step: Fwd & to R Side Side bilateral Reps/Minutes 20x, 10x stairs Standing Exercise Name 8 step downs Equipment Used Railing for descent LLE and back up with LLE. Reps/Minutes 20x TKE Standing Exercise Name ECC contraction Resistance #3 band, SPC for balance Reps/Minutes 20x PT-OP-R Modalities Start: 04/06/22 14:23 Freq: Status: Active Protocol: Document 06/23/22 08:14 LRN (Rec: 06/23/22 09:02 LRN [id number]) Hot Pack/Cold Pack Treatment Cold Pack Location R knee Patient Position Supine Treatment Duration (minutes) 10 Comments RLE up on bolster for Knee ext stretch PT-OP-T Assessment and Plan Start: 04/06/22 14:23 Freq: Status: Active Protocol: Document 07/18/22 11:26 LRN (Rec: 07/18/22 12:29 LRN [id number]) Physical Therapy Assessment Rehab Potential Rehabilitation Potential Good Evaluation Complexity Number of Personal Factors/Comorbidities 3 or More Number of Body Systems Impaired 4 or More Clinical Presentation at Evaluation Evolving Impairments Impairments Activity Tolerance,Gait,Pain, ROM,Strength Goals Gait Short Term Goal (STG) Vashti will ambulate over smooth surfaces with her SPC for 6 minutes without antalgic gait. 06/09/22: Walks on TM 8' at speed 22. On land walks 10' with SPC on level. Pt ambs with ?antalgic gait. 06/13/22: Pt has slight antalgic gait. STG Duration 07/04/22 (06/13/22; Progressing) Penitentiary Goal (LTG) Vashti will ambulate over uneven surfaces without an AD without antalgia or LOB. 06/16/22: Pt has mild gait deviation with excessive heel stike and hyperext of L knee. 07/14/22: Mild excessive L heel strike, normalized after ex training. LTG Duration 07/25/22 (07/14/22: Progressing) Strength Short Term Goal (STG) Vashti will perform a SLR without quad lag to show improved quad activation. (05/02/22: Lack of knee ext due to decreased mobility, not quad lag) STG Duration 5 weeks (05/02/22: MET GOAL) Hot Molder Goal (LTG) Vashti will perform a partial squat without increase in baseline knee pain and with equal weightbearing. (05/25/22: Equal WBing, lateral knee pain with squat). 06/16/22: Pt has slight knee pain with squatting and equal WBing LE's. LTG Duration 07/25/22 (07/18/22: MET GOAL) One Impairment ROM Short Term Goal (STG) Vashti will improve her PROM to 0-110 degrees. (04/18/22: PROM: lacking 3 deg' s-87 deg's) (05/18/22: PROM: ext-lacking 3 deg's, flex 105 deg's) (05/23/22: PROM 0-110 deg's). (05/25/22: PROM 0-112 deg's, in supine) STG Duration 5 weeks (05/23/22: MET GOAL) Hot Molder Goal (LTG) Vashti will have AROM 0-120 degrees. (04/18/22: AROM: lacking 5 deg's -87 deg's) (05/02/22: Active Knee flexion is 102 deg's) (06/05/22: AROM R knee: 4-112 deg's) (06/09/22: AROM R knee: 2-110 deg's) (06/13/22: AROM R knee: 0-115 deg's) (06/16/22: AROM is 3-118, PROM 0-120) (06/23/22: AROM R knee 0-116, PROM 0-122) (07/14/22: AROM 0-121) (07/18/22: AROM 0-123, PROM 0- 125) LTG Duration 07/25/22 (07/18/22: MET GOAL) Progress Towards Goals Progress Comments LTG #1 MET: AROM 2-125, 0- 125 after knee ext stretching. PROM 0-125 Gait deviation with very mininimal increased heel stike with RLE. Penitentiary Strength goal met. Pt able to squat without R knee pain. Assessment Summary Assessment Pt achieved R knee AROM of 125 deg's for first time at start . Passively 125 deg's. Weakness of RLE with stair ambulation. Gait deviation of very minimal excessive L heel strike, corrected with training. Pt is experiencing R>L SIJ pain with pain radiating into the R anterior thigh. Pt pain may be soft tissue and possibly lumbar related; therefore therapy will include STM and stretch for LB, R Quad and hip. Further assessment may be needed if pain is not resolved with therapy treatments (STM, postural & body mechanics training). I expect pt to be able to complete her therapy within 4 weeks, but therapy may need to be extended due to holiday schedules and pt ability to attend therapy due to her other health concerns. Pt will benefit from further R knee rehabilitation therapy to promote normal gait and balance on level and uneven surfaces without an assistive device. Physical Therapy Plan Frequency and Duration Frequency of Treatment 2x/Week Plan of Care Start Date 07/18/22 Plan of Care End Date 09/08/22 Therapeutic Interventions Therapeutic Interventions Balance Training,Gait Training ,Home Exercise Program,Manual Therapy,Neuromuscular Re- education,Self-Care/Home Management,Therapeutic Exercises Modalities Cold Pack/Ice Massage,Electric Stimulation,Hot Packs Next Visit Focus/Plan Next Note Type Progress Note Next Visit Plan Next: Assess for R Quad/Escobar ( R>L) SIJ pain. Progress pt gait and endurance (try TM) & balance training for normal gait on level, uneven, and long distance uneven suface w/ o LOB (gait goals), and stair strengthening. Monitor R knee flex at end range, strengthening functional extension strengthening (stairs). Check backward walking for R knee ext mobility restriction. Cryotherapy for pain as needed .
--- NOTE | 2022-07-18 12:34 | PT.OPPOC ---
Physical, Occupational & Speech Therapy At [facility] Current Diagnoses Unilateral primary osteoarthritis, right knee (07/18/22) Visit Care Team Role Provider Type Tone Narvaez MD Family Provider Non-Staff Primary Care Provider Specialty: Family Practice Address: [address] [place] [address], [id number] Email: Cheri Brooks PA-C Attending Provider Non-Staff Referring Provider Specialty: General Surgery Address: [facility] [place], [address] Email: Plan Of Care PT-OP-T Assessment and Plan Start: 04/06/22 14:23 Freq: Status: Active Protocol: Document 07/18/22 11:26 LRN (Rec: 07/18/22 12:29 LRN [id number]) Physical Therapy Assessment Rehab Potential Rehabilitation Potential Good Evaluation Complexity Number of Personal Factors/Comorbidities 3 or More Number of Body Systems Impaired 4 or More Clinical Presentation at Evaluation Evolving Impairments Impairments Activity Tolerance,Gait,Pain, ROM,Strength Goals Gait Short Term Goal (STG) Vashti will ambulate over smooth surfaces with her SPC for 6 minutes without antalgic gait. 06/09/22: Walks on TM 8' at speed 22. On land walks 10' with SPC on level. Pt ambs with ?antalgic gait. 06/13/22: Pt has slight antalgic gait. STG Duration 07/04/22 (06/13/22; Progressing) Machine Chocolate Molder Goal (LTG) Vashti will ambulate over uneven surfaces without an AD without antalgia or LOB. 06/16/22: Pt has mild gait deviation with excessive heel stike and hyperext of L knee. 07/14/22: Mild excessive L heel strike, normalized after ex training. LTG Duration 07/25/22 (07/14/22: Progressing) Strength Short Term Goal (STG) Vashti will perform a SLR without quad lag to show improved quad activation. (05/02/22: Lack of knee ext due to decreased mobility, not quad lag) STG Duration 5 weeks (05/02/22: MET GOAL) Machine Chocolate Molder Goal (LTG) Vashti will perform a partial squat without increase in baseline knee pain and with equal weightbearing. (05/25/22: Equal WBing, lateral knee pain with squat). 06/16/22: Pt has slight knee pain with squatting and equal WBing LE's. LTG Duration 07/25/22 (07/18/22: MET GOAL) One Impairment ROM Short Term Goal (STG) Vashti will improve her PROM to 0-110 degrees. (04/18/22: PROM: lacking 3 deg' s-87 deg's) (05/18/22: PROM: ext-lacking 3 deg's, flex 105 deg's) (05/23/22: PROM 0-110 deg's). (05/25/22: PROM 0-112 deg's, in supine) STG Duration 5 weeks (05/23/22: MET GOAL) Machine Chocolate Molder Goal (LTG) Vashti will have AROM 0-120 degrees. (04/18/22: AROM: lacking 5 deg's -87 deg's) (05/02/22: Active Knee flexion is 102 deg's) (06/05/22: AROM R knee: 4-112 deg's) (06/09/22: AROM R knee: 2-110 deg's) (06/13/22: AROM R knee: 0-115 deg's) (06/16/22: AROM is 3-118, PROM 0-120) (06/23/22: AROM R knee 0-116, PROM 0-122) (07/14/22: AROM 0-121) (07/18/22: AROM 0-123, PROM 0- 125) LTG Duration 07/25/22 (07/18/22: MET GOAL) Progress Towards Goals Progress Comments LTG #1 MET: AROM 2-125, 0- 125 after knee ext stretching. PROM 0-125 Gait deviation with very mininimal increased heel stike with RLE. Machine Chocolate Molder Strength goal met. Pt able to squat without R knee pain. Assessment Summary Assessment Pt achieved R knee AROM of 125 deg's for first time at start . Passively 125 deg's. Weakness of RLE with stair ambulation. Gait deviation of very minimal excessive L heel strike, corrected with training. Pt is experiencing R>L SIJ pain with pain radiating into the R anterior thigh. Pt pain may be soft tissue and possibly lumbar related; therefore therapy will include STM and stretch for LB, R Quad and hip. Further assessment may be needed if pain is not resolved with therapy treatments (STM, postural & body mechanics training). I expect pt to be able to complete her therapy within 4 weeks, but therapy may need to be extended due to holiday schedules and pt ability to attend therapy due to her other health concerns. Pt will benefit from further R knee rehabilitation therapy to promote normal gait and balance on level and uneven surfaces without an assistive device. Physical Therapy Plan Frequency and Duration Frequency of Treatment 2x/Week Plan of Care Start Date 07/18/22 Plan of Care End Date 09/08/22 Therapeutic Interventions Therapeutic Interventions Balance Training,Gait Training ,Home Exercise Program,Manual Therapy,Neuromuscular Re- education,Self-Care/Home Management,Therapeutic Exercises Modalities Cold Pack/Ice Massage,Electric Stimulation,Hot Packs Next Visit Focus/Plan Next Note Type Progress Note Next Visit Plan Next: Assess for R Quad/Escobar ( R>L) SIJ pain. Progress pt gait and endurance (try TM) & balance training for normal gait on level, uneven, and long distance uneven suface w/ o LOB (gait goals), and stair strengthening. Monitor R knee flex at end range, strengthening functional extension strengthening (stairs). Check backward walking for R knee ext mobility restriction. Cryotherapy for pain as needed . Plan of Care Dates Plan of Care Start Date 07/18/22 Plan of Care End Date 09/08/22 Electronically Signed by: Lovely Mcdonald, PT 07/18/22 [id number] If you are in agreement with this Plan of Care, please return a signed and dated copy. I have reviewed this Plan of Care and certify that the skilled therapy services above are required to meet the patient?s needs. Physician Signature Date Printed Name and Credentials Clinical Instructor Signature Printed Name and Credentials
--- NOTE | 2022-07-21 12:32 | PT.OTN ---
Current Diagnoses Unilateral primary osteoarthritis, right knee (07/21/22) Physical Therapy Treatment Note PT-OP-A Visit Information Start: 04/06/22 14:23 Freq: Status: Active Protocol: Document 07/21/22 09:02 LRN (Rec: 07/21/22 09:49 LRN [id number]) Out-Patient Physical Therapy Visit Information Visit Information Visit Type Treatment Note Visit Note Matrix Supervisor Chema, #[id number] Visit Start Time 09:02 Visit Stop Time 09:41 Total Visit Minutes 39 Visit Number 43/99 Evaluation Information Evaluation Date 04/07/22 PT-OP-B Current Condition Start: 04/06/22 14:23 Freq: Status: Active Protocol: Document 04/07/22 10:30 AMB (Rec: 04/07/22 15:43 AMB [id number]) Current Condition History of Current Condition Onset Date 03/21/22 Current Complaints R TKA History of Current Condition Vashti attends PT with her son who interprets for her per her request. Usually we will use the hospital provided interpretation, but she wants him to help today. Vashti lives with another son and her boyfriend in a second story apartment. There are 16 steep steps to enter with a railing on the left side. She attends s/p R TKA and has been doing heel slides and TKE exercises and icing since surgery. Personal Factors Other Personal Factors That May Effect Fibromyalgia, hx hysterectomy, Therapy/Recovery neck pain, back pain PT-OP-C Subjective Start: 04/06/22 14:23 Freq: Status: Active Protocol: Document 07/21/22 09:02 LRN (Rec: 07/21/22 09:49 LRN [id number]) OP-PT Subjective Patient Comments Patient Comments R knee pain in lateral thigh. Pain rated 6/10. HUrt coming in but not with exercise. PT-OP-K Range of Motion Start: 04/06/22 14:23 Freq: Status: Active Protocol: Document 07/21/22 09:02 LRN (Rec: 07/21/22 09:49 LRN [id number]) Knee Goniometric Range of Motion Knee Right Knee ROM WFL No Patient Position Supine Flexion Active (degrees) 120 Flexion Passive (degrees) 122 Extension Active (degrees) 0 Comments To Start: Measured with wall foot slide: AROM 2-120. Supine: Passive ROM 0-122 deg 's. At End: Active Knee flexion - 125 deg's. PT-OP-M Strength Start: 04/06/22 14:23 Freq: Status: Active Protocol: Document 04/07/22 10:30 AMB (Rec: 04/07/22 15:20 AMB [id number]) Knee Strength Knee Manual Muscle Testing Right Flexion (S2) 4- Good- Extension (L3) 3 Fair Left Flexion (S2) 4+ Good+ Extension (L3) 4+ Good+ PT-OP-Q Treatments Start: 04/06/22 14:23 Freq: Status: Active Protocol: Document 07/21/22 09:02 LRN (Rec: 07/21/22 09:49 LRN [id number]) Cardio Equipment Treadmill Duration (Minutes) 4 Speed 1.8 Other Gt training on TM (see gt training section) Therapeutic Exercises Supine Exercises SKTC Supine Exercise Name SKTC stretch Side bilateral Reps/Minutes 10SH x 3 Foot on wall heel slides Supine Exercise Name Foot on wall for knee flex/ext Side right Equipment Used Wall Reps/Minutes 6' Comments R knee flex 122 deg's heel slides Supine Exercise Name Assisted heel slides and with manual MWM of anteriorglide tib/fib Side right Reps/Minutes 4' Comments MWM of Lat glide of tib/fib with flexion Prone Exercises NARA Reps/Minutes 10x Gait Training Gait Activity TM Description Gait training on TM to normalize intensity of heel strike & wgt shift Device Used TM handrails Level of Assistance v cuing Distance/Duration 4' Treatment Focus Description above PT-OP-R Modalities Start: 04/06/22 14:23 Freq: Status: Active Protocol: Document 06/23/22 08:14 LRN (Rec: 06/23/22 09:02 LRN [id number]) Hot Pack/Cold Pack Treatment Cold Pack Location R knee Patient Position Supine Treatment Duration (minutes) 10 Comments RLE up on bolster for Knee ext stretch PT-OP-T Assessment and Plan Start: 04/06/22 14:23 Freq: Status: Active Protocol: Document 07/21/22 09:02 LRN (Rec: 07/21/22 09:49 LRN [id number]) Physical Therapy Assessment Goals Gait Short Term Goal (STG) Vashti will ambulate over smooth surfaces with her SPC for 6 minutes without antalgic gait. 06/09/22: Walks on TM 8' at speed 22. On land walks 10' with SPC on level. Pt ambs with ?antalgic gait. 06/13/22: Pt has slight antalgic gait. 07/21/22: TM x 4' with normal gait, stopped due to R hip/ lateral>anterior thigh pain. STG Duration 07/04/22 (07/21/22; Progressing) Alf Goal (LTG) Vashti will ambulate over uneven surfaces without an AD without antalgia or LOB. 06/16/22: Pt has mild gait deviation with excessive heel stike and hyperext of L knee. 07/14/22: Mild excessive L heel strike, normalized after ex training. 07/21/22: Pt reports being able to walk on grass and outside without AD and no problems. LTG Duration 07/25/22 (07/21/22: MET GOAL) Strength Short Term Goal (STG) Vashti will perform a SLR without quad lag to show improved quad activation. (05/02/22: Lack of knee ext due to decreased mobility, not quad lag) STG Duration 5 weeks (05/02/22: MET GOAL) Charge Coordinator Goal (LTG) Vashti will perform a partial squat without increase in baseline knee pain and with equal weightbearing. (05/25/22: Equal WBing, lateral knee pain with squat). 06/16/22: Pt has slight knee pain with squatting and equal WBing LE's. LTG Duration 07/25/22 (07/18/22: MET GOAL) One Impairment ROM Short Term Goal (STG) Vashti will improve her PROM to 0-110 degrees. (04/18/22: PROM: lacking 3 deg' s-87 deg's) (05/18/22: PROM: ext-lacking 3 deg's, flex 105 deg's) (05/23/22: PROM 0-110 deg's). (05/25/22: PROM 0-112 deg's, in supine) STG Duration 5 weeks (05/23/22: MET GOAL) Charge Coordinator Goal (LTG) Vashti will have AROM 0-120 degrees. (04/18/22: AROM: lacking 5 deg's -87 deg's) (05/02/22: Active Knee flexion is 102 deg's) (06/05/22: AROM R knee: 4-112 deg's) (06/09/22: AROM R knee: 2-110 deg's) (06/13/22: AROM R knee: 0-115 deg's) (06/16/22: AROM is 3-118, PROM 0-120) (06/23/22: AROM R knee 0-116, PROM 0-122) (07/14/22: AROM 0-121) (07/18/22: AROM 0-123, PROM 0- 125) LTG Duration 07/25/22 (07/18/22: MET GOAL) Progress Towards Goals Progress Comments Met LT gait goal Assessment Summary Assessment R knee AROM to start was 120- 122 deg's, ending with 125 deg 's. Pt gait on TM is normal but pain in R LB and R lateral hip/anterior thigh limits endurance. Pt RLE: -PSLR and Remy Test elicited anterolateral thigh pain; therefore pt may have R SIJ dysfunction, but has apparent pain at L5-S1 and tightness in R hip muscles/Piriformis. Physical Therapy Plan Frequency and Duration Frequency of Treatment 2x/Week Plan of Care Start Date 07/18/22 Plan of Care End Date 09/08/22 Next Visit Focus/Plan Next Note Type Treatment Note Next Visit Plan Add R>L Piriformis stretch to HEP. Progress pt gait and endurance (try TM) & balance training for normal gait on level, uneven, and long distance uneven suface w/o LOB (gait goals), and stair strengthening. Monitor R knee flex at end range, strengthening functional extension strengthening (stairs). Check backward walking for R knee ext mobility restriction. Cryotherapy for pain as needed .
--- NOTE | 2022-07-25 12:28 | PT.OTN ---
Current Diagnoses Unilateral primary osteoarthritis, right knee (07/25/22) Physical Therapy Treatment Note PT-OP-A Visit Information Start: 04/06/22 14:23 Freq: Status: Active Protocol: Document 07/25/22 10:32 LRN (Rec: 07/25/22 12:28 LRN [id number]) Out-Patient Physical Therapy Visit Information Visit Information Visit Type Treatment Note Visit Note Slat Grader Tyler, #[id number] Visit Start Time 10:32 Visit Stop Time 11:17 Total Visit Minutes 45 Visit Number 44/99 Evaluation Information Evaluation Date 04/07/22 PT-OP-B Current Condition Start: 04/06/22 14:23 Freq: Status: Active Protocol: Document 04/07/22 10:30 AMB (Rec: 04/07/22 15:43 AMB [id number]) Current Condition History of Current Condition Onset Date 03/21/22 Current Complaints R TKA History of Current Condition Vashti attends PT with her son who interprets for her per her request. Usually we will use the hospital provided interpretation, but she wants him to help today. Vashti lives with another son and her boyfriend in a second story apartment. There are 16 steep steps to enter with a railing on the left side. She attends s/p R TKA and has been doing heel slides and TKE exercises and icing since surgery. Personal Factors Other Personal Factors That May Effect Fibromyalgia, hx hysterectomy, Therapy/Recovery neck pain, back pain PT-OP-C Subjective Start: 04/06/22 14:23 Freq: Status: Active Protocol: Document 07/25/22 10:32 LRN (Rec: 07/25/22 12:28 LRN [id number]) OP-PT Subjective Patient Comments Patient Comments States her Escobar hips hurt and her R knee has been sore from the cold weather change. PT-OP-K Range of Motion Start: 04/06/22 14:23 Freq: Status: Active Protocol: Document 07/25/22 10:32 LRN (Rec: 07/25/22 12:28 LRN [id number]) Knee Goniometric Range of Motion Knee Right Knee ROM WFL No Patient Position Supine Flexion Active (degrees) 124 Flexion Passive (degrees) 126 Extension Active (degrees) 0 Comments To Start: Measured with wall foot slide: AROM 2-126. Supine: Passive ROM 0-126 deg 's. PT-OP-M Strength Start: 04/06/22 14:23 Freq: Status: Active Protocol: Document 04/07/22 10:30 AMB (Rec: 04/07/22 15:20 AMB [id number]) Knee Strength Knee Manual Muscle Testing Right Flexion (S2) 4- Good- Extension (L3) 3 Fair Left Flexion (S2) 4+ Good+ Extension (L3) 4+ Good+ PT-OP-Q Treatments Start: 04/06/22 14:23 Freq: Status: Active Protocol: Document 07/25/22 10:32 LRN (Rec: 07/25/22 12:28 LRN [id number]) Cardio Equipment Recumbent Bicycle Duration (Minutes) 8 Resistance 5 Seat Position 1 Treadmill Duration (Minutes) 4 Speed 1.2 Other Gt training on TM (see gt training section) Therapeutic Exercises Supine Exercises Iliopsoas stretch Supine Exercise Name Iliopsoas stretch Side bilateral Reps/Minutes 6' Comments Extra time taken to determine max kalpesh stretch w/o LBP Lateral Hip stretch Supine Exercise Name Lateral Hip stretch Side bilateral Reps/Minutes 5' Comments Extra time taken for proper positioning and interpretation for ex Piriformis stretch Supine Exercise Name Piriformis stretch Side bilateral Reps/Minutes 5' Comments Extra time taken for proper positioning and interpretation for ex SKTC Supine Exercise Name SKTC stretch Side bilateral Reps/Minutes 10SH x 3 Foot on wall heel slides Supine Exercise Name Foot on wall for knee flex/ext Side right Equipment Used Wall Reps/Minutes 6' Comments R knee flex 122 deg's heel slides Supine Exercise Name Assisted heel slides and with manual MWM of anteriorglide tib/fib Side right Reps/Minutes 4' Comments MWM of Lat glide of tib/fib with flexion Gait Training Gait Activity Walking uneven surface Description Walking grass, inclines, declines, stairs Device Used None Level of Assistance Independent Surface Uneven Distance/Duration 4' Treatment Focus No LOB, no R knee pain. Comments Pt had intermittent R knee pain. Walking even surface Description See TM gait Self-Care/Home Management Treatment Education Patient Education Home Exercise Program Activities Self-Care/Home Management Activities Issued, (but pt forgot to take ) & reviewed with hourly sign language interpreter assist, HEP: Piriformis, Lateral Hip & Iliopsoas stretch. PT-OP-R Modalities Start: 04/06/22 14:23 Freq: Status: Active Protocol: Document 06/23/22 08:14 LRN (Rec: 06/23/22 09:02 LRN [id number]) Hot Pack/Cold Pack Treatment Cold Pack Location R knee Patient Position Supine Treatment Duration (minutes) 10 Comments RLE up on bolster for Knee ext stretch PT-OP-T Assessment and Plan Start: 04/06/22 14:23 Freq: Status: Active Protocol: Document 07/25/22 10:32 LRN (Rec: 07/25/22 12:28 LRN [id number]) Physical Therapy Assessment Goals Gait Short Term Goal (STG) Vashti will ambulate over smooth surfaces with her SPC for 6 minutes without antalgic gait. 06/09/22: Walks on TM 8' at speed 22. On land walks 10' with SPC on level. Pt ambs with ?antalgic gait. 06/13/22: Pt has slight antalgic gait. 07/21/22: TM x 4' with normal gait, stopped due to R hip/ lateral>anterior thigh pain. STG Duration 07/04/22 (07/21/22; Progressing) Manager Proposal Goal (LTG) Vashti will ambulate over uneven surfaces without an AD without antalgia or LOB. 06/16/22: Pt has mild gait deviation with excessive heel stike and hyperext of L knee. 07/14/22: Mild excessive L heel strike, normalized after ex training. 07/21/22: Pt reports being able to walk on grass and outside without AD, no LOB but with intermittent lateral R knee pain. LTG Duration 07/25/22 (07/25/22: Pt has intermittent antalgic gait, no LOB) Progress Towards Goals Progress Comments Added Piriformis, lateral hip and Iliopsoas stretch to HEP. Assessment Summary Assessment PSLR RLE is 85 deg's. Pt ROM is very good with R knee AROM after stretching 126 deg's. Pt fatigued on TM, able to ambulate only 4 minutes. Pt tolerated walking on grass ( uneven surface) with complaints of R lateral knee pain that is intermittent, but no LOB; therefore weakness persists. Physical Therapy Plan Frequency and Duration Frequency of Treatment 2x/Week Plan of Care Start Date 07/18/22 Plan of Care End Date 09/08/22 Next Visit Focus/Plan Next Note Type Treatment Note Next Visit Plan Issue HEP previously I/S. Progress pt gait and endurance (TM) & balance training for normal gait on level, uneven, and long distance uneven suface w/o LOB (gait goals), and stair strengthening. Monitor R knee flex at end range, strengthening functional extension strengthening (stairs). Check backward walking for R knee ext mobility restriction. Cryotherapy for pain as needed .
--- NOTE | 2022-07-28 12:54 | PT.OTN ---
Current Diagnoses Unilateral primary osteoarthritis, right knee (07/28/22) Physical Therapy Treatment Note PT-OP-A Visit Information Start: 04/06/22 14:23 Freq: Status: Active Protocol: Document 07/28/22 09:51 LRN (Rec: 07/28/22 12:50 LRN [id number]) Out-Patient Physical Therapy Visit Information Visit Information Visit Type Treatment Note Visit Note Golf Shoe Spike Assembler Carolyn, #[id number] Visit Start Time 09:51 Visit Stop Time 10:39 Total Visit Minutes 48 Visit Number 45/99 Evaluation Information Evaluation Date 04/07/22 PT-OP-B Current Condition Start: 04/06/22 14:23 Freq: Status: Active Protocol: Document 04/07/22 10:30 AMB (Rec: 04/07/22 15:43 AMB [id number]) Current Condition History of Current Condition Onset Date 03/21/22 Current Complaints R TKA History of Current Condition Vashti attends PT with her son who interprets for her per her request. Usually we will use the hospital provided interpretation, but she wants him to help today. Vashti lives with another son and her boyfriend in a second story apartment. There are 16 steep steps to enter with a railing on the left side. She attends s/p R TKA and has been doing heel slides and TKE exercises and icing since surgery. Personal Factors Other Personal Factors That May Effect Fibromyalgia, hx hysterectomy, Therapy/Recovery neck pain, back pain PT-OP-C Subjective Start: 04/06/22 14:23 Freq: Status: Active Protocol: Document 07/28/22 09:51 LRN (Rec: 07/28/22 12:50 LRN [id number]) OP-PT Subjective Patient Comments Patient Comments Pt reports no pain in R hip or lateral leg and no soreness in the R knee. Pt has been taking it easy. Pt states she is moving to [facility] in Aug and wants to do her LBP therapy in [facility]. Pt will cont R TKA therapy in [place]. PT-OP-K Range of Motion Start: 04/06/22 14:23 Freq: Status: Active Protocol: Document 07/28/22 09:51 LRN (Rec: 07/28/22 12:50 LRN [id number]) Knee Goniometric Range of Motion Knee Right Knee ROM WFL No Patient Position Supine Flexion Passive (degrees) 126 Extension Active (degrees) 0 Comments To Start: Measured with wall foot slide: AROM 2-126. Supine: Passive ROM 0-126 deg 's. PT-OP-M Strength Start: 04/06/22 14:23 Freq: Status: Active Protocol: Document 04/07/22 10:30 AMB (Rec: 04/07/22 15:20 AMB [id number]) Knee Strength Knee Manual Muscle Testing Right Flexion (S2) 4- Good- Extension (L3) 3 Fair Left Flexion (S2) 4+ Good+ Extension (L3) 4+ Good+ PT-OP-Q Treatments Start: 04/06/22 14:23 Freq: Status: Active Protocol: Document 07/28/22 09:51 LRN (Rec: 07/28/22 12:50 LRN [id number]) Cardio Equipment Recumbent Bicycle Duration (Minutes) 4 Resistance 5 Seat Position 1 Other Green seat cushion at low back Treadmill Duration (Minutes) 6 Speed 1.2 Other Gt training on TM (see gt training section) Gym Equipment Cable Column (Body Solid) Leg Curl Details Seat 5 holes showing Resistance 15#, 20# with help of LLE at end range flex Reps/Time 15x 90% with RLE, 80% LLE Leg Extension Details Seat: 5 holes Resistance 15# Reps/Time 15x No R knee pain Therapeutic Exercises Supine Exercises Iliopsoas stretch Supine Exercise Name Iliopsoas stretch Side bilateral Reps/Minutes 6' Comments Extra time taken to determine max kalpesh stretch w/o LBP Lateral Hip stretch Supine Exercise Name Lateral Hip stretch Side bilateral Reps/Minutes 5' Comments Extra time taken for proper positioning and interpretation for ex Piriformis stretch Supine Exercise Name Piriformis stretch Side bilateral Reps/Minutes 5' Comments Extra time taken for proper positioning and interpretation for ex Foot on wall heel slides Supine Exercise Name Foot on wall for knee flex/ext Side right Equipment Used Wall Reps/Minutes 6' Comments R knee flex 126 deg's heel slides Supine Exercise Name Assisted heel slides and with manual MWM of anteriorglide tib/fib Side right Reps/Minutes 4' Comments MWM of Lat glide of tib/fib with flexion Gait Training Gait Activity TM Description Gait training on TM to normalize intensity of heel strike & wgt shift Device Used TM with & w/o handrails Level of Assistance v cuing Distance/Duration 6' Treatment Focus Description above Backward walking Description Backward walking to get R toe lift and full knee ext Level of Assistance v. cuing Surface Level Distance/Duration 2' Comments No c/o tightness behind R knee . Self-Care/Home Management Treatment Education Patient Education Home Exercise Program Activities Self-Care/Home Management Activities Issued HEP from last session: HEP: Piriformis, Lateral Hip & Iliopsoas stretch. PT-OP-R Modalities Start: 04/06/22 14:23 Freq: Status: Active Protocol: Document 06/23/22 08:14 LRN (Rec: 06/23/22 09:02 LRN [id number]) Hot Pack/Cold Pack Treatment Cold Pack Location R knee Patient Position Supine Treatment Duration (minutes) 10 Comments RLE up on bolster for Knee ext stretch PT-OP-T Assessment and Plan Start: 04/06/22 14:23 Freq: Status: Active Protocol: Document 07/28/22 09:51 LRN (Rec: 07/28/22 12:50 LRN [id number]) Physical Therapy Assessment Goals Gait Short Term Goal (STG) Vashti will ambulate over smooth surfaces with her SPC for 6 minutes without antalgic gait. 06/09/22: Walks on TM 8' at speed 22. On land walks 10' with SPC on level. Pt ambs with ?antalgic gait. 06/13/22: Pt has slight antalgic gait. 07/21/22: TM x 4' with normal gait, stopped due to R hip/ lateral>anterior thigh pain. 07/28/22: TM x 6' w/slight antalgic gait. STG Duration 07/04/22 (07/28/22; Progressing) Glue Mill Operator Goal (LTG) Vashti will ambulate over uneven surfaces without an AD without antalgia or LOB. 06/16/22: Pt has mild gait deviation with excessive heel stike and hyperext of L knee. 07/14/22: Mild excessive L heel strike, normalized after ex training. 07/21/22: Pt reports being able to walk on grass and outside without AD, no LOB but with intermittent lateral R knee pain. LTG Duration 07/25/22 (07/25/22: Pt has intermittent antalgic gait, no LOB) Strength Short Term Goal (STG) Vashti will perform a SLR without quad lag to show improved quad activation. (05/02/22: Lack of knee ext due to decreased mobility, not quad lag) STG Duration 5 weeks (05/02/22: MET GOAL) Glue Mill Operator Goal (LTG) Vashti will perform a partial squat without increase in baseline knee pain and with equal weightbearing. (05/25/22: Equal WBing, lateral knee pain with squat). 06/16/22: Pt has slight knee pain with squatting and equal WBing LE's. LTG Duration 07/25/22 (07/18/22: MET GOAL) One Impairment ROM Short Term Goal (STG) Vashti will improve her PROM to 0-110 degrees. (04/18/22: PROM: lacking 3 deg' s-87 deg's) (05/18/22: PROM: ext-lacking 3 deg's, flex 105 deg's) (05/23/22: PROM 0-110 deg's). (05/25/22: PROM 0-112 deg's, in supine) STG Duration 5 weeks (05/23/22: MET GOAL) Intermediate Goal (LTG) Vashti will have AROM 0-120 degrees. (04/18/22: AROM: lacking 5 deg's -87 deg's) (05/02/22: Active Knee flexion is 102 deg's) (06/05/22: AROM R knee: 4-112 deg's) (06/09/22: AROM R knee: 2-110 deg's) (06/13/22: AROM R knee: 0-115 deg's) (06/16/22: AROM is 3-118, PROM 0-120) (06/23/22: AROM R knee 0-116, PROM 0-122) (07/14/22: AROM 0-121) (07/18/22: AROM 0-123, PROM 0- 125) LTG Duration 07/25/22 (07/18/22: MET GOAL) Assessment Summary Assessment Minimal antalgic gait and R knee AROM to start was 124 deg 's with passive stretch to 126 deg's. Lacks 2 deg's ext with heel on wall. After supine stretch PROM of R knee ext is 0 deg's. Work on R knee AROM of 125 deg's to start and 0 deg's ext, & normal gait. No posterior R knee tightness noted with backward walking for knee extension. Physical Therapy Plan Frequency and Duration Frequency of Treatment 2x/Week Plan of Care Start Date 07/18/22 Plan of Care End Date 09/08/22 Next Visit Focus/Plan Next Note Type Treatment Note Next Visit Plan Progress pt gait to normal and endurance (TM) & balance training for normal gait on level, uneven, and long distance uneven suface w/o LOB (gait goals), and stair strengthening. Monitor R knee flex at end range, strengthening functional extension strengthening (stairs). Cryotherapy for pain as needed .
--- NOTE | 2022-08-01 18:10 | PT.OTN ---
Current Diagnoses Unilateral primary osteoarthritis, right knee (08/01/22) Physical Therapy Treatment Note PT-OP-A Visit Information Start: 04/06/22 14:23 Freq: Status: Active Protocol: Document 08/01/22 09:45 LRN (Rec: 08/01/22 10:35 LRN [id number]) Out-Patient Physical Therapy Visit Information Visit Information Visit Type Treatment Note Visit Note Learning And Development Coordinator Carolyn, #[id number] Visit Start Time 09:45 Visit Stop Time 10:29 Total Visit Minutes 54 Visit Number 46/99 Evaluation Information Evaluation Date 04/07/22 PT-OP-B Current Condition Start: 04/06/22 14:23 Freq: Status: Active Protocol: Document 04/07/22 10:30 AMB (Rec: 04/07/22 15:43 AMB [id number]) Current Condition History of Current Condition Onset Date 03/21/22 Current Complaints R TKA History of Current Condition Vashti attends PT with her son who interprets for her per her request. Usually we will use the hospital provided interpretation, but she wants him to help today. Vashti lives with another son and her boyfriend in a second story apartment. There are 16 steep steps to enter with a railing on the left side. She attends s/p R TKA and has been doing heel slides and TKE exercises and icing since surgery. Personal Factors Other Personal Factors That May Effect Fibromyalgia, hx hysterectomy, Therapy/Recovery neck pain, back pain PT-OP-C Subjective Start: 04/06/22 14:23 Freq: Status: Active Protocol: Document 08/01/22 09:45 LRN (Rec: 08/01/22 10:35 LRN [id number]) OP-PT Subjective Patient Comments Patient Comments Went 5' on TM at gym, limited by R lateral hip pain. Pt moving to [facility] on ; therefore will end therapy before moving on 08/08/22. Having michelle lateral hip pain after TM, states can walk 20' outside without pain. PT-OP-K Range of Motion Start: 04/06/22 14:23 Freq: Status: Active Protocol: Document 08/01/22 09:45 LRN (Rec: 08/01/22 10:35 LRN [id number]) Knee Goniometric Range of Motion Knee Right Knee ROM WFL No Patient Position Supine Comments To Start: Measured with wall foot slide: AROM 2-125. Supine: Passive ROM 0-126 deg 's. Deferred supine AROM testing due to ms cramps in R foot. Pt needs to be cued to keep LB in ext of neutral with ROM. PT-OP-M Strength Start: 04/06/22 14:23 Freq: Status: Active Protocol: Document 04/07/22 10:30 AMB (Rec: 04/07/22 15:20 AMB [id number]) Knee Strength Knee Manual Muscle Testing Right Flexion (S2) 4- Good- Extension (L3) 3 Fair Left Flexion (S2) 4+ Good+ Extension (L3) 4+ Good+ PT-OP-Q Treatments Start: 04/06/22 14:23 Freq: Status: Active Protocol: Document 08/01/22 09:45 LRN (Rec: 08/01/22 10:35 LRN [id number]) Cardio Equipment Recumbent Bicycle Duration (Minutes) 10 Resistance 4 Seat Position 1 Other Green seat cushion at low back Treadmill Duration (Minutes) 6 Speed 1.2 Other Gt training on TM (see gt training section) Therapeutic Exercises Supine Exercises Foot on wall heel slides Supine Exercise Name Foot on wall for knee flex/ext Side right Equipment Used Wall Reps/Minutes 3' Comments R knee flex 125 deg's Standing Exercises Hip Ext Standing Exercise Name Hip Ext Side bilateral Equipment Used Railing Reps/Minutes 30x Trunk Rot Standing Exercise Name Trunk Rot Side bilateral Equipment Used Lev 3 TB Reps/Minutes 25x 2 w/rest btn bouts Comments Cuing for proper movement Gait Standing Exercise Name See TM Step ups Standing Exercise Name Step ups 8 step: Fwd & to R Side Side bilateral Reps/Minutes 20x, 10x Squats Standing Exercise Name Squats - sit backs Equipment Used Railng Reps/Minutes 8' Comments cuing to not go into pain Shallow squats Standing Exercise Name Shallow squat training with medial glide tib/fit on femur Side bilateral Reps/Minutes 15x Comments Cuing for pt to not squat so far due to knee over toes. Manual Therapy Treatment Soft Tissue Mobilization R Lower leg & foot Body Location R lateral lower leg & foot planter tendons Mobilization Type Cross-Friction,Strumming Intensity/Depth Moderate Body Position Sitting Comments Stretch applied to R toes for DF. PT-OP-R Modalities Start: 04/06/22 14:23 Freq: Status: Active Protocol: Document 08/01/22 09:45 LRN (Rec: 08/04/22 08:12 LRN [id number]) Hot Pack/Cold Pack Treatment Cold Pack Location R knee Patient Position Supine Treatment Duration (minutes) 10 Comments RLE up on bolster for Knee ext stretch PT-OP-T Assessment and Plan Start: 04/06/22 14:23 Freq: Status: Active Protocol: Document 08/01/22 09:45 LRN (Rec: 08/01/22 10:35 LRN [id number]) Physical Therapy Assessment Goals Gait Short Term Goal (STG) Vashti will ambulate over smooth surfaces with her SPC for 6 minutes without antalgic gait. 06/09/22: Walks on TM 8' at speed 22. On land walks 10' with SPC on level. Pt ambs with ?antalgic gait. 06/13/22: Pt has slight antalgic gait. 07/21/22: TM x 4' with normal gait, stopped due to R hip/ lateral>anterior thigh pain. 07/28/22: TM x 6' w/slight antalgic gait. STG Duration 07/04/22 (07/28/22; Progressing) Senior Care Goal (LTG) Vashti will ambulate over uneven surfaces without an AD without antalgia or LOB. 06/16/22: Pt has mild gait deviation with excessive heel stike and hyperext of L knee. 07/14/22: Mild excessive L heel strike, normalized after ex training. 07/21/22: Pt reports being able to walk on grass and outside without AD, no LOB but with intermittent lateral R knee pain. LTG Duration 07/25/22 (07/25/22: Pt has intermittent antalgic gait, no LOB) Strength Short Term Goal (STG) Vashti will perform a SLR without quad lag to show improved quad activation. (05/02/22: Lack of knee ext due to decreased mobility, not quad lag) STG Duration 5 weeks (05/02/22: MET GOAL) Senior Care Goal (LTG) Vashti will perform a partial squat without increase in baseline knee pain and with equal weightbearing. (05/25/22: Equal WBing, lateral knee pain with squat). 06/16/22: Pt has slight knee pain with squatting and equal WBing LE's. LTG Duration 07/25/22 (07/18/22: MET GOAL) One Impairment ROM Short Term Goal (STG) Vashti will improve her PROM to 0-110 degrees. (04/18/22: PROM: lacking 3 deg' s-87 deg's) (05/18/22: PROM: ext-lacking 3 deg's, flex 105 deg's) (05/23/22: PROM 0-110 deg's). (05/25/22: PROM 0-112 deg's, in supine) STG Duration 5 weeks (05/23/22: MET GOAL) Senior Care Goal (LTG) Vashti will have AROM 0-120 degrees. (04/18/22: AROM: lacking 5 deg's -87 deg's) (05/02/22: Active Knee flexion is 102 deg's) (06/05/22: AROM R knee: 4-112 deg's) (06/09/22: AROM R knee: 2-110 deg's) (06/13/22: AROM R knee: 0-115 deg's) (06/16/22: AROM is 3-118, PROM 0-120) (06/23/22: AROM R knee 0-116, PROM 0-122) (07/14/22: AROM 0-121) (07/18/22: AROM 0-123, PROM 0- 125) LTG Duration 07/25/22 (07/18/22: MET GOAL) Assessment Summary Assessment Pt able to control antalgic gait with equal pressure on heel strike. She had michelle hip pain from weakness after 6' gait controlling gait mechanics. Pt had toe flex cramps after knee flex stretch off wall that subsided with STM. Physical Therapy Plan Frequency and Duration Frequency of Treatment 2x/Week Plan of Care Start Date 07/18/22 Plan of Care End Date 09/08/22 Next Visit Focus/Plan Next Note Type Treatment Note Next Visit Plan DC in 2 vists on 08/08/22, due to pt moving from the area. Progress pt gait to normal and endurance (TM), and stair strengthening Balance training for normal gait on level, uneven, and long distance uneven suface w/ o LOB (gait goals). Monitor R knee flex at end range (stretch with trunk ext) , strengthening functional extension strengthening ( stairs). Cryotherapy for pain as needed .
--- NOTE | 2022-08-01 18:10 | PT.OTN ---
Current Diagnoses Unilateral primary osteoarthritis, right knee (08/01/22) Physical Therapy Treatment Note PT-OP-A Visit Information Start: 04/06/22 14:23 Freq: Status: Active Protocol: Document 08/01/22 09:45 LRN (Rec: 08/01/22 10:35 LRN [id number]) Out-Patient Physical Therapy Visit Information Visit Information Visit Type Treatment Note Visit Note Retanned Leather Roller Carolyn, #[id number] Visit Start Time 09:45 Visit Stop Time 10:29 Total Visit Minutes 54 Visit Number 46/99 Evaluation Information Evaluation Date 04/07/22 PT-OP-B Current Condition Start: 04/06/22 14:23 Freq: Status: Active Protocol: Document 04/07/22 10:30 AMB (Rec: 04/07/22 15:43 AMB [id number]) Current Condition History of Current Condition Onset Date 03/21/22 Current Complaints R TKA History of Current Condition Vashti attends PT with her son who interprets for her per her request. Usually we will use the hospital provided interpretation, but she wants him to help today. Vashti lives with another son and her boyfriend in a second story apartment. There are 16 steep steps to enter with a railing on the left side. She attends s/p R TKA and has been doing heel slides and TKE exercises and icing since surgery. Personal Factors Other Personal Factors That May Effect Fibromyalgia, hx hysterectomy, Therapy/Recovery neck pain, back pain PT-OP-C Subjective Start: 04/06/22 14:23 Freq: Status: Active Protocol: Document 08/01/22 09:45 LRN (Rec: 08/01/22 10:35 LRN [id number]) OP-PT Subjective Patient Comments Patient Comments Went 5' on TM at gym, limited by R lateral hip pain. Pt moving to [facility] on ; therefore will end therapy before moving on 08/08/22. Having michelle lateral hip pain after TM, states can walk 20' outside without pain. PT-OP-K Range of Motion Start: 04/06/22 14:23 Freq: Status: Active Protocol: Document 08/01/22 09:45 LRN (Rec: 08/01/22 10:35 LRN [id number]) Knee Goniometric Range of Motion Knee Right Knee ROM WFL No Patient Position Supine Comments To Start: Measured with wall foot slide: AROM 2-125. Supine: Passive ROM 0-126 deg 's. Deferred supine AROM testing due to ms cramps in R foot. Pt needs to be cued to keep LB in ext of neutral with ROM. PT-OP-M Strength Start: 04/06/22 14:23 Freq: Status: Active Protocol: Document 04/07/22 10:30 AMB (Rec: 04/07/22 15:20 AMB [id number]) Knee Strength Knee Manual Muscle Testing Right Flexion (S2) 4- Good- Extension (L3) 3 Fair Left Flexion (S2) 4+ Good+ Extension (L3) 4+ Good+ PT-OP-Q Treatments Start: 04/06/22 14:23 Freq: Status: Active Protocol: Document 08/01/22 09:45 LRN (Rec: 08/01/22 10:35 LRN [id number]) Cardio Equipment Recumbent Bicycle Duration (Minutes) 10 Resistance 4 Seat Position 1 Other Green seat cushion at low back Treadmill Duration (Minutes) 6 Speed 1.2 Other Gt training on TM (see gt training section) Therapeutic Exercises Supine Exercises Foot on wall heel slides Supine Exercise Name Foot on wall for knee flex/ext Side right Equipment Used Wall Reps/Minutes 3' Comments R knee flex 125 deg's Standing Exercises Hip Ext Standing Exercise Name Hip Ext Side bilateral Equipment Used Railing Reps/Minutes 30x Trunk Rot Standing Exercise Name Trunk Rot Side bilateral Equipment Used Lev 3 TB Reps/Minutes 25x 2 w/rest btn bouts Comments Cuing for proper movement Gait Standing Exercise Name See TM Step ups Standing Exercise Name Step ups 8 step: Fwd & to R Side Side bilateral Reps/Minutes 20x, 10x Squats Standing Exercise Name Squats - sit backs Equipment Used Railng Reps/Minutes 8' Comments cuing to not go into pain Shallow squats Standing Exercise Name Shallow squat training with medial glide tib/fit on femur Side bilateral Reps/Minutes 15x Comments Cuing for pt to not squat so far due to knee over toes. Manual Therapy Treatment Soft Tissue Mobilization R Lower leg & foot Body Location R lateral lower leg & foot planter tendons Mobilization Type Cross-Friction,Strumming Intensity/Depth Moderate Body Position Sitting Comments Stretch applied to R toes for DF. PT-OP-R Modalities Start: 04/06/22 14:23 Freq: Status: Active Protocol: Document 06/23/22 08:14 LRN (Rec: 06/23/22 09:02 LRN [id number]) Hot Pack/Cold Pack Treatment Cold Pack Location R knee Patient Position Supine Treatment Duration (minutes) 10 Comments RLE up on bolster for Knee ext stretch PT-OP-T Assessment and Plan Start: 04/06/22 14:23 Freq: Status: Active Protocol: Document 08/01/22 09:45 LRN (Rec: 08/01/22 10:35 LRN [id number]) Physical Therapy Assessment Goals Gait Short Term Goal (STG) Vashti will ambulate over smooth surfaces with her SPC for 6 minutes without antalgic gait. 06/09/22: Walks on TM 8' at speed 22. On land walks 10' with SPC on level. Pt ambs with ?antalgic gait. 06/13/22: Pt has slight antalgic gait. 07/21/22: TM x 4' with normal gait, stopped due to R hip/ lateral>anterior thigh pain. 07/28/22: TM x 6' w/slight antalgic gait. STG Duration 07/04/22 (07/28/22; Progressing) Half-Way Goal (LTG) Vashti will ambulate over uneven surfaces without an AD without antalgia or LOB. 06/16/22: Pt has mild gait deviation with excessive heel stike and hyperext of L knee. 07/14/22: Mild excessive L heel strike, normalized after ex training. 07/21/22: Pt reports being able to walk on grass and outside without AD, no LOB but with intermittent lateral R knee pain. LTG Duration 07/25/22 (07/25/22: Pt has intermittent antalgic gait, no LOB) Strength Short Term Goal (STG) Vashti will perform a SLR without quad lag to show improved quad activation. (05/02/22: Lack of knee ext due to decreased mobility, not quad lag) STG Duration 5 weeks (05/02/22: MET GOAL) Half-Way Goal (LTG) Vashti will perform a partial squat without increase in baseline knee pain and with equal weightbearing. (05/25/22: Equal WBing, lateral knee pain with squat). 06/16/22: Pt has slight knee pain with squatting and equal WBing LE's. LTG Duration 07/25/22 (07/18/22: MET GOAL) One Impairment ROM Short Term Goal (STG) Vashti will improve her PROM to 0-110 degrees. (04/18/22: PROM: lacking 3 deg' s-87 deg's) (05/18/22: PROM: ext-lacking 3 deg's, flex 105 deg's) (05/23/22: PROM 0-110 deg's). (05/25/22: PROM 0-112 deg's, in supine) STG Duration 5 weeks (05/23/22: MET GOAL) Half-Way Goal (LTG) Vashti will have AROM 0-120 degrees. (04/18/22: AROM: lacking 5 deg's -87 deg's) (05/02/22: Active Knee flexion is 102 deg's) (06/05/22: AROM R knee: 4-112 deg's) (06/09/22: AROM R knee: 2-110 deg's) (06/13/22: AROM R knee: 0-115 deg's) (06/16/22: AROM is 3-118, PROM 0-120) (06/23/22: AROM R knee 0-116, PROM 0-122) (07/14/22: AROM 0-121) (07/18/22: AROM 0-123, PROM 0- 125) LTG Duration 07/25/22 (07/18/22: MET GOAL) Assessment Summary Assessment Pt able to control antalgic gait with equal pressure on heel strike. She had michelle hip pain from weakness after 6' gait controlling gait mechanics. Pt had toe flex cramps after knee flex stretch off wall that subsided with STM. Physical Therapy Plan Frequency and Duration Frequency of Treatment 2x/Week Plan of Care Start Date 07/18/22 Plan of Care End Date 09/08/22 Next Visit Focus/Plan Next Note Type Treatment Note Next Visit Plan DC in 2 vists on 08/08/22, due to pt moving from the area. Progress pt gait to normal and endurance (TM), and stair strengthening Balance training for normal gait on level, uneven, and long distance uneven suface w/ o LOB (gait goals). Monitor R knee flex at end range (stretch with trunk ext) , strengthening functional extension strengthening ( stairs). Cryotherapy for pain as needed .
--- NOTE | 2022-08-04 12:37 | PT.OTN ---
Current Diagnoses Unilateral primary osteoarthritis, right knee (08/04/22) Physical Therapy Treatment Note PT-OP-A Visit Information Start: 04/06/22 14:23 Freq: Status: Active Protocol: Document 08/04/22 09:50 LRN (Rec: 08/04/22 12:37 LRN [id number]) Out-Patient Physical Therapy Visit Information Visit Information Visit Type Treatment Note Visit Note Factory Assembler Cameron, #[id number] Visit Start Time 09:50 Visit Stop Time 10:38 Total Visit Minutes 48 Visit Number 47/99 Evaluation Information Evaluation Date 04/07/22 PT-OP-B Current Condition Start: 04/06/22 14:23 Freq: Status: Active Protocol: Document 04/07/22 10:30 AMB (Rec: 04/07/22 15:43 AMB [id number]) Current Condition History of Current Condition Onset Date 03/21/22 Current Complaints R TKA History of Current Condition Vashti attends PT with her son who interprets for her per her request. Usually we will use the hospital provided interpretation, but she wants him to help today. Vashti lives with another son and her boyfriend in a second story apartment. There are 16 steep steps to enter with a railing on the left side. She attends s/p R TKA and has been doing heel slides and TKE exercises and icing since surgery. Personal Factors Other Personal Factors That May Effect Fibromyalgia, hx hysterectomy, Therapy/Recovery neck pain, back pain PT-OP-C Subjective Start: 04/06/22 14:23 Freq: Status: Active Protocol: Document 08/04/22 09:50 LRN (Rec: 08/04/22 12:37 LRN [id number]) OP-PT Subjective Patient Comments Patient Comments States she has not exercised on TM due to packing for her move. PT-OP-K Range of Motion Start: 04/06/22 14:23 Freq: Status: Active Protocol: Document 08/01/22 09:45 LRN (Rec: 08/01/22 10:35 LRN [id number]) Knee Goniometric Range of Motion Knee Right Knee ROM WFL No Patient Position Supine Comments To Start: Measured with wall foot slide: AROM 2-125. Supine: Passive ROM 0-126 deg 's. Deferred supine AROM testing due to ms cramps in R foot. Pt needs to be cued to keep LB in ext of neutral with ROM. PT-OP-M Strength Start: 04/06/22 14:23 Freq: Status: Active Protocol: Document 04/07/22 10:30 AMB (Rec: 04/07/22 15:20 AMB [id number]) Knee Strength Knee Manual Muscle Testing Right Flexion (S2) 4- Good- Extension (L3) 3 Fair Left Flexion (S2) 4+ Good+ Extension (L3) 4+ Good+ PT-OP-Q Treatments Start: 04/06/22 14:23 Freq: Status: Active Protocol: Document 08/04/22 09:50 LRN (Rec: 08/04/22 12:37 LRN [id number]) Cardio Equipment Treadmill Duration (Minutes) 10 Speed 1.2 Other Gt training on TM (see gt training section) Gym Equipment Cable Column (Body Solid) Leg Curl Details Seat 5 holes showing Resistance 5 Reps/Time 15x 2 90-100% Leg Extension Details Seat: 5 holes Resistance 15# Reps/Time 15x 2 No R knee pain Therapeutic Exercises Supine Exercises heel slides Supine Exercise Name Assisted heel slides and with manual MWM of anteriorglide tib/fib Side right Equipment Used Gait belt assist Reps/Minutes 10' Comments MWM of Lat glide of tib/fib with flexion Prone Exercises R knee flex stretch Prone Exercise Name C/R stretch into flexion, f/b active knee flex Side right Equipment Used towel roll above knee Reps/Minutes 12' C/R sets x 2 and 1x with pt assist with flexion Standing Exercises Step ups Standing Exercise Name Step ups 8 step: Fwd & to R Side Side bilateral Reps/Minutes 4' Comments Cuing to control descent of LLE Gait Training Gait Activity Walking uneven surface Description Walking grass, inclines, declines, stairs Device Used None Level of Assistance Independent Surface Uneven Distance/Duration 4' Treatment Focus No LOB, no R knee pain. Comments Pt had intermittent R knee pain. PT-OP-R Modalities Start: 04/06/22 14:23 Freq: Status: Active Protocol: Document 08/04/22 09:50 LRN (Rec: 08/04/22 12:37 LRN [id number]) Hot Pack/Cold Pack Treatment Cold Pack Location R knee Patient Position Supine Treatment Duration (minutes) 10 Comments RLE up on bolster for Knee ext stretch PT-OP-T Assessment and Plan Start: 04/06/22 14:23 Freq: Status: Active Protocol: Document 08/04/22 09:50 LRN (Rec: 08/04/22 12:37 LRN [id number]) Physical Therapy Assessment Goals Gait Short Term Goal (STG) Vashti will ambulate over smooth surfaces with her SPC for 6 minutes without antalgic gait. 06/09/22: Walks on TM 8' at speed 22. On land walks 10' with SPC on level. Pt ambs with ?antalgic gait. 06/13/22: Pt has slight antalgic gait. 07/21/22: TM x 4' with normal gait, stopped due to R hip/ lateral>anterior thigh pain. 07/28/22: TM x 6' w/slight antalgic gait. 08/04/22: TM x 10' w/R lateral hip pain and occasional uneven heel strike pressure. STG Duration 07/04/22 (08/04/22; MET GOAL walking on TM) Group Home Goal (LTG) Vasthi will ambulate over uneven surfaces without an AD without antalgia or LOB. 06/16/22: Pt has mild gait deviation with excessive heel stike and hyperext of L knee. 07/14/22: Mild excessive L heel strike, normalized after ex training. 07/21/22: Pt reports being able to walk on grass and outside without AD, no LOB but with intermittent lateral R knee pain. LTG Duration 07/25/22 (07/25/22: Pt has intermittent antalgic gait, no LOB) Strength Short Term Goal (STG) Vashti will perform a SLR without quad lag to show improved quad activation. (05/02/22: Lack of knee ext due to decreased mobility, not quad lag) STG Duration 5 weeks (05/02/22: MET GOAL) Roof Service Technician Goal (LTG) Vashti will perform a partial squat without increase in baseline knee pain and with equal weightbearing. (05/25/22: Equal WBing, lateral knee pain with squat). 06/16/22: Pt has slight knee pain with squatting and equal WBing LE's. LTG Duration 07/25/22 (07/18/22: MET GOAL) One Impairment ROM Short Term Goal (STG) Vashti will improve her PROM to 0-110 degrees. (04/18/22: PROM: lacking 3 deg' s-87 deg's) (05/18/22: PROM: ext-lacking 3 deg's, flex 105 deg's) (05/23/22: PROM 0-110 deg's). (05/25/22: PROM 0-112 deg's, in supine) STG Duration 5 weeks (05/23/22: MET GOAL) Roof Service Technician Goal (LTG) Vashti will have AROM 0-120 degrees. (04/18/22: AROM: lacking 5 deg's -87 deg's) (05/02/22: Active Knee flexion is 102 deg's) (06/05/22: AROM R knee: 4-112 deg's) (06/09/22: AROM R knee: 2-110 deg's) (06/13/22: AROM R knee: 0-115 deg's) (06/16/22: AROM is 3-118, PROM 0-120) (06/23/22: AROM R knee 0-116, PROM 0-122) (07/14/22: AROM 0-121) (07/18/22: AROM 0-123, PROM 0- 125) LTG Duration 07/25/22 (07/18/22: MET GOAL) Progress Towards Goals Progress Comments Gait STG: MET Assessment Summary Assessment Pt shows good walking mechanics on TM with even pressure of foot strike on TM. Pt able to keep ROM goal with R knee after Prone knee stretching, before stretching R knee AROM is 120 deg's. Will need to assess pain with gait on uneven surfaces. Pt has less control of R knee with ECC contraction into flexion. Physical Therapy Plan Frequency and Duration Frequency of Treatment 2x/Week Plan of Care Start Date 07/18/22 Plan of Care End Date 09/08/22 Next Visit Focus/Plan Next Note Type Treatment Note Next Visit Plan DC next vist, 08/08/22, due to pt moving from the area. Assess knee pain with walking unlevel surface. Check R knee flex at end range , Self care: Balance for normal gait on uneven, and long distance uneven suface w/o pain (gait goals). Self care: gait to normal on stairs - strengthening ( functional ECC flexion). Cryotherapy for pain as needed .
--- NOTE | 2022-08-08 11:29 | PT.OPDS ---
Current Diagnoses Unilateral primary osteoarthritis, right knee (08/04/22) Visit Care Team Role Provider Type Tone Narvaez MD Family Provider Non-Staff Primary Care Provider Specialty: Family Practice Address: [address] [place] [address], [id number] Email: Cheri Brooks PA-C Attending Provider Non-Staff Referring Provider Specialty: General Surgery Address: [facility], [place], [address] Email: Visit Number Visit Number [id number] Discharge Summary PT-OP-B Current Condition Start: 04/06/22 14:23 Freq: Status: Active Protocol: Document 04/07/22 10:30 AMB (Rec: 04/07/22 15:43 AMB [id number]) Current Condition History of Current Condition Onset Date 03/21/22 Current Complaints R TKA History of Current Condition Vashti attends PT with her son who interprets for her per her request. Usually we will use the hospital provided interpretation, but she wants him to help today. Vashti lives with another son and her boyfriend in a second story apartment. There are 16 steep steps to enter with a railing on the left side. She attends s/p R TKA and has been doing heel slides and TKE exercises and icing since surgery. Personal Factors Other Personal Factors That May Effect Fibromyalgia, hx hysterectomy, Therapy/Recovery neck pain, back pain PT-OP-C Subjective Start: 04/06/22 14:23 Freq: Status: Active Protocol: Document 08/08/22 11:24 LRN (Rec: 08/08/22 11:28 LRN [id number]) OP-PT Subjective Patient Comments Patient Comments Per phone conversation, pt canceling therapy today due to LBP. Pt will not be returning to PT due to moved from the area; therefore requests DC from PT. PT-OP-K Range of Motion Start: 04/06/22 14:23 Freq: Status: Active Protocol: Document 08/01/22 09:45 LRN (Rec: 08/01/22 10:35 LRN [id number]) Knee Goniometric Range of Motion Knee Right Knee ROM WFL No Patient Position Supine Comments To Start: Measured with wall foot slide: AROM 2-125. Supine: Passive ROM 0-126 deg 's. Deferred supine AROM testing due to ms cramps in R foot. Pt needs to be cued to keep LB in ext of neutral with ROM. PT-OP-M Strength Start: 04/06/22 14:23 Freq: Status: Active Protocol: Document 04/07/22 10:30 AMB (Rec: 04/07/22 15:20 AMB [id number]) Knee Strength Knee Manual Muscle Testing Right Flexion (S2) 4- Good- Extension (L3) 3 Fair Left Flexion (S2) 4+ Good+ Extension (L3) 4+ Good+ PT-OP-T Assessment and Plan Start: 04/06/22 14:23 Freq: Status: Active Protocol: Document 08/08/22 11:24 LRN (Rec: 08/08/22 11:28 LRN [id number]) Physical Therapy Assessment Goals Gait Short Term Goal (STG) Vashti will ambulate over smooth surfaces with her SPC for 6 minutes without antalgic gait. 06/09/22: Walks on TM 8' at speed 22. On land walks 10' with SPC on level. Pt ambs with ?antalgic gait. 06/13/22: Pt has slight antalgic gait. 07/21/22: TM x 4' with normal gait, stopped due to R hip/ lateral>anterior thigh pain. 07/28/22: TM x 6' w/slight antalgic gait. 08/04/22: TM x 10' w/R lateral hip pain and occasional uneven heel strike pressure. STG Duration 07/04/22 (08/04/22; MET GOAL walking on TM) Plate Conditioner Goal (LTG) Vashti will ambulate over uneven surfaces without an AD without antalgia or LOB. 06/16/22: Pt has mild gait deviation with excessive heel stike and hyperext of L knee. 07/14/22: Mild excessive L heel strike, normalized after ex training. 07/21/22: Pt reports being able to walk on grass and outside without AD, no LOB but with intermittent lateral R knee pain. LTG Duration 07/25/22 (07/25/22: Pt has intermittent antalgic gait, no LOB) Strength Short Term Goal (STG) Vashti will perform a SLR without quad lag to show improved quad activation. (05/02/22: Lack of knee ext due to decreased mobility, not quad lag) STG Duration 5 weeks (05/02/22: MET GOAL) Plate Conditioner Goal (LTG) Vashti will perform a partial squat without increase in baseline knee pain and with equal weightbearing. (05/25/22: Equal WBing, lateral knee pain with squat). 06/16/22: Pt has slight knee pain with squatting and equal WBing LE's. LTG Duration 07/25/22 (07/18/22: MET GOAL) One Impairment ROM Short Term Goal (STG) Vashti will improve her PROM to 0-110 degrees. (04/18/22: PROM: lacking 3 deg' s-87 deg's) (05/18/22: PROM: ext-lacking 3 deg's, flex 105 deg's) (05/23/22: PROM 0-110 deg's). (05/25/22: PROM 0-112 deg's, in supine) STG Duration 5 weeks (05/23/22: MET GOAL) Prison Goal (LTG) Vashti will have AROM 0-120 degrees. (04/18/22: AROM: lacking 5 deg's -87 deg's) (05/02/22: Active Knee flexion is 102 deg's) (06/05/22: AROM R knee: 4-112 deg's) (06/09/22: AROM R knee: 2-110 deg's) (06/13/22: AROM R knee: 0-115 deg's) (06/16/22: AROM is 3-118, PROM 0-120) (06/23/22: AROM R knee 0-116, PROM 0-122) (07/14/22: AROM 0-121) (07/18/22: AROM 0-123, PROM 0- 125) LTG Duration 07/25/22 (07/18/22: MET GOAL) Assessment Summary Assessment Pt canceled her last appointment due to onset of back pain; therefore final assessment of gait was not performed. Pt has done well with her R TKA rehab, and has met most of her goals and is being discharged at pt request . Physical Therapy Plan Discharge Physical Therapy Discharge Reasons Patient Request Discharge Comments Pt moved from the area and requests discharge. Unable to be seen for her last visit due to back pain; therefore final assessment of her gait was not made. Thank you for your referral.
== END 2022-08-15 15:36 | disposition home or self-care (01) ==
LOC: PHYS 09:45
PROVIDERS: Family Provider Family Medicine; PCP Family Medicine; Referring Provider Physician Assistant; Visit Provider Physician Assistant
DX: M17.11 Unilateral primary osteoarthritis, right knee (principal)
CPT/HCPCS: 97010; 97110; 97116; 97140; 97162